=== PATIENT | male | born 1930 | race Caucasian/White ===

== ENCOUNTER → 2016-10-09 | Outpatient (CLI) | payer MEDICARE ==
--- NOTE | 2016-10-09 07:40 | US ---
EXAMINATION TYPE: US duplex aorta DATE OF EXAM: 10/09/2016 COMPARISON: CT abdomen pelvis 04/29/2012 CLINICAL HISTORY: I10.0 ATHEROSCLEROSIS OF AORTA. Atherosclerosis of aorta. EXAM MEASUREMENTS: Abdominal Aorta: Proximal: 2.1 x 2.2cm Mid: 2.0 x 1.9cm Distal: 1.8 x 1.8cm Right Iliac: 1.1 x 1.3cm Left Iliac: 1.1 x 1.3cm Atherosclerotic changes, aorta partially obscured by overlying midline bowel gas. IMPRESSION: 1. Normal aortic ultrasound.
== END | disposition home or self-care (01) ==
LOC: RADUSWWP 06:49
PROVIDERS: ATTEND Family Medicine
DX: I70.0 Atherosclerosis of aorta (principal)
CPT/HCPCS: 93979

== ENCOUNTER 2018-02-06 17:15 | Emergency (ER) | payer MEDICARE ==
[2018-02-06 18:01] VITALS: TEMP 98.2
[2018-02-06] MEDS ORDERED: SODIUM CHLORIDE 0.9% 1,000 ML IV STA (18:33)
--- NOTE | 2018-02-06 18:35 | ED ---
Back Pain HPI - General Source: patient, RN notes reviewed, old records reviewed Limitations: no limitations <Cate Rehman - Last Filed: 02/06/18 21:23> <Savanah Kate - Last Filed: 02/08/18 04:23> - General Chief Complaint: Back Pain/Injury Stated Complaint: back pain, diarrhea Time Seen by Provider: 02/06/18 18:18 - History of Present Illness Initial Comments: Patient is a pleasant 87-year-old male, who presents emergency room today with chief complaint of back pain. He reports his been suffering from back pain intermittently for the past few weeks. He reports that they have had x-rays done but no results. Patient states that yesterday after eating out, he had episodes of severe diarrhea. He states he feels somewhat tired and fatigued and dry. He reports that his urine has been quite dark. He states that he's had history of kidney stones and kidney issues in the past. Patient reports that the pain seems to be worse with certain movements over the left flank. He has history of coronary artery disease, hypertension. (Cate Rehman) - Related Data Home Medications Medication Instructions Recorded Confirmed Aspirin [[place] Aspirin EC] 81 mg PO DAILY 02/06/18 02/06/18 Atorvastatin [Lipitor] 20 mg PO DAILY 02/06/18 02/06/18 Carvedilol [Coreg] 3.125 mg PO BID 02/06/18 02/06/18 Colchicine 1.2 mg PO DIRECTED 02/06/18 02/06/18 Pantoprazole Sodium [Protonix] 40 mg PO DAILY 02/06/18 02/06/18 Verapamil HCl [Verapamil ER] 240 mg PO DAILY 02/06/18 02/06/18 busPIRone HCL 15 mg PO BID 02/06/18 02/06/18 levETIRAcetam [Keppra] 500 mg PO BID 02/06/18 02/06/18 Previous Rx's Medication Instructions Recorded Cyclobenzaprine [Flexeril] 10 mg PO TID #10 tab 02/06/18 Allergies Allergy/AdvReac Type Severity Reaction Status Date / Time No Known Allergies Allergy Verified 02/06/18 19:50 Review of Systems ROS Other: All systems not noted in ROS Statement are negative. <Cate Rehman - Last Filed: 02/06/18 21:23> ROS Other: All systems not noted in ROS Statement are negative. <Savanah Kate P - Last Filed: 02/08/18 04:23> ROS Statement: Those systems with pertinent positive or pertinent negative responses have been documented in the HPI. Past Medical History Past Medical History: Coronary Artery Disease (CAD), COPD, Diabetes Mellitus, Hyperlipidemia, Hypertension History of Any Multi-Drug Resistant Organisms: None Reported Past Surgical History: Coronary Bypass/CABG, Pacemaker Past Psychological History: No Psychological Hx Reported Smoking Status: Never smoker Past Alcohol Use History: None Reported Past Drug Use History: None Reported <Cate Rehman - Last Filed: 02/06/18 21:23> General Exam Limitations: no limitations General appearance: alert, in no apparent distress Head exam: Present: atraumatic, normocephalic, normal inspection Eye exam: Present: normal appearance, PERRL, EOMI. Absent: scleral icterus, conjunctival injection, periorbital swelling ENT exam: Present: normal exam, mucous membranes moist Neck exam: Present: normal inspection. Absent: tenderness, meningismus, lymphadenopathy Respiratory exam: Present: normal lung sounds bilaterally. Absent: respiratory distress, wheezes, rales, rhonchi, stridor Cardiovascular Exam: Present: regular rate, normal rhythm, normal heart sounds. Absent: systolic murmur, diastolic murmur, rubs, gallop, clicks GI/Abdominal exam: Present: soft, normal bowel sounds. Absent: distended, tenderness, guarding, rebound, rigid Extremities exam: Present: normal inspection, full ROM, normal capillary refill. Absent: tenderness, pedal edema, joint swelling, calf tenderness Back exam: Present: normal inspection, tenderness (She has tenderness over the lumbar spine and ASIS.) Neurological exam: Present: alert, oriented X3, CN II-XII intact Psychiatric exam: Present: normal affect, normal mood <Cate Rehman - Last Filed: 02/06/18 21:23> <Savanah Kate - Last Filed: 02/08/18 04:23> - General Exam Comments Initial Comments: 87-year-old male. Alert and oriented. Patient appears in no acute distress. ( Cate Rehman) Vital Signs 02/06/18 02/06/18 17:57 20:01 Temperature 98.2 F Pulse Rate 74 79 Respiratory 18 16 Rate Blood Pressure 148/78 174/81 O2 Sat by Pulse 96 96 Oximetry Medical Decision Making - Lab Data Result diagrams: 02/06/18 18:40 02/06/18 18:40 - Radiology Data Radiology results: report reviewed <Cate Rehman - Last Filed: 02/06/18 21:23> - Lab Data Result diagrams: 02/06/18 18:40 02/06/18 18:40 <Savanah Kate - Last Filed: 02/08/18 04:23> - Medical Decision Making 79-year-old male with periodic mid lower back pain worse with movement. Patient tender over the lumbar spine ASIS. This time patient's labs. Unremarkable. Urinalysis is clear. Gait infection slightly decreased that this is stable. KUB did show some evidence of bilateral effusion however Patient has history of seizures. No clinical picture of acute CHF. Is no dyspnea no shortness breath or chest pain. No lower external swelling. 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 Discussed at this time the patient's pain is also skeletal nature. He was given one Welch and reports relief of his pain. Patient will be discharged at this time with close follow-up with primary care provider. (Cate Rehman) I was available for consultation in the emergency department. The history and physical exam were done by the midlevel provider. I was consulted for this patient's care. I reviewed the case with the midlevel provider and based on their presentation of the patient, I agree with the assessment, medical decision making and plan of care as documented. Chart was dictated using Pops dictation software. Attempts were made to correct any dictation errors however some typographical errors may persist. (Savanah Kate) - Lab Data Lab Results 02/06/18 02/06/18 02/06/18 Range/Units 18:40 18:40 18:40 WBC 5.5 (3.8-10.6) k/uL RBC 3.80 L (4.30-5.90) m/uL Hgb 11.7 L (13.0-17.5) gm/dL Hct 37.8 L (39.0-53.0) % MCV 99.7 (80.0-100.0) fL MCH 30.8 (25.0-35.0) pg MCHC 30.9 L (31.0-37.0) g/dL RDW 14.1 (11.5-15.5) % Plt Count 103 L (150-450) k/uL Neutrophils % 52 % Lymphocytes % 30 % Monocytes % 9 % Eosinophils % 3 % Basophils % 0 % Neutrophils # 2.9 (1.3-7.7) k/uL Lymphocytes # 1.7 (1.0-4.8) k/uL Monocytes # 0.5 (0-1.0) k/uL Eosinophils # 0.2 (0-0.7) k/uL Basophils # 0.0 (0-0.2) k/uL PT 10.8 (9.0-12.0) sec INR 1.0 (<1.2) APTT 23.0 (22.0-30.0) sec Sodium 142 (137-145) mmol/L Potassium 4.6 (3.5-5.1) mmol/L Chloride 110 H (98-107) mmol/L Carbon Dioxide 24 (22-30) mmol/L Anion Gap 8 mmol/L BUN 21 H (9-20) mg/dL Creatinine 1.50 H (0.66-1.25) mg/dL Est GFR (CKD-EPI)AfAm 48 (>60 ml/min/1.73 sqM) Est GFR (CKD-EPI)NonAf 41 (>60 ml/min/1.73 sqM) Glucose 117 H (74-99) mg/dL Calcium 8.7 (8.4-10.2) mg/dL Total Bilirubin 0.7 (0.2-1.3) mg/dL AST 34 (17-59) U/L ALT 30 (21-72) U/L Alkaline Phosphatase 112 (38-126) U/L Total Protein 6.3 (6.3-8.2) g/dL Albumin 3.2 L (3.5-5.0) g/dL Amylase 38 (30-110) U/L Lipase 73 (23-300) U/L Urine Color Urine Appearance (Clear) Urine pH (5.0-8.0) Ur Specific [place] (1.001-1.035) Urine Protein (Negative) Urine Glucose (UA) (Negative) Urine Ketones (Negative) Urine Blood (Negative) Urine Nitrite (Negative) Urine Bilirubin (Negative) Urine Urobilinogen (<2.0) mg/dL Ur Leukocyte Esterase (Negative) 02/06/18 Range/Units 19:59 WBC (3.8-10.6) k/uL RBC (4.30-5.90) m/uL Hgb (13.0-17.5) gm/dL Hct (39.0-53.0) % MCV (80.0-100.0) fL MCH (25.0-35.0) pg MCHC (31.0-37.0) g/dL RDW (11.5-15.5) % Plt Count (150-450) k/uL Neutrophils % % Lymphocytes % % Monocytes % % Eosinophils % % Basophils % % Neutrophils # (1.3-7.7) k/uL Lymphocytes # (1.0-4.8) k/uL Monocytes # (0-1.0) k/uL Eosinophils # (0-0.7) k/uL Basophils # (0-0.2) k/uL PT (9.0-12.0) sec INR (<1.2) APTT (22.0-30.0) sec Sodium (137-145) mmol/L Potassium (3.5-5.1) mmol/L Chloride (98-107) mmol/L Carbon Dioxide (22-30) mmol/L Anion Gap mmol/L BUN (9-20) mg/dL Creatinine (0.66-1.25) mg/dL Est GFR (CKD-EPI)AfAm (>60 ml/min/1.73 sqM) Est GFR (CKD-EPI)NonAf (>60 ml/min/1.73 sqM) Glucose (74-99) mg/dL Calcium (8.4-10.2) mg/dL Total Bilirubin (0.2-1.3) mg/dL AST (17-59) U/L ALT (21-72) U/L Alkaline Phosphatase (38-126) U/L Total Protein (6.3-8.2) g/dL Albumin (3.5-5.0) g/dL Amylase (30-110) U/L Lipase (23-300) U/L Urine Color Yellow Urine Appearance Clear (Clear) Urine pH 5.0 (5.0-8.0) Ur Specific [place] 1.013 (1.001-1.035) Urine Protein Negative (Negative) Urine Glucose (UA) Negative (Negative) Urine Ketones Negative (Negative) Urine Blood Negative (Negative) Urine Nitrite Negative (Negative) Urine Bilirubin Negative (Negative) Urine Urobilinogen <2.0 (<2.0) mg/dL Ur Leukocyte Esterase Negative (Negative) - Radiology Data Unexamined. Bilateral pleural effusions basilar pulmonary infiltrates and atelectasis. (Cate Rehman) Disposition Is patient prescribed a controlled substance at d/c from ED?: No Time of Disposition: 21:22 <Cate Rehman - Last Filed: 02/06/18 21:23> <Savanah Kate - Last Filed: 02/08/18 04:23> Clinical Impression: Back spasm Disposition: HOME SELF-CARE Condition: Good Instructions: Acute Low Back Pain (ED) Additional Instructions: Patient has felt with primary care physician. Return to emergency department if any alarming signs or symptoms occur. Prescriptions: Cyclobenzaprine [Flexeril] 10 mg PO TID #10 tab Referrals: Ishaan Mata MD [Primary Care Provider] - 1-2 days
[2018-02-06 19:05] LABS: Basophils % (A) 0 %; Eosinophils # (A) 0.2 k/uL (0-0.7); Eosinophils % (A) 3 %; HCT 37.8 % (39.0-53.0); HGB 11.7 gm/dL (13.0-17.5); Lymphocytes # (A) 1.7 k/uL (1.0-4.8); Lymphocytes % (A) 30 %; MCH 30.8 pg (25.0-35.0); MCHC 30.9 g/dL (31.0-37.0); MCV 99.7 fL (80.0-100.0); Mean Platelet Volume 10.8; Monocytes # (A) 0.5 k/uL (0-1.0); Monocytes % (A) 9 %; Neutrophils # (A) 2.9 k/uL (1.3-7.7); Neutrophils % (A) 52 %; Platelet Count 103 k/uL (150-450); RDW 14.1 % (11.5-15.5); WBC 5.5 k/uL (3.8-10.6)
--- NOTE | 2018-02-06 19:09 | XR ---
EXAMINATION TYPE: XR KUB DATE OF EXAM: 02/06/2018 COMPARISON: NONE HISTORY: Abdominal pain TECHNIQUE: 2 views FINDINGS: There is no sign of intestinal obstruction or pneumoperitoneum. Fecal pattern is normal. Th ere is blunting of costophrenic angles. There are no pathologic calcifications over the kidneys. IMPRESSION: Nonacute abdomen. Bilateral pleural effusions and basilar pulmonary infiltrates and atele ctasis.
[2018-02-06 19:15] LABS: Prothrombin Time 10.8 sec (9.0-12.0)
[2018-02-06 19:19] LABS: Albumin 3.2 g/dL (3.5-5.0); Calcium 8.7 mg/dL (8.4-10.2); Potassium 4.6 mmol/L (3.5-5.1); Total Bilirubin 0.7 mg/dL (0.2-1.3); Total Protein 6.3 g/dL (6.3-8.2)
[2018-02-06] MEDS ORDERED: HYDROcodone/APAP 5-325MG 1 EACH TAB PO STA (19:42)
[2018-02-06 20:09] VITALS: BP 174/81; PULSE 79; RESP 16
[2018-02-06 20:12] LABS: Appearance,Urine Clear (Clear); Bilirubin,Urine Negative (Negative); Blood,Urine Negative (Negative); Color,Urine Yellow; Glucose,Urine (UA) Negative (Negative); Ketones,Urine Negative (Negative); Leukocyte Esterase,Urine Negative (Negative); Nitrite,Urine Negative (Negative); Protein,Urine Negative (Negative); Specific Gravity,Urine 1.013 (1.001-1.035); Urobilinogen,Urine <2.0 mg/dL (<2.0)
[2018-02-06] MEDS ORDERED: ACET/COD 300 MG/30 MG STARTER PACK 6 TAB BTL PO STA (21:22)
== END 2018-02-06 21:34 | disposition home or self-care (01) ==
LOC: EC 17:15
DX: M62.830 Muscle spasm of back (principal); R53.83 Other fatigue; R19.7 Diarrhea, unspecified; I25.10 Atherosclerotic heart disease of native coronary artery without angina pectoris; J44.9 Chronic obstructive pulmonary disease, unspecified; E78.5 Hyperlipidemia, unspecified; I10 Essential (primary) hypertension; Z79.82 Long term (current) use of aspirin; Z79.899 Other long term (current) drug therapy; Z95.5 Presence of coronary angioplasty implant and graft; Z95.0 Presence of cardiac pacemaker
CPT/HCPCS: 36415; 74018; 80053; 81003; 82150; 83690; 85025; 85610; 85730; 96360; 99284

== ENCOUNTER → 2018-04-16 | Outpatient (CLI) | payer MEDICARE ==
--- NOTE | 2018-04-16 14:20 | CT ---
EXAMINATION TYPE: CT brain wo con DATE OF EXAM: 04/16/2018 COMPARISON: None HISTORY: 87-year-old male with syncope and collapse TECHNIQUE: Examination was done in axial plane without intravenous contrast. Coronal and sagittal r econstructions performed. CT DLP: 1147 mGycm Automated exposure control for dose reduction was used. FINDINGS: There is no evidence of acute intracranial hemorrhage, acute ischemic changes, mass, mass-effect, or extra-axial fluid collection. There is no effacement of cerebral sulci or basal subarachnoid cister ns. There is no hydrocephalus. There is no midline shift. Page-white matter distinction is preserv ed. Small amount of trapped fluid in the inferior most left mastoid air cells. Prominent cerumen in the b ilateral external auditory canals. Visualized paranasal sinuses are well pneumatized. Orbits and glob es appear intact. Mild generalized supratentorial volume loss without discrete calcifications in the carotid siphons. T here is confluent white matter hypodensity in both cerebral hemispheres. IMPRESSION: 1. Severe confluent changes of chronic small vessel ischemic disease. Mild generalized atrophy. No ac maranda intracranial abnormality seen. 2. Small amount of trapped fluid in the inferior most left mastoid air cells probably incidental. Cor relate for any mastoid pain to exclude mastoiditis.
== END | disposition home or self-care (01) ==
LOC: RADCTMAIN 13:06
PROVIDERS: ATTEND Nurse Practitioner Acute Care
DX: I67.82 Cerebral ischemia (principal); G31.9 Degenerative disease of nervous system, unspecified
CPT/HCPCS: 70450

== ENCOUNTER 2018-04-17 21:48 | Inpatient (IN) | payer MEDICARE ==
[2018-04-17] MEDS ORDERED: SODIUM CHLORIDE 0.9% 500 ML 500 ML IV ONE (22:20)
--- NOTE | 2018-04-17 22:37 | ED ---
Abdominal Pain HPI - General Chief Complaint: Abdominal Pain Stated Complaint: abd pain Time Seen by Provider: 04/17/18 21:58 Source: patient, EMS Mode of arrival: EMS Limitations: no limitations - History of Present Illness Initial Comments: This is an 87-year-old male with a history of CAD, pacemaker who presents emergency department for weakness, fatigue, falls. The patient states that he' s had multiple episodes of weakness recently and also had a fall with a subdural hematoma. Today he was eating dinner and then developed some generalized abdominal discomfort. He stated that he felt like he needed to urinate and tried to walk to the bathroom. He states that he lost his balance and fell down. He states that he may have hit his head however does not complain of any headache currently. No neck pain. He states that he was very weak and unable to get up and thus he called an embolus for assistance. The patient states he just feels weak all over. It is not focal to one side versus the other. He does admit to some mid abdominal discomfort that seems to wax and wane in intensity. He states he has some nausea as well however no vomiting. No diarrhea. He states that his last good bowel movement was 2 days ago. He did have a small bowel movement earlier today. No blood in the stool was noted. Denies any chest pain or shortness of breath. No fevers or chills. No other acute complaints. - Related Data Home Medications Medication Instructions Recorded Confirmed Aspirin [[place] Aspirin EC] 81 mg PO DAILY 02/06/18 04/17/18 Atorvastatin [Lipitor] 20 mg PO DAILY 02/06/18 04/17/18 Carvedilol [Coreg] 3.125 mg PO BID 02/06/18 04/17/18 Colchicine 1.2 mg PO DIRECTED 02/06/18 04/17/18 Pantoprazole Sodium [Protonix] 40 mg PO DAILY 02/06/18 04/17/18 Verapamil HCl [Verapamil ER] 240 mg PO DAILY 02/06/18 04/17/18 busPIRone HCL 15 mg PO BID 02/06/18 04/17/18 levETIRAcetam [Keppra] 500 mg PO BID 02/06/18 04/17/18 Sulfamethoxazole/Trimethoprim 1 tab PO BID 04/17/18 04/17/18 [Bactrim SS 400-80 mg] Allergies Allergy/AdvReac Type Severity Reaction Status Date / Time No Known Allergies Allergy Verified 04/17/18 22:29 Review of Systems ROS Statement: Those systems with pertinent positive or pertinent negative responses have been documented in the HPI. ROS Other: All systems not noted in ROS Statement are negative. Past Medical History Past Medical History: Coronary Artery Disease (CAD), COPD, Diabetes Mellitus, Hyperlipidemia, Hypertension History of Any Multi-Drug Resistant Organisms: None Reported Past Surgical History: Coronary Bypass/CABG, Pacemaker Past Psychological History: No Psychological Hx Reported Smoking Status: Never smoker Past Alcohol Use History: None Reported Past Drug Use History: None Reported General Exam - General Exam Comments Initial Comments: Constitutional: Awake alert Appears comfortable Head: Normocephalic atraumatic , no signs of head trauma Eyes: no conjunctival injection No scleral icterus EOMI Neck: No JVD Supple, no midline tenderness Heart: Regular rate rhythm normal S1-S2 no murmurs Lungs: Clear to auscultation bilaterally No wheezing No rales Abdomen: Soft nondistended tenderness in the right and left lower quadrants without rebound or guarding Extremities: Non edematous DP pulses intact Radial pulses intact Neuro: A&Ox3, 5 out of 5 strength in upper and lower [place] bilaterally, sensation intact in all extremities to light touch, no ataxia noted, crowner 2 through 12 are grossly intact No focal neurologic deficits Psych: Appropriate mood and affect Limitations: no limitations Course Vital Signs 04/17/18 04/17/18 04/18/18 21:54 23:30 00:49 Temperature 97.0 F L Pulse Rate 60 80 60 Respiratory 14 18 18 Rate Blood Pressure 107/59 113/66 91/48 O2 Sat by Pulse 97 98 94 L Oximetry - Reevaluation(s) Reevaluation #1: 04/18/18 00:42 EKG read at 2305 shows a paced rhythm with a rate of 60. There is no abnormal ST segment changes or T-wave inversions. QTC is 514. Other intervals normal. No ectopy. Medical Decision Making - Medical Decision Making This is an 87-year-old male who presents emergency department for generalized weakness, fall, abdominal discomfort. CT did reveal a gallstone however no other emergent process. The patient did have findings of acute kidney injury and severe hyperkalemia. There did not appear to be any EKG changes however. The patient was given calcium, insulin, D50, and Kayexalate. The patient was kept on a monitor car operator as well. The patient did have intermittent episodes of nausea and vomiting on the emergency department. He does have some mild transaminitis and thus an ultrasound of the abdomen was ordered. The patient also was found to have a non-anion gap metabolic acidosis. ABG was drawn for evaluation. PH was found to be 7.23. Patient was started on gentle IV fluids for his acute kidney injury. The patient was recently placed on Bactrim for a foot infection which could've potentially have precipitated his acute kidney injury however the patient needs further evaluation in the hospital. The patient will be placed in ICU due to his severe hyperkalemia. Dr. Mata and Dr. Adkins were made aware of the patient and agree with management at this time. The patient family were updated and agrees well. - Lab Data Result diagrams: 04/17/18 22:47 04/17/18 22:47 Lab Results 04/17/18 04/17/18 04/17/18 Range/Units 22:47 22:47 22:47 WBC 5.2 (3.8-10.6) k/uL RBC 3.94 L (4.30-5.90) m/uL Hgb 12.3 L (13.0-17.5) gm/dL Hct 39.6 (39.0-53.0) % MCV 100.6 H (80.0-100.0) fL MCH 31.1 (25.0-35.0) pg MCHC 30.9 L (31.0-37.0) g/dL RDW 15.0 (11.5-15.5) % Plt Count 70 L (150-450) k/uL Neutrophils % 66 % Lymphocytes % 24 % Monocytes % 7 % Eosinophils % 1 % Basophils % 0 % Neutrophils # 3.4 (1.3-7.7) k/uL Lymphocytes # 1.2 (1.0-4.8) k/uL Monocytes # 0.4 (0-1.0) k/uL Eosinophils # 0.1 (0-0.7) k/uL Basophils # 0.0 (0-0.2) k/uL Manual Slide Review Performed Large Platelets Present Hypochromasia Moderate Poikilocytosis (manual Present Macrocytosis Slight Crenated Cell Present PT (9.0-12.0) sec INR (<1.2) APTT (22.0-30.0) sec Sodium 139 (137-145) mmol/L Potassium 8.6 H* (3.5-5.1) mmol/L Chloride 111 H (98-107) mmol/L Carbon Dioxide 17 L (22-30) mmol/L Anion Gap 11 mmol/L BUN 25 H (9-20) mg/dL Creatinine 2.79 H (0.66-1.25) mg/dL Est GFR (CKD-EPI)AfAm 22 (>60 ml/min/1.73 sqM) Est GFR (CKD-EPI)NonAf 19 (>60 ml/min/1.73 sqM) Glucose 174 H (74-99) mg/dL Calcium 9.1 (8.4-10.2) mg/dL Magnesium 2.0 (1.6-2.3) mg/dL Total Bilirubin 1.5 H (0.2-1.3) mg/dL AST 173 H (17-59) U/L ALT 89 H (21-72) U/L Alkaline Phosphatase 126 (38-126) U/L CK-MB (CK-2) 1.1 (0.0-2.4) ng/mL Troponin I 0.013 (0.000-0.034) ng/mL NT-Pro-B Natriuret Pep pg/mL Total Protein 6.6 (6.3-8.2) g/dL Albumin 3.4 L (3.5-5.0) g/dL Amylase 39 (30-110) U/L Lipase 96 (23-300) U/L 04/17/18 04/17/18 Range/Units 22:47 22:47 WBC (3.8-10.6) k/uL RBC (4.30-5.90) m/uL Hgb (13.0-17.5) gm/dL Hct (39.0-53.0) % MCV (80.0-100.0) fL MCH (25.0-35.0) pg MCHC (31.0-37.0) g/dL RDW (11.5-15.5) % Plt Count (150-450) k/uL Neutrophils % % Lymphocytes % % Monocytes % % Eosinophils % % Basophils % % Neutrophils # (1.3-7.7) k/uL Lymphocytes # (1.0-4.8) k/uL Monocytes # (0-1.0) k/uL Eosinophils # (0-0.7) k/uL Basophils # (0-0.2) k/uL Manual Slide Review Large Platelets Hypochromasia Poikilocytosis (manual Macrocytosis Crenated Cell PT 12.5 H (9.0-12.0) sec INR 1.2 H (<1.2) APTT 23.2 (22.0-30.0) sec Sodium (137-145) mmol/L Potassium (3.5-5.1) mmol/L Chloride (98-107) mmol/L Carbon Dioxide (22-30) mmol/L Anion Gap mmol/L BUN (9-20) mg/dL Creatinine (0.66-1.25) mg/dL Est GFR (CKD-EPI)AfAm (>60 ml/min/1.73 sqM) Est GFR (CKD-EPI)NonAf (>60 ml/min/1.73 sqM) Glucose (74-99) mg/dL Calcium (8.4-10.2) mg/dL Magnesium (1.6-2.3) mg/dL Total Bilirubin (0.2-1.3) mg/dL AST (17-59) U/L ALT (21-72) U/L Alkaline Phosphatase (38-126) U/L CK-MB (CK-2) (0.0-2.4) ng/mL Troponin I (0.000-0.034) ng/mL NT-Pro-B Natriuret Pep 9830 pg/mL Total Protein (6.3-8.2) g/dL Albumin (3.5-5.0) g/dL Amylase (30-110) U/L Lipase (23-300) U/L Disposition Clinical Impression: Metabolic acidosis, Hyperkalemia, KATHYA (acute kidney injury), Cholelithiasis Disposition: ADMITTED IP TO THIS [facility] Condition: Critical Referrals: Ishaan Mata MD [Primary Care Provider] - 1-2 days
[2018-04-17] MEDS ORDERED: DICYCLOMINE 10 MG/ML 2 ML AMP IM STA (22:53)
[2018-04-17] MEDS ORDERED: ONDANSETRON 4 MG/2 ML VIAL IVP STA (22:53)
[2018-04-17 22:58] LABS: Basophils % (A) 0 %; Eosinophils # (A) 0.1 k/uL (0-0.7); Eosinophils % (A) 1 %; HCT 39.6 % (39.0-53.0); HGB 12.3 gm/dL (13.0-17.5); Hypochromasia Moderate; Lymphocytes # (A) 1.2 k/uL (1.0-4.8); Lymphocytes % (A) 24 %; MCH 31.1 pg (25.0-35.0); MCHC 30.9 g/dL (31.0-37.0); MCV 100.6 fL (80.0-100.0); Macrocytosis Slight; Mean Platelet Volume 10.6; Monocytes # (A) 0.4 k/uL (0-1.0); Monocytes % (A) 7 %; Neutrophils # (A) 3.4 k/uL (1.3-7.7); Neutrophils % (A) 66 %; RBC 3.94 m/uL (4.30-5.90); WBC 5.2 k/uL (3.8-10.6)
[2018-04-17 23:08] LABS: INR 1.2 (<1.2); Partial Thromboplastin Time 23.2 sec (22.0-30.0); Prothrombin Time 12.5 sec (9.0-12.0)
[2018-04-17 23:09] LABS: Albumin 3.4 g/dL (3.5-5.0); Calcium 9.1 mg/dL (8.4-10.2); Total Bilirubin 1.5 mg/dL (0.2-1.3); Total Protein 6.6 g/dL (6.3-8.2)
[2018-04-17 23:22] LABS: Potassium 8.6 mmol/L (3.5-5.1)
[2018-04-17 23:26] LABS: Crenated RBC Present; Poikilocytosis (M) Present
[2018-04-17 23:27] LABS: Large Platelets Present; Platelet Count 70 k/uL (150-450)
[2018-04-17 23:29] LABS: Creatine Kinase MB 1.1 ng/mL (0.0-2.4); Troponin I 0.013 ng/mL (0.000-0.034)
--- NOTE | 2018-04-18 00:28 | CT ---
EXAM: CT Abdomen and Pelvis Without Intravenous Contrast CLINICAL HISTORY: ITS.REASON CT Reason: Pain TECHNIQUE: Axial computed tomography images of the abdomen and pelvis without intravenous contrast. CTDI is 9.2 mGy and DLP is a 49 mGy-cm. This CT exam was performed using one or more of the following dose reduction techniques: automated exposure control, adjustment of the mA and/or kV according to patient size, and/or use of iterative reconstruction technique. COMPARISON: No relevant prior studies available. FINDINGS: Lung bases: See below. Pleural space: Bilateral pleural effusions with atelectasis. ABDOMEN: Liver: No suspicious mass. Gallbladder and bile ducts: Cholelithiasis. Pancreas: Unremarkable. No ductal dilation. Spleen: Unremarkable. No splenomegaly. Adrenals: Unremarkable. No mass. Kidneys and ureters: Possible nonobstructing left renal stone. Stomach and bowel: No obstruction. No mucosal thickening. Colonic diverticulosis without inflammation. PELVIS: Appendix: No findings to suggest acute appendicitis. Bladder: Unremarkable. No stones. Reproductive: Unremarkable as visualized. ABDOMEN and PELVIS: Intraperitoneal space: Mild free fluid in the pelvis. No free air. Bones/joints: No acute fracture. No dislocation. Soft tissues: Unremarkable. Vasculature: No abdominal aortic aneurysm. Lymph nodes: Unremarkable. No enlarged lymph nodes. IMPRESSION: 1. Bilateral pleural effusions with atelectasis. 2. Cholelithiasis. 3. Mild free fluid in the pelvis. 4. Possible nonobstructing left renal stone.
--- NOTE | 2018-04-18 00:29 | CT ---
EXAM: CT Head Without Intravenous Contrast CLINICAL HISTORY: ITS.REASON CT Reason: Fall TECHNIQUE: Axial computed tomography images of the head/brain without intravenous contrast. CTDI is 49 mGy and DLP is 1129 mGy-cm. This CT exam was performed using one or more of the following dose reduction techniques: automated exposure control, adjustment of the mA and/or kV according to patient size, and/or use of iterative reconstruction technique. COMPARISON: No relevant prior studies available. FINDINGS: Brain: No hemorrhage. No edema. Ventricles: Unremarkable. No ventriculomegaly. Bones/joints: No acute fracture. Soft tissues: Unremarkable. Sinuses: No fluid levels. Mastoid air cells: Unremarkable as visualized. No mastoid effusion. IMPRESSION: No acute intracranial findings
[2018-04-18] MEDS ORDERED: DEXTROSE 50%-WATER 50 ML SYRINGE IVP STA ×2 (00:39→08:52)
[2018-04-18] MEDS ORDERED: INSULIN REGULAR 100 UNIT/ML VIAL IV ONE ×2 (00:39→08:51)
[2018-04-18] MEDS ORDERED: CALCIUM GLUCONATE 1 GM in SODIUM CHLORIDE 0.9% 100 ML IVPB ONE (01:00)
[2018-04-18] MEDS ORDERED: SODIUM POLYSTYRENE SULFONATE 15 GM/60 ML BOTTLE PO STA ×3 (01:06→09:13)
[2018-04-18] MEDS ORDERED: NALOXONE 0.4 MG/ML 1 ML VIAL IV PRN (01:09)
[2018-04-18] MEDS ORDERED: ACETAMINOPHEN TAB 325 MG TAB PO PRN (01:09)
[2018-04-18 01:11] LABS: ABG Base Excess -12.2 mmol/L; ABG HCO3 15 mmol/L (21-25); ABG Oxygen Saturation 93.3 % (94-97); ABG PCO2 36 mmHg (35-45); ABG PH 7.24 (7.35-7.45); ABG PO2 80 mmHg (83-108); ABG TCO2 16 mmol/L (19-24)
--- NOTE | 2018-04-18 02:08 | US ---
EXAM: US Abdomen Complete CLINICAL HISTORY: ITS.REASON US Reason: Elevated LFTs, Abd pain TECHNIQUE: Real-time ultrasound of the abdomen (complete) with image documentation. COMPARISON: No relevant prior studies available. FINDINGS: Cholelithiasis with possible wall thickening at 7 mm. The gallbladder is not distended, limiting evaluation, and lower probability for cholecystitis. No pericholecystic fluid. No CBD dilatation. No solid organ abnormalities. Right pleural effusion. IMPRESSION: Cholelithiasis. Cannot exclude cholecystitis.
[2018-04-18] MEDS: SODIUM CHLORIDE 0.9% 1,000 ML IV SCH ×2 (02:15→15:38)
[2018-04-18 02:23] LABS: Glucose,Whole Blood 181 mg/dL (75-99)
[2018-04-18] MEDS: metroNIDAZOLE-NS PMX 500 MG in SALINE 1 100ML.BAG IVPB SCH ×3 (03:03→18:19)
[2018-04-18] MEDS ORDERED: SODIUM CHLORIDE 0.9% 1,000 ML IV ONE (04:39)
[2018-04-18 05:46] LABS: Glucose,Whole Blood 115 mg/dL (75-99)
[2018-04-18] MEDS: INSULIN ASPART (NovoLOG) 100 UNIT/ML VIAL SQ SCH ×4 (06:26→20:00)
[2018-04-18 06:36] LABS: Appearance,Urine Cloudy (Clear); Bilirubin,Urine 1+ (Negative); Blood,Urine Moderate (Negative); Color,Urine Yellow; Glucose,Urine (UA) Negative (Negative); Ketones,Urine Negative (Negative); Leukocyte Esterase,Urine Trace (Negative); Mucus,Urine Occasional /hpf; Nitrite,Urine Negative (Negative); PH, Urine 5.5 (5.0-8.0); Protein,Urine 1+ (Negative); RBC,Urine 30 /hpf (0-5); Specific Gravity,Urine 1.018 (1.001-1.035); Squamous Epithelial Cell,Urine 1 /hpf (0-4)
[2018-04-18 07:35] LABS: Basophils % (A) 0 %; Eosinophils % (A) 0 %; HCT 37.4 % (39.0-53.0); HGB 11.6 gm/dL (13.0-17.5); Hypochromasia Marked; Lymphocytes # (A) 1.4 k/uL (1.0-4.8); Lymphocytes % (A) 19 %; MCH 31.6 pg (25.0-35.0); MCHC 31.1 g/dL (31.0-37.0); MCV 101.6 fL (80.0-100.0); Macrocytosis Slight; Mean Platelet Volume 12.3; Monocytes # (A) 0.7 k/uL (0-1.0); Monocytes % (A) 9 %; Neutrophils # (A) 5.1 k/uL (1.3-7.7); Neutrophils % (A) 68 %; RBC 3.68 m/uL (4.30-5.90); RDW 14.5 % (11.5-15.5); WBC 7.5 k/uL (3.8-10.6)
[2018-04-18 07:38] LABS: Platelet Count 53 k/uL (150-450)
[2018-04-18 07:55] LABS: Calcium 8.9 mg/dL (8.4-10.2); Magnesium 1.9 mg/dL (1.6-2.3); Phosphorus 4.4 mg/dL (2.5-4.5)
[2018-04-18 08:00] LABS: Potassium 6.5 mmol/L (3.5-5.1)
[2018-04-18] MEDS: busPIRone HCl 5 MG TAB PO SCH ×2 (09:07→20:13)
[2018-04-18] MEDS: ATORVASTATIN 20 MG TAB PO SCH (09:08)
[2018-04-18] MEDS: HEPARIN SODIUM,PORCINE 5,000 UNIT/ML 1 ML VIAL SQ SCH ×3 (09:09→23:13)
[2018-04-18] MEDS: PANTOPRAZOLE 40 MG/10 ML VIAL IV SCH (09:09)
[2018-04-18] MEDS: CARVEDILOL 3.125 MG TAB PO SCH ×2 (09:09→20:14)
[2018-04-18] MEDS: levETIRAcetam 500 MG TAB PO SCH ×2 (09:09→20:15)
[2018-04-18] MEDS: ASPIRIN 81 MG PO SCH (09:09)
[2018-04-18] MEDS ORDERED: SODIUM BICARB 8.4% 50 ML SYR (1 MEQ/ML) IV ONE ×2 (09:13→09:37)
--- NOTE | 2018-04-18 09:59 | P.CNPUL ---
<Eulalia Best - Last Filed: 04/18/18 09:16> History of Present Illness Consult date: 04/18/18 Requesting physician: Ishaan Mata Reason for consult: other Chief complaint: Acute kidney injury, hyperkalemia History of present illness: This 87-year-old white male patient of Dr. Ishaan Mata, with past medical history of diabetes mellitus, hypertension, hyperlipidemia, coronary artery disease with history of three-vessel bypass 33 years ago, permanent pacemaker, chronic kidney disease, who presented to the emergency department on 04/17/2018 per EMS with complaints of weakness, fatigue, falls, nausea, dry heaving, decreased urine output. Patient states his onset of symptoms was 2 days ago, patient felt quite nauseous after eating some tomato soup, then he was up most of the night dry heaving. He had a similar episode after eating some potato salad. He never actually had any vomiting, no diarrhea. He was experiencing some abdominal discomfort he described as tightness across his upper abdomen. Denied any fever or chills, he did have some sweating when he was nauseous. Most recently patient had been treated for ingrown right total infection, and patient states he was treated with 2 rounds of antibiotics with the latest one being Bactrim. In the emergency department patient was found to have potassium of 8.6, B1 of 25, creatinine of 2.79, no leukocytosis, white blood cell count was 5.2, hemoglobin of 12.3, platelet count was 70, urinalysis showed 1+ protein , some red blood cells, trace leuks, and 1+ nitrite. Blood gas was done and showed pO2 of 80, pCO2 of 36, pH of 7.24 this was done on FiO2 of 30%. Patient denied any chest pain or shortness of breath. Renal ultrasound showed no evidence of hydronephrosis. Ultrasound of the aorta showed no abnormalities. Flat plate of the abdomen showed nonacute abdomen, showed bilateral pleural effusions and basilar pulmonary infiltrates and atelectasis. CT of abdomen and pelvis showed bilateral pleural effusions with atelectasis cholelithiasis without ductal dilatation, possible nonobstructing left renal stone. From the chart patient had of history of subdural hematoma, and brain CT was obtained which showed no acute intracranial findings. Amylase lipase were within normal limits, troponin was negative 1, proBNP was 9830. Patient has been normotensive, afebrile. He was given a liter and a half of fluid boluses in the emergency department, he was given calcium gluconate, IV insulin, and 50% dextrose in addition to Kayexalate, and this morning's potassium is 6.5. He is calm and comfortable, resting in bed, denies any distress, no abdominal pain, no nausea or vomiting. Review of Systems All systems: negative Constitutional: Denies chills, Denies fever Eyes: denies blurred vision, denies pain Ears, nose, mouth and throat: Denies headache, Denies sore throat Cardiovascular: Denies chest pain, Denies shortness of breath Respiratory: Denies cough Gastrointestinal: Reports abdominal pain, Reports dyspepsia, Reports nausea, Denies diarrhea, Denies vomiting Genitourinary: Reports urinary retention Musculoskeletal: Denies myalgias Integumentary: Denies pruritus, Denies rash Neurological: Denies numbness, Denies weakness Psychiatric: Denies anxiety, Denies depression Endocrine: Denies fatigue, Denies weight change Past Medical History Past Medical History: Coronary Artery Disease (CAD), COPD, Diabetes Mellitus, Hyperlipidemia, Hypertension History of Any Multi-Drug Resistant Organisms: None Reported Past Surgical History: Coronary Bypass/CABG, Pacemaker Type of Cardiac Device: Permanent Pacemaker Device Placement Date:: 2015 Past Psychological History: No Psychological Hx Reported Smoking Status: Never smoker Past Alcohol Use History: None Reported Past Drug Use History: None Reported Medications and Allergies Home Medications Medication Instructions Recorded Confirmed Type Aspirin [[place] Aspirin EC] 81 mg PO DAILY 02/06/18 04/17/18 History Atorvastatin [Lipitor] 20 mg PO DAILY 02/06/18 04/17/18 History Carvedilol [Coreg] 3.125 mg PO BID 02/06/18 04/17/18 History Colchicine 1.2 mg PO DIRECTED 02/06/18 04/17/18 History Pantoprazole Sodium [Protonix] 40 mg PO DAILY 02/06/18 04/17/18 History Verapamil HCl [Verapamil ER] 240 mg PO DAILY 02/06/18 04/17/18 History busPIRone HCL 15 mg PO BID 02/06/18 04/17/18 History levETIRAcetam [Keppra] 500 mg PO BID 02/06/18 04/17/18 History Sulfamethoxazole/Trimethoprim 1 tab PO BID 04/17/18 04/17/18 History [Bactrim SS 400-80 mg] Allergies Allergy/AdvReac Type Severity Reaction Status Date / Time No Known Allergies Allergy Verified 04/17/18 22:29 Physical Exam Vitals: Vital Signs Temp Pulse Pulse Resp BP BP Pulse Ox 04/18/18 08:00 98.5 F 71 22 162/71 92 L 04/18/18 07:00 71 18 151/73 92 L 04/18/18 06:00 68 18 154/82 95 04/18/18 05:00 64 17 114/59 94 L 04/18/18 04:00 98.1 F 60 18 134/62 95 04/18/18 03:00 62 91 16 134/72 95 04/18/18 02:23 98.1 F 91 18 134/72 04/18/18 02:00 98 F 60 18 110/63 96 04/18/18 01:30 97.9 F 60 18 110/63 92 L 04/18/18 00:49 60 18 91/48 94 L 04/17/18 23:30 80 18 113/66 98 04/17/18 21:54 97.0 F L 60 14 107/59 97 Intake and Output 04/17/18 04/18/18 04/18/18 22:59 06:59 14:59 Intake Total 1525 225 Output Total 60 40 Balance 1465 185 Intake: IV 1525 225 Sodium Chloride 0.9% 1, 375 225 000 ml @ 75 mls/hr IV . [id number] [facility] Rx#:[id number] Sodium Chloride 0.9% 1, 1000 000 ml @ 999 mls/hr IV . Q1H1M [facility] Rx#:[id number] cefTRIAXone 1 gm In 50 Sodium Chloride 0.9% 50 ml @ 100 mls/hr IVPB Q24H [facility] Rx#:[id number] metroNIDAZOLE-NS PMX 500 100 mg In Saline 1 100ml.bag @ 100 mls/hr IVPB Q8H [facility] Rx#:[id number] Output: Urine 60 40 Other: Voiding Method Urinal Weight 78 kg GENERAL EXAM: Alert, active, comfortable in no apparent distress. HEAD: Normocephalic/atraumatic. EYES: Normal reaction of pupils, equal size. Conjunctiva pink, sclera white. NOSE: Clear with pink turbinates. THROAT: No erythema or exudates. NECK: No masses, no JVD, no thyroid enlargement, no adenopathy. CHEST: No chest wall deformity. Symmetrical expansion. LUNGS: Equal air entry with diminished breath sounds at bilateral bases, CVS: Regular rate and rhythm, normal S1 and S2, no gallops, no murmurs, no rubs ABDOMEN: Soft, nontender. No hepatosplenomegaly, normal bowel sounds, no guarding or rigidity. EXTREMITIES: No clubbing, no edema, no cyanosis, 2+ pulses and upper and lower extremities. MUSCULOSKELETAL: Muscle strength and tone normal. Right toenail is covered with a dressing, ears to be ingrown, slightly swollen at the base, tender to touch SPINE: No scoliosis or deformity SKIN: No rashes CENTRAL NERVOUS SYSTEM: Alert and oriented -3. No focal deficits, tone is normal in all 4 extremities. PSYCHIATRIC: Alert and oriented -3. Appropriate affect. Intact judgment and insight. Results - Laboratory Findings CBC and BMP: 04/18/18 07:16 04/18/18 07:16 ABG ABG pH 7.24 (7.35-7.45) L 04/18/18 01:10 ABG pCO2 36 mmHg (35-45) 04/18/18 01:10 ABG pO2 80 mmHg (83-108) L 04/18/18 01:10 ABG O2 Saturation 93.3 % (94-97) L 04/18/18 01:10 PT/INR, D-dimer PT 12.5 sec (9.0-12.0) H 04/17/18 22:47 INR 1.2 (<1.2) H 04/17/18 22:47 Abnormal lab findings: Abnormal Labs 04/17/18 04/17/18 04/17/18 22:47 22:47 22:47 RBC 3.94 L Hgb 12.3 L Hct MCV 100.6 H MCHC 30.9 L Plt Count 70 L PT 12.5 H INR 1.2 H ABG pH ABG pO2 ABG HCO3 ABG Total CO2 ABG O2 Saturation Potassium 8.6 H* Chloride 111 H Carbon Dioxide 17 L BUN 25 H Creatinine 2.79 H Glucose 174 H POC Glucose (mg/dL) Total Bilirubin 1.5 H AST 173 H ALT 89 H Albumin 3.4 L Urine Protein Urine Blood Urine Bilirubin Ur Leukocyte Esterase Urine RBC Urine Mucus 04/18/18 04/18/18 04/18/18 01:10 02:11 03:15 RBC Hgb Hct MCV MCHC Plt Count PT INR ABG pH 7.24 L ABG pO2 80 L ABG HCO3 15 L ABG Total CO2 16 L ABG O2 Saturation 93.3 L Potassium 6.5 H* Chloride Carbon Dioxide BUN Creatinine Glucose POC Glucose (mg/dL) 181 H Total Bilirubin AST ALT Albumin Urine Protein Urine Blood Urine Bilirubin Ur Leukocyte Esterase Urine RBC Urine Mucus 04/18/18 04/18/18 04/18/18 05:34 06:22 07:16 RBC 3.68 L Hgb 11.6 L Hct 37.4 L MCV 101.6 H MCHC Plt Count 53 L PT INR ABG pH ABG pO2 ABG HCO3 ABG Total CO2 ABG O2 Saturation Potassium Chloride Carbon Dioxide BUN Creatinine Glucose POC Glucose (mg/dL) 115 H Total Bilirubin AST ALT Albumin Urine Protein 1+ H Urine Blood Moderate H Urine Bilirubin 1+ H Ur Leukocyte Esterase Trace H Urine RBC 30 H Urine Mucus Occasional H 04/18/18 07:16 RBC Hgb Hct MCV MCHC Plt Count PT INR ABG pH ABG pO2 ABG HCO3 ABG Total CO2 ABG O2 Saturation Potassium 6.5 H* Chloride 114 H Carbon Dioxide 20 L BUN 27 H Creatinine 2.93 H Glucose 118 H POC Glucose (mg/dL) Total Bilirubin AST ALT Albumin Urine Protein Urine Blood Urine Bilirubin Ur Leukocyte Esterase Urine RBC Urine Mucus - Diagnostic Findings Additional studies: Results of the abdomen and bladder ultrasound, abdominal ultrasound, CT of the abdomen and pelvis, KUB x-ray, and ultrasound of the iliac aorta reviewed Assessment and Plan Plan: Assessment: #1. Acute kidney injury likely related to Bactrim and dehydration #2. Hyperkalemia, patient presented with a potassium of 8.6, treated with Kayexalate, D50, IV insulin, and calcium gluconate is now trending down #3. Recent history of right toe infection, and patient was treated with the 2 rounds of antibiotics, Bactrim #4. History of chronic kidney disease, stage III, patient used to follow with nephrology #5. Hypertension #6. Hyperlipidemia #7. Diabetes mellitus #8. Permanent pacemaker #9. History of coronary artery disease status post three-vessel bypass 33 years ago #10. Lifetime nonsmoker, no history of EtOH use Plan: Continue with IV fluids at a rate of 75 ML per hour, this morning's potassium 6.5, patient will get additional 60 g of Kayexalate, we'll give 10 more units of IV insulin, 1 amp of D50, and 2 A of sodium bicarb. Continue with antibiotics for now, GI and DVT prophylaxis, he is awake and alert, his mentation is appropriate, oriented 3. No further nausea, no abdominal pain. Allow clear liquid diet. Patient will remain in the ICU. Consult nephrology service. I performed a history & physical examination of the patient and discussed their management with my nurse practitioner, Eulalia Best. I reviewed the nurse practitioner's note and agree with the documented findings and plan of care. Lung sounds are positive for diminished breath sounds at the bases. The findings and the impression was discussed with the patient. I attest to the documentation by the nurse practitioner. Time with Patient: Greater than 30 <Benedict Adkins - Last Filed: 04/18/18 17:01> Physical Exam Vitals: Vital Signs Temp Pulse Pulse Resp BP BP Pulse Ox 04/18/18 16:00 19 04/18/18 15:00 75 19 150/68 93 L 04/18/18 14:00 75 23 148/66 92 L 04/18/18 13:00 71 23 150/70 94 L 04/18/18 12:00 72 10 L 148/70 92 L 04/18/18 11:00 74 20 151/71 92 L 04/18/18 10:00 75 21 156/74 93 L 04/18/18 09:00 76 10 L 151/73 91 L 04/18/18 08:00 98.5 F 71 22 162/71 92 L 04/18/18 07:00 71 18 151/73 92 L 04/18/18 06:00 68 18 154/82 95 04/18/18 05:00 64 17 114/59 94 L 04/18/18 04:00 98.1 F 60 18 134/62 95 04/18/18 03:00 62 91 16 134/72 95 04/18/18 02:23 98.1 F 91 18 134/72 04/18/18 02:00 98 F 60 18 110/63 96 04/18/18 01:30 97.9 F 60 18 110/63 92 L 04/18/18 00:49 60 18 91/48 94 L 04/17/18 23:30 80 18 113/66 98 04/17/18 21:54 97.0 F L 60 14 107/59 97 Intake and Output 04/18/18 04/18/18 04/18/18 06:59 14:59 22:59 Intake Total 1525 700 150 Output Total 60 196 30 Balance 1465 504 120 Intake: IV 1525 700 150 Sodium Chloride 0.9% 1, 375 600 150 000 ml @ 75 mls/hr IV . [id number] [facility] Rx#:[id number] Sodium Chloride 0.9% 1, 1000 000 ml @ 999 mls/hr IV . Q1H1M [facility] Rx#:[id number] cefTRIAXone 1 gm In 50 Sodium Chloride 0.9% 50 ml @ 100 mls/hr IVPB Q24H [facility] Rx#:[id number] metroNIDAZOLE-NS PMX 500 100 100 mg In Saline 1 100ml.bag @ 100 mls/hr IVPB Q8H [facility] Rx#:[id number] Output: Urine 60 196 30 Other: Voiding Method Urinal Urinal Urinal Results - Laboratory Findings CBC and BMP: 04/18/18 07:16 04/18/18 12:45 ABG ABG pH 7.24 (7.35-7.45) L 04/18/18 01:10 ABG pCO2 36 mmHg (35-45) 04/18/18 01:10 ABG pO2 80 mmHg (83-108) L 04/18/18 01:10 ABG O2 Saturation 93.3 % (94-97) L 04/18/18 01:10 PT/INR, D-dimer PT 12.5 sec (9.0-12.0) H 04/17/18 22:47 INR 1.2 (<1.2) H 04/17/18 22:47 Abnormal lab findings: Abnormal Labs 04/17/18 04/17/18 04/17/18 22:47 22:47 22:47 RBC 3.94 L Hgb 12.3 L Hct MCV 100.6 H MCHC 30.9 L Plt Count 70 L PT 12.5 H INR 1.2 H ABG pH ABG pO2 ABG HCO3 ABG Total CO2 ABG O2 Saturation Potassium 8.6 H* Chloride 111 H Carbon Dioxide 17 L BUN 25 H Creatinine 2.79 H Glucose 174 H POC Glucose (mg/dL) Total Bilirubin 1.5 H AST 173 H ALT 89 H Albumin 3.4 L Urine Protein Urine Blood Urine Bilirubin Ur Leukocyte Esterase Urine RBC Urine WBC Urine Mucus 04/18/18 04/18/18 04/18/18 01:10 02:11 03:15 RBC Hgb Hct MCV MCHC Plt Count PT INR ABG pH 7.24 L ABG pO2 80 L ABG HCO3 15 L ABG Total CO2 16 L ABG O2 Saturation 93.3 L Potassium 6.5 H* Chloride Carbon Dioxide BUN Creatinine Glucose POC Glucose (mg/dL) 181 H Total Bilirubin AST ALT Albumin Urine Protein Urine Blood Urine Bilirubin Ur Leukocyte Esterase Urine RBC Urine WBC Urine Mucus 04/18/18 04/18/18 04/18/18 05:34 06:22 07:16 RBC 3.68 L Hgb 11.6 L Hct 37.4 L MCV 101.6 H MCHC Plt Count 53 L PT INR ABG pH ABG pO2 ABG HCO3 ABG Total CO2 ABG O2 Saturation Potassium Chloride Carbon Dioxide BUN Creatinine Glucose POC Glucose (mg/dL) 115 H Total Bilirubin AST ALT Albumin Urine Protein 1+ H Urine Blood Moderate H Urine Bilirubin 1+ H Ur Leukocyte Esterase Trace H Urine RBC 30 H Urine WBC 10 H Urine Mucus Occasional H 04/18/18 04/18/18 04/18/18 07:16 12:03 12:45 RBC Hgb Hct MCV MCHC Plt Count PT INR ABG pH ABG pO2 ABG HCO3 ABG Total CO2 ABG O2 Saturation Potassium 6.5 H* 5.3 H Chloride 114 H Carbon Dioxide 20 L BUN 27 H Creatinine 2.93 H Glucose 118 H POC Glucose (mg/dL) 100 H Total Bilirubin AST ALT Albumin Urine Protein Urine Blood Urine Bilirubin Ur Leukocyte Esterase Urine RBC Urine WBC Urine Mucus Assessment and Plan Plan: This patient has an acute kidney injury secondary to Bactrim and intravascular volume depletion/dehydration. Bactrim was given to him for a total infection and subsequently the patient developed an acute on top of chronic renal failure. His baseline creatinine is at 1.5 with a GFR of 35. The patient had developed hyperkalemia. The patient was treated aggressively with calcium gluconate, sodium bicarbonate, D50 insulin regimen and Kayexalate. Potassium level subsequently dropped down to 5.3. No EKG changes. Nephrology is on the case. He is on IV fluids. Will monitor him in the ICU for another 24 hours. There is no evidence of any ongoing toe infection for now. Residual and evaluation that was done along with a nurse practitioner.
--- NOTE | 2018-04-18 11:51 | P.NPCON ---
History of Present Illness - Reason for Consult acute renal failure, hyperkalemia - History of Present Illness Reason for consultation: Acute kidney injury on chronic kidney disease History of present illness: Patient is a 87-year-old male seen in consultation for acute kidney injury on chronic kidney disease. Patient has chronic kidney disease stage III with baseline creatinine near 1.5 secondary to nephrosclerosis. Patient presented to the hospital due to generalized weakness and frequent falls. His potassium level was elevated at 8.6 which was medically treated twice potassium did come down to 6.5 and he received another cocktail this morning. Repeat potassium level is pending. Creatinine is up to 2.93 today. Patient states that he had a foot infection for which she was taking Bactrim for the last 1 week. He denies use of NSAIDs. Denies vomiting or diarrhea. Blood pressure was low initially the 90s but is now in the systolic 150s. Urine output for the last 12 hours has been about 30 mL an hour. He received 1.5 L of normal saline bolus. He is currently maintained on normal saline at 75 mL an hour. No hydronephrosis was noted on CAT scan. Vital signs are stable. General: The patient appeared well nourished and normally developed. HEENT: Head exam is unremarkable. Neck is without jugular venous distension. LUNGS: Lungs are clear to auscultation and percussion. Breath sounds decreased. HEART: Rate and Rhythm are regular. First and second heart sounds normal. No murmurs, rubs or gallops. ABDOMEN: Abdominal exam reveals normal bowel sounds. Non-tender and non- distended. No evidence of peritonitis. EXTREMITITES: No clubbing, cyanosis, or edema. Past Medical History Past Medical History: Coronary Artery Disease (CAD), COPD, Diabetes Mellitus, Hyperlipidemia, Hypertension History of Any Multi-Drug Resistant Organisms: None Reported Past Surgical History: Coronary Bypass/CABG, Pacemaker Type of Cardiac Device: Permanent Pacemaker Device Placement Date:: 2015 Past Psychological History: No Psychological Hx Reported Smoking Status: Never smoker Past Alcohol Use History: None Reported Past Drug Use History: None Reported Medications and Allergies Home Medications Medication Instructions Recorded Confirmed Type Aspirin [[place] Aspirin EC] 81 mg PO DAILY 02/06/18 04/17/18 History Atorvastatin [Lipitor] 20 mg PO DAILY 02/06/18 04/17/18 History Carvedilol [Coreg] 3.125 mg PO BID 02/06/18 04/17/18 History Colchicine 1.2 mg PO DIRECTED 02/06/18 04/17/18 History Pantoprazole Sodium [Protonix] 40 mg PO DAILY 02/06/18 04/17/18 History Verapamil HCl [Verapamil ER] 240 mg PO DAILY 02/06/18 04/17/18 History busPIRone HCL 15 mg PO BID 02/06/18 04/17/18 History levETIRAcetam [Keppra] 500 mg PO BID 02/06/18 04/17/18 History Sulfamethoxazole/Trimethoprim 1 tab PO BID 04/17/18 04/17/18 History [Bactrim SS 400-80 mg] Allergies Allergy/AdvReac Type Severity Reaction Status Date / Time No Known Allergies Allergy Verified 04/17/18 22:29 Physical Exam Vitals: Vital Signs Temp Pulse Pulse Resp BP BP Pulse Ox 04/18/18 11:00 74 20 151/71 92 L 04/18/18 10:00 75 21 156/74 93 L 04/18/18 09:00 76 10 L 151/73 91 L 04/18/18 08:00 98.5 F 71 22 162/71 92 L 04/18/18 07:00 71 18 151/73 92 L 04/18/18 06:00 68 18 154/82 95 04/18/18 05:00 64 17 114/59 94 L 04/18/18 04:00 98.1 F 60 18 134/62 95 04/18/18 03:00 62 91 16 134/72 95 04/18/18 02:23 98.1 F 91 18 134/72 04/18/18 02:00 98 F 60 18 110/63 96 04/18/18 01:30 97.9 F 60 18 110/63 92 L 04/18/18 00:49 60 18 91/48 94 L 04/17/18 23:30 80 18 113/66 98 04/17/18 21:54 97.0 F L 60 14 107/59 97 Intake and Output 04/17/18 04/18/18 04/18/18 22:59 06:59 14:59 Intake Total 1525 475 Output Total 60 106 Balance 1465 369 Intake: IV 1525 475 Sodium Chloride 0.9% 1, 375 375 000 ml @ 75 mls/hr IV . [id number] [facility] Rx#:[id number] Sodium Chloride 0.9% 1, 1000 000 ml @ 999 mls/hr IV . Q1H1M [facility] Rx#:[id number] cefTRIAXone 1 gm In 50 Sodium Chloride 0.9% 50 ml @ 100 mls/hr IVPB Q24H [facility] Rx#:[id number] metroNIDAZOLE-NS PMX 500 100 100 mg In Saline 1 100ml.bag @ 100 mls/hr IVPB Q8H [facility] Rx#:[id number] Output: Urine 60 106 Other: Voiding Method Urinal Urinal Weight 78 kg Results - Lab Results Most recent lab results ABG pH 7.24 (7.35-7.45) L 04/18/18 01:10 ABG pCO2 36 mmHg (35-45) 04/18/18 01:10 ABG pO2 80 mmHg (83-108) L 04/18/18 01:10 ABG HCO3 15 mmol/L (21-25) L 04/18/18 01:10 ABG O2 Saturation 93.3 % (94-97) L 04/18/18 01:10 Calcium 8.9 mg/dL (8.4-10.2) 04/18/18 07:16 Phosphorus 4.4 mg/dL (2.5-4.5) 04/18/18 07:16 Magnesium 1.9 mg/dL (1.6-2.3) 04/18/18 07:16 04/18/18 07:16 04/18/18 07:16 Assessment and Plan Plan: Assessment: 1. Acute kidney injury secondary to ATN secondary to hypotension. Bactrim will impair secretion of creatinine. Creatinine 2.93 today. No hydronephrosis noted. 2. Chronic kidney disease stage III secondary to nephrosclerosis with baseline creatinine near 1.5. 3. Hyperkalemia secondary to acute kidney injury, Bactrim and metabolic acidosis. 4. Hypertension with chronic kidney disease. Controlled. 5. Metabolic acidosis secondary to acute kidney injury. Plan: Maintain normal saline at 75 mL an hour. Add oral sodium bicarbonate. Follow-up repeat potassium level. If still high, I will arrange for hemodialysis. Continue to monitor renal function and urine output. Thank you for the consultation. I will continue to follow the patient with you during his hospital stay.
--- NOTE | 2018-04-18 12:02 | P.HPIM ---
History of Present Illness 87-year-old man presented the emergency room with complaints of weakness and falls with fatigue states he's been having nausea for 3 days no vomiting poor appetite.. He was found to be hyperkalemic with metabolic acidosis acute kidney injury secondary to hypotension and Bactrim from right great toe infection Patient does have history of diabetes type 2 COPD coronary disease with CABG and pacemaker history of hypertension. Ultrasound shows of gallstones with thickened wall Review of Systems Constitutional: Reports fatigue, Reports weakness Gastrointestinal: Reports nausea Past Medical History Past Medical History: Coronary Artery Disease (CAD), COPD, Diabetes Mellitus, Hyperlipidemia, Hypertension History of Any Multi-Drug Resistant Organisms: None Reported Past Surgical History: Coronary Bypass/CABG, Pacemaker Type of Cardiac Device: Permanent Pacemaker Device Placement Date:: 2015 Past Psychological History: No Psychological Hx Reported Smoking Status: Never smoker Past Alcohol Use History: None Reported Past Drug Use History: None Reported Medications and Allergies Home Medications Medication Instructions Recorded Confirmed Type Aspirin [[place] Aspirin EC] 81 mg PO DAILY 02/06/18 04/17/18 History Atorvastatin [Lipitor] 20 mg PO DAILY 02/06/18 04/17/18 History Carvedilol [Coreg] 3.125 mg PO BID 02/06/18 04/17/18 History Colchicine 1.2 mg PO DIRECTED 02/06/18 04/17/18 History Pantoprazole Sodium [Protonix] 40 mg PO DAILY 02/06/18 04/17/18 History Verapamil HCl [Verapamil ER] 240 mg PO DAILY 02/06/18 04/17/18 History busPIRone HCL 15 mg PO BID 02/06/18 04/17/18 History levETIRAcetam [Keppra] 500 mg PO BID 02/06/18 04/17/18 History Sulfamethoxazole/Trimethoprim 1 tab PO BID 04/17/18 04/17/18 History [Bactrim SS 400-80 mg] Allergies Allergy/AdvReac Type Severity Reaction Status Date / Time No Known Allergies Allergy Verified 04/17/18 22:29 Physical Exam Vitals: Vital Signs Temp Pulse Pulse Resp BP BP Pulse Ox 04/18/18 11:00 74 20 151/71 92 L 04/18/18 10:00 75 21 156/74 93 L 04/18/18 09:00 76 10 L 151/73 91 L 04/18/18 08:00 98.5 F 71 22 162/71 92 L 04/18/18 07:00 71 18 151/73 92 L 04/18/18 06:00 68 18 154/82 95 04/18/18 05:00 64 17 114/59 94 L 04/18/18 04:00 98.1 F 60 18 134/62 95 04/18/18 03:00 62 91 16 134/72 95 04/18/18 02:23 98.1 F 91 18 134/72 04/18/18 02:00 98 F 60 18 110/63 96 04/18/18 01:30 97.9 F 60 18 110/63 92 L 04/18/18 00:49 60 18 91/48 94 L 04/17/18 23:30 80 18 113/66 98 04/17/18 21:54 97.0 F L 60 14 107/59 97 Intake and Output 04/17/18 04/18/18 04/18/18 22:59 06:59 14:59 Intake Total 1525 475 Output Total 60 106 Balance 1465 369 Intake: IV 1525 475 Sodium Chloride 0.9% 1, 375 375 000 ml @ 75 mls/hr IV . [id number] [facility] Rx#:[id number] Sodium Chloride 0.9% 1, 1000 000 ml @ 999 mls/hr IV . Q1H1M [facility] Rx#:[id number] cefTRIAXone 1 gm In 50 Sodium Chloride 0.9% 50 ml @ 100 mls/hr IVPB Q24H [facility] Rx#:[id number] metroNIDAZOLE-NS PMX 500 100 100 mg In Saline 1 100ml.bag @ 100 mls/hr IVPB Q8H [facility] Rx#:[id number] Output: Urine 60 106 Other: Voiding Method Urinal Urinal Weight 78 kg - Constitutional General appearance: mild distress - EENT Eyes: PERRLA Ears: bilateral: normal - Neck Neck: normal ROM - Respiratory Respiratory: bilateral: CTA - Cardiovascular 100% paced rhythm Rhythm: regular - Gastrointestinal General gastrointestinal: soft - Integumentary Integumentary: normal - Neurologic Neurologic: CNII-XII intact - Musculoskeletal Musculoskeletal: generalized weakness - Psychiatric Psychiatric: A&O x's 3, appropriate affect, intact judgment & insight Results CBC & Chem 7: 04/18/18 07:16 04/18/18 07:16 Labs: Abnormal Lab Results - Last 24 Hours (Table) 04/17/18 04/17/18 04/17/18 Range/Units 22:47 22:47 22:47 RBC 3.94 L (4.30-5.90) m/uL Hgb 12.3 L (13.0-17.5) gm/dL Hct (39.0-53.0) % MCV 100.6 H (80.0-100.0) fL MCHC 30.9 L (31.0-37.0) g/dL Plt Count 70 L (150-450) k/uL PT 12.5 H (9.0-12.0) sec INR 1.2 H (<1.2) ABG pH (7.35-7.45) ABG pO2 (83-108) mmHg ABG HCO3 (21-25) mmol/L ABG Total CO2 (19-24) mmol/L ABG O2 Saturation (94-97) % Potassium 8.6 H* (3.5-5.1) mmol/L Chloride 111 H (98-107) mmol/L Carbon Dioxide 17 L (22-30) mmol/L BUN 25 H (9-20) mg/dL Creatinine 2.79 H (0.66-1.25) mg/dL Glucose 174 H (74-99) mg/dL POC Glucose (mg/dL) (75-99) mg/dL Total Bilirubin 1.5 H (0.2-1.3) mg/dL AST 173 H (17-59) U/L ALT 89 H (21-72) U/L Albumin 3.4 L (3.5-5.0) g/dL Urine Protein (Negative) Urine Blood (Negative) Urine Bilirubin (Negative) Ur Leukocyte Esterase (Negative) Urine RBC (0-5) /hpf Urine WBC (0-5) /hpf Urine Mucus (None) /hpf 04/18/18 04/18/18 04/18/18 Range/Units 01:10 02:11 03:15 RBC (4.30-5.90) m/uL Hgb (13.0-17.5) gm/dL Hct (39.0-53.0) % MCV (80.0-100.0) fL MCHC (31.0-37.0) g/dL Plt Count (150-450) k/uL PT (9.0-12.0) sec INR (<1.2) ABG pH 7.24 L (7.35-7.45) ABG pO2 80 L (83-108) mmHg ABG HCO3 15 L (21-25) mmol/L ABG Total CO2 16 L (19-24) mmol/L ABG O2 Saturation 93.3 L (94-97) % Potassium 6.5 H* (3.5-5.1) mmol/L Chloride (98-107) mmol/L Carbon Dioxide (22-30) mmol/L BUN (9-20) mg/dL Creatinine (0.66-1.25) mg/dL Glucose (74-99) mg/dL POC Glucose (mg/dL) 181 H (75-99) mg/dL Total Bilirubin (0.2-1.3) mg/dL AST (17-59) U/L ALT (21-72) U/L Albumin (3.5-5.0) g/dL Urine Protein (Negative) Urine Blood (Negative) Urine Bilirubin (Negative) Ur Leukocyte Esterase (Negative) Urine RBC (0-5) /hpf Urine WBC (0-5) /hpf Urine Mucus (None) /hpf 04/18/18 04/18/18 04/18/18 Range/Units 05:34 06:22 07:16 RBC 3.68 L (4.30-5.90) m/uL Hgb 11.6 L (13.0-17.5) gm/dL Hct 37.4 L (39.0-53.0) % MCV 101.6 H (80.0-100.0) fL MCHC (31.0-37.0) g/dL Plt Count 53 L (150-450) k/uL PT (9.0-12.0) sec INR (<1.2) ABG pH (7.35-7.45) ABG pO2 (83-108) mmHg ABG HCO3 (21-25) mmol/L ABG Total CO2 (19-24) mmol/L ABG O2 Saturation (94-97) % Potassium (3.5-5.1) mmol/L Chloride (98-107) mmol/L Carbon Dioxide (22-30) mmol/L BUN (9-20) mg/dL Creatinine (0.66-1.25) mg/dL Glucose (74-99) mg/dL POC Glucose (mg/dL) 115 H (75-99) mg/dL Total Bilirubin (0.2-1.3) mg/dL AST (17-59) U/L ALT (21-72) U/L Albumin (3.5-5.0) g/dL Urine Protein 1+ H (Negative) Urine Blood Moderate H (Negative) Urine Bilirubin 1+ H (Negative) Ur Leukocyte Esterase Trace H (Negative) Urine RBC 30 H (0-5) /hpf Urine WBC 10 H (0-5) /hpf Urine Mucus Occasional H (None) /hpf 04/18/18 Range/Units 07:16 RBC (4.30-5.90) m/uL Hgb (13.0-17.5) gm/dL Hct (39.0-53.0) % MCV (80.0-100.0) fL MCHC (31.0-37.0) g/dL Plt Count (150-450) k/uL PT (9.0-12.0) sec INR (<1.2) ABG pH (7.35-7.45) ABG pO2 (83-108) mmHg ABG HCO3 (21-25) mmol/L ABG Total CO2 (19-24) mmol/L ABG O2 Saturation (94-97) % Potassium 6.5 H* (3.5-5.1) mmol/L Chloride 114 H (98-107) mmol/L Carbon Dioxide 20 L (22-30) mmol/L BUN 27 H (9-20) mg/dL Creatinine 2.93 H (0.66-1.25) mg/dL Glucose 118 H (74-99) mg/dL POC Glucose (mg/dL) (75-99) mg/dL Total Bilirubin (0.2-1.3) mg/dL AST (17-59) U/L ALT (21-72) U/L Albumin (3.5-5.0) g/dL Urine Protein (Negative) Urine Blood (Negative) Urine Bilirubin (Negative) Ur Leukocyte Esterase (Negative) Urine RBC (0-5) /hpf Urine WBC (0-5) /hpf Urine Mucus (None) /hpf CT scan - abdomen: report reviewed CT Scan - head: report reviewed US - abdomen: report reviewed Thrombosis Risk Factor Assmnt - Choose All That Apply Each Factor Represents 1 point: Abnormal pulmonary function (COPD) Each Risk Factor Represents 3 Points: Age 75 years or older Thrombosis Risk Factor Assessment Total Risk Factor Score: 4 Thrombosis Risk Factor Assessment Level: Moderate Risk Assessment and Plan Plan: Assessment Metabolic acidosis secondary to acute kidney injury Acute on chronic kidney injury with stage III secondary to hypotension and Bactrim Weakness with history of falls Cholelithiasis possible: Cystitis History of coronary disease with CABG and pacemaker 100% paced COPD stable Diabetes type 2 Hyperlipidemia Hypertension Plan Continued hydration consultation with nephrology surgery and program architect Dr. Adkins Patient on Rocephin and Flagyl
[2018-04-18 12:15] LABS: Glucose,Whole Blood 100 mg/dL (75-99)
[2018-04-18] MEDS: SODIUM BICARBONATE TAB 650 MG TAB PO SCH ×2 (13:03→20:15)
--- NOTE | 2018-04-18 14:21 | P.GSCN ---
History of Present Illness Consult date: 04/18/18 Reason for Consult: Cholecystitis History of present illness: Patient came to the hospital with complaints of dry heaves over the last 48 hours. Patient is felt quite weak. He was found to have significant elevation of his potassium and also kidney function has been poor. Patient's liver enzymes were slightly elevated. Patient apparently told the ER physicians he was having some generalized abdominal discomfort. Denies pain when asked at this time. No change in bowel habits. No rectal bleeding or melena. Denies fevers. White blood cell count is normal. CAT scan was performed which did reveal some gallstones but no other acute process. Ultrasound showed a slightly thickened gallbladder wall. Patient recently started on Bactrim for a foot issue. Review of Systems The patient denies any acute changes in vision or hearing, no dysphagia or odynophagia, no chest pain or shortness of breath, no dysuria or hematuria, no headache, no runny nose, no rectal bleeding or melena, no unexplained weight loss Past Medical History Past Medical History: Coronary Artery Disease (CAD), COPD, Diabetes Mellitus, Hyperlipidemia, Hypertension History of Any Multi-Drug Resistant Organisms: None Reported Past Surgical History: Coronary Bypass/CABG, Pacemaker Type of Cardiac Device: Permanent Pacemaker Device Placement Date:: 2015 Past Psychological History: No Psychological Hx Reported Smoking Status: Never smoker Past Alcohol Use History: None Reported Past Drug Use History: None Reported Medications and Allergies Home Medications Medication Instructions Recorded Confirmed Type Aspirin [[place] Aspirin EC] 81 mg PO DAILY 02/06/18 04/17/18 History Atorvastatin [Lipitor] 20 mg PO DAILY 02/06/18 04/17/18 History Carvedilol [Coreg] 3.125 mg PO BID 02/06/18 04/17/18 History Colchicine 1.2 mg PO DIRECTED 02/06/18 04/17/18 History Pantoprazole Sodium [Protonix] 40 mg PO DAILY 02/06/18 04/17/18 History Verapamil HCl [Verapamil ER] 240 mg PO DAILY 02/06/18 04/17/18 History busPIRone HCL 15 mg PO BID 02/06/18 04/17/18 History levETIRAcetam [Keppra] 500 mg PO BID 02/06/18 04/17/18 History Sulfamethoxazole/Trimethoprim 1 tab PO BID 04/17/18 04/17/18 History [Bactrim SS 400-80 mg] Allergies Allergy/AdvReac Type Severity Reaction Status Date / Time No Known Allergies Allergy Verified 04/17/18 22:29 Surgical - Exam Vital Signs Temp Pulse Resp BP Pulse Ox 97.0 F L 60 14 107/59 97 04/17/18 21:54 04/17/18 21:54 04/17/18 21:54 04/17/18 21:54 04/17/18 21:54 Physical exam: General: Well-developed, well-nourished HEENT: Normocephalic, sclerae nonicteric Abdomen: Nontender, nondistended Extremities: No edema Neuro: Alert and oriented Results - Labs 04/18/18 07:16 04/18/18 12:45 Abnormal Lab Results - Last 24 Hours (Table) 04/17/18 04/17/18 04/17/18 Range/Units 22:47 22:47 22:47 RBC 3.94 L (4.30-5.90) m/uL Hgb 12.3 L (13.0-17.5) gm/dL Hct (39.0-53.0) % MCV 100.6 H (80.0-100.0) fL MCHC 30.9 L (31.0-37.0) g/dL Plt Count 70 L (150-450) k/uL PT 12.5 H (9.0-12.0) sec INR 1.2 H (<1.2) ABG pH (7.35-7.45) ABG pO2 (83-108) mmHg ABG HCO3 (21-25) mmol/L ABG Total CO2 (19-24) mmol/L ABG O2 Saturation (94-97) % Potassium 8.6 H* (3.5-5.1) mmol/L Chloride 111 H (98-107) mmol/L Carbon Dioxide 17 L (22-30) mmol/L BUN 25 H (9-20) mg/dL Creatinine 2.79 H (0.66-1.25) mg/dL Glucose 174 H (74-99) mg/dL POC Glucose (mg/dL) (75-99) mg/dL Total Bilirubin 1.5 H (0.2-1.3) mg/dL AST 173 H (17-59) U/L ALT 89 H (21-72) U/L Albumin 3.4 L (3.5-5.0) g/dL Urine Protein (Negative) Urine Blood (Negative) Urine Bilirubin (Negative) Ur Leukocyte Esterase (Negative) Urine RBC (0-5) /hpf Urine WBC (0-5) /hpf Urine Mucus (None) /hpf 04/18/18 04/18/18 04/18/18 Range/Units 01:10 02:11 03:15 RBC (4.30-5.90) m/uL Hgb (13.0-17.5) gm/dL Hct (39.0-53.0) % MCV (80.0-100.0) fL MCHC (31.0-37.0) g/dL Plt Count (150-450) k/uL PT (9.0-12.0) sec INR (<1.2) ABG pH 7.24 L (7.35-7.45) ABG pO2 80 L (83-108) mmHg ABG HCO3 15 L (21-25) mmol/L ABG Total CO2 16 L (19-24) mmol/L ABG O2 Saturation 93.3 L (94-97) % Potassium 6.5 H* (3.5-5.1) mmol/L Chloride (98-107) mmol/L Carbon Dioxide (22-30) mmol/L BUN (9-20) mg/dL Creatinine (0.66-1.25) mg/dL Glucose (74-99) mg/dL POC Glucose (mg/dL) 181 H (75-99) mg/dL Total Bilirubin (0.2-1.3) mg/dL AST (17-59) U/L ALT (21-72) U/L Albumin (3.5-5.0) g/dL Urine Protein (Negative) Urine Blood (Negative) Urine Bilirubin (Negative) Ur Leukocyte Esterase (Negative) Urine RBC (0-5) /hpf Urine WBC (0-5) /hpf Urine Mucus (None) /hpf 04/18/18 04/18/18 04/18/18 Range/Units 05:34 06:22 07:16 RBC 3.68 L (4.30-5.90) m/uL Hgb 11.6 L (13.0-17.5) gm/dL Hct 37.4 L (39.0-53.0) % MCV 101.6 H (80.0-100.0) fL MCHC (31.0-37.0) g/dL Plt Count 53 L (150-450) k/uL PT (9.0-12.0) sec INR (<1.2) ABG pH (7.35-7.45) ABG pO2 (83-108) mmHg ABG HCO3 (21-25) mmol/L ABG Total CO2 (19-24) mmol/L ABG O2 Saturation (94-97) % Potassium (3.5-5.1) mmol/L Chloride (98-107) mmol/L Carbon Dioxide (22-30) mmol/L BUN (9-20) mg/dL Creatinine (0.66-1.25) mg/dL Glucose (74-99) mg/dL POC Glucose (mg/dL) 115 H (75-99) mg/dL Total Bilirubin (0.2-1.3) mg/dL AST (17-59) U/L ALT (21-72) U/L Albumin (3.5-5.0) g/dL Urine Protein 1+ H (Negative) Urine Blood Moderate H (Negative) Urine Bilirubin 1+ H (Negative) Ur Leukocyte Esterase Trace H (Negative) Urine RBC 30 H (0-5) /hpf Urine WBC 10 H (0-5) /hpf Urine Mucus Occasional H (None) /hpf 04/18/18 04/18/18 04/18/18 Range/Units 07:16 12:03 12:45 RBC (4.30-5.90) m/uL Hgb (13.0-17.5) gm/dL Hct (39.0-53.0) % MCV (80.0-100.0) fL MCHC (31.0-37.0) g/dL Plt Count (150-450) k/uL PT (9.0-12.0) sec INR (<1.2) ABG pH (7.35-7.45) ABG pO2 (83-108) mmHg ABG HCO3 (21-25) mmol/L ABG Total CO2 (19-24) mmol/L ABG O2 Saturation (94-97) % Potassium 6.5 H* 5.3 H (3.5-5.1) mmol/L Chloride 114 H (98-107) mmol/L Carbon Dioxide 20 L (22-30) mmol/L BUN 27 H (9-20) mg/dL Creatinine 2.93 H (0.66-1.25) mg/dL Glucose 118 H (74-99) mg/dL POC Glucose (mg/dL) 100 H (75-99) mg/dL Total Bilirubin (0.2-1.3) mg/dL AST (17-59) U/L ALT (21-72) U/L Albumin (3.5-5.0) g/dL Urine Protein (Negative) Urine Blood (Negative) Urine Bilirubin (Negative) Ur Leukocyte Esterase (Negative) Urine RBC (0-5) /hpf Urine WBC (0-5) /hpf Urine Mucus (None) /hpf Diabetes panel 04/17/18 04/18/18 04/18/18 Range/Units 22:47 03:15 07:16 Sodium 139 142 (137-145) mmol/L Potassium 8.6 H* 6.5 H* 6.5 H* (3.5-5.1) mmol/L Chloride 111 H 114 H (98-107) mmol/L Carbon Dioxide 17 L 20 L (22-30) mmol/L BUN 25 H 27 H (9-20) mg/dL Creatinine 2.79 H 2.93 H (0.66-1.25) mg/dL Glucose 174 H 118 H (74-99) mg/dL Calcium 9.1 8.9 (8.4-10.2) mg/dL AST 173 H (17-59) U/L ALT 89 H (21-72) U/L Alkaline Phosphatase 126 (38-126) U/L Total Protein 6.6 (6.3-8.2) g/dL Albumin 3.4 L (3.5-5.0) g/dL 04/18/18 Range/Units 12:45 Sodium (137-145) mmol/L Potassium 5.3 H (3.5-5.1) mmol/L Chloride (98-107) mmol/L Carbon Dioxide (22-30) mmol/L BUN (9-20) mg/dL Creatinine (0.66-1.25) mg/dL Glucose (74-99) mg/dL Calcium (8.4-10.2) mg/dL AST (17-59) U/L ALT (21-72) U/L Alkaline Phosphatase (38-126) U/L Total Protein (6.3-8.2) g/dL Albumin (3.5-5.0) g/dL Calcium panel 04/17/18 04/18/18 Range/Units 22:47 07:16 Calcium 9.1 8.9 (8.4-10.2) mg/dL Phosphorus 4.4 (2.5-4.5) mg/dL Albumin 3.4 L (3.5-5.0) g/dL Pituitary panel 04/17/18 04/18/18 04/18/18 Range/Units 22:47 03:15 07:16 Sodium 139 142 (137-145) mmol/L Potassium 8.6 H* 6.5 H* 6.5 H* (3.5-5.1) mmol/L Chloride 111 H 114 H (98-107) mmol/L Carbon Dioxide 17 L 20 L (22-30) mmol/L BUN 25 H 27 H (9-20) mg/dL Creatinine 2.79 H 2.93 H (0.66-1.25) mg/dL Glucose 174 H 118 H (74-99) mg/dL Calcium 9.1 8.9 (8.4-10.2) mg/dL 04/18/18 Range/Units 12:45 Sodium (137-145) mmol/L Potassium 5.3 H (3.5-5.1) mmol/L Chloride (98-107) mmol/L Carbon Dioxide (22-30) mmol/L BUN (9-20) mg/dL Creatinine (0.66-1.25) mg/dL Glucose (74-99) mg/dL Calcium (8.4-10.2) mg/dL Adrenal panel 04/17/18 04/18/18 04/18/18 Range/Units 22:47 03:15 07:16 Sodium 139 142 (137-145) mmol/L Potassium 8.6 H* 6.5 H* 6.5 H* (3.5-5.1) mmol/L Chloride 111 H 114 H (98-107) mmol/L Carbon Dioxide 17 L 20 L (22-30) mmol/L BUN 25 H 27 H (9-20) mg/dL Creatinine 2.79 H 2.93 H (0.66-1.25) mg/dL Glucose 174 H 118 H (74-99) mg/dL Calcium 9.1 8.9 (8.4-10.2) mg/dL Total Bilirubin 1.5 H (0.2-1.3) mg/dL AST 173 H (17-59) U/L ALT 89 H (21-72) U/L Alkaline Phosphatase 126 (38-126) U/L Total Protein 6.6 (6.3-8.2) g/dL Albumin 3.4 L (3.5-5.0) g/dL 04/18/18 Range/Units 12:45 Sodium (137-145) mmol/L Potassium 5.3 H (3.5-5.1) mmol/L Chloride (98-107) mmol/L Carbon Dioxide (22-30) mmol/L BUN (9-20) mg/dL Creatinine (0.66-1.25) mg/dL Glucose (74-99) mg/dL Calcium (8.4-10.2) mg/dL Total Bilirubin (0.2-1.3) mg/dL AST (17-59) U/L ALT (21-72) U/L Alkaline Phosphatase (38-126) U/L Total Protein (6.3-8.2) g/dL Albumin (3.5-5.0) g/dL Assessment and Plan (1) Cholelithiasis Narrative/Plan: Patient with admission for hyperkalemia and declining kidney function. Patient' s liver enzymes slightly elevated as well. Patient has no tenderness currently on exam although may have chronic cholecystitis based on ultrasound findings. He and I discussed options. At this time will resume diet. We'll monitor closely. Recheck liver enzymes tomorrow. Possible laparoscopic cholecystectomy when the patient's other medical issues have improved. Alternative option would be observation at this time. We'll follow closely. Current Visit: Yes Status: Acute Code(s): K80.20 - CALCULUS OF GALLBLADDER W /O CHOLECYSTITIS W/O OBSTRUCTION SNOMED Code(s): 118954047
[2018-04-18 18:21] LABS: Glucose,Whole Blood 153 mg/dL (75-99)
[2018-04-18 20:33] LABS: Glucose,Whole Blood 110 mg/dL (75-99)
[2018-04-18 20:55] LABS: Glucose,Whole Blood 102 mg/dL (75-99)
[2018-04-18 21:16] LABS: Calcium 8.4 mg/dL (8.4-10.2); Potassium 3.8 mmol/L (3.5-5.1)
[2018-04-19] MEDS: metroNIDAZOLE-NS PMX 500 MG in SALINE 1 100ML.BAG IVPB SCH ×3 (03:27→17:36)
[2018-04-19] MEDS: SODIUM CHLORIDE 0.9% 1,000 ML IV SCH ×2 (05:09→17:37)
[2018-04-19 06:04] LABS: Basophils % (A) 0 %; Eosinophils # (A) 0.1 k/uL (0-0.7); Eosinophils % (A) 3 %; HCT 33.8 % (39.0-53.0); HGB 10.5 gm/dL (13.0-17.5); Hypochromasia Moderate; Lymphocytes % (A) 23 %; MCH 31.5 pg (25.0-35.0); MCHC 31.2 g/dL (31.0-37.0); MCV 100.9 fL (80.0-100.0); Macrocytosis Slight; Mean Platelet Volume 11.3; Monocytes # (A) 0.4 k/uL (0-1.0); Monocytes % (A) 9 %; Neutrophils # (A) 2.6 k/uL (1.3-7.7); Neutrophils % (A) 61 %; Platelet Count 55 k/uL (150-450); RBC 3.35 m/uL (4.30-5.90); RDW 14.9 % (11.5-15.5); WBC 4.2 k/uL (3.8-10.6)
[2018-04-19 06:05] LABS: Albumin 2.5 g/dL (3.5-5.0); Calcium 8.1 mg/dL (8.4-10.2); Magnesium 1.6 mg/dL (1.6-2.3); Phosphorus 3.6 mg/dL (2.5-4.5); Potassium 3.8 mmol/L (3.5-5.1); Total Bilirubin 0.8 mg/dL (0.2-1.3); Total Protein 5.2 g/dL (6.3-8.2)
[2018-04-19 06:42] LABS: Large Platelets Present
[2018-04-19] MEDS: INSULIN ASPART (NovoLOG) 100 UNIT/ML VIAL SQ SCH ×4 (07:04→20:34)
[2018-04-19 07:13] LABS: Glucose,Whole Blood 75 mg/dL (75-99)
[2018-04-19] MEDS ORDERED: POTASSIUM CHLORIDE ER 20 MEQ TAB.ER PO SCH (08:00)
--- NOTE | 2018-04-19 08:28 | P.PN ---
Subjective Patient is seen in follow-up for acute kidney injury on chronic kidney disease. Patient has chronic kidney disease stage III with baseline creatinine near 1.5 secondary to nephrosclerosis. Potassium was 8.6 on admission and is improved with medical management. Renal function is also improving. He is nonoliguric. Patient is awake and alert. Denies chest pain or shortness of breath. Vital signs are stable. General: The patient appeared well nourished and normally developed. HEENT: Head exam is unremarkable. Neck is without jugular venous distension. LUNGS: Lungs are clear to auscultation and percussion. Breath sounds decreased. HEART: Rate and Rhythm are regular. First and second heart sounds normal. No murmurs, rubs or gallops. ABDOMEN: Abdominal exam reveals normal bowel sounds. Non-tender and non- distended. No evidence of peritonitis. EXTREMITITES: No clubbing, cyanosis, or edema. Objective - Vital Signs Vital signs: Vital Signs Temp 97.6 F 04/19/18 04:00 Pulse 66 04/19/18 07:00 Resp 16 04/19/18 07:00 BP 151/73 04/19/18 07:00 Pulse Ox 92 L 04/19/18 07:00 Intake & Output 04/18/18 04/19/18 04/19/18 18:59 06:59 18:59 Intake Total 1000 1125 Output Total 286 745 Balance 714 380 Weight 84.1 kg Intake: IV 1000 1125 Sodium Chloride 0.9% 1, 900 975 000 ml @ 75 mls/hr IV . [id number] [facility] Rx#:[id number] cefTRIAXone 1 gm In 50 Sodium Chloride 0.9% 50 ml @ 100 mls/hr IVPB Q24H [facility] Rx#:[id number] metroNIDAZOLE-NS PMX 500 100 100 mg In Saline 1 100ml.bag @ 100 mls/hr IVPB Q8H [facility] Rx#:[id number] Output: Urine 286 745 Other: Voiding Method Urinal Indwelling Catheter # Bowel Movements 0 - Labs CBC & Chem 7: 04/19/18 05:28 04/19/18 05:28 Labs: Abnormal Lab Results - Last 24 Hours (Table) 04/18/18 04/18/18 04/18/18 Range/Units 06:22 12:03 12:45 RBC (4.30-5.90) m/uL Hgb (13.0-17.5) gm/dL Hct (39.0-53.0) % MCV (80.0-100.0) fL Plt Count (150-450) k/uL Potassium 5.3 H (3.5-5.1) mmol/L Chloride (98-107) mmol/L BUN (9-20) mg/dL Creatinine (0.66-1.25) mg/dL Glucose (74-99) mg/dL POC Glucose (mg/dL) 100 H (75-99) mg/dL Calcium (8.4-10.2) mg/dL AST (17-59) U/L ALT (21-72) U/L Total Protein (6.3-8.2) g/dL Albumin (3.5-5.0) g/dL Urine WBC 10 H (0-5) /hpf 04/18/18 04/18/18 04/18/18 Range/Units 18:09 20:11 20:22 RBC (4.30-5.90) m/uL Hgb (13.0-17.5) gm/dL Hct (39.0-53.0) % MCV (80.0-100.0) fL Plt Count (150-450) k/uL Potassium (3.5-5.1) mmol/L Chloride 110 H (98-107) mmol/L BUN 25 H (9-20) mg/dL Creatinine 2.51 H (0.66-1.25) mg/dL Glucose 110 H (74-99) mg/dL POC Glucose (mg/dL) 153 H 110 H (75-99) mg/dL Calcium (8.4-10.2) mg/dL AST (17-59) U/L ALT (21-72) U/L Total Protein (6.3-8.2) g/dL Albumin (3.5-5.0) g/dL Urine WBC (0-5) /hpf 04/18/18 04/19/18 04/19/18 Range/Units 20:44 05:28 05:28 RBC 3.35 L (4.30-5.90) m/uL Hgb 10.5 L (13.0-17.5) gm/dL Hct 33.8 L (39.0-53.0) % MCV 100.9 H (80.0-100.0) fL Plt Count 55 L (150-450) k/uL Potassium (3.5-5.1) mmol/L Chloride 112 H (98-107) mmol/L BUN 22 H (9-20) mg/dL Creatinine 2.09 H (0.66-1.25) mg/dL Glucose (74-99) mg/dL POC Glucose (mg/dL) 102 H (75-99) mg/dL Calcium 8.1 L (8.4-10.2) mg/dL AST 1227 H (17-59) U/L ALT 550 H (21-72) U/L Total Protein 5.2 L (6.3-8.2) g/dL Albumin 2.5 L (3.5-5.0) g/dL Urine WBC (0-5) /hpf Microbiology - Last 24 Hours (Table) 04/18/18 06:22 Urine Culture - Preliminary Urine,Voided Assessment and Plan Plan: Assessment: 1. Acute kidney injury secondary to ATN secondary to hypotension. Bactrim will impair secretion of creatinine. Creatinine 2.93 on admission and is down to 2.09 today. No hydronephrosis noted. 2. Chronic kidney disease stage III secondary to nephrosclerosis with baseline creatinine near 1.5. 3. Hyperkalemia secondary to acute kidney injury, Bactrim and metabolic acidosis. Resolved. 4. Hypertension with chronic kidney disease. Stable. 5. Metabolic acidosis secondary to acute kidney injury. Improved. Plan: Maintain normal saline at 75 mL an hour. Maintain oral sodium bicarbonate. Continue to monitor renal function and urine output.
[2018-04-19] MEDS: HEPARIN SODIUM,PORCINE 5,000 UNIT/ML 1 ML VIAL SQ SCH ×3 (09:45→23:13)
[2018-04-19] MEDS: PANTOPRAZOLE 40 MG/10 ML VIAL IV SCH (09:46)
[2018-04-19] MEDS: CARVEDILOL 3.125 MG TAB PO SCH ×2 (09:46→20:30)
[2018-04-19] MEDS: levETIRAcetam 500 MG TAB PO SCH ×2 (09:46→20:30)
[2018-04-19] MEDS: ATORVASTATIN 20 MG TAB PO SCH (09:46)
[2018-04-19] MEDS: ASPIRIN 81 MG PO SCH (09:46)
[2018-04-19] MEDS: MAGNESIUM SULFATE-D5W PMX 1 GM in DEXTROSE/WATER 1 100ML.BAG IVPB SCH ×2 (09:46→11:27)
[2018-04-19] MEDS: SODIUM BICARBONATE TAB 650 MG TAB PO SCH ×2 (09:46→20:30)
[2018-04-19] MEDS: busPIRone HCl 5 MG TAB PO SCH ×2 (09:47→20:30)
[2018-04-19 12:18] LABS: Glucose,Whole Blood 124 mg/dL (75-99)
--- NOTE | 2018-04-19 14:02 | P.PN ---
Subjective Progress Note Date: 04/19/18 This 87-year-old white male patient of Dr. Ishaan Mata, with past medical history of diabetes mellitus, hypertension, hyperlipidemia, coronary artery disease with history of three-vessel bypass 33 years ago, permanent pacemaker, chronic kidney disease, who presented to the emergency department on 04/17/2018 per EMS with complaints of weakness, fatigue, falls, nausea, dry heaving, decreased urine output. Patient states his onset of symptoms was 2 days ago, patient felt quite nauseous after eating some tomato soup, then he was up most of the night dry heaving. He had a similar episode after eating some potato salad. He never actually had any vomiting, no diarrhea. He was experiencing some abdominal discomfort he described as tightness across his upper abdomen. Denied any fever or chills, he did have some sweating when he was nauseous. Most recently patient had been treated for ingrown right total infection, and patient states he was treated with 2 rounds of antibiotics with the latest one being Bactrim. In the emergency department patient was found to have potassium of 8.6, B1 of 25, creatinine of 2.79, no leukocytosis, white blood cell count was 5.2, hemoglobin of 12.3, platelet count was 70, urinalysis showed 1+ protein , some red blood cells, trace leuks, and 1+ nitrite. Blood gas was done and showed pO2 of 80, pCO2 of 36, pH of 7.24 this was done on FiO2 of 30%. Patient denied any chest pain or shortness of breath. Renal ultrasound showed no evidence of hydronephrosis. Ultrasound of the aorta showed no abnormalities. Flat plate of the abdomen showed nonacute abdomen, showed bilateral pleural effusions and basilar pulmonary infiltrates and atelectasis. CT of abdomen and pelvis showed bilateral pleural effusions with atelectasis cholelithiasis without ductal dilatation, possible nonobstructing left renal stone. From the chart patient had of history of subdural hematoma, and brain CT was obtained which showed no acute intracranial findings. Amylase lipase were within normal limits, troponin was negative 1, proBNP was 9830. Patient has been normotensive, afebrile. He was given a liter and a half of fluid boluses in the emergency department, he was given calcium gluconate, IV insulin, and 50% dextrose in addition to Kayexalate, and this morning's potassium is 6.5. He is calm and comfortable, resting in bed, denies any distress, no abdominal pain, no nausea or vomiting. On today's evaluation of 04/19/2018, the patient is doing well. He has no specific complaints. The patient has chronic kidney disease stage III in the patient's creatinine is at 1.5 at baseline. The patient underlying nephrosclerosis. Noted the patient came in with acute kidney injury. The patient also developed hyperkalemia. The hyperkalemia was treated. The patient renal function is also improving. Creatinine is down to 2.09. The patient has no new complaints for now. The white cell count is at 4.2. The rest of the electrodes are within normal including a potassium level of 3.8. The blood pressure is under good control. No other significant events overnight. The patient is awake and alert. The patient is following commands. There is a concern of an acute cholecystitis based on abnormal LFTs. Gen. surgery was consulted. The patient is cholelithiasis without clinical evidence of cholecystitis. Ultrasound the gallbladder was noted. General surgeries also on the case. Objective - Vital Signs Vital signs: Vital Signs Temp 98.7 F 04/19/18 12:00 Pulse 76 04/19/18 13:00 Resp 22 04/19/18 13:00 BP 163/74 04/19/18 13:00 Pulse Ox 95 04/19/18 13:00 Intake & Output 04/18/18 04/19/18 04/19/18 18:59 06:59 18:59 Intake Total 1000 1125 375 Output Total 286 745 310 Balance 714 380 65 Weight 84.1 kg Intake: IV 1000 1125 375 Sodium Chloride 0.9% 1, 900 975 375 000 ml @ 75 mls/hr IV . [id number] [facility] Rx#:[id number] cefTRIAXone 1 gm In 50 Sodium Chloride 0.9% 50 ml @ 100 mls/hr IVPB Q24H [facility] Rx#:[id number] metroNIDAZOLE-NS PMX 500 100 100 mg In Saline 1 100ml.bag @ 100 mls/hr IVPB Q8H [facility] Rx#:[id number] Output: Urine 286 745 310 Other: Voiding Method Urinal Indwelling Catheter Indwelling Catheter # Bowel Movements 0 - Exam GENERAL EXAM: Alert, active, comfortable in no apparent distress. HEAD: Normocephalic/atraumatic. EYES: Normal reaction of pupils, equal size. Conjunctiva pink, sclera white. NOSE: Clear with pink turbinates. THROAT: No erythema or exudates. NECK: No masses, no JVD, no thyroid enlargement, no adenopathy. CHEST: No chest wall deformity. Symmetrical expansion. LUNGS: Equal air entry with diminished breath sounds at bilateral bases, CVS: Regular rate and rhythm, normal S1 and S2, no gallops, no murmurs, no rubs ABDOMEN: Soft, nontender. No hepatosplenomegaly, normal bowel sounds, no guarding or rigidity. EXTREMITIES: No clubbing, no edema, no cyanosis, 2+ pulses and upper and lower extremities. MUSCULOSKELETAL: Muscle strength and tone normal. Right toenail is covered with a dressing, ears to be ingrown, slightly swollen at the base, tender to touch SPINE: No scoliosis or deformity SKIN: No rashes CENTRAL NERVOUS SYSTEM: Alert and oriented -3. No focal deficits, tone is normal in all 4 extremities. PSYCHIATRIC: Alert and oriented -3. Appropriate affect. Intact judgment and insight. - Labs CBC & Chem 7: 04/19/18 05:28 04/19/18 05:28 Labs: Abnormal Lab Results - Last 24 Hours (Table) 04/18/18 04/18/18 04/18/18 Range/Units 18:09 20:11 20:22 RBC (4.30-5.90) m/uL Hgb (13.0-17.5) gm/dL Hct (39.0-53.0) % MCV (80.0-100.0) fL Plt Count (150-450) k/uL Chloride 110 H (98-107) mmol/L BUN 25 H (9-20) mg/dL Creatinine 2.51 H (0.66-1.25) mg/dL Glucose 110 H (74-99) mg/dL POC Glucose (mg/dL) 153 H 110 H (75-99) mg/dL Calcium (8.4-10.2) mg/dL AST (17-59) U/L ALT (21-72) U/L Total Protein (6.3-8.2) g/dL Albumin (3.5-5.0) g/dL 04/18/18 04/19/18 04/19/18 Range/Units 20:44 05:28 05:28 RBC 3.35 L (4.30-5.90) m/uL Hgb 10.5 L (13.0-17.5) gm/dL Hct 33.8 L (39.0-53.0) % MCV 100.9 H (80.0-100.0) fL Plt Count 55 L (150-450) k/uL Chloride 112 H (98-107) mmol/L BUN 22 H (9-20) mg/dL Creatinine 2.09 H (0.66-1.25) mg/dL Glucose (74-99) mg/dL POC Glucose (mg/dL) 102 H (75-99) mg/dL Calcium 8.1 L (8.4-10.2) mg/dL AST 1227 H (17-59) U/L ALT 550 H (21-72) U/L Total Protein 5.2 L (6.3-8.2) g/dL Albumin 2.5 L (3.5-5.0) g/dL 04/19/18 Range/Units 12:07 RBC (4.30-5.90) m/uL Hgb (13.0-17.5) gm/dL Hct (39.0-53.0) % MCV (80.0-100.0) fL Plt Count (150-450) k/uL Chloride (98-107) mmol/L BUN (9-20) mg/dL Creatinine (0.66-1.25) mg/dL Glucose (74-99) mg/dL POC Glucose (mg/dL) 124 H (75-99) mg/dL Calcium (8.4-10.2) mg/dL AST (17-59) U/L ALT (21-72) U/L Total Protein (6.3-8.2) g/dL Albumin (3.5-5.0) g/dL Microbiology - Last 24 Hours (Table) 04/18/18 06:22 Urine Culture - Final Urine,Voided Assessment and Plan Plan: Assessment: #1. Acute kidney injury likely related to Bactrim and dehydration, improving the creatinine is down to 2.0. Note that the baseline creatinine is at 1.5. #2. Hyperkalemia, patient presented with a potassium of 8.6, treated with Kayexalate, D50, IV insulin, and calcium gluconate is now trending down and the patient's potassium level has normalized and is down to 3.8 #3. Recent history of right toe infection, and patient was treated with the 2 rounds of antibiotics, Bactrim #4. History of chronic kidney disease, stage III, patient used to follow with nephrology, this is consistent with his history of hypertensive nephrosclerosis #5. Hypertension #6. Hyperlipidemia #7. Diabetes mellitus #8. Permanent pacemaker #9. History of coronary artery disease status post three-vessel bypass 33 years ago #10. Lifetime nonsmoker, no history of EtOH use 11 abnormal LFTs with cholelithiasis. No clinical evidence of cholecystitis. He has surgeries on the case. Ultrasound the gallbladder was noted. And Continue IV Rocephin and Flagyl regarding possibility of an acute cholecystitis. General surgeries on the case. Monitor LFTs. Tolerating full diet without any major difficulties. Function is improved. Potassium level is normalized. We'll continue to follow and the patient can be transferred to a medical floor with telemetry monitoring. The patient is hemodynamically stable. No cardiac arrhythmias have been noted.
--- NOTE | 2018-04-19 14:59 | P.PN ---
Subjective 87-year-old wasn't gentleman was admitted secondary to acute renal failure and hyperkalemia from Bactrim and severe intravascular depletion creatinine is coming down potassium is come down patient is being transferred out of ICU Constitutional: Denied any fatigue denied any fever. Cardio vascular: denied any chest pain, palpitations Gastrointestinal denied any nausea vomiting Pulmonary: Denied any shortness of breath cough Neurologic denied any new focal deficits All inpatient medications were reviewed and appropriate changes in these medications as dictated in the interval history and assessment and plan. Objective - Vital Signs Vital signs: Vital Signs Temp 98.7 F 04/19/18 12:00 Pulse 76 04/19/18 13:00 Resp 22 04/19/18 13:00 BP 163/74 04/19/18 13:00 Pulse Ox 95 04/19/18 13:00 Intake & Output 04/18/18 04/19/18 04/19/18 18:59 06:59 18:59 Intake Total 1000 1125 525 Output Total 286 745 415 Balance 714 380 110 Weight 84.1 kg Intake: IV 1000 1125 525 Sodium Chloride 0.9% 1, 900 975 525 000 ml @ 75 mls/hr IV . [id number] [facility] Rx#:[id number] cefTRIAXone 1 gm In 50 Sodium Chloride 0.9% 50 ml @ 100 mls/hr IVPB Q24H [facility] Rx#:[id number] metroNIDAZOLE-NS PMX 500 100 100 mg In Saline 1 100ml.bag @ 100 mls/hr IVPB Q8H [facility] Rx#:[id number] Output: Urine 286 745 415 Other: Voiding Method Urinal Indwelling Catheter Indwelling Catheter # Bowel Movements 0 - Exam PHYSICAL EXAMINATION: GENERAL: The patient is alert and oriented x3, not in any acute distress. Well developed, well nourished. HEENT: Pupils are round and equally reacting to light. EOMI. No scleral icterus. No conjunctival pallor. Normocephalic, atraumatic. No pharyngeal erythema. No thyromegaly. CARDIOVASCULAR: S1 and S2 present. No murmurs, rubs, or gallops. PULMONARY: Chest is clear to auscultation, no wheezing or crackles. ABDOMEN: Soft, nontender, nondistended, normoactive bowel sounds. No palpable organomegaly. MUSCULOSKELETAL: No joint swelling or deformity. EXTREMITIES: No cyanosis, clubbing, or pedal edema. NEUROLOGICAL: Gross neurological examination did not reveal any focal deficits. SKIN: No rashes. - Labs CBC & Chem 7: 04/19/18 05:28 04/19/18 05:28 Labs: Abnormal Lab Results - Last 24 Hours (Table) 04/18/18 04/18/18 04/18/18 Range/Units 18:09 20:11 20:22 RBC (4.30-5.90) m/uL Hgb (13.0-17.5) gm/dL Hct (39.0-53.0) % MCV (80.0-100.0) fL Plt Count (150-450) k/uL Chloride 110 H (98-107) mmol/L BUN 25 H (9-20) mg/dL Creatinine 2.51 H (0.66-1.25) mg/dL Glucose 110 H (74-99) mg/dL POC Glucose (mg/dL) 153 H 110 H (75-99) mg/dL Calcium (8.4-10.2) mg/dL AST (17-59) U/L ALT (21-72) U/L Total Protein (6.3-8.2) g/dL Albumin (3.5-5.0) g/dL 04/18/18 04/19/18 04/19/18 Range/Units 20:44 05:28 05:28 RBC 3.35 L (4.30-5.90) m/uL Hgb 10.5 L (13.0-17.5) gm/dL Hct 33.8 L (39.0-53.0) % MCV 100.9 H (80.0-100.0) fL Plt Count 55 L (150-450) k/uL Chloride 112 H (98-107) mmol/L BUN 22 H (9-20) mg/dL Creatinine 2.09 H (0.66-1.25) mg/dL Glucose (74-99) mg/dL POC Glucose (mg/dL) 102 H (75-99) mg/dL Calcium 8.1 L (8.4-10.2) mg/dL AST 1227 H (17-59) U/L ALT 550 H (21-72) U/L Total Protein 5.2 L (6.3-8.2) g/dL Albumin 2.5 L (3.5-5.0) g/dL 04/19/18 Range/Units 12:07 RBC (4.30-5.90) m/uL Hgb (13.0-17.5) gm/dL Hct (39.0-53.0) % MCV (80.0-100.0) fL Plt Count (150-450) k/uL Chloride (98-107) mmol/L BUN (9-20) mg/dL Creatinine (0.66-1.25) mg/dL Glucose (74-99) mg/dL POC Glucose (mg/dL) 124 H (75-99) mg/dL Calcium (8.4-10.2) mg/dL AST (17-59) U/L ALT (21-72) U/L Total Protein (6.3-8.2) g/dL Albumin (3.5-5.0) g/dL Microbiology - Last 24 Hours (Table) 04/18/18 06:22 Urine Culture - Final Urine,Voided Assessment and Plan Plan: -negative failure secondary to Bactrim intravascular 1 and patient baseline creatinine around 1.5 patient's creatinine improved and close to baseline -Hyperkalemia secondary to acute renal failure and Bactrim were now corrected with the Kayexalate insulin in D5 and calcium gluconate -Recent right foot to infection for which patient was on Bactrim presently on Rocephin now, I still have to figure out if this is an appropriate antibiotics I do not believe patient has urinary tract infection at this time -chronic kidney disease stage 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
--- NOTE | 2018-04-19 16:25 | P.PN ---
Subjective Progress Note Date: 04/19/18 Principal diagnosis: Cholelithiasis Patient feels well today. Denies abdominal pain. Tolerating diet. Today's liver enzymes noted to increase significantly since they were checked 2 days ago. Bilirubin and alkaline phosphatase however remain normal. Objective - Vital Signs Vital signs: Vital Signs Temp 98.1 F 04/19/18 15:00 Pulse 74 04/19/18 15:00 Resp 18 04/19/18 15:00 BP 163/72 04/19/18 15:00 Pulse Ox 94 L 04/19/18 15:00 Intake & Output 04/18/18 04/19/18 04/19/18 18:59 06:59 18:59 Intake Total 1000 1125 525 Output Total 286 745 415 Balance 714 380 110 Weight 84.1 kg Intake: IV 1000 1125 525 Sodium Chloride 0.9% 1, 900 975 525 000 ml @ 75 mls/hr IV . [id number] [facility] Rx#:[id number] cefTRIAXone 1 gm In 50 Sodium Chloride 0.9% 50 ml @ 100 mls/hr IVPB Q24H [facility] Rx#:[id number] metroNIDAZOLE-NS PMX 500 100 100 mg In Saline 1 100ml.bag @ 100 mls/hr IVPB Q8H [facility] Rx#:[id number] Output: Urine 286 745 415 Other: Voiding Method Urinal Indwelling Catheter Indwelling Catheter # Bowel Movements 0 - Exam Abdomen: Soft, nontender, nondistended - Labs CBC & Chem 7: 04/19/18 05:28 04/19/18 05:28 Labs: Abnormal Lab Results - Last 24 Hours (Table) 04/18/18 04/18/18 04/18/18 Range/Units 18:09 20:11 20:22 RBC (4.30-5.90) m/uL Hgb (13.0-17.5) gm/dL Hct (39.0-53.0) % MCV (80.0-100.0) fL Plt Count (150-450) k/uL Chloride 110 H (98-107) mmol/L BUN 25 H (9-20) mg/dL Creatinine 2.51 H (0.66-1.25) mg/dL Glucose 110 H (74-99) mg/dL POC Glucose (mg/dL) 153 H 110 H (75-99) mg/dL Calcium (8.4-10.2) mg/dL AST (17-59) U/L ALT (21-72) U/L Total Protein (6.3-8.2) g/dL Albumin (3.5-5.0) g/dL 04/18/18 04/19/18 04/19/18 Range/Units 20:44 05:28 05:28 RBC 3.35 L (4.30-5.90) m/uL Hgb 10.5 L (13.0-17.5) gm/dL Hct 33.8 L (39.0-53.0) % MCV 100.9 H (80.0-100.0) fL Plt Count 55 L (150-450) k/uL Chloride 112 H (98-107) mmol/L BUN 22 H (9-20) mg/dL Creatinine 2.09 H (0.66-1.25) mg/dL Glucose (74-99) mg/dL POC Glucose (mg/dL) 102 H (75-99) mg/dL Calcium 8.1 L (8.4-10.2) mg/dL AST 1227 H (17-59) U/L ALT 550 H (21-72) U/L Total Protein 5.2 L (6.3-8.2) g/dL Albumin 2.5 L (3.5-5.0) g/dL 04/19/18 Range/Units 12:07 RBC (4.30-5.90) m/uL Hgb (13.0-17.5) gm/dL Hct (39.0-53.0) % MCV (80.0-100.0) fL Plt Count (150-450) k/uL Chloride (98-107) mmol/L BUN (9-20) mg/dL Creatinine (0.66-1.25) mg/dL Glucose (74-99) mg/dL POC Glucose (mg/dL) 124 H (75-99) mg/dL Calcium (8.4-10.2) mg/dL AST (17-59) U/L ALT (21-72) U/L Total Protein (6.3-8.2) g/dL Albumin (3.5-5.0) g/dL Microbiology - Last 24 Hours (Table) 04/18/18 06:22 Urine Culture - Final Urine,Voided Assessment and Plan (1) Cholelithiasis Narrative/Plan: Continue diet as tolerated. Recheck liver enzymes tomorrow. GI evaluation requested. Current Visit: Yes Status: Acute Code(s): K80.20 - CALCULUS OF GALLBLADDER W /O CHOLECYSTITIS W/O OBSTRUCTION SNOMED Code(s): 962764439
[2018-04-19 17:30] LABS: Glucose,Whole Blood 126 mg/dL (75-99)
[2018-04-19 20:43] LABS: Glucose,Whole Blood 140 mg/dL (75-99)
[2018-04-20] MEDS: metroNIDAZOLE-NS PMX 500 MG in SALINE 1 100ML.BAG IVPB SCH ×2 (01:42→12:06)
[2018-04-20 07:14] LABS: Glucose,Whole Blood 93 mg/dL (75-99)
[2018-04-20 08:10] LABS: HCT 38.3 % (39.0-53.0); HGB 11.8 gm/dL (13.0-17.5); Hypochromasia Marked; MCH 30.8 pg (25.0-35.0); MCHC 30.8 g/dL (31.0-37.0); MCV 100.1 fL (80.0-100.0); Macrocytosis Slight; RBC 3.83 m/uL (4.30-5.90); RDW 14.6 % (11.5-15.5); WBC 4.6 k/uL (3.8-10.6)
[2018-04-20 08:14] LABS: Platelet Count 62 k/uL (150-450)
[2018-04-20 08:17] LABS: Calcium 8.4 mg/dL (8.4-10.2); Potassium 4.2 mmol/L (3.5-5.1); Total Bilirubin 0.8 mg/dL (0.2-1.3); Total Protein 6.1 g/dL (6.3-8.2)
[2018-04-20] MEDS: PANTOPRAZOLE 40 MG/10 ML VIAL IV SCH (08:21)
[2018-04-20] MEDS: INSULIN ASPART (NovoLOG) 100 UNIT/ML VIAL SQ SCH ×4 (08:25→21:58)
[2018-04-20] MEDS: SODIUM CHLORIDE 0.9% 1,000 ML IV SCH ×2 (08:26→21:57)
--- NOTE | 2018-04-20 09:00 | P.PN ---
Subjective Progress Note Date: 04/20/18 Principal diagnosis: Cholelithiasis Patient feels tired today. Denies abdominal pain. Tolerating diet. He is afebrile. Today's liver enzymes slightly improved. Objective - Vital Signs Vital signs: Vital Signs Temp 96.5 F L 04/20/18 07:05 Pulse 77 04/20/18 07:05 Resp 18 04/20/18 07:05 BP 150/72 04/20/18 07:05 Pulse Ox 90 L 04/20/18 07:05 Intake & Output 04/19/18 04/20/18 04/20/18 18:59 06:59 18:59 Intake Total 525 Output Total 415 Balance 110 Intake: IV 525 Sodium Chloride 0.9% 1, 525 000 ml @ 75 mls/hr IV . [id number] [facility] Rx#:[id number] Output: Urine 415 Other: Voiding Method Indwelling Catheter Toilet # Voids 1 # Bowel Movements 2 - Exam Abdomen: Soft, nontender, nondistended - Labs CBC & Chem 7: 04/20/18 07:22 04/20/18 07:22 Labs: Abnormal Lab Results - Last 24 Hours (Table) 04/19/18 04/19/18 04/19/18 Range/Units 12:07 17:16 20:31 RBC (4.30-5.90) m/uL Hgb (13.0-17.5) gm/dL Hct (39.0-53.0) % MCV (80.0-100.0) fL MCHC (31.0-37.0) g/dL Plt Count (150-450) k/uL Chloride (98-107) mmol/L Creatinine (0.66-1.25) mg/dL Glucose (74-99) mg/dL POC Glucose (mg/dL) 124 H 126 H 140 H (75-99) mg/dL AST (17-59) U/L ALT (21-72) U/L Total Protein (6.3-8.2) g/dL Albumin (3.5-5.0) g/dL 04/20/18 04/20/18 Range/Units 07:22 07:22 RBC 3.83 L (4.30-5.90) m/uL Hgb 11.8 L (13.0-17.5) gm/dL Hct 38.3 L (39.0-53.0) % MCV 100.1 H (80.0-100.0) fL MCHC 30.8 L (31.0-37.0) g/dL Plt Count 62 L (150-450) k/uL Chloride 112 H (98-107) mmol/L Creatinine 1.56 H (0.66-1.25) mg/dL Glucose 109 H (74-99) mg/dL POC Glucose (mg/dL) (75-99) mg/dL AST 899 H (17-59) U/L ALT 575 H (21-72) U/L Total Protein 6.1 L (6.3-8.2) g/dL Albumin 3.0 L (3.5-5.0) g/dL Microbiology - Last 24 Hours (Table) 04/18/18 06:22 Urine Culture - Final Urine,Voided Assessment and Plan (1) Cholelithiasis Narrative/Plan: Continue diet as tolerated. Await GI evaluation today. No surgical intervention planned at this time. Current Visit: Yes Status: Acute Code(s): K80.20 - CALCULUS OF GALLBLADDER W /O CHOLECYSTITIS W/O OBSTRUCTION SNOMED Code(s): 280645699
[2018-04-20 11:52] LABS: Glucose,Whole Blood 135 mg/dL (75-99)
[2018-04-20] MEDS: HEPARIN SODIUM,PORCINE 5,000 UNIT/ML 1 ML VIAL SQ SCH ×2 (11:54→17:32)
[2018-04-20] MEDS: busPIRone HCl 5 MG TAB PO SCH ×2 (11:54→21:58)
[2018-04-20] MEDS: ATORVASTATIN 20 MG TAB PO SCH (11:54)
[2018-04-20] MEDS: ASPIRIN 81 MG PO SCH (11:54)
[2018-04-20] MEDS: CARVEDILOL 3.125 MG TAB PO SCH ×2 (11:56→21:58)
[2018-04-20] MEDS: SODIUM BICARBONATE TAB 650 MG TAB PO SCH ×2 (11:56→21:58)
[2018-04-20] MEDS: levETIRAcetam 500 MG TAB PO SCH ×2 (11:56→21:59)
[2018-04-20] MEDS ORDERED: FUROSEMIDE 10 MG/ML 10 ML VIAL IV STA (12:11)
[2018-04-20 12:20] LABS: Eosinophils # (M) 0.05 k/uL (0-0.7); Lymphocytes # (M) 1.56 k/uL (1.0-4.8); Neutrophils # (M) 2.39 k/uL (1.3-7.7); Neutrophils % (M) 52 %; Nucleated Red Blood Cells 0 /100 WBC (0-0); Total Cells Counted 100
[2018-04-20] MEDS: methylPREDNISolone SOD SUCCI 125 MG/2 ML VIAL IV SCH ×2 (12:22→17:32)
[2018-04-20 12:31] LABS: Large Platelets Present
--- NOTE | 2018-04-20 13:46 | P.PN ---
Subjective Progress Note Date: 04/20/18 Principal diagnosis: Acute kidney injury suspect secondary to Bactrim and dehydration. This 87-year-old white male patient of Dr. Ishaan Mata, with past medical history of diabetes mellitus, hypertension, hyperlipidemia, coronary artery disease with history of three-vessel bypass 33 years ago, permanent pacemaker, chronic kidney disease, who presented to the emergency department on 04/17/2018 per EMS with complaints of weakness, fatigue, falls, nausea, dry heaving, decreased urine output. Patient states his onset of symptoms was 2 days ago, patient felt quite nauseous after eating some tomato soup, then he was up most of the night dry heaving. He had a similar episode after eating some potato salad. He never actually had any vomiting, no diarrhea. He was experiencing some abdominal discomfort he described as tightness across his upper abdomen. Denied any fever or chills, he did have some sweating when he was nauseous. Most recently patient had been treated for ingrown right total infection, and patient states he was treated with 2 rounds of antibiotics with the latest one being Bactrim. In the emergency department patient was found to have potassium of 8.6, B1 of 25, creatinine of 2.79, no leukocytosis, white blood cell count was 5.2, hemoglobin of 12.3, platelet count was 70, urinalysis showed 1+ protein , some red blood cells, trace leuks, and 1+ nitrite. Blood gas was done and showed pO2 of 80, pCO2 of 36, pH of 7.24 this was done on FiO2 of 30%. Patient denied any chest pain or shortness of breath. Renal ultrasound showed no evidence of hydronephrosis. Ultrasound of the aorta showed no abnormalities. Flat plate of the abdomen showed nonacute abdomen, showed bilateral pleural effusions and basilar pulmonary infiltrates and atelectasis. CT of abdomen and pelvis showed bilateral pleural effusions with atelectasis cholelithiasis without ductal dilatation, possible nonobstructing left renal stone. From the chart patient had of history of subdural hematoma, and brain CT was obtained which showed no acute intracranial findings. Amylase lipase were within normal limits, troponin was negative 1, proBNP was 9830. Patient has been normotensive, afebrile. He was given a liter and a half of fluid boluses in the emergency department, he was given calcium gluconate, IV insulin, and 50% dextrose in addition to Kayexalate, and this morning's potassium is 6.5. He is calm and comfortable, resting in bed, denies any distress, no abdominal pain, no nausea or vomiting. On today's evaluation of 04/19/2018, the patient is doing well. He has no specific complaints. The patient has chronic kidney disease stage III in the patient's creatinine is at 1.5 at baseline. The patient underlying nephrosclerosis. Noted the patient came in with acute kidney injury. The patient also developed hyperkalemia. The hyperkalemia was treated. The patient renal function is also improving. Creatinine is down to 2.09. The patient has no new complaints for now. The white cell count is at 4.2. The rest of the electrodes are within normal including a potassium level of 3.8. The blood pressure is under good control. No other significant events overnight. The patient is awake and alert. The patient is following commands. There is a concern of an acute cholecystitis based on abnormal LFTs. Gen. surgery was consulted. The patient is cholelithiasis without clinical evidence of cholecystitis. Ultrasound the gallbladder was noted. General surgeries also on the case. The patient is seen today 04/20/2018 in follow-up on the regular medical floor. He has had increasing shortness of breath, cough and congestion today. Audible wheezing. This having oxygen saturations in the high 80s low 90s on room air. He has been afebrile and hemodynamically stable. SMAC on minimal exertion. Chest x-ray reveals increased infiltrate in the left lower lobe. White count 4.6. Hemoglobin 11.8. Creatinine 1.56. Urine culture reveals no growth. Objective - Vital Signs Vital signs: Vital Signs Temp 96.5 F L 04/20/18 07:05 Pulse 77 04/20/18 07:05 Resp 18 04/20/18 07:05 BP 150/72 04/20/18 07:05 Pulse Ox 93 L 04/20/18 11:57 Intake & Output 04/19/18 04/20/18 04/20/18 18:59 06:59 18:59 Intake Total 525 Output Total 415 Balance 110 Intake: IV 525 Sodium Chloride 0.9% 1, 525 000 ml @ 75 mls/hr IV . [id number] [facility] Rx#:[id number] Output: Urine 415 Other: Voiding Method Indwelling Catheter Toilet # Voids 1 # Bowel Movements 2 - Exam GENERAL EXAM: Alert, active, comfortable in no apparent distress. Requiring 2 L /m per nasal cannula. HEAD: Normocephalic/atraumatic. EYES: Normal reaction of pupils, equal size. Conjunctiva pink, sclera white. NOSE: Clear with pink turbinates. THROAT: No erythema or exudates. NECK: No masses, no JVD, no thyroid enlargement, no adenopathy. CHEST: No chest wall deformity. Symmetrical expansion. LUNGS: Equal air entry with lateral end expiratory wheeze, crackles in left posterior base CVS: Regular rate and rhythm, normal S1 and S2, no gallops, no murmurs, no rubs ABDOMEN: Soft, nontender. No hepatosplenomegaly, normal bowel sounds, no guarding or rigidity. EXTREMITIES: No clubbing, no edema, no cyanosis, 2+ pulses and upper and lower extremities. MUSCULOSKELETAL: Muscle strength and tone normal. Right toenail is covered with a dressing, ears to be ingrown, slightly swollen at the base, tender to touch SPINE: No scoliosis or deformity SKIN: No rashes CENTRAL NERVOUS SYSTEM: Alert and oriented -3. No focal deficits, tone is normal in all 4 extremities. PSYCHIATRIC: Alert and oriented -3. Appropriate affect. Intact judgment and insight. - Labs CBC & Chem 7: 04/20/18 07:22 04/20/18 07:22 Labs: Abnormal Lab Results - Last 24 Hours (Table) 04/19/18 04/19/18 04/20/18 Range/Units 17:16 20:31 07:22 RBC 3.83 L (4.30-5.90) m/uL Hgb 11.8 L (13.0-17.5) gm/dL Hct 38.3 L (39.0-53.0) % MCV 100.1 H (80.0-100.0) fL MCHC 30.8 L (31.0-37.0) g/dL Plt Count 62 L (150-450) k/uL Chloride (98-107) mmol/L Creatinine (0.66-1.25) mg/dL Glucose (74-99) mg/dL POC Glucose (mg/dL) 126 H 140 H (75-99) mg/dL AST (17-59) U/L ALT (21-72) U/L Total Protein (6.3-8.2) g/dL Albumin (3.5-5.0) g/dL 04/20/18 04/20/18 Range/Units 07:22 11:50 RBC (4.30-5.90) m/uL Hgb (13.0-17.5) gm/dL Hct (39.0-53.0) % MCV (80.0-100.0) fL MCHC (31.0-37.0) g/dL Plt Count (150-450) k/uL Chloride 112 H (98-107) mmol/L Creatinine 1.56 H (0.66-1.25) mg/dL Glucose 109 H (74-99) mg/dL POC Glucose (mg/dL) 135 H (75-99) mg/dL AST 899 H (17-59) U/L ALT 575 H (21-72) U/L Total Protein 6.1 L (6.3-8.2) g/dL Albumin 3.0 L (3.5-5.0) g/dL Microbiology - Last 24 Hours (Table) 04/18/18 06:22 Urine Culture - Final Urine,Voided Assessment and Plan Assessment: Assessment: #1. Acute kidney injury likely related to Bactrim and dehydration, improving the creatinine is down to 2.0. Note that the baseline creatinine is at 1.56. #2. Acute hypoxic respiratory failure secondary to a new left lower lobe infiltrate, suspect hospital-acquired pneumonia. #3. Recent history of right toe infection, and patient was treated with the 2 rounds of antibiotics, Bactrim #4. History of chronic kidney disease, stage III, patient used to follow with nephrology, this is consistent with his history of hypertensive nephrosclerosis #5. Hypertension #6. Hyperlipidemia #7. Diabetes mellitus #8. Permanent pacemaker #9. History of coronary artery disease status post three-vessel bypass 33 years ago #10. Lifetime nonsmoker, no history of EtOH use 11 abnormal LFTs with cholelithiasis. No clinical evidence of cholecystitis. He has surgeries on the case. Ultrasound the gallbladder was noted. 12 Hyperkalemia, patient presented with a potassium of 8.6, treated with Kayexalate, D50, IV insulin, and calcium gluconate is now trending down and the patient's potassium level has normalized and is down to or 0.2 [place]: The patient was seen and evaluated by Dr. Adkins. The patient has had worsening shortness of breath cough and congestion today. Chest x-ray reveals a new infiltrate in the left lower lobe. We will add DuoNeb inhalations, IV Solu-Medrol, continue Zosyn. Discontinue ceftriaxone. Add Lasix 60 mg IVP 1. We will continue to follow make further recommendations based on his clinical status. I, the cosigning physician, performed a history & physical examination of the patient. Lungs sounds with bilateral end expiratory wheeze, few scattered rhonchi, crackles in left posterior base. Maintaining good O2 saturations in the 90s on 2 L/m per nasal cannula. I discussed the assessment and plan of care with my nurse practitioner, Mercy Krishna. I attest to the above note as dictated by her.
--- NOTE | 2018-04-20 14:26 | P.PN ---
Subjective Progress Note Date: 04/20/18 Seen and examined for the follow-up of acute kidney injury. Feels better. No nausea vomiting or diarrhea. Objective - Vital Signs Vital signs: Vital Signs Temp 96.5 F L 04/20/18 07:05 Pulse 77 04/20/18 07:05 Resp 18 04/20/18 07:05 BP 150/72 04/20/18 07:05 Pulse Ox 93 L 04/20/18 11:57 Intake & Output 04/19/18 04/20/18 04/20/18 18:59 06:59 18:59 Intake Total 525 500 Output Total 415 Balance 110 500 Intake: IV 525 500 Sodium Chloride 0.9% 1, 525 500 000 ml @ 5 mls/hr IV . Q24H [facility] Rx#:[id number] Output: Urine 415 Other: Voiding Method Indwelling Catheter Toilet # Voids 1 # Bowel Movements 2 - Exam No acute distress S1-S2 heard Lungs clear No edema - Labs CBC & Chem 7: 04/20/18 07:22 04/20/18 07:22 Labs: Abnormal Lab Results - Last 24 Hours (Table) 04/19/18 04/19/18 04/20/18 Range/Units 17:16 20:31 07:22 RBC 3.83 L (4.30-5.90) m/uL Hgb 11.8 L (13.0-17.5) gm/dL Hct 38.3 L (39.0-53.0) % MCV 100.1 H (80.0-100.0) fL MCHC 30.8 L (31.0-37.0) g/dL Plt Count 62 L (150-450) k/uL Chloride (98-107) mmol/L Creatinine (0.66-1.25) mg/dL Glucose (74-99) mg/dL POC Glucose (mg/dL) 126 H 140 H (75-99) mg/dL AST (17-59) U/L ALT (21-72) U/L Total Protein (6.3-8.2) g/dL Albumin (3.5-5.0) g/dL 04/20/18 04/20/18 Range/Units 07:22 11:50 RBC (4.30-5.90) m/uL Hgb (13.0-17.5) gm/dL Hct (39.0-53.0) % MCV (80.0-100.0) fL MCHC (31.0-37.0) g/dL Plt Count (150-450) k/uL Chloride 112 H (98-107) mmol/L Creatinine 1.56 H (0.66-1.25) mg/dL Glucose 109 H (74-99) mg/dL POC Glucose (mg/dL) 135 H (75-99) mg/dL AST 899 H (17-59) U/L ALT 575 H (21-72) U/L Total Protein 6.1 L (6.3-8.2) g/dL Albumin 3.0 L (3.5-5.0) g/dL Microbiology - Last 24 Hours (Table) 04/18/18 06:22 Urine Culture - Final Urine,Voided Assessment and Plan Assessment: #1 acute kidney injury secondary to hemodynamic ATN. Creatinine back to baseline. #2 CK D stage III secondary to nephrosclerosis baseline creatinine 1.5 MG per DL. #3 hyperkalemia secondary to Bactrim and metabolic acidosis resolved. #4 hypertension with chronic kidney disease. #5 anemia with chronic kidney disease. Plan: #1 renal function stable, stop IV fluids #2 stable from nephrology point of view for discharge to be followed up in outpatient office in 1-2 weeks.
--- NOTE | 2018-04-20 14:27 | CONS ---
CONSULTATION DATE OF DICTATION: 04/20/2018 REASON FOR CONSULTATION: Elevated LFTs. HISTORY OF PRESENT ILLNESS: The patient is an 87-year-old pleasant white male who was admitted to the hospital with weakness, fatigue, not feeling well, with severe dry heaves for the last 3 to 4 days' duration. He states that he was diagnosed with a foot infection and was started on Bactrim about a week ago. Prior to that he had received another antibiotic for 2 weeks, and because the foot infection was not resolved, he was given Bactrim. Because of the ongoing symptoms of persistent dry heaves, fatigue and weakness, he was brought to the emergency room by his daughter. In the ER he was noted to have severe hyperkalemia. He also was noted to have elevated serum transaminases, and hence we were consulted in regards to this issue. He had a CT of the abdomen and pelvis done in the emergency room that showed evidence of gallstones but no biliary ductal dilation. The patient denies any abdominal pain. He reports no history of chronic liver disease, no history of alcohol abuse. On review of his records, the patient was noted to have normal serum transaminases in the mid part of 2018. However, he was noted to have thrombocytopenia of unclear etiology. PAST MEDICAL HISTORY: Significant for: 1. Coronary artery disease, status post CABG many years ago. 2. History of pacemaker implantation. 3. Diabetes mellitus. 4. Hypertension. 5. Hyperlipidemia. PAST SURGICAL HISTORY: CABG and pacemaker implantation. MEDICATIONS: Medications at home include: 1. Aspirin. 2. Lipitor. 3. Coreg. 4. Colchicine. 5. Protonix. 6. Buspirone. 7. Verapamil. 8. Keppra. 9. Bactrim. ALLERGIES: NONE. SOCIAL HISTORY: No smoking. No alcohol use. FAMILY HISTORY: Unremarkable. REVIEW OF SYSTEMS: CARDIOPULMONARY: No chest pain or shortness of breath. GENITOURINARY: No dysuria or hematuria. MUSCULOSKELETAL: Unremarkable. SKIN: Unremarkable. ENDOCRINE: Unremarkable. PSYCHIATRIC: Unremarkable. NEUROLOGY: Unremarkable. ENT/VISION: Unremarkable. CONSTITUTIONAL: No recent weight loss. No fever, chills, night sweats. PHYSICAL EXAMINATION: Blood pressure 150/72, pulse rate 77, temperature 97.5. HEENT EXAMINATION: Unremarkable. Conjunctivae are pink, sclerae anicteric. Oral cavity with no lesions. NECK: No JVD or lymph node enlargement. Chest was clear to auscultation. HEART: Regular rate and rhythm. ABDOMEN: Soft. Bowel sounds are positive. No organomegaly. EXTREMITIES: No pedal edema. SKIN: No rashes. NEURO: He is alert and oriented x3. No focal deficits. LABS: Labs done at the time of admission to the hospital on 04/17/2018 showed WBC 5.2, hemoglobin 12.3, platelets 70,000. Today WBC is 4.6, hemoglobin 11.8, and platelets are 62,000. INR is 1.2. On 04/17/2018, AST and ALT were 173 and 89, respectively. Total bilirubin was 1.5. Today total bilirubin is 0.8, AST is 8[address] ALT is 575. CT of the abdomen showed evidence of gallstones but no biliary ductal dilation. Potassium level was 8.6 at admission and today it is 4.2. BUN and creatinine are 40 and 1.56, respectively. IMPRESSION: This is a patient who presents with nonspecific symptoms of fatigue, weakness, nausea of 3 days' duration and came to the emergency room and was noted to have mild elevation of serum transaminases with an ALT and AST at 89 and 173, respectively, and bilirubin of 1.5. He was also noted to have severe hyperkalemia and mild acute kidney injury at the same time. CT of the abdomen done in the emergency room showed evidence of gallstones but no biliary ductal dilation. On further questioning, the patient states that he was diagnosed with a right great toe infection and he was started on Bactrim for a week prior to the onset of these symptoms. He does not recall if he ever took Bactrim in the past. Prior to the Bactrim treatment, he was also given some other antibiotic for 2 weeks for the same foot infection. His symptoms are most suggestive of an acute medication-induced hepatitis, probably related to recent Bactrim use, causing elevated serum transaminases. However, the possibility of CBD stones at this time cannot be entirely excluded, though it appears unlikely. Patient is also noted to have mild thrombocytopenia; in the setting of underlying diabetes mellitus and hypertension, the possibility of occult chronic liver disease cannot be excluded. RECOMMENDATIONS: 1. We will follow serum transaminases closely. 2. MRCP cannot be ordered because of presence of pacemaker. 3. If his serum transaminases continue to improve, we can continue with the conservative approach. 4. No plans for any endoscopic intervention at the present time. 5. I have requested a hepatitis viral profile. We will follow the patient closely during his hospital stay. Thank you for this consultation. BRENDA / ROXIE: [id number] /
[2018-04-20] MEDS: PIPERACILLIN-TAZOBACTAM 3.375 GM in SODIUM CHLORIDE 0.9% 100 ML IVPB SCH ×2 (14:50→21:59)
--- NOTE | 2018-04-20 15:16 | P.PN ---
Subjective 87-year-old wasn't gentleman was admitted secondary to acute renal failure and hyperkalemia from Bactrim and severe intravascular depletion creatinine is coming down potassium is come down patient is being transferred out of ICU 04/20/2018 patient is bit volume overloaded because of which she received a dose of Lasix IV fluids were discontinued patient creatinine is 1.5 today. Patient does have pulmonary edema on the chest x-ray. Constitutional: Denied any fatigue denied any fever. Cardio vascular: denied any chest pain, palpitations Gastrointestinal denied any nausea vomiting Pulmonary: Denied any shortness of breath cough Neurologic denied any new focal deficits All inpatient medications were reviewed and appropriate changes in these medications as dictated in the interval history and assessment and plan. Objective - Vital Signs Vital signs: Vital Signs Temp 97.5 F L 04/20/18 13:35 Pulse 95 04/20/18 13:35 Resp 20 04/20/18 13:35 BP 177/91 04/20/18 13:35 Pulse Ox 92 L 04/20/18 13:35 Intake & Output 04/19/18 04/20/18 04/20/18 18:59 06:59 18:59 Intake Total 525 500 Output Total 415 Balance 110 500 Intake: IV 525 500 Sodium Chloride 0.9% 1, 525 500 000 ml @ 5 mls/hr IV . Q24H [facility] Rx#:[id number] Output: Urine 415 Other: Voiding Method Indwelling Catheter Toilet # Voids 1 # Bowel Movements 2 - Exam PHYSICAL EXAMINATION: GENERAL: The patient is alert and oriented x3, not in any acute distress. Well developed, well nourished. HEENT: Pupils are round and equally reacting to light. EOMI. No scleral icterus. No conjunctival pallor. Normocephalic, atraumatic. No pharyngeal erythema. No thyromegaly. CARDIOVASCULAR: S1 and S2 present. No murmurs, rubs, or gallops. PULMONARY: Bibasilar crackles on exam ABDOMEN: Soft, nontender, nondistended, normoactive bowel sounds. No palpable organomegaly. MUSCULOSKELETAL: No joint swelling or deformity. EXTREMITIES: No cyanosis, clubbing, or pedal edema. NEUROLOGICAL: Gross neurological examination did not reveal any focal deficits. SKIN: No rashes. - Labs CBC & Chem 7: 04/20/18 07:22 04/20/18 07:22 Labs: Abnormal Lab Results - Last 24 Hours (Table) 04/19/18 04/19/18 04/20/18 Range/Units 17:16 20:31 07:22 RBC 3.83 L (4.30-5.90) m/uL Hgb 11.8 L (13.0-17.5) gm/dL Hct 38.3 L (39.0-53.0) % MCV 100.1 H (80.0-100.0) fL MCHC 30.8 L (31.0-37.0) g/dL Plt Count 62 L (150-450) k/uL Chloride (98-107) mmol/L Creatinine (0.66-1.25) mg/dL Glucose (74-99) mg/dL POC Glucose (mg/dL) 126 H 140 H (75-99) mg/dL AST (17-59) U/L ALT (21-72) U/L Total Protein (6.3-8.2) g/dL Albumin (3.5-5.0) g/dL 04/20/18 04/20/18 Range/Units 07:22 11:50 RBC (4.30-5.90) m/uL Hgb (13.0-17.5) gm/dL Hct (39.0-53.0) % MCV (80.0-100.0) fL MCHC (31.0-37.0) g/dL Plt Count (150-450) k/uL Chloride 112 H (98-107) mmol/L Creatinine 1.56 H (0.66-1.25) mg/dL Glucose 109 H (74-99) mg/dL POC Glucose (mg/dL) 135 H (75-99) mg/dL AST 899 H (17-59) U/L ALT 575 H (21-72) U/L Total Protein 6.1 L (6.3-8.2) g/dL Albumin 3.0 L (3.5-5.0) g/dL Microbiology - Last 24 Hours (Table) 04/18/18 06:22 Urine Culture - Final Urine,Voided Assessment and Plan Plan: -negative failure secondary to Bactrim intravascular 1 and patient baseline creatinine around 1.5 patient's creatinine improved and close to baseline, patient is in Lasix today because of volume overload from IV fluids. 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
[2018-04-20] MEDS: IPRATROPIUM-ALBUTEROL 3 ML NEB INHALATION SCH ×2 (15:19→19:22)
[2018-04-20 17:05] LABS: Glucose,Whole Blood 175 mg/dL (75-99)
[2018-04-20 20:54] LABS: Glucose,Whole Blood 225 mg/dL (75-99)
[2018-04-21] MEDS: methylPREDNISolone SOD SUCCI 125 MG/2 ML VIAL IV SCH ×2 (00:05→06:35)
[2018-04-21] MEDS: HEPARIN SODIUM,PORCINE 5,000 UNIT/ML 1 ML VIAL SQ SCH ×4 (00:05→23:37)
[2018-04-21 07:13] LABS: Glucose,Whole Blood 144 mg/dL (75-99)
[2018-04-21] MEDS: IPRATROPIUM-ALBUTEROL 3 ML NEB INHALATION SCH ×4 (07:13→19:32)
[2018-04-21] MEDS: levETIRAcetam 500 MG TAB PO SCH ×2 (07:53→19:48)
[2018-04-21] MEDS: SODIUM BICARBONATE TAB 650 MG TAB PO SCH ×2 (07:53→19:48)
[2018-04-21] MEDS: busPIRone HCl 5 MG TAB PO SCH ×2 (07:54→19:47)
[2018-04-21] MEDS: PANTOPRAZOLE 40 MG/10 ML VIAL IV SCH (07:54)
[2018-04-21] MEDS: ATORVASTATIN 20 MG TAB PO SCH (07:54)
[2018-04-21] MEDS: CARVEDILOL 3.125 MG TAB PO SCH ×2 (07:54→19:47)
[2018-04-21] MEDS: INSULIN ASPART (NovoLOG) 100 UNIT/ML VIAL SQ SCH ×4 (07:54→21:05)
[2018-04-21] MEDS: ASPIRIN 81 MG PO SCH (07:54)
[2018-04-21] MEDS: PIPERACILLIN-TAZOBACTAM 3.375 GM in SODIUM CHLORIDE 0.9% 100 ML IVPB SCH ×3 (07:55→23:36)
--- NOTE | 2018-04-21 08:13 | P.PN ---
Subjective Progress Note Date: 04/21/18 Principal diagnosis: Cholelithiasis Patient doing well today. Tolerating diet. Denies pain. GI consult noted. Objective - Vital Signs Vital signs: Vital Signs Temp 98.0 F 04/21/18 07:04 Pulse 92 04/21/18 07:21 Resp 16 04/21/18 07:04 BP 146/77 04/21/18 07:04 Pulse Ox 91 L 04/21/18 07:04 Intake & Output 04/20/18 04/21/18 04/21/18 18:59 06:59 18:59 Intake Total 500 140 Output Total 650 Balance 500 -510 Intake: IV 500 40 Sodium Chloride 0.9% 1, 500 40 000 ml @ 5 mls/hr IV . Q24H [facility] Rx#:[id number] Intake, IV Titration 100 Amount Piperacillin-Tazobactam 3 100 .375 gm In Sodium Chloride 0.9% 100 ml @ 25 mls/hr IVPB Q12HR [facility] Rx #:[id number] Output: Urine 650 Other: Voiding Method Toilet Urinal # Voids 2 # Bowel Movements 1 - Exam Abdomen: Soft, nontender, nondistended - Labs CBC & Chem 7: 04/20/18 07:22 04/20/18 07:22 Labs: Abnormal Lab Results - Last 24 Hours (Table) 04/20/18 04/20/18 04/20/18 Range/Units 07:22 07:22 11:50 RBC 3.83 L (4.30-5.90) m/uL Hgb 11.8 L (13.0-17.5) gm/dL Hct 38.3 L (39.0-53.0) % MCV 100.1 H (80.0-100.0) fL MCHC 30.8 L (31.0-37.0) g/dL Plt Count 62 L (150-450) k/uL Chloride 112 H (98-107) mmol/L Creatinine 1.56 H (0.66-1.25) mg/dL Glucose 109 H (74-99) mg/dL POC Glucose (mg/dL) 135 H (75-99) mg/dL AST 899 H (17-59) U/L ALT 575 H (21-72) U/L Total Protein 6.1 L (6.3-8.2) g/dL Albumin 3.0 L (3.5-5.0) g/dL 04/20/18 04/20/18 04/21/18 Range/Units 17:03 20:52 07:02 RBC (4.30-5.90) m/uL Hgb (13.0-17.5) gm/dL Hct (39.0-53.0) % MCV (80.0-100.0) fL MCHC (31.0-37.0) g/dL Plt Count (150-450) k/uL Chloride (98-107) mmol/L Creatinine (0.66-1.25) mg/dL Glucose (74-99) mg/dL POC Glucose (mg/dL) 175 H 225 H 144 H (75-99) mg/dL AST (17-59) U/L ALT (21-72) U/L Total Protein (6.3-8.2) g/dL Albumin (3.5-5.0) g/dL Assessment and Plan (1) Cholelithiasis Narrative/Plan: Patient doing well at this time. Await morning labs. Appreciated GI evaluation. Agree with their assessment. No surgical intervention planned at this time. We'll sign off. Please call if needed. Current Visit: Yes Status: Acute Code(s): K80.20 - CALCULUS OF GALLBLADDER W /O CHOLECYSTITIS W/O OBSTRUCTION SNOMED Code(s): 033047733
[2018-04-21 08:48] LABS: Basophils % (A) 0 %; Eosinophils % (A) 0 %; HCT 40.8 % (39.0-53.0); HGB 12.4 gm/dL (13.0-17.5); Hypochromasia Marked; Lymphocytes % (A) 25 %; MCH 30.7 pg (25.0-35.0); MCHC 30.3 g/dL (31.0-37.0); MCV 101.4 fL (80.0-100.0); Macrocytosis Slight; Mean Platelet Volume 11.8; Monocytes # (A) 0.2 k/uL (0-1.0); Monocytes % (A) 4 %; Neutrophils # (A) 2.7 k/uL (1.3-7.7); Neutrophils % (A) 68 %; RBC 4.02 m/uL (4.30-5.90); RDW 14.7 % (11.5-15.5)
[2018-04-21 08:53] LABS: Platelet Count 61 k/uL (150-450)
[2018-04-21 09:04] LABS: Calcium 8.9 mg/dL (8.4-10.2); Potassium 4.2 mmol/L (3.5-5.1)
[2018-04-21 10:34] LABS: Crenated RBC Present; Large Platelets Present
[2018-04-21] MEDS ORDERED: FUROSEMIDE 10 MG/ML 4 ML VIAL IV STA (11:42)
[2018-04-21 12:33] LABS: Glucose,Whole Blood 212 mg/dL (75-99)
--- NOTE | 2018-04-21 13:03 | P.PN ---
Subjective 87-year-old wasn't gentleman was admitted secondary to acute renal failure and hyperkalemia from Bactrim and severe intravascular depletion creatinine is coming down potassium is come down patient is being transferred out of ICU 04/20/2018 patient is bit volume overloaded because of which she received a dose of Lasix IV fluids were discontinued patient creatinine is 1.5 today. Patient does have pulmonary edema on the chest x-ray. 04/21/2018 Patient looks much better still has sick bibasilar crackles pulmonary edema and left-sided pleural effusion patient received another dose of Lasix. We'll repeat basic metabolic profile tomorrow creatinine has gone up a bit because of the Lasix to 1.6 Constitutional: Denied any fatigue denied any fever. Cardio vascular: denied any chest pain, palpitations Gastrointestinal denied any nausea vomiting Pulmonary: Denied any shortness of breath cough Neurologic denied any new focal deficits All inpatient medications were reviewed and appropriate changes in these medications as dictated in the interval history and assessment and plan. Objective - Vital Signs Vital signs: Vital Signs Temp 98.0 F 04/21/18 07:04 Pulse 90 04/21/18 11:36 Resp 16 04/21/18 07:04 BP 146/77 04/21/18 07:04 Pulse Ox 91 L 04/21/18 11:26 Intake & Output 04/20/18 04/21/18 04/21/18 18:59 06:59 18:59 Intake Total 500 140 Output Total 650 Balance 500 -510 Intake: IV 500 40 Sodium Chloride 0.9% 1, 500 40 000 ml @ 5 mls/hr IV . Q24H [facility] Rx#:[id number] Intake, IV Titration 100 Amount Piperacillin-Tazobactam 3 100 .375 gm In Sodium Chloride 0.9% 100 ml @ 25 mls/hr IVPB Q12HR [facility] Rx #:[id number] Output: Urine 650 Other: Voiding Method Toilet Urinal # Voids 2 # Bowel Movements 1 - Exam PHYSICAL EXAMINATION: GENERAL: The patient is alert and oriented x3, not in any acute distress. Well developed, well nourished. HEENT: Pupils are round and equally reacting to light. EOMI. No scleral icterus. No conjunctival pallor. Normocephalic, atraumatic. No pharyngeal erythema. No thyromegaly. CARDIOVASCULAR: S1 and S2 present. No murmurs, rubs, or gallops. PULMONARY: Bibasilar crackles on exam ABDOMEN: Soft, nontender, nondistended, normoactive bowel sounds. No palpable organomegaly. MUSCULOSKELETAL: No joint swelling or deformity. EXTREMITIES: No cyanosis, clubbing, or pedal edema. NEUROLOGICAL: Gross neurological examination did not reveal any focal deficits. SKIN: No rashes. - Labs CBC & Chem 7: 04/21/18 07:53 04/21/18 07:53 Labs: Abnormal Lab Results - Last 24 Hours (Table) 04/20/18 04/20/18 04/21/18 Range/Units 17:03 20:52 07:02 RBC (4.30-5.90) m/uL Hgb (13.0-17.5) gm/dL MCV (80.0-100.0) fL MCHC (31.0-37.0) g/dL Plt Count (150-450) k/uL Creatinine (0.66-1.25) mg/dL Glucose (74-99) mg/dL POC Glucose (mg/dL) 175 H 225 H 144 H (75-99) mg/dL 04/21/18 04/21/18 04/21/18 Range/Units 07:53 07:53 12:04 RBC 4.02 L (4.30-5.90) m/uL Hgb 12.4 L (13.0-17.5) gm/dL MCV 101.4 H (80.0-100.0) fL MCHC 30.3 L (31.0-37.0) g/dL Plt Count 61 L (150-450) k/uL Creatinine 1.62 H (0.66-1.25) mg/dL Glucose 150 H (74-99) mg/dL POC Glucose (mg/dL) 212 H (75-99) mg/dL Assessment and Plan Plan: -negative failure secondary to Bactrim intravascular 1 and patient baseline creatinine around 1.5 patient is in Lasix today because of volume overload from IV fluids. Patient's creatinine has gone up a little bit to 1.6 -Shortness of breath secondary to volume overload from IV fluid resuscitation echocardiogram will be obtained patient was given a dose of Lasix -Hyperkalemia secondary to acute renal failure and Bactrim were now corrected with the Kayexalate insulin in D5 and calcium gluconate -Recent right foot to infection for which patient was on Bactrim presently Zosyn , I do not believe patient has urinary tract infection at this time -chronic kidney disease stage 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
[2018-04-21 13:34] LABS: Albumin 3.2 g/dL (3.5-5.0); Calcium 8.9 mg/dL (8.4-10.2); Potassium 4.2 mmol/L (3.5-5.1); Total Protein 6.2 g/dL (6.3-8.2)
--- NOTE | 2018-04-21 13:55 | PN ---
PROGRESS NOTE DATE OF SERVICE: April 21, 2018. REQUESTING PHYSICIAN: Dr. Correa The patient is an 87-year-old pleasant white male admitted to the hospital with nausea, vomiting, not feeling well for the last few days duration. He was noted to have acute elevation of serum transaminases and he has been seen in consultation about 3 days ago. He did have a CT scan of the abdomen that showed gallstones but no biliary ductal dilation. Patient was treated for a foot infection with Bactrim for a week prior to hospitalization. He feels well. He denies any complaints. No abdominal pain. No nausea, vomiting. On a regular diet, tolerating well. PHYSICAL EXAMINATION: Appears comfortable, no apparent distress. Vital signs is stable. Blood pressure 132/80, pulse rate 92 and afebrile. HEENT examination unremarkable. Conjunctivae pink. Sclerae anicteric. Oral cavity no lesions the auscultation. HEART: Regular rate and rhythm. ABDOMEN: Soft. Bowel sounds are positive. No organomegaly. EXTREMITIES: No pedal edema. SKIN: No rashes. NEUROLOGIC: Alert and oriented x3. No focal deficits. LABS: From today, CMP still pending. CBC is normal except for platelet count of 61,000. IMPRESSION: Acute elevation of serum transaminases with mild elevation of bilirubin that is gradually improving. CT of the abdomen showed gallstones but no biliary ductal dilation. The patient presents with symptoms of mild nausea, fatigue, not feeling well for the last 1 week prior to hospitalization. Most likely this is medication induced hepatitis, probably from recent Bactrim use. However, choledocholithiasis cannot be excluded though appears unlikely. RECOMMENDATION: 1. Repeat CBC and CMP in the morning. 2. No indication for an ERCP at the present time. 3. If serum transaminases continue to improve, he can be discharged home in 1-2 days with outpatient followup. Hepatitis viral profile was ordered which is still pending at the time of this dictation. Thank you for this consultation. MMODL / IJN: [id number] /
--- NOTE | 2018-04-21 14:47 | P.PN ---
Subjective Progress Note Date: 04/21/18 Seen and examined for the follow-up of acute kidney injury. Feels better. No nausea vomiting or diarrhea. Objective - Vital Signs Vital signs: Vital Signs Temp 98.0 F 04/21/18 07:04 Pulse 90 04/21/18 11:36 Resp 16 04/21/18 07:04 BP 146/77 04/21/18 07:04 Pulse Ox 91 L 04/21/18 11:26 Intake & Output 04/20/18 04/21/18 04/21/18 18:59 06:59 18:59 Intake Total 500 140 Output Total 650 Balance 500 -510 Intake: IV 500 40 Sodium Chloride 0.9% 1, 500 40 000 ml @ 5 mls/hr IV . Q24H [facility] Rx#:[id number] Intake, IV Titration 100 Amount Piperacillin-Tazobactam 3 100 .375 gm In Sodium Chloride 0.9% 100 ml @ 25 mls/hr IVPB Q12HR [facility] Rx #:[id number] Output: Urine 650 Other: Voiding Method Toilet Urinal # Voids 2 # Bowel Movements 1 - Exam No acute distress S1-S2 heard Lungs clear No edema - Labs CBC & Chem 7: 04/21/18 07:53 04/21/18 13:15 Labs: Abnormal Lab Results - Last 24 Hours (Table) 04/20/18 04/20/18 04/21/18 Range/Units 17:03 20:52 07:02 RBC (4.30-5.90) m/uL Hgb (13.0-17.5) gm/dL MCV (80.0-100.0) fL MCHC (31.0-37.0) g/dL Plt Count (150-450) k/uL Chloride (98-107) mmol/L Creatinine (0.66-1.25) mg/dL Glucose (74-99) mg/dL POC Glucose (mg/dL) 175 H 225 H 144 H (75-99) mg/dL AST (17-59) U/L ALT (21-72) U/L Total Protein (6.3-8.2) g/dL Albumin (3.5-5.0) g/dL 04/21/18 04/21/18 04/21/18 Range/Units 07:53 07:53 12:04 RBC 4.02 L (4.30-5.90) m/uL Hgb 12.4 L (13.0-17.5) gm/dL MCV 101.4 H (80.0-100.0) fL MCHC 30.3 L (31.0-37.0) g/dL Plt Count 61 L (150-450) k/uL Chloride (98-107) mmol/L Creatinine 1.62 H (0.66-1.25) mg/dL Glucose 150 H (74-99) mg/dL POC Glucose (mg/dL) 212 H (75-99) mg/dL AST (17-59) U/L ALT (21-72) U/L Total Protein (6.3-8.2) g/dL Albumin (3.5-5.0) g/dL 04/21/18 Range/Units 13:15 RBC (4.30-5.90) m/uL Hgb (13.0-17.5) gm/dL MCV (80.0-100.0) fL MCHC (31.0-37.0) g/dL Plt Count (150-450) k/uL Chloride 109 H (98-107) mmol/L Creatinine 1.63 H (0.66-1.25) mg/dL Glucose 211 H (74-99) mg/dL POC Glucose (mg/dL) (75-99) mg/dL AST 313 H (17-59) U/L ALT 386 H (21-72) U/L Total Protein 6.2 L (6.3-8.2) g/dL Albumin 3.2 L (3.5-5.0) g/dL Assessment and Plan Assessment: #1 acute kidney injury secondary to hemodynamic ATN. Creatinine close to baseline. #2 CK D stage III secondary to nephrosclerosis baseline creatinine 1.5 MG per DL. #3 hyperkalemia secondary to Bactrim and metabolic acidosis resolved. #4 hypertension with chronic kidney disease. #5 anemia with chronic kidney disease. Plan: #1 renal function stable, stop IV fluids #2 stable from nephrology point of view for discharge to be followed up in outpatient office in 1-2 weeks.
--- NOTE | 2018-04-21 14:53 | P.PN ---
Subjective Progress Note Date: 04/21/18 Acute kidney injury suspect secondary to Bactrim and dehydration. This 87-year-old white male patient of Dr. Ishaan Mata, with past medical history of diabetes mellitus, hypertension, hyperlipidemia, coronary artery disease with history of three-vessel bypass 33 years ago, permanent pacemaker, chronic kidney disease, who presented to the emergency department on 04/17/2018 per EMS with complaints of weakness, fatigue, falls, nausea, dry heaving, decreased urine output. Patient states his onset of symptoms was 2 days ago, patient felt quite nauseous after eating some tomato soup, then he was up most of the night dry heaving. He had a similar episode after eating some potato salad. He never actually had any vomiting, no diarrhea. He was experiencing some abdominal discomfort he described as tightness across his upper abdomen. Denied any fever or chills, he did have some sweating when he was nauseous. Most recently patient had been treated for ingrown right total infection, and patient states he was treated with 2 rounds of antibiotics with the latest one being Bactrim. In the emergency department patient was found to have potassium of 8.6, B1 of 25, creatinine of 2.79, no leukocytosis, white blood cell count was 5.2, hemoglobin of 12.3, platelet count was 70, urinalysis showed 1+ protein , some red blood cells, trace leuks, and 1+ nitrite. Blood gas was done and showed pO2 of 80, pCO2 of 36, pH of 7.24 this was done on FiO2 of 30%. Patient denied any chest pain or shortness of breath. Renal ultrasound showed no evidence of hydronephrosis. Ultrasound of the aorta showed no abnormalities. Flat plate of the abdomen showed nonacute abdomen, showed bilateral pleural effusions and basilar pulmonary infiltrates and atelectasis. CT of abdomen and pelvis showed bilateral pleural effusions with atelectasis cholelithiasis without ductal dilatation, possible nonobstructing left renal stone. From the chart patient had of history of subdural hematoma, and brain CT was obtained which showed no acute intracranial findings. Amylase lipase were within normal limits, troponin was negative 1, proBNP was 9830. Patient has been normotensive, afebrile. He was given a liter and a half of fluid boluses in the emergency department, he was given calcium gluconate, IV insulin, and 50% dextrose in addition to Kayexalate, and this morning's potassium is 6.5. He is calm and comfortable, resting in bed, denies any distress, no abdominal pain, no nausea or vomiting. On today's evaluation of 04/19/2018, the patient is doing well. He has no specific complaints. The patient has chronic kidney disease stage III in the patient's creatinine is at 1.5 at baseline. The patient underlying nephrosclerosis. Noted the patient came in with acute kidney injury. The patient also developed hyperkalemia. The hyperkalemia was treated. The patient renal function is also improving. Creatinine is down to 2.09. The patient has no new complaints for now. The white cell count is at 4.2. The rest of the electrodes are within normal including a potassium level of 3.8. The blood pressure is under good control. No other significant events overnight. The patient is awake and alert. The patient is following commands. There is a concern of an acute cholecystitis based on abnormal LFTs. Gen. surgery was consulted. The patient is cholelithiasis without clinical evidence of cholecystitis. Ultrasound the gallbladder was noted. General surgeries also on the case. The patient is seen today 04/20/2018 in follow-up on the regular medical floor. He has had increasing shortness of breath, cough and congestion today. Audible wheezing. This having oxygen saturations in the high 80s low 90s on room air. He has been afebrile and hemodynamically stable. SMAC on minimal exertion. Chest x-ray reveals increased infiltrate in the left lower lobe. White count 4.6. Hemoglobin 11.8. Creatinine 1.56. Urine culture reveals no growth. On 04/21/2018 I'm seeing this patient for a follow-up. Yesterday the patient was short of breath. The patient was slightly hypoxic. Chest x-ray showed CHF and a left lower lobe consolidation. The patient was started on IV Zosyn. The patient was also given diuretics. On today's evaluation is with atelectasis baseline. No significant respiratory distress. No cough or sputum production. No chest pain or pleurisy. He is sitting up on a chair and is tolerating his diet. Function is stable with a creatinine of 1.5. No hyperkalemia this point in time. No altered mentation. He is hard of hearing. The patient has cholelithiasis and the patient was seen by general surgery. No surgical recommendation of the done for the time being. LFTs are improving. Objective - Vital Signs Vital signs: Vital Signs Temp 98.0 F 04/21/18 07:04 Pulse 90 04/21/18 11:36 Resp 16 04/21/18 07:04 BP 146/77 04/21/18 07:04 Pulse Ox 91 L 04/21/18 11:26 Intake & Output 04/20/18 04/21/18 04/21/18 18:59 06:59 18:59 Intake Total 500 140 Output Total 650 Balance 500 -510 Intake: IV 500 40 Sodium Chloride 0.9% 1, 500 40 000 ml @ 5 mls/hr IV . Q24H [facility] Rx#:[id number] Intake, IV Titration 100 Amount Piperacillin-Tazobactam 3 100 .375 gm In Sodium Chloride 0.9% 100 ml @ 25 mls/hr IVPB Q12HR [facility] Rx #:[id number] Output: Urine 650 Other: Voiding Method Toilet Urinal # Voids 2 # Bowel Movements 1 - Exam GENERAL EXAM: Alert, active, comfortable in no apparent distress. HEAD: Normocephalic/atraumatic. EYES: Normal reaction of pupils, equal size. Conjunctiva pink, sclera white. NOSE: Clear with pink turbinates. THROAT: No erythema or exudates. NECK: No masses, no JVD, no thyroid enlargement, no adenopathy. CHEST: No chest wall deformity. Symmetrical expansion. LUNGS: Equal air entry with diminished breath sounds at bilateral bases, CVS: Regular rate and rhythm, normal S1 and S2, no gallops, no murmurs, no rubs ABDOMEN: Soft, nontender. No hepatosplenomegaly, normal bowel sounds, no guarding or rigidity. EXTREMITIES: No clubbing, no edema, no cyanosis, 2+ pulses and upper and lower extremities. MUSCULOSKELETAL: Muscle strength and tone normal. Right toenail is covered with a dressing, ears to be ingrown, slightly swollen at the base, tender to touch SPINE: No scoliosis or deformity SKIN: No rashes CENTRAL NERVOUS SYSTEM: Alert and oriented -3. No focal deficits, tone is normal in all 4 extremities. PSYCHIATRIC: Alert and oriented -3. Appropriate affect. Intact judgment and insight. - Labs CBC & Chem 7: 04/21/18 07:53 04/21/18 13:15 Labs: Abnormal Lab Results - Last 24 Hours (Table) 04/20/18 04/20/18 04/21/18 Range/Units 17:03 20:52 07:02 RBC (4.30-5.90) m/uL Hgb (13.0-17.5) gm/dL MCV (80.0-100.0) fL MCHC (31.0-37.0) g/dL Plt Count (150-450) k/uL Chloride (98-107) mmol/L Creatinine (0.66-1.25) mg/dL Glucose (74-99) mg/dL POC Glucose (mg/dL) 175 H 225 H 144 H (75-99) mg/dL AST (17-59) U/L ALT (21-72) U/L Total Protein (6.3-8.2) g/dL Albumin (3.5-5.0) g/dL 04/21/18 04/21/18 04/21/18 Range/Units 07:53 07:53 12:04 RBC 4.02 L (4.30-5.90) m/uL Hgb 12.4 L (13.0-17.5) gm/dL MCV 101.4 H (80.0-100.0) fL MCHC 30.3 L (31.0-37.0) g/dL Plt Count 61 L (150-450) k/uL Chloride (98-107) mmol/L Creatinine 1.62 H (0.66-1.25) mg/dL Glucose 150 H (74-99) mg/dL POC Glucose (mg/dL) 212 H (75-99) mg/dL AST (17-59) U/L ALT (21-72) U/L Total Protein (6.3-8.2) g/dL Albumin (3.5-5.0) g/dL 04/21/18 Range/Units 13:15 RBC (4.30-5.90) m/uL Hgb (13.0-17.5) gm/dL MCV (80.0-100.0) fL MCHC (31.0-37.0) g/dL Plt Count (150-450) k/uL Chloride 109 H (98-107) mmol/L Creatinine 1.63 H (0.66-1.25) mg/dL Glucose 211 H (74-99) mg/dL POC Glucose (mg/dL) (75-99) mg/dL AST 313 H (17-59) U/L ALT 386 H (21-72) U/L Total Protein 6.2 L (6.3-8.2) g/dL Albumin 3.2 L (3.5-5.0) g/dL Assessment and Plan Plan: Assessment: #1. Acute kidney injury likely related to Bactrim and dehydration, improving the creatinine is down to 2.0. Note that the baseline creatinine is at 1.6. #2. Hyperkalemia, recovered #3. Recent history of right toe infection, and patient was treated with the 2 rounds of antibiotics, Bactrim #4. History of chronic kidney disease, stage III, patient used to follow with nephrology, this is consistent with his history of hypertensive nephrosclerosis #5. Hypertension #6. Hyperlipidemia #7. Diabetes mellitus #8. Permanent pacemaker #9. History of coronary artery disease status post three-vessel bypass 33 years ago #10. Lifetime nonsmoker, no history of EtOH use 11 abnormal LFTs with cholelithiasis. No clinical evidence of cholecystitis. He has surgeries on the case. Ultrasound the gallbladder was noted. #12 shortness of breath, improved. There is a limited left lower lobe consolidation currently the patient IV Zosyn. PLAN Continued IV Zosyn. IV Fluids to KVO. Encouraged Diet. Encourage Oral Intake and Activity. We'll Follow.
[2018-04-21 17:18] LABS: Glucose,Whole Blood 151 mg/dL (75-99)
[2018-04-21] MEDS: SODIUM CHLORIDE 0.9% 1,000 ML IV SCH (19:48)
[2018-04-21 20:27] LABS: Glucose,Whole Blood 178 mg/dL (75-99)
[2018-04-22 07:06] LABS: Glucose,Whole Blood 175 mg/dL (75-99)
[2018-04-22] MEDS: IPRATROPIUM-ALBUTEROL 3 ML NEB INHALATION SCH ×4 (07:20→21:53)
[2018-04-22] MEDS: INSULIN ASPART (NovoLOG) 100 UNIT/ML VIAL SQ SCH ×4 (08:47→20:53)
[2018-04-22] MEDS: PANTOPRAZOLE 40 MG/10 ML VIAL IV SCH (08:47)
[2018-04-22] MEDS: HEPARIN SODIUM,PORCINE 5,000 UNIT/ML 1 ML VIAL SQ SCH ×3 (08:48→23:12)
[2018-04-22] MEDS: levETIRAcetam 500 MG TAB PO SCH ×2 (08:48→20:41)
[2018-04-22] MEDS: ASPIRIN 81 MG PO SCH (08:48)
[2018-04-22] MEDS: ATORVASTATIN 20 MG TAB PO SCH (08:48)
[2018-04-22] MEDS: busPIRone HCl 5 MG TAB PO SCH ×2 (08:48→20:41)
[2018-04-22] MEDS: SODIUM BICARBONATE TAB 650 MG TAB PO SCH ×2 (08:48→20:41)
[2018-04-22] MEDS: CARVEDILOL 3.125 MG TAB PO SCH ×2 (08:48→20:41)
[2018-04-22] MEDS: PIPERACILLIN-TAZOBACTAM 3.375 GM in SODIUM CHLORIDE 0.9% 100 ML IVPB SCH ×3 (08:49→23:12)
[2018-04-22 10:16] LABS: Basophils % (A) 0 %; Eosinophils % (A) 0 %; HCT 36.2 % (39.0-53.0); HGB 11.1 gm/dL (13.0-17.5); Hypochromasia Moderate; Lymphocytes # (A) 0.9 k/uL (1.0-4.8); Lymphocytes % (A) 10 %; MCHC 30.7 g/dL (31.0-37.0); MCV 101.1 fL (80.0-100.0); Macrocytosis Slight; Mean Platelet Volume 11.7; Monocytes # (A) 0.6 k/uL (0-1.0); Monocytes % (A) 7 %; Neutrophils # (A) 7.2 k/uL (1.3-7.7); Neutrophils % (A) 79 %; RBC 3.58 m/uL (4.30-5.90); RDW 15.5 % (11.5-15.5); WBC 9.2 k/uL (3.8-10.6)
[2018-04-22 10:20] LABS: Platelet Count 60 k/uL (150-450)
[2018-04-22 10:35] LABS: Calcium 8.8 mg/dL (8.4-10.2)
[2018-04-22 10:55] LABS: Albumin 2.9 g/dL (3.5-5.0); Total Bilirubin 0.8 mg/dL (0.2-1.3); Total Protein 5.7 g/dL (6.3-8.2)
--- NOTE | 2018-04-22 11:18 | US ---
EXAMINATION TYPE: US chest DATE OF EXAM: 04/22/2018 COMPARISON: NONE CLINICAL HISTORY: Markings for thoracentesis by pulmonary staff. Pleural effusion TECHNIQUE: Targeted ultrasound of the posterior lower bilateral hemithoraces EXAM MEASUREMENTS: Right Pleural Effusion pocket size: 10.0 cm Right skin surface to fluid distance: 3.3 cm Left Pleural Effusion pocket size: 6.9 cm Left skin surface to fluid distance: 3.3 cm Right side marked for possible thoracentesis outside the dept. Left side marked for possible thoracentesis outside the dept. Pulmonologists are able to review the images in the patient?s EMR. IMPRESSIONS: Small bilateral pleural effusions as detailed above.
--- NOTE | 2018-04-22 11:53 | P.PN ---
Subjective Patient complains of increasing shortness of breath noted to have bilateral pleural effusion. Scheduled for thoracentesis today. Liver enzymes improving GI made note that there'll be no ERCP. Kidney function improving Objective - Vital Signs Vital signs: Vital Signs Temp 96.9 F L 04/22/18 06:10 Pulse 80 04/22/18 11:22 Resp 18 04/22/18 06:10 BP 147/75 04/22/18 06:10 Pulse Ox 93 L 04/22/18 06:10 Intake & Output 04/21/18 04/22/18 04/22/18 18:59 06:59 18:59 Intake Total 3 775 240 Balance 3 775 240 Intake: Oral 3 775 240 Other: Voiding Method Toilet # Voids 2 # Bowel Movements 1 - Constitutional General appearance: Present: mild distress - EENT Eyes: Present: PERRLA Ears: bilateral: normal - Neck Neck: Present: normal ROM - Respiratory Respiratory: bilateral: diminished - Cardiovascular Rhythm: regular - Gastrointestinal General gastrointestinal: Present: soft Localized gastrointestinal: tender: diffuse - Integumentary Integumentary: Present: normal - Neurologic Neurologic: Present: CNII-XII intact - Musculoskeletal Musculoskeletal: Present: generalized weakness - Psychiatric Psychiatric: Present: A&O x's 3, appropriate affect, intact judgment & insight - Labs CBC & Chem 7: 04/22/18 09:31 04/22/18 09:31 Labs: Abnormal Lab Results - Last 24 Hours (Table) 04/21/18 04/21/18 04/21/18 Range/Units 12:04 13:15 17:16 RBC (4.30-5.90) m/uL Hgb (13.0-17.5) gm/dL Hct (39.0-53.0) % MCV (80.0-100.0) fL MCHC (31.0-37.0) g/dL Plt Count (150-450) k/uL Lymphocytes # (1.0-4.8) k/uL Chloride 109 H (98-107) mmol/L BUN (9-20) mg/dL Creatinine 1.63 H (0.66-1.25) mg/dL Glucose 211 H (74-99) mg/dL POC Glucose (mg/dL) 212 H 151 H (75-99) mg/dL AST 313 H (17-59) U/L ALT 386 H (21-72) U/L Total Protein 6.2 L (6.3-8.2) g/dL Albumin 3.2 L (3.5-5.0) g/dL 04/21/18 04/22/18 04/22/18 Range/Units 20:24 07:00 09:31 RBC 3.58 L (4.30-5.90) m/uL Hgb 11.1 L (13.0-17.5) gm/dL Hct 36.2 L (39.0-53.0) % MCV 101.1 H (80.0-100.0) fL MCHC 30.7 L (31.0-37.0) g/dL Plt Count 60 L (150-450) k/uL Lymphocytes # 0.9 L (1.0-4.8) k/uL Chloride (98-107) mmol/L BUN (9-20) mg/dL Creatinine (0.66-1.25) mg/dL Glucose (74-99) mg/dL POC Glucose (mg/dL) 178 H 175 H (75-99) mg/dL AST (17-59) U/L ALT (21-72) U/L Total Protein (6.3-8.2) g/dL Albumin (3.5-5.0) g/dL 04/22/18 Range/Units 09:31 RBC (4.30-5.90) m/uL Hgb (13.0-17.5) gm/dL Hct (39.0-53.0) % MCV (80.0-100.0) fL MCHC (31.0-37.0) g/dL Plt Count (150-450) k/uL Lymphocytes # (1.0-4.8) k/uL Chloride 110 H (98-107) mmol/L BUN 24 H (9-20) mg/dL Creatinine 2.04 H (0.66-1.25) mg/dL Glucose 152 H (74-99) mg/dL POC Glucose (mg/dL) (75-99) mg/dL AST 150 H (17-59) U/L ALT 274 H (21-72) U/L Total Protein 5.7 L (6.3-8.2) g/dL Albumin 2.9 L (3.5-5.0) g/dL - Imaging and Cardiology Chest x-ray: report reviewed Assessment and Plan Plan: Assessment Metabolic acidosis secondary to acute kidney injury Hyperkalemia Acute on chronic kidney failure stage III secondary to hypotension Cholelithiasis/cholecystitis Elevated liver enzymes improving Bilateral pleural effusions History of coronary disease with CABG and pacemaker History of COPD Diabetes type 2 Hyperlipidemia Hypertension Weakness and falls patient on Zosyn Plan Continue consultation with pulmonology thoracentesis scheduled for today
[2018-04-22] MEDS ORDERED: LIDOCAINE 1% INJ 10MG/ML (20 ML MDV) SQ ONE ×2 (12:00→13:30)
[2018-04-22 12:04] LABS: Glucose,Whole Blood 123 mg/dL (75-99)
--- NOTE | 2018-04-22 12:20 | XR ---
EXAMINATION TYPE: XR chest 1V portable DATE OF EXAM: 04/20/2018 COMPARISON: 03/20/2012 HISTORY: Shortness of breath and wheezing TECHNIQUE: Single frontal view of the chest is obtained. FINDINGS: There is a layering left pleural effusion and left basilar airspace disease. Trace right p leural effusion blunts the costophrenic angle. Cardia mediastinal silhouette is enlarged with post CA BG changes and multilead left-sided cardiac device. No pneumothorax is appreciated. Osseous structure s are grossly intact. IMPRESSION: Small to moderate left pleural effusion with associated left basilar airspace disease an d trace right pleural effusion. Findings in combination with cardiomegaly raises possibility of under lying congestive heart failure although no pulmonary vascular congestion is seen.
--- NOTE | 2018-04-22 13:06 | P.PN ---
Subjective Progress Note Date: 04/22/18 Principal diagnosis: Acute kidney injury secondary to Bactrim and dehydration This 87-year-old white male patient of Dr. Ishaan Mata, with past medical history of diabetes mellitus, hypertension, hyperlipidemia, coronary artery disease with history of three-vessel bypass 33 years ago, permanent pacemaker, chronic kidney disease, who presented to the emergency department on 04/17/2018 per EMS with complaints of weakness, fatigue, falls, nausea, dry heaving, decreased urine output. Patient states his onset of symptoms was 2 days ago, patient felt quite nauseous after eating some tomato soup, then he was up most of the night dry heaving. He had a similar episode after eating some potato salad. He never actually had any vomiting, no diarrhea. He was experiencing some abdominal discomfort he described as tightness across his upper abdomen. Denied any fever or chills, he did have some sweating when he was nauseous. Most recently patient had been treated for ingrown right total infection, and patient states he was treated with 2 rounds of antibiotics with the latest one being Bactrim. In the emergency department patient was found to have potassium of 8.6, B1 of 25, creatinine of 2.79, no leukocytosis, white blood cell count was 5.2, hemoglobin of 12.3, platelet count was 70, urinalysis showed 1+ protein , some red blood cells, trace leuks, and 1+ nitrite. Blood gas was done and showed pO2 of 80, pCO2 of 36, pH of 7.24 this was done on FiO2 of 30%. Patient denied any chest pain or shortness of breath. Renal ultrasound showed no evidence of hydronephrosis. Ultrasound of the aorta showed no abnormalities. Flat plate of the abdomen showed nonacute abdomen, showed bilateral pleural effusions and basilar pulmonary infiltrates and atelectasis. CT of abdomen and pelvis showed bilateral pleural effusions with atelectasis cholelithiasis without ductal dilatation, possible nonobstructing left renal stone. From the chart patient had of history of subdural hematoma, and brain CT was obtained which showed no acute intracranial findings. Amylase lipase were within normal limits, troponin was negative 1, proBNP was 9830. Patient has been normotensive, afebrile. He was given a liter and a half of fluid boluses in the emergency department, he was given calcium gluconate, IV insulin, and 50% dextrose in addition to Kayexalate, and this morning's potassium is 6.5. He is calm and comfortable, resting in bed, denies any distress, no abdominal pain, no nausea or vomiting. On today's evaluation of 04/19/2018, the patient is doing well. He has no specific complaints. The patient has chronic kidney disease stage III in the patient's creatinine is at 1.5 at baseline. The patient underlying nephrosclerosis. Noted the patient came in with acute kidney injury. The patient also developed hyperkalemia. The hyperkalemia was treated. The patient renal function is also improving. Creatinine is down to 2.09. The patient has no new complaints for now. The white cell count is at 4.2. The rest of the electrodes are within normal including a potassium level of 3.8. The blood pressure is under good control. No other significant events overnight. The patient is awake and alert. The patient is following commands. There is a concern of an acute cholecystitis based on abnormal LFTs. Gen. surgery was consulted. The patient is cholelithiasis without clinical evidence of cholecystitis. Ultrasound the gallbladder was noted. General surgeries also on the case. The patient is seen today 04/20/2018 in follow-up on the regular medical floor. He has had increasing shortness of breath, cough and congestion today. Audible wheezing. This having oxygen saturations in the high 80s low 90s on room air. He has been afebrile and hemodynamically stable. SMAC on minimal exertion. Chest x-ray reveals increased infiltrate in the left lower lobe. White count 4.6. Hemoglobin 11.8. Creatinine 1.56. Urine culture reveals no growth. On 04/21/2018 I'm seeing this patient for a follow-up. Yesterday the patient was short of breath. The patient was slightly hypoxic. Chest x-ray showed CHF and a left lower lobe consolidation. The patient was started on IV Zosyn. The patient was also given diuretics. On today's evaluation is with atelectasis baseline. No significant respiratory distress. No cough or sputum production. No chest pain or pleurisy. He is sitting up on a chair and is tolerating his diet. Function is stable with a creatinine of 1.5. No hyperkalemia this point in time. No altered mentation. He is hard of hearing. The patient has cholelithiasis and the patient was seen by general surgery. No surgical recommendation of the done for the time being. LFTs are improving. On 04/22/2018 patient seen in follow-up on medical surgical floor. Can alert, in no acute distress, mentation is appropriate, no signs of delirium, room air pulse ox is 93%, patient is afebrile, today's blood work showed white blood cell count of 9.2, hemoglobin is 11.1, sodium is 143, potassium is 4.0, chloride is 110, B1 is 24, creatinine is 2.04. Liver enzymes are continuously improving, AST is down to 150, ALT is 274, alkaline phosphatase is 88. Patient was given a dose of IV Lasix yesterday, on today's exam patient has bilateral pleural effusions, ultrasound of the chest was obtained, and showed a 10.0 cm pocket on the right, and 6.9 cm pocket on the left. The areas were marked for thoracentesis. Patient states he does have some mild to moderate shortness of breath, and has been wheezing according to the nursing staff. Lung sounds are diminished breath sounds at bilateral bases, dullness to percussion. Continues on empiric antibiotics in the form of Zosyn, urine cultures showed no growth at 18 hour quique. Objective - Vital Signs Vital signs: Vital Signs Temp 96.9 F L 04/22/18 06:10 Pulse 80 04/22/18 11:22 Resp 18 04/22/18 06:10 BP 147/75 04/22/18 06:10 Pulse Ox 93 L 04/22/18 06:10 Intake & Output 04/21/18 04/22/18 04/22/18 18:59 06:59 18:59 Intake Total 3 775 240 Balance 3 775 240 Intake: Oral 3 775 240 Other: Voiding Method Toilet # Voids 2 # Bowel Movements 1 - Exam GENERAL EXAM: Alert, pleasant, 87-year-old white male comfortable in no apparent distress. HEAD: Normocephalic/atraumatic. EYES: Normal reaction of pupils, equal size. Conjunctiva pink, sclera white. NOSE: Clear with pink turbinates. THROAT: No erythema or exudates. NECK: No masses, no JVD, no thyroid enlargement, no adenopathy. CHEST: No chest wall deformity. Symmetrical expansion. LUNGS: Equal air entry with diminished breath sounds at bilateral bases, with dullness to percussion CVS: Regular rate and rhythm, normal S1 and S2, no gallops, no murmurs, no rubs ABDOMEN: Soft, nontender. No hepatosplenomegaly, normal bowel sounds, no guarding or rigidity. EXTREMITIES: No clubbing, no edema, no cyanosis, 2+ pulses and upper and lower extremities. MUSCULOSKELETAL: Muscle strength and tone normal. SPINE: No scoliosis or deformity SKIN: No rashes CENTRAL NERVOUS SYSTEM: Alert and oriented -3. No focal deficits, tone is normal in all 4 extremities. PSYCHIATRIC: Alert and oriented -3. Appropriate affect. Intact judgment and insight. - Labs CBC & Chem 7: 04/22/18 09:31 04/22/18 09:31 Labs: Abnormal Lab Results - Last 24 Hours (Table) 04/21/18 04/21/18 04/21/18 Range/Units 13:15 17:16 20:24 RBC (4.30-5.90) m/uL Hgb (13.0-17.5) gm/dL Hct (39.0-53.0) % MCV (80.0-100.0) fL MCHC (31.0-37.0) g/dL Plt Count (150-450) k/uL Lymphocytes # (1.0-4.8) k/uL Chloride 109 H (98-107) mmol/L BUN (9-20) mg/dL Creatinine 1.63 H (0.66-1.25) mg/dL Glucose 211 H (74-99) mg/dL POC Glucose (mg/dL) 151 H 178 H (75-99) mg/dL AST 313 H (17-59) U/L ALT 386 H (21-72) U/L Total Protein 6.2 L (6.3-8.2) g/dL Albumin 3.2 L (3.5-5.0) g/dL 04/22/18 04/22/18 04/22/18 Range/Units 07:00 09:31 09:31 RBC 3.58 L (4.30-5.90) m/uL Hgb 11.1 L (13.0-17.5) gm/dL Hct 36.2 L (39.0-53.0) % MCV 101.1 H (80.0-100.0) fL MCHC 30.7 L (31.0-37.0) g/dL Plt Count 60 L (150-450) k/uL Lymphocytes # 0.9 L (1.0-4.8) k/uL Chloride 110 H (98-107) mmol/L BUN 24 H (9-20) mg/dL Creatinine 2.04 H (0.66-1.25) mg/dL Glucose 152 H (74-99) mg/dL POC Glucose (mg/dL) 175 H (75-99) mg/dL AST 150 H (17-59) U/L ALT 274 H (21-72) U/L Total Protein 5.7 L (6.3-8.2) g/dL Albumin 2.9 L (3.5-5.0) g/dL 04/22/18 Range/Units 12:01 RBC (4.30-5.90) m/uL Hgb (13.0-17.5) gm/dL Hct (39.0-53.0) % MCV (80.0-100.0) fL MCHC (31.0-37.0) g/dL Plt Count (150-450) k/uL Lymphocytes # (1.0-4.8) k/uL Chloride (98-107) mmol/L BUN (9-20) mg/dL Creatinine (0.66-1.25) mg/dL Glucose (74-99) mg/dL POC Glucose (mg/dL) 123 H (75-99) mg/dL AST (17-59) U/L ALT (21-72) U/L Total Protein (6.3-8.2) g/dL Albumin (3.5-5.0) g/dL Assessment and Plan Plan: Assessment: #1. Acute kidney injury likely related to Bactrim and dehydration #2. Hyperkalemia, patient presented with a potassium of 8.6, treated with Kayexalate, D50, IV insulin, and calcium gluconate is now trending down #3. Recent history of right toe infection, and patient was treated with the 2 rounds of antibiotics, Bactrim #4. History of chronic kidney disease, stage III, patient used to follow with nephrology, this is consistent with his history of hypertensive nephrosclerosis #5. Hypertension #6. Hyperlipidemia #7. Diabetes mellitus #8. Permanent pacemaker #9. History of coronary artery disease status post three-vessel bypass 33 years ago #10. Lifetime nonsmoker, no history of EtOH use #11. Abnormal LFTs with cholelithiasis, no clinical evidence of cholecystitis, surgical services are following, ultrasound of the gallbladder was noted #12. Shortness of breath, patient has left lower lobe consolidation currently on IV Zosyn, and there are bilateral pleural effusions, with 10.0 cm pocket on the right, and 6.9 cm pocket on the left Plan: Patient is short of breath, but in no distress, ultrasound and the chest revealed 10.0 cm pocket on the right of pleural fluid, and 6.9 cm pocket on the left. Patient was given a dose of IV Lasix yesterday, today's blood work showed slight worsening of his renal profile, with BIN at 24 and creatinine of 2.04. We will set the patient up for right-sided thoracentesis today by Dr. Hassan. Continue with empiric antibiotics for now. May have to drain the left side tomorrow. I performed a history & physical examination of the patient and discussed their management with my nurse practitioner, Elualia Best. I reviewed the nurse practitioner's note and agree with the documented findings and plan of care. Lung sounds are positive for diminished breath sounds at the bases. The findings and the impression was discussed with the patient. I attest to the documentation by the nurse practitioner. Time with Patient: Less than 30
[2018-04-22] MEDS: FUROSEMIDE 20 MG TAB PO SCH (16:18)
--- NOTE | 2018-04-22 16:44 | OP ---
OPERATIVE REPORT OPERATION: Left-sided thoracentesis. PREOPERATIVE DIAGNOSIS: Left pleural effusion. POSTOPERATIVE DIAGNOSIS: Left pleural effusion. ANESTHESIA USED: 2 mL of 1% lidocaine. PROCEDURE DESCRIPTION: The patient was placed in a sitting upright position. The area below the left scapula was prepared in a sterile fashion and drapes were applied. The area was thoroughly localized by ultrasound guidance, and at the level of the 8th intercostal space, tip of the scapula, area was locally anesthetized with lidocaine. Then a 26-gauge needle was inserted at the same site, advanced into the pleural space until fluid was localized with the needle. Then a small tiny incision was made in the skin, and through that incision at the same site, the catheter and needle were inserted into the pleural space. As soon as the fluid was obtained, the catheter was advanced over the needle, and the needle was pulled out of the pleural space. Freely flowing fluid was removed, roughly 1100 mL of liz-colored fluid removed from the left pleural space. It was non- bloody. It was sent for different diagnostic studies. Chest x-ray showed no evidence of any postoperative complications. MMODL / IJN: [id number] /
--- NOTE | 2018-04-22 16:52 | XR ---
EXAMINATION TYPE: XR chest 1V portable DATE OF EXAM: 04/22/2018 COMPARISON: Prior chest x-ray 04/20/2018 HISTORY: Status post left thoracentesis TECHNIQUE: Single frontal view of the chest is obtained. FINDINGS: There is some improvement in aeration in the left lung base. No other significant interval change. No pneumothorax. IMPRESSION: No evident complication status post left thoracentesis.
[2018-04-22 16:59] LABS: Glucose,Whole Blood 202 mg/dL (75-99)
[2018-04-22 18:44] LABS: Hepatitis A Antibody IgM Non-Reactive (Non-Reactive); Hepatitis B Core IgM Non-Reactive (Non-Reactive)
--- NOTE | 2018-04-22 18:44 | PN ---
PROGRESS NOTE Patient is seen for followup for acute kidney injury and chronic kidney disease. His creatinine did go up from 1.6 to 2.0 today. Patient did get a dose of Lasix yesterday. Otherwise, he is fairly stable. He has had good urine output. Blood pressure is not significantly low. On examination this morning, blood pressure was 147/75, heart rate of 80 per minute. Patient is afebrile. EXAMINATION OF THE HEART: S1 and S2. EXAMINATION OF LUNGS: Bilateral breath sounds are heard. ABDOMEN: Soft, non-tender. Examination of lower extremities shows no trace edema bilaterally. TRAVEL ACCOMMODATIONS RATER exam is grossly intact. Labs show hemoglobin 11.1, sodium 143, potassium 4.0, BUN 24, serum creatinine 2.04. ASSESSMENT: 1. Chronic kidney disease secondary to nephrosclerosis with baseline creatinine about 1.5 to 1.6 mg/dL, NKF stage III. 2. Acute kidney injury, acute tubular necrosis. Serum creatinine is slightly higher today, most likely related to the diuretics yesterday. Patient is fairly stable. He can still be discharged from nephrology standpoint. 3. Hyperkalemia associated acute kidney injury, Bactrim and metabolic acidosis, now resolved. 4. Anemia of chronic disease. PLAN: Patient is stable for discharge from nephrology standpoint. However, he will be having thoracentesis done tomorrow. We will repeat labs in a.m. MMODL / IJN: [id number] /
[2018-04-22] MEDS: SODIUM CHLORIDE 0.9% 1,000 ML IV SCH (20:42)
[2018-04-22 20:56] LABS: Glucose,Whole Blood 143 mg/dL (75-99)
[2018-04-22 20:56] LABS: Total Protein, Body Fluid 1759 mg/dL
--- NOTE | 2018-04-22 22:30 | P.PN ---
Subjective Progress Note Date: 04/22/18 Principal diagnosis: Elevated liver enzymes Patient lying in bed, no nausea or vomiting, he is tolerating his diet. No abdominal pain at this time. Objective - Vital Signs Vital signs: Vital Signs Temp 98.4 F 04/22/18 14:54 Pulse 78 04/22/18 21:53 Resp 16 04/22/18 14:54 BP 139/69 04/22/18 14:54 Pulse Ox 93 L 04/22/18 14:54 Intake & Output 04/22/18 04/22/18 04/23/18 06:59 18:59 06:59 Intake Total 775 240 Balance 775 240 Intake: Oral 775 240 Other: Voiding Method Toilet Toilet # Voids 2 2 # Bowel Movements 1 - Exam On physical examination, patient appears comfortable in no apparent distress. HEAD: Normocephalic, atraumatic. EYES: No scleral icterus. No conjunctival injection. MOUTH: No lesions, tongue midline. NECK: Trachea midline, no gross abnormalities. CHEST: Clear to auscultation with no wheezing or rhonchi appreciated. ABDOMEN: Soft. Bowel sounds are positive. No organomegaly. No guarding or rigidity. EXTREMITIES: No pedal edema. SKIN: No rashes, no jaundice. NEUROLOGIC: Alert and oriented x3. No focal deficits. - Labs CBC & Chem 7: 04/22/18 09:31 04/22/18 09:31 Labs: Abnormal Lab Results - Last 24 Hours (Table) 04/22/18 04/22/18 04/22/18 Range/Units 07:00 09:31 09:31 RBC 3.58 L (4.30-5.90) m/uL Hgb 11.1 L (13.0-17.5) gm/dL Hct 36.2 L (39.0-53.0) % MCV 101.1 H (80.0-100.0) fL MCHC 30.7 L (31.0-37.0) g/dL Plt Count 60 L (150-450) k/uL Lymphocytes # 0.9 L (1.0-4.8) k/uL Chloride 110 H (98-107) mmol/L BUN 24 H (9-20) mg/dL Creatinine 2.04 H (0.66-1.25) mg/dL Glucose 152 H (74-99) mg/dL POC Glucose (mg/dL) 175 H (75-99) mg/dL AST 150 H (17-59) U/L ALT 274 H (21-72) U/L Total Protein 5.7 L (6.3-8.2) g/dL Albumin 2.9 L (3.5-5.0) g/dL 04/22/18 04/22/18 04/22/18 Range/Units 12:01 16:56 20:51 RBC (4.30-5.90) m/uL Hgb (13.0-17.5) gm/dL Hct (39.0-53.0) % MCV (80.0-100.0) fL MCHC (31.0-37.0) g/dL Plt Count (150-450) k/uL Lymphocytes # (1.0-4.8) k/uL Chloride (98-107) mmol/L BUN (9-20) mg/dL Creatinine (0.66-1.25) mg/dL Glucose (74-99) mg/dL POC Glucose (mg/dL) 123 H 202 H 143 H (75-99) mg/dL AST (17-59) U/L ALT (21-72) U/L Total Protein (6.3-8.2) g/dL Albumin (3.5-5.0) g/dL Microbiology - Last 24 Hours (Table) 04/22/18 14:40 Body Fluid Culture - Preliminary Thoracic Fluid 04/22/18 14:40 Acid Fast Bacilli Culture - Preliminary Thoracic Fluid Assessment and Plan (1) Elevated liver enzymes Narrative/Plan: Acute elevation of liver enzymes with mild elevation of bilirubin that has been improving. CT of the abdomen showed gallstones but no biliary ductal dilation. Most likely medication-induced hepatitis in the setting of recent antibiotic use with Bactrim. Current Visit: Yes Status: Acute Code(s): R74.8 - ABNORMAL LEVELS OF OTHER SERUM ENZYMES SNOMED Code(s): 990589913 (2) Cholelithiasis Current Visit: Yes Status: Acute Code(s): K80.20 - CALCULUS OF GALLBLADDER W /O CHOLECYSTITIS W/O OBSTRUCTION SNOMED Code(s): 168417329 Plan: Supportive care Monitor liver enzymes No indication for ERCP at this time If further elevation in liver enzymes will consider full liver serologies Viral hepatitis panel noted Thank you for allowing us dysphagia in the care of the patient we will continue to follow
[2018-04-23 07:32] LABS: Glucose,Whole Blood 111 mg/dL (75-99)
[2018-04-23] MEDS: IPRATROPIUM-ALBUTEROL 3 ML NEB INHALATION SCH ×4 (07:33→21:15)
[2018-04-23] MEDS: INSULIN ASPART (NovoLOG) 100 UNIT/ML VIAL SQ SCH ×4 (07:49→21:06)
[2018-04-23] MEDS: busPIRone HCl 5 MG TAB PO SCH ×2 (08:27→20:21)
[2018-04-23] MEDS: CARVEDILOL 3.125 MG TAB PO SCH ×2 (08:28→20:21)
[2018-04-23] MEDS: PANTOPRAZOLE 40 MG TABLET PO SCH (08:28)
[2018-04-23] MEDS: levETIRAcetam 500 MG TAB PO SCH ×2 (08:28→20:22)
[2018-04-23] MEDS: FUROSEMIDE 20 MG TAB PO SCH ×2 (08:28→15:32)
[2018-04-23] MEDS: PIPERACILLIN-TAZOBACTAM 3.375 GM in SODIUM CHLORIDE 0.9% 100 ML IVPB SCH ×3 (08:28→23:08)
[2018-04-23] MEDS: ATORVASTATIN 20 MG TAB PO SCH (08:28)
[2018-04-23] MEDS: SODIUM BICARBONATE TAB 650 MG TAB PO SCH ×2 (08:28→20:21)
[2018-04-23 09:16] LABS: Albumin 3.1 g/dL (3.5-5.0); Bilirubin, Delta 0.3 mg/dL (0.0-0.2); Bilirubin,Unconjugated 0.6 mg/dL (0.0-1.1); Calcium 8.6 mg/dL (8.4-10.2); Total Bilirubin 0.9 mg/dL (0.2-1.3); Total Protein 6.1 g/dL (6.3-8.2)
[2018-04-23 09:22] LABS: Potassium 4.3 mmol/L (3.5-5.1)
[2018-04-23 09:41] LABS: Basophils % (A) 0 %; Eosinophils # (A) 0.1 k/uL (0-0.7); Eosinophils % (A) 1 %; HCT 40.3 % (39.0-53.0); HGB 12.1 gm/dL (13.0-17.5); Hypochromasia Marked; Lymphocytes # (A) 1.4 k/uL (1.0-4.8); Lymphocytes % (A) 20 %; MCH 30.5 pg (25.0-35.0); MCHC 30.1 g/dL (31.0-37.0); MCV 101.3 fL (80.0-100.0); Macrocytosis Slight; Mean Platelet Volume 12.1; Monocytes # (A) 0.7 k/uL (0-1.0); Monocytes % (A) 10 %; Neutrophils # (A) 4.6 k/uL (1.3-7.7); Neutrophils % (A) 65 %; RBC 3.98 m/uL (4.30-5.90); RDW 15.6 % (11.5-15.5); WBC 7.1 k/uL (3.8-10.6)
[2018-04-23 09:42] LABS: Platelet Count 59 k/uL (150-450)
--- NOTE | 2018-04-23 10:28 | P.PN ---
Subjective Progress Note Date: 04/23/18 Principal diagnosis: Elevated liver enzymes Liver enzymes improving total bilirubin 0.9. AST 104. ALT 213. AP 79. Afebrile. Denies abdominal pain. Objective - Vital Signs Vital signs: Vital Signs Temp 97.9 F 04/23/18 06:42 Pulse 82 04/23/18 07:45 Resp 18 04/23/18 06:42 BP 162/81 04/23/18 06:42 Pulse Ox 98 04/23/18 07:36 Intake & Output 04/22/18 04/23/18 04/23/18 18:59 06:59 18:59 Intake Total 240 900 Balance 240 900 Intake: Oral 240 900 Other: Voiding Method Toilet # Voids 2 2 1 # Bowel Movements 2 1 - Exam General appearance: The patient is alert, oriented, in no acute distress. HET: Head is normocephalic and atraumatic. Pupils are equal and reactive. Oropharynx is clear without lesions. Neck: Supple without lymphadenopathy. Trachea midline. Heart: S1 S2. Regular rate and rhythm. Lungs: No crackles or wheezes are heard. Abdomen: Soft, nontender, nondistended with bowel sounds. No peritoneal signs. No palpable organomegaly or masses. Extremities: Normal skin color and turgor. No cyanosis, rash, ulceration, clubbing, or edema. Radial and pedal pulses are 2/4 bilaterally. Neurological: No focal deficits. Strength and sensation are grossly intact. - Labs CBC & Chem 7: 04/23/18 07:45 04/23/18 07:45 Labs: Abnormal Lab Results - Last 24 Hours (Table) 04/22/18 04/22/18 04/22/18 Range/Units 09:31 12:01 16:56 RBC (4.30-5.90) m/uL Hgb (13.0-17.5) gm/dL MCV (80.0-100.0) fL MCHC (31.0-37.0) g/dL RDW (11.5-15.5) % Plt Count (150-450) k/uL Chloride 110 H (98-107) mmol/L BUN 24 H (9-20) mg/dL Creatinine 2.04 H (0.66-1.25) mg/dL Glucose 152 H (74-99) mg/dL POC Glucose (mg/dL) 123 H 202 H (75-99) mg/dL Delta Bilirubin (0.0-0.2) mg/dL AST 150 H (17-59) U/L ALT 274 H (21-72) U/L Total Protein 5.7 L (6.3-8.2) g/dL Albumin 2.9 L (3.5-5.0) g/dL 04/22/18 04/23/18 04/23/18 Range/Units 20:51 07:12 07:45 RBC 3.98 L (4.30-5.90) m/uL Hgb 12.1 L (13.0-17.5) gm/dL MCV 101.3 H (80.0-100.0) fL MCHC 30.1 L (31.0-37.0) g/dL RDW 15.6 H (11.5-15.5) % Plt Count 59 L (150-450) k/uL Chloride (98-107) mmol/L BUN (9-20) mg/dL Creatinine (0.66-1.25) mg/dL Glucose (74-99) mg/dL POC Glucose (mg/dL) 143 H 111 H (75-99) mg/dL Delta Bilirubin (0.0-0.2) mg/dL AST (17-59) U/L ALT (21-72) U/L Total Protein (6.3-8.2) g/dL Albumin (3.5-5.0) g/dL 04/23/18 Range/Units 07:45 RBC (4.30-5.90) m/uL Hgb (13.0-17.5) gm/dL MCV (80.0-100.0) fL MCHC (31.0-37.0) g/dL RDW (11.5-15.5) % Plt Count (150-450) k/uL Chloride 109 H (98-107) mmol/L BUN 28 H (9-20) mg/dL Creatinine 1.85 H (0.66-1.25) mg/dL Glucose 118 H (74-99) mg/dL POC Glucose (mg/dL) (75-99) mg/dL Delta Bilirubin 0.3 H (0.0-0.2) mg/dL AST 104 H (17-59) U/L ALT 213 H (21-72) U/L Total Protein 6.1 L (6.3-8.2) g/dL Albumin 3.1 L (3.5-5.0) g/dL Microbiology - Last 24 Hours (Table) 04/22/18 14:40 Gram Stain - Preliminary Thoracic Fluid Body Fluid Culture - Preliminary 04/22/18 14:40 Acid Fast Bacilli Smear - Final Thoracic Fluid Acid Fast Bacilli Culture - Preliminary Assessment and Plan (1) Elevated liver enzymes Narrative/Plan: LFTs improving most likely medication induced hepatitis in the setting of recent antibiotic use with Bactrim. Current Visit: Yes Status: Acute Code(s): R74.8 - ABNORMAL LEVELS OF OTHER SERUM ENZYMES SNOMED Code(s): 158144920 (2) Cholelithiasis Current Visit: Yes Status: Acute Code(s): K80.20 - CALCULUS OF GALLBLADDER W /O CHOLECYSTITIS W/O OBSTRUCTION SNOMED Code(s): 709047254 Plan: 1. Continue present medical therapy. Discharge per medicine. Assessment and plan a care discussed with Dr. Delcid
[2018-04-23] MEDS: HEPARIN SODIUM,PORCINE 5,000 UNIT/ML 1 ML VIAL SQ SCH ×3 (11:27→23:08)
[2018-04-23] MEDS: ASPIRIN 81 MG PO SCH (11:28)
--- NOTE | 2018-04-23 11:31 | P.PN ---
Subjective Patient sitting up in bed greatly improved from yesterday post thoracentesis. Patient has been cleared by nephrology and gastroenterology for discharge. Awaiting notation from pulmonology Objective - Vital Signs Vital signs: Vital Signs Temp 97.9 F 04/23/18 06:42 Pulse 82 04/23/18 07:45 Resp 18 04/23/18 08:00 BP 162/81 04/23/18 06:42 Pulse Ox 98 04/23/18 07:36 Intake & Output 04/22/18 04/23/18 04/23/18 18:59 06:59 18:59 Intake Total 240 900 Output Total 450 Balance 240 900 -450 Intake: Oral 240 900 Output: Urine 450 Other: Voiding Method Toilet Urinal # Voids 2 2 1 # Bowel Movements 2 1 - Constitutional General appearance: Present: mild distress - EENT Eyes: Present: PERRLA ENT: Present: hard of hearing Ears: bilateral: normal - Neck Neck: Present: normal ROM - Respiratory Respiratory: right: diminished - Cardiovascular Rhythm: regular - Gastrointestinal General gastrointestinal: Present: soft - Integumentary Integumentary: Present: normal - Neurologic Neurologic: Present: CNII-XII intact - Musculoskeletal Musculoskeletal: Present: generalized weakness - Psychiatric Psychiatric: Present: A&O x's 3, appropriate affect, intact judgment & insight - Labs CBC & Chem 7: 04/23/18 07:45 04/23/18 07:45 Labs: Abnormal Lab Results - Last 24 Hours (Table) 04/22/18 04/22/18 04/22/18 Range/Units 12:01 16:56 20:51 RBC (4.30-5.90) m/uL Hgb (13.0-17.5) gm/dL MCV (80.0-100.0) fL MCHC (31.0-37.0) g/dL RDW (11.5-15.5) % Plt Count (150-450) k/uL Chloride (98-107) mmol/L BUN (9-20) mg/dL Creatinine (0.66-1.25) mg/dL Glucose (74-99) mg/dL POC Glucose (mg/dL) 123 H 202 H 143 H (75-99) mg/dL Delta Bilirubin (0.0-0.2) mg/dL AST (17-59) U/L ALT (21-72) U/L Total Protein (6.3-8.2) g/dL Albumin (3.5-5.0) g/dL 04/23/18 04/23/18 04/23/18 Range/Units 07:12 07:45 07:45 RBC 3.98 L (4.30-5.90) m/uL Hgb 12.1 L (13.0-17.5) gm/dL MCV 101.3 H (80.0-100.0) fL MCHC 30.1 L (31.0-37.0) g/dL RDW 15.6 H (11.5-15.5) % Plt Count 59 L (150-450) k/uL Chloride 109 H (98-107) mmol/L BUN 28 H (9-20) mg/dL Creatinine 1.85 H (0.66-1.25) mg/dL Glucose 118 H (74-99) mg/dL POC Glucose (mg/dL) 111 H (75-99) mg/dL Delta Bilirubin 0.3 H (0.0-0.2) mg/dL AST 104 H (17-59) U/L ALT 213 H (21-72) U/L Total Protein 6.1 L (6.3-8.2) g/dL Albumin 3.1 L (3.5-5.0) g/dL Microbiology - Last 24 Hours (Table) 04/22/18 14:40 Gram Stain - Preliminary Thoracic Fluid Body Fluid Culture - Preliminary 04/22/18 14:40 Acid Fast Bacilli Smear - Final Thoracic Fluid Acid Fast Bacilli Culture - Preliminary - Imaging and Cardiology Chest x-ray: report reviewed Assessment and Plan Plan: Assessment Metabolic acidosis secondary to acute kidney injury Hyperkalemia resolved Acute on chronic kidney injury's stage III renal failure Elevated liver enzymes secondary to medication Bactrim improving Cholelithiasis Bilateral pleural effusion post thoracentesis left Weakness and falls History of coronary artery disease with CABG and pacemaker 100% paced COPD Diabetes type 2 Hypertension Plan Continues on Zosyn Continue consultation with pulmonology regarding pleural effusion
--- NOTE | 2018-04-23 12:05 | P.PN ---
Subjective Progress Note Date: 04/23/18 Principal diagnosis: Acute kidney injury suspect secondary to Bactrim and dehydration. This 87-year-old white male patient of Dr. Ishaan Mata, with past medical history of diabetes mellitus, hypertension, hyperlipidemia, coronary artery disease with history of three-vessel bypass 33 years ago, permanent pacemaker, chronic kidney disease, who presented to the emergency department on 04/17/2018 per EMS with complaints of weakness, fatigue, falls, nausea, dry heaving, decreased urine output. Patient states his onset of symptoms was 2 days ago, patient felt quite nauseous after eating some tomato soup, then he was up most of the night dry heaving. He had a similar episode after eating some potato salad. He never actually had any vomiting, no diarrhea. He was experiencing some abdominal discomfort he described as tightness across his upper abdomen. Denied any fever or chills, he did have some sweating when he was nauseous. Most recently patient had been treated for ingrown right total infection, and patient states he was treated with 2 rounds of antibiotics with the latest one being Bactrim. In the emergency department patient was found to have potassium of 8.6, B1 of 25, creatinine of 2.79, no leukocytosis, white blood cell count was 5.2, hemoglobin of 12.3, platelet count was 70, urinalysis showed 1+ protein , some red blood cells, trace leuks, and 1+ nitrite. Blood gas was done and showed pO2 of 80, pCO2 of 36, pH of 7.24 this was done on FiO2 of 30%. Patient denied any chest pain or shortness of breath. Renal ultrasound showed no evidence of hydronephrosis. Ultrasound of the aorta showed no abnormalities. Flat plate of the abdomen showed nonacute abdomen, showed bilateral pleural effusions and basilar pulmonary infiltrates and atelectasis. CT of abdomen and pelvis showed bilateral pleural effusions with atelectasis cholelithiasis without ductal dilatation, possible nonobstructing left renal stone. From the chart patient had of history of subdural hematoma, and brain CT was obtained which showed no acute intracranial findings. Amylase lipase were within normal limits, troponin was negative 1, proBNP was 9830. Patient has been normotensive, afebrile. He was given a liter and a half of fluid boluses in the emergency department, he was given calcium gluconate, IV insulin, and 50% dextrose in addition to Kayexalate, and this morning's potassium is 6.5. He is calm and comfortable, resting in bed, denies any distress, no abdominal pain, no nausea or vomiting. On today's evaluation of 04/19/2018, the patient is doing well. He has no specific complaints. The patient has chronic kidney disease stage III in the patient's creatinine is at 1.5 at baseline. The patient underlying nephrosclerosis. Noted the patient came in with acute kidney injury. The patient also developed hyperkalemia. The hyperkalemia was treated. The patient renal function is also improving. Creatinine is down to 2.09. The patient has no new complaints for now. The white cell count is at 4.2. The rest of the electrodes are within normal including a potassium level of 3.8. The blood pressure is under good control. No other significant events overnight. The patient is awake and alert. The patient is following commands. There is a concern of an acute cholecystitis based on abnormal LFTs. Gen. surgery was consulted. The patient is cholelithiasis without clinical evidence of cholecystitis. Ultrasound the gallbladder was noted. General surgeries also on the case. The patient is seen today 04/20/2018 in follow-up on the regular medical floor. He has had increasing shortness of breath, cough and congestion today. Audible wheezing. This having oxygen saturations in the high 80s low 90s on room air. He has been afebrile and hemodynamically stable. SMAC on minimal exertion. Chest x-ray reveals increased infiltrate in the left lower lobe. White count 4.6. Hemoglobin 11.8. Creatinine 1.56. Urine culture reveals no growth. On 04/21/2018 I'm seeing this patient for a follow-up. Yesterday the patient was short of breath. The patient was slightly hypoxic. Chest x-ray showed CHF and a left lower lobe consolidation. The patient was started on IV Zosyn. The patient was also given diuretics. On today's evaluation is with atelectasis baseline. No significant respiratory distress. No cough or sputum production. No chest pain or pleurisy. He is sitting up on a chair and is tolerating his diet. Function is stable with a creatinine of 1.5. No hyperkalemia this point in time. No altered mentation. He is hard of hearing. The patient has cholelithiasis and the patient was seen by general surgery. No surgical recommendation of the done for the time being. LFTs are improving. On 04/22/2018 patient seen in follow-up on medical surgical floor. Can alert, in no acute distress, mentation is appropriate, no signs of delirium, room air pulse ox is 93%, patient is afebrile, today's blood work showed white blood cell count of 9.2, hemoglobin is 11.1, sodium is 143, potassium is 4.0, chloride is 110, B1 is 24, creatinine is 2.04. Liver enzymes are continuously improving, AST is down to 150, ALT is 274, alkaline phosphatase is 88. Patient was given a dose of IV Lasix yesterday, on today's exam patient has bilateral pleural effusions, ultrasound of the chest was obtained, and showed a 10.0 cm pocket on the right, and 6.9 cm pocket on the left. The areas were marked for thoracentesis. Patient states he does have some mild to moderate shortness of breath, and has been wheezing according to the nursing staff. Lung sounds are diminished breath sounds at bilateral bases, dullness to percussion. Continues on empiric antibiotics in the form of Zosyn, urine cultures showed no growth at 18 hour quique. The patient is seen today 04/23/2017 in follow-up on the regular medical floor. He is currently awake and alert in no acute distress. He's been up ambulating with a walker and assistance. He is currently maintaining O2 saturations in the upper 90s on room air. He is afebrile. Pleural fluid cultures are pending. White count 7.1. Hemoglobin 12.1. Platelets 59,000. Creatinine 1.85. Pleural fluid protein 1.7. LDH 102. Cytology pending. Objective - Vital Signs Vital signs: Vital Signs Temp 97.9 F 04/23/18 06:42 Pulse 90 04/23/18 11:40 Resp 18 04/23/18 08:00 BP 162/81 04/23/18 06:42 Pulse Ox 98 04/23/18 07:36 Intake & Output 04/22/18 04/23/18 04/23/18 18:59 06:59 18:59 Intake Total 240 900 Output Total 450 Balance 240 900 -450 Intake: Oral 240 900 Output: Urine 450 Other: Voiding Method Toilet Urinal # Voids 2 2 1 # Bowel Movements 2 1 - Exam GENERAL EXAM: Alert, active, comfortable in no apparent distress. On room air. HEAD: Normocephalic/atraumatic. EYES: Normal reaction of pupils, equal size. Conjunctiva pink, sclera white. NOSE: Clear with pink turbinates. THROAT: No erythema or exudates. NECK: No masses, no JVD, no thyroid enlargement, no adenopathy. CHEST: No chest wall deformity. Symmetrical expansion. LUNGS: Equal air entry with bilateral end expiratory wheeze, crackles in left posterior base CVS: Regular rate and rhythm, normal S1 and S2, no gallops, no murmurs, no rubs ABDOMEN: Soft, nontender. No hepatosplenomegaly, normal bowel sounds, no guarding or rigidity. EXTREMITIES: No clubbing, no edema, no cyanosis, 2+ pulses and upper and lower extremities. MUSCULOSKELETAL: Muscle strength and tone normal. Right toenail is covered with a dressing, ears to be ingrown, slightly swollen at the base, tender to touch SPINE: No scoliosis or deformity SKIN: No rashes CENTRAL NERVOUS SYSTEM: Alert and oriented -3. No focal deficits, tone is normal in all 4 extremities. PSYCHIATRIC: Alert and oriented -3. Appropriate affect. Intact judgment and insight. - Labs CBC & Chem 7: 04/23/18 07:45 04/23/18 07:45 Labs: Abnormal Lab Results - Last 24 Hours (Table) 04/22/18 04/22/18 04/22/18 Range/Units 12:01 16:56 20:51 RBC (4.30-5.90) m/uL Hgb (13.0-17.5) gm/dL MCV (80.0-100.0) fL MCHC (31.0-37.0) g/dL RDW (11.5-15.5) % Plt Count (150-450) k/uL Chloride (98-107) mmol/L BUN (9-20) mg/dL Creatinine (0.66-1.25) mg/dL Glucose (74-99) mg/dL POC Glucose (mg/dL) 123 H 202 H 143 H (75-99) mg/dL Delta Bilirubin (0.0-0.2) mg/dL AST (17-59) U/L ALT (21-72) U/L Total Protein (6.3-8.2) g/dL Albumin (3.5-5.0) g/dL 04/23/18 04/23/18 04/23/18 Range/Units 07:12 07:45 07:45 RBC 3.98 L (4.30-5.90) m/uL Hgb 12.1 L (13.0-17.5) gm/dL MCV 101.3 H (80.0-100.0) fL MCHC 30.1 L (31.0-37.0) g/dL RDW 15.6 H (11.5-15.5) % Plt Count 59 L (150-450) k/uL Chloride 109 H (98-107) mmol/L BUN 28 H (9-20) mg/dL Creatinine 1.85 H (0.66-1.25) mg/dL Glucose 118 H (74-99) mg/dL POC Glucose (mg/dL) 111 H (75-99) mg/dL Delta Bilirubin 0.3 H (0.0-0.2) mg/dL AST 104 H (17-59) U/L ALT 213 H (21-72) U/L Total Protein 6.1 L (6.3-8.2) g/dL Albumin 3.1 L (3.5-5.0) g/dL Microbiology - Last 24 Hours (Table) 04/22/18 14:40 Gram Stain - Preliminary Thoracic Fluid Body Fluid Culture - Preliminary 04/22/18 14:40 Acid Fast Bacilli Smear - Final Thoracic Fluid Acid Fast Bacilli Culture - Preliminary Assessment and Plan Assessment: Assessment: #1. Acute kidney injury likely related to Bactrim and dehydration, improving the creatinine is down to 1.85. #2. Acute hypoxic respiratory failure secondary to a new left lower lobe infiltrate, suspect hospital-acquired pneumonia. Status post left thoracentesis. Cultures are pending. #3. Recent history of right toe infection, and patient was treated with the 2 rounds of antibiotics, Bactrim #4. History of chronic kidney disease, stage III, patient used to follow with nephrology, this is consistent with his history of hypertensive nephrosclerosis #5. Hypertension #6. Hyperlipidemia #7. Diabetes mellitus #8. Permanent pacemaker #9. History of coronary artery disease status post three-vessel bypass 33 years ago #10. Lifetime nonsmoker, no history of EtOH use #11. abnormal LFTs with cholelithiasis. No clinical evidence of cholecystitis. He has surgeries on the case. Ultrasound the gallbladder was noted. #12. Hyperkalemia, patient presented with a potassium of 8.6, treated with Kayexalate, D50, IV insulin, and calcium gluconate is now trending down and the patient's potassium level has normalized and is down to 4.3 Plan: The patient was seen and evaluated by Dr. Mart. Pleural fluid analysis and cultures were reviewed. Remains on Zosyn. We will continue to follow make further recommendations based on his clinical status. I, the cosigning physician, performed a history & physical examination of the patient. Lungs sounds with bilateral end expiratory wheeze, few scattered rhonchi, crackles in left posterior base. Maintaining good O2 saturations in the 90s on room air. I discussed the assessment and plan of care with my nurse practitioner, Mercy Krishna. I attest to the above note as dictated by her.
--- NOTE | 2018-04-23 12:21 | ECHOF ---
Referral Reason:eval for chf. MEASUREMENTS -------- HEIGHT: 172.7 cm WEIGHT: 83.9 kg BP: 147/75 RVIDd: 3.3 cm (< 3.3) IVSd: 1.1 cm (0.6 - 1.1) LVIDd: 5.7 cm (3.9 - 5.3) LVPWd: 1.1 cm (0.6 - 1.1) IVSs: 1.5 cm LVIDs: 4.7 cm LVPWs: 1.1 cm LAESV Index (A-L): 48.05 ml/m Ao Diam: 4.0 cm (2.0 - 3.7) AV Cusp: 1.8 cm (1.5 - 2.6) LA Diam: 4.6 cm (2.7 - 3.8) AR PHT: 410 ms RAP: 5.00 mmHg RVSP: 47.12 mmHg MV EF SLOPE: 138.43 mm/s (70 - 150) MV EXCURSION: 1.72 cm (> 18.000) FINDINGS -------- Atrial fibrillation. Pacerwire seen in RV and RA. This was a technically adequate study. The left ventricular size is normal. There is borderline concentric left ventricular hypertrophy. Overall left ventricular systolic function is moderate-severely impaired with, an EF between 30 - 35 %. Mid anterior LV wall motion is hypokinetic. Mid lateral LV wall motion is hypokinetic. Ap ical anterior LV wall motion is hypokinetic. Apical lateral LV wall motion is hypokinetic. Apic al septum LV wall motion is hypokinetic. The right ventricle is mildly enlarged. LA is severely dilated >40 ml/m2 RA appears enlarged. There is mild aortic valve sclerosis. There is moderate aortic regurgitation. There is no evidenc e of aortic stenosis. Mild mitral annular calcification present. Moderate mitral regurgitation is present. Moderate to severe tricuspid regurgitation present. There is mild pulmonary hypertension. The rig ht ventricular systolic pressure, as measured by Doppler, is 47.12mmHg. Trace/mild (physiologic) pulmonic regurgitation. The aortic root size is normal. IVC Not well visulized. There is no pericardial effusion. CONCLUSIONS -------- 1. Atrial fibrillation. 2. Pacerwire seen in RV and RA. 3. This was a technically adequate study. 4. The left ventricular size is normal. 5. There is borderline concentric left ventricular hypertrophy. 6. Overall left ventricular systolic function is moderate-severely impaired with, an EF between 30 - 35 %. 7. Mid anterior LV wall motion is hypokinetic. 8. Mid lateral LV wall motion is hypokinetic. 9. Apical anterior LV wall motion is hypokinetic. 10. Apical lateral LV wall motion is hypokinetic. 11. Apical septum LV wall motion is hypokinetic. 12. The right ventricle is mildly enlarged. 13. LA is severely dilated >40 ml/m2 14. RA appears enlarged. 15. There is mild aortic valve sclerosis. 16. There is moderate aortic regurgitation. 17. There is no evidence of aortic stenosis. 18. Mild mitral annular calcification present. 19. Moderate mitral regurgitation is present. 20. Moderate to severe tricuspid regurgitation present. 21. There is mild pulmonary hypertension. 22. Trace/mild (physiologic) pulmonic regurgitation. 23. The aortic root size is normal. 24. IVC Not well visulized. 25. There is no pericardial effusion. BLASTING HELPER: Nick Ramos RDCS
[2018-04-23 12:30] LABS: Large Platelets Present; Poikilocytosis (M) Present
[2018-04-23 12:31] LABS: Glucose,Whole Blood 146 mg/dL (75-99)
[2018-04-23 17:20] LABS: Glucose,Whole Blood 154 mg/dL (75-99)
[2018-04-23] MEDS: SODIUM CHLORIDE 0.9% 1,000 ML IV SCH (20:22)
[2018-04-23 21:00] LABS: Glucose,Whole Blood 122 mg/dL (75-99)
[2018-04-24 07:20] LABS: Glucose,Whole Blood 100 mg/dL (75-99)
[2018-04-24] MEDS: INSULIN ASPART (NovoLOG) 100 UNIT/ML VIAL SQ SCH ×4 (07:22→21:57)
[2018-04-24] MEDS: PIPERACILLIN-TAZOBACTAM 3.375 GM in SODIUM CHLORIDE 0.9% 100 ML IVPB SCH ×3 (07:56→23:59)
[2018-04-24] MEDS: FUROSEMIDE 20 MG TAB PO SCH ×2 (07:58→15:23)
[2018-04-24] MEDS: SODIUM BICARBONATE TAB 650 MG TAB PO SCH ×2 (07:58→21:57)
[2018-04-24] MEDS: ASPIRIN 81 MG PO SCH (07:58)
[2018-04-24] MEDS: levETIRAcetam 500 MG TAB PO SCH ×2 (07:58→21:57)
[2018-04-24] MEDS: busPIRone HCl 5 MG TAB PO SCH ×2 (07:58→21:57)
[2018-04-24] MEDS: PANTOPRAZOLE 40 MG TABLET PO SCH (07:59)
[2018-04-24] MEDS: ATORVASTATIN 20 MG TAB PO SCH (07:59)
[2018-04-24] MEDS: CARVEDILOL 3.125 MG TAB PO SCH ×2 (07:59→21:57)
[2018-04-24] MEDS: HEPARIN SODIUM,PORCINE 5,000 UNIT/ML 1 ML VIAL SQ SCH ×3 (07:59→23:59)
[2018-04-24 08:14] LABS: Anisocytosis Slight; Basophils % (A) 0 %; Eosinophils # (A) 0.3 k/uL (0-0.7); Eosinophils % (A) 5 %; HCT 38.7 % (39.0-53.0); HGB 12.4 gm/dL (13.0-17.5); Hypochromasia Moderate; Lymphocytes # (A) 1.8 k/uL (1.0-4.8); Lymphocytes % (A) 26 %; MCH 32.3 pg (25.0-35.0); Macrocytosis Slight; Mean Platelet Volume 10.6; Monocytes # (A) 0.5 k/uL (0-1.0); Monocytes % (A) 8 %; Neutrophils # (A) 3.8 k/uL (1.3-7.7); Neutrophils % (A) 56 %; Platelet Count 69 k/uL (150-450); RBC 3.83 m/uL (4.30-5.90); RDW 16.3 % (11.5-15.5); WBC 6.7 k/uL (3.8-10.6)
[2018-04-24 08:35] LABS: Calcium 8.6 mg/dL (8.4-10.2); Potassium 3.8 mmol/L (3.5-5.1)
[2018-04-24] MEDS: IPRATROPIUM-ALBUTEROL 3 ML NEB INHALATION SCH ×4 (09:07→21:17)
[2018-04-24 10:17] LABS: Crenated RBC Present; Large Platelets Present
--- NOTE | 2018-04-24 11:10 | P.PN ---
Subjective Patient resting in bed. Cardiac echo which showed ejection fraction of 30-35% with atrial fibrillation. Cardiology consultation. States respiratory status improved. Patient is post thoracentesis with 1100 mL pending pathology Objective - Vital Signs Vital signs: Vital Signs Temp 98.9 F 04/24/18 06:49 Pulse 73 04/24/18 06:49 Resp 18 04/24/18 06:49 BP 149/76 04/24/18 06:49 Pulse Ox 96 04/24/18 06:49 Intake & Output 04/23/18 04/24/18 04/24/18 18:59 06:59 18:59 Intake Total 200 700 Output Total 450 600 Balance -250 100 Intake: Oral 200 700 Output: Urine 450 600 Other: Voiding Method Urinal Urinal # Voids 2 3 # Bowel Movements 1 - Constitutional General appearance: Present: mild distress - EENT Eyes: Present: PERRLA Ears: bilateral: normal - Neck Neck: Present: normal ROM - Respiratory Respiratory: right: diminished, left: CTA - Cardiovascular Rhythm: regular - Gastrointestinal General gastrointestinal: Present: soft - Integumentary Integumentary: Present: normal - Neurologic Neurologic: Present: CNII-XII intact - Musculoskeletal Musculoskeletal Comment(s): Staff states able to ambulate on Musculoskeletal: Present: gait normal - Psychiatric Psychiatric: Present: A&O x's 3, appropriate affect, intact judgment & insight - Labs CBC & Chem 7: 04/24/18 07:52 04/24/18 07:52 Labs: Abnormal Lab Results - Last 24 Hours (Table) 04/23/18 04/23/18 04/23/18 Range/Units 07:45 12:27 17:18 RBC 3.98 L (4.30-5.90) m/uL Hgb 12.1 L (13.0-17.5) gm/dL Hct (39.0-53.0) % MCV 101.3 H (80.0-100.0) fL MCHC 30.1 L (31.0-37.0) g/dL RDW 15.6 H (11.5-15.5) % Plt Count 59 L (150-450) k/uL BUN (9-20) mg/dL Creatinine (0.66-1.25) mg/dL Glucose (74-99) mg/dL POC Glucose (mg/dL) 146 H 154 H (75-99) mg/dL 04/23/18 04/24/18 04/24/18 Range/Units 20:37 06:54 07:52 RBC 3.83 L (4.30-5.90) m/uL Hgb 12.4 L (13.0-17.5) gm/dL Hct 38.7 L (39.0-53.0) % MCV 101.0 H (80.0-100.0) fL MCHC (31.0-37.0) g/dL RDW 16.3 H (11.5-15.5) % Plt Count 69 L (150-450) k/uL BUN (9-20) mg/dL Creatinine (0.66-1.25) mg/dL Glucose (74-99) mg/dL POC Glucose (mg/dL) 122 H 100 H (75-99) mg/dL 04/24/18 Range/Units 07:52 RBC (4.30-5.90) m/uL Hgb (13.0-17.5) gm/dL Hct (39.0-53.0) % MCV (80.0-100.0) fL MCHC (31.0-37.0) g/dL RDW (11.5-15.5) % Plt Count (150-450) k/uL BUN 25 H (9-20) mg/dL Creatinine 1.83 H (0.66-1.25) mg/dL Glucose 116 H (74-99) mg/dL POC Glucose (mg/dL) (75-99) mg/dL Microbiology - Last 24 Hours (Table) 04/22/18 14:40 Gram Stain - Preliminary Thoracic Fluid Body Fluid Culture - Preliminary - Imaging and Cardiology Echocardiogram ejection fraction 30-35%. An atrial fibrillation Assessment and Plan Plan: Assessment Metabolic acidosis secondary to acute renal failure on chronic stage III secondary to Bactrim. Hyperkalemia corrected Weakness with falls Hypoxic respiratory failure Congestive heart failure systolic dysfunction and ejection fraction 30-35% History of coronary disease with CABG and pacemaker COPD Diabetes type 2 Hyperlipidemia Hypertension Elevated liver enzymes secondary to Bactrim improving Pleural effusions post thoracentesis left lung Plan Awaiting consultation with cardiology regarding congestive heart failure Continue consultation with pulmonology concerning pleural effusions
[2018-04-24 12:15] LABS: Glucose,Whole Blood 171 mg/dL (75-99)
--- NOTE | 2018-04-24 12:32 | P.PN ---
Subjective Progress Note Date: 04/24/18 Principal diagnosis: Acute kidney injury suspect secondary to Bactrim and dehydration. This 87-year-old white male patient of Dr. Ishaan Mata, with past medical history of diabetes mellitus, hypertension, hyperlipidemia, coronary artery disease with history of three-vessel bypass 33 years ago, permanent pacemaker, chronic kidney disease, who presented to the emergency department on 04/17/2018 per EMS with complaints of weakness, fatigue, falls, nausea, dry heaving, decreased urine output. Patient states his onset of symptoms was 2 days ago, patient felt quite nauseous after eating some tomato soup, then he was up most of the night dry heaving. He had a similar episode after eating some potato salad. He never actually had any vomiting, no diarrhea. He was experiencing some abdominal discomfort he described as tightness across his upper abdomen. Denied any fever or chills, he did have some sweating when he was nauseous. Most recently patient had been treated for ingrown right total infection, and patient states he was treated with 2 rounds of antibiotics with the latest one being Bactrim. In the emergency department patient was found to have potassium of 8.6, B1 of 25, creatinine of 2.79, no leukocytosis, white blood cell count was 5.2, hemoglobin of 12.3, platelet count was 70, urinalysis showed 1+ protein, some red blood cells, trace leuks, and 1+ nitrite. Blood gas was done and showed pO2 of 80, pCO2 of 36, pH of 7.24 this was done on FiO2 of 30%. Patient denied any chest pain or shortness of breath. Renal ultrasound showed no evidence of hydronephrosis. Ultrasound of the aorta showed no abnormalities. Flat plate of the abdomen showed nonacute abdomen, showed bilateral pleural effusions and basilar pulmonary infiltrates and atelectasis. CT of abdomen and pelvis showed bilateral pleural effusions with atelectasis cholelithiasis witho ut ductal dilatation, possible nonobstructing left renal stone. From the chart patient had of history of subdural hematoma, and brain CT was obtained which showed no acute intracranial findings. Amylase lipase were within normal limits, troponin was negative 1, proBNP was 9830. Patient has been normotensive, afebrile. He was given a liter and a half of fluid boluses in the emergency department, he was given calcium gluconate, IV insulin, and 50% dextrose in addition to Kayexalate, and this morning's potassium is 6.5. He is calm and comfortable, resting in bed, denies any distress, no abdominal pain, no nausea or vomiting. On today's evaluation of 04/19/2018, the patient is doing well. He has no specific complaints. The patient has chronic kidney disease stage III in the patient's creatinine is at 1.5 at baseline. The patient underlying nephrosclerosis. Noted the patient came in with acute kidney injury. The patient also developed hyperkalemia. The hyperkalemia was treated. The patient renal function is also improving. Creatinine is down to 2.09. The patient has no new complaints for now. The white cell count is at 4.2. The rest of the electrodes are within normal including a potassium level of 3.8. The blood pressure is under good control. No other significant events overnight. The patient is awake and alert. The patient is following commands. There is a concern of an acute cholecystitis based on abnormal LFTs. Gen. surgery was consulted. The patient is cholelithiasis without clinical evidence of cholecystitis. Ultrasound the gallbladder was noted. General surgeries also on the case. The patient is seen today 04/20/2018 in follow-up on the regular medical floor. He has had increasing shortness of breath, cough and congestion today. Audible wheezing. This having oxygen saturations in the high 80s low 90s on room air. He has been afebrile and hemodynamically stable. SMAC on minimal exertion. Chest x-ray reveals increased infiltrate in the left lower lobe. White count 4.6. Hemoglobin 11.8. Creatinine 1.56. Urine culture reveals no growth. On 04/21/2018 I'm seeing this patient for a follow-up. Yesterday the patient was short of breath. The patient was slightly hypoxic. Chest x-ray showed CHF and a left lower lobe consolidation. The patient was started on IV Zosyn. The patient was also given diuretics. On today's evaluation is with atelectasis baseline. No significant respiratory distress. No cough or sputum production. No chest pain or pleurisy. He is sitting up on a chair and is tolerating his diet. Function is stable with a creatinine of 1.5. No hyperkalemia this point in time. No altered mentation. He is hard of hearing. The patient has cholelithiasis and the patient was seen by general surgery. No surgical recommendation of the done for the time being. LFTs are improving. On 04/22/2018 patient seen in follow-up on medical surgical floor. Can alert, in no acute distress, mentation is appropriate, no signs of delirium, room air pulse ox is 93%, patient is afebrile, today's blood work showed white blood cell count of 9.2, hemoglobin is 11.1, sodium is 143, potassium is 4.0, chloride is 1 10, B1 is 24, creatinine is 2.04. Liver enzymes are continuously improving, AST is down to 150, ALT is 274, alkaline phosphatase is 88. Patient was given a dose of IV Lasix yesterday, on today's exam patient has bilateral pleural effusions, ultrasound of the chest was obtained, and showed a 10.0 cm pocket on the right, and 6.9 cm pocket on the left. The areas were marked for thoracentesis. Lee Ann ent states he does have some mild to moderate shortness of breath, and has been wheezing according to the nursing staff. Lung sounds are diminished breath sounds at bilateral bases, dullness to percussion. Continues on empiric antibiotics in the form of Zosyn, urine cultures showed no growth at 18 hour quique. The patient is seen today 04/23/2018 in follow-up on the regular medical floor. He is currently awake and alert in no acute distress. He's been up ambulating with a walker and assistance. He is currently maintaining O2 saturations in the upper 90s on room air. He is afebrile. Pleural fluid cultures are pending. White count 7.1. Hemoglobin 12.1. Platelets 59,000. Creatinine 1.85. Pleural fluid protein 1.7. LDH 102. Cytology pending. The patient is seen today 04/24/2018 in follow-up on the regular medical floor. He is currently resting quite comfortably in bed. Awake and alert in no acute distress. Maintaining good O2 saturations in the mid 90s on room air. He's been afebrile. Hemodynamically stable. Pleural fluid cultures/cytology pending. Echocardiogram reveals moderate to severely impaired left ventricular systolic function with ejection fraction 30-35%. White count 6.7. Hemoglobin 12.4. Creatinine 1.83. Objective - Vital Signs Vital signs: Vital Signs Temp 98.9 F 04/24/18 06:49 Pulse 73 04/24/18 06:49 Resp 18 04/24/18 06:49 BP 149/76 04/24/18 06:49 Pulse Ox 96 04/24/18 06:49 Intake & Output 04/23/18 04/24/18 04/24/18 18:59 06:59 18:59 Intake Total 200 700 Output Total 450 600 Balance -250 100 Intake: Oral 200 700 Output: Urine 450 600 Other: Voiding Method Urinal Urinal # Voids 2 3 5 # Bowel Movements 1 2 - Exam GENERAL EXAM: Alert, active, comfortable in no apparent distress. On room air. HEAD: Normocephalic/atraumatic. EYES: Normal reaction of pupils, equal size. Conjunctiva pink, sclera white. NOSE: Clear with pink turbinates. THROAT: No erythema or exudates. NECK: No masses, no JVD, no thyroid enlargement, no adenopathy. CHEST: No chest wall deformity. Symmetrical expansion. LUNGS: Equal air entry with bilateral end expiratory wheeze, crackles in left posterior base CVS: Regular rate and rhythm, normal S1 and S2, no gallops, no murmurs, no rubs ABDOMEN: Soft, nontender. No hepatosplenomegaly, normal bowel sounds, no guarding or rigidity. EXTREMITIES: No clubbing, no edema, no cyanosis, 2+ pulses and upper and lower extremities. MUSCULOSKELETAL: Muscle strength and tone normal. Right toenail is covered with a dressing, ears to be ingrown, slightly swollen at the base, tender to touch SPINE: No scoliosis or deformity SKIN: No rashes CENTRAL NERVOUS SYSTEM: Alert and oriented -3. No focal deficits, tone is normal in all 4 extremities. PSYCHIATRIC: Alert and oriented -3. Appropriate affect. Intact judgment and insight. - Labs CBC & Chem 7: 04/24/18 07:52 04/24/18 07:52 Labs: Abnormal Lab Results - Last 24 Hours (Table) 04/23/18 04/23/18 04/23/18 Range/Units 07:45 12:27 17:18 RBC 3.98 L (4.30-5.90) m/uL Hgb 12.1 L (13.0-17.5) gm/dL Hct (39.0-53.0) % MCV 101.3 H (80.0-100.0) fL MCHC 30.1 L (31.0-37.0) g/dL RDW 15.6 H (11.5-15.5) % Plt Count 59 L (150-450) k/uL BUN (9-20) mg/dL Creatinine (0.66-1.25) mg/dL Glucose (74-99) mg/dL POC Glucose (mg/dL) 146 H 154 H (75-99) mg/dL 04/23/18 04/24/18 04/24/18 Range/Units 20:37 06:54 07:52 RBC 3.83 L (4.30-5.90) m/uL Hgb 12.4 L (13.0-17.5) gm/dL Hct 38.7 L (39.0-53.0) % MCV 101.0 H (80.0-100.0) fL MCHC (31.0-37.0) g/dL RDW 16.3 H (11.5-15.5) % Plt Count 69 L (150-450) k/uL BUN (9-20) mg/dL Creatinine (0.66-1.25) mg/dL Glucose (74-99) mg/dL POC Glucose (mg/dL) 122 H 100 H (75-99) mg/dL 04/24/18 04/24/18 Range/Units 07:52 12:00 RBC (4.30-5.90) m/uL Hgb (13.0-17.5) gm/dL Hct (39.0-53.0) % MCV (80.0-100.0) fL MCHC (31.0-37.0) g/dL RDW (11.5-15.5) % Plt Count (150-450) k/uL BUN 25 H (9-20) mg/dL Creatinine 1.83 H (0.66-1.25) mg/dL Glucose 116 H (74-99) mg/dL POC Glucose (mg/dL) 171 H (75-99) mg/dL Microbiology - Last 24 Hours (Table) 04/22/18 14:40 Gram Stain - Preliminary Thoracic Fluid Body Fluid Culture - Preliminary Assessment and Plan Assessment: Assessment: #1. Acute kidney injury likely related to Bactrim and dehydration, improving the creatinine is down to 1.83. #2. Acute hypoxic respiratory failure secondary to a new left lower lobe infiltrate/effusion, suspect hospital-acquired pneumonia. Status post left thoracentesis. 1100 ML's liz fluid removed. Cultures/cytology are pending. #3. Recent history of right toe infection, and patient was treated with the 2 rounds of antibiotics, Bactrim #4. History of chronic kidney disease, stage III, patient used to follow with nephrology, this is consistent with his history of hypertensive nephrosclerosis #5. Hypertension #6. Hyperlipidemia #7. Diabetes mellitus #8. Permanent pacemaker #9. History of coronary artery disease status post three-vessel bypass 33 years ago, ischemic cardiomyopathy with ejection fraction 30-35%. #10. Lifetime nonsmoker, no history of EtOH use #11. abnormal LFTs with cholelithiasis. No clinical evidence of cholecystitis. He has surgeries on the case. Ultrasound the gallbladder was noted. #12. Hyperkalemia, patient presented with a potassium of 8.6, treated with Kayexalate, D50, IV insulin, and calcium gluconate is now trending down and the patient's potassium level has normalized and is down to 4.3 Plan: The patient was seen and evaluated by Dr. Mart. The patient remains stable from the pulmonary standpoint. On room air. Cultures and cytology pending. Remains on Zosyn. We will continue to follow and make further recommendations ba sed on his clinical status. I, the cosigning physician, performed a history & physical examination of the patient. Lungs sounds with bilateral end expiratory wheeze, few scattered rhonchi, crackles in left posterior base. Maintaining good O2 saturations in the 90s on room air. I discussed the assessment and plan of care with my nurse practitioner, Mercy Krishna. I attest to the above note as dictated by her.
--- NOTE | 2018-04-24 13:46 | P.CRDCN ---
History of Present Illness Consult date: 04/24/18 Reason for Consult (text): Acute on chronic CHF Chief complaint: CHF History of present illness: HPI and plan: This is a 87-year-old male who presents in the emergency department for on 04/17 via EMS with complaints of weakness, fatigue, falls, nausea and decreased urine output. In ER the patient was found to have elevated potassium level of 8.6, creatinine of 2.79 and metabolic acidosis. BNP 9830 on admission. Negative for tropinin elevation on admission x1. Acute kidney injury secondary to hypotension and recent Bactrim use. Patient denied any chest pain or shortness of breath on presentation to ER. Denied fever and chills on presentation but did have some sweating and nausea. Patient had been treated recently for a RIGHT toe infection treated with 2 rounds of antibiotics outpatient. Cardiology consulted when pt has been transferred to general medical floor. Left thoracentesis performed 04/22/2018, 1100 mL of liz colored fluid removed from left pleural space. Microbiology/cytology currently pending on pleural fluid. Pt currently in no acute distress, up in bathroom walking with walker on room air. On physical examination patient has no current c/o of chest pain or heart palpitations. Patient does c/o of SOB with exertion, lower extremity and cough. Patient states he followed wit Dr. Nicholson historically but has recently been following with cardiology at per his families request. Significant medical history includes: diabetes, hypertension, hyperlipidemia, coronary artery disease with history of three-vessel bypass 33 years ago, ischemic cardiomyopathy, bi-ventricular permanent pacemaker, chronic kidney disease with baseline CR 1.5. EKG 04/18/2018 shows biventricular pacing, at a rate of 60 beats per minute. Troponins negative x 1 on admission 04/17/2018. Chest x-ray 04/20/2018 [id number] left pleural effusion, left basilar airspace disease. Trace right pleural effusion. 04/22/2018 Status post left thoracentesis some improvement in aeration of the left lung, no pneumothorax. Chest US 04/22/2018 bilateral pleural effusions. Significant laboratory values include: 04/21/2018 CBC - 12.4 hematocrit 40.8. WBC, WNL. BMP - BUN 17 , creatinine 1.83. AST 313, ALT 386. Glucose 211. Low albumin/protein levels. Most recent echocardiogram 04/22/2018 shows atrial fibrillation. Left ventricular size is normal. Borderline concentric left ventricular hypertrophy. Overall ventricular systolic function impaired, EF 30-35%. Global hypokinesis. Moderate AR. Moderate MR. Moderate/severe TR. Trace TX. Mild pulmonary hypertension. (No change from previous echo in office) Most recent stress testing dated 04/04/2015 indicates EF 33%. No stress induced ischemia. Large area of scar involving the inferolateral left ventricular myocardium. Most recent carotid ultrasound dated 04/03/2015. Less than 50% stenosis bilaterally] Right ICA ratio [1.7]. Left ICA ratio [1.7]. Antegrade vertebral flow bilaterally. Plan: Add aldactone 25mg daily. Repeat BMP/BNP. Continue all other medical/ medication regime. Encourage IS use/ambulation. Heart healthy/low sodium diet. Will follow with pulmonary recommendations as well. Review of Systems At the time of my exam: CONSTITUTIONAL: [Denies fever. Denies chills.] EYES: Denies blurred vision. [Denies vision changes. Denies eye pain.] EARS, NOSE, MOUTH & THROAT: [Denies headache. Denies sore throat. Denies ear pain.] CARDIOVASCULAR: [Denies chest pain. Complains of shortness of breath. Denies orthopnea. Denies PND. Denies palpitations.] RESPIRATORY: [Complaints of cough and of shortness of breath. ] GASTROINTESTINAL: [Denies abdominal pain. Denies diarrhea. Denies constipation. Denies nausea. Denies vomiting.] MUSCULOSKELETAL: [Denies myalgias.] INTEGUMENTARY: [Denies pruitis. Denies rash.] NEUROLOGIC: [Denies numbness. Denies tingling. Denies weakness.] PSYCHIATRIC: [Denies anxiety. Denies depression.] ENDOCRINE: [Denies fatigue. Denies weight change. Denies polydipsia. Denies polyurina.] GENITOURINARY:[ Denies burning, hematuria or urgency with micturation.] HEMATOLOGIC: [Denies history of anemia. Denies bleeding.] Cardiovascular: Reports leg edema Past Medical History Past Medical History: Coronary Artery Disease (CAD), COPD, Diabetes Mellitus, Hyperlipidemia, Hypertension History of Any Multi-Drug Resistant Organisms: None Reported Past Surgical History: Coronary Bypass/CABG, Pacemaker Type of Cardiac Device: Permanent Pacemaker Device Placement Date:: 2015 Past Psychological History: No Psychological Hx Reported Smoking Status: Never smoker Past Alcohol Use History: None Reported Past Drug Use History: None Reported Medications and Allergies Home Medications Medication Instructions Recorded Confirmed Type Aspirin [[place] Aspirin EC] 81 mg PO DAILY 02/06/18 04/17/18 History Atorvastatin [Lipitor] 20 mg PO DAILY 02/06/18 04/17/18 History Carvedilol [Coreg] 3.125 mg PO BID 02/06/18 04/17/18 History Colchicine 1.2 mg PO DIRECTED 02/06/18 04/17/18 History Pantoprazole Sodium [Protonix] 40 mg PO DAILY 02/06/18 04/17/18 History Verapamil HCl [Verapamil ER] 240 mg PO DAILY 02/06/18 04/17/18 History busPIRone HCL 15 mg PO BID 02/06/18 04/17/18 History levETIRAcetam [Keppra] 500 mg PO BID 02/06/18 04/17/18 History Sulfamethoxazole/Trimethoprim 1 tab PO BID 04/17/18 04/17/18 History [Bactrim SS 400-80 mg] Allergies Allergy/AdvReac Type Severity Reaction Status Date / Time No Known Allergies Allergy Verified 04/17/18 22:29 Physical Exam Vitals: Vital Signs Temp Pulse Pulse Pulse Resp BP BP 04/24/18 06:49 98.9 F 73 18 149/76 04/23/18 22:00 97.5 F L 77 20 152/74 04/23/18 16:46 80 04/23/18 16:38 78 04/23/18 15:27 16 04/23/18 15:00 98.1 F 73 16 154/80 04/23/18 11:40 90 04/23/18 11:28 88 Pulse Ox 04/24/18 06:49 96 04/23/18 22:00 96 04/23/18 16:46 04/23/18 16:38 100 04/23/18 15:27 04/23/18 15:00 97 04/23/18 11:40 04/23/18 11:28 Intake and Output 04/23/18 04/24/18 04/24/18 22:59 06:59 14:59 Intake Total 700 Output Total 600 Balance 700 -600 Intake: Oral 700 Output: Urine 600 Other: Voiding Method Urinal # Voids 3 GENERAL: This is a [87]-year-old [male] in no apparent distress at the time of my examination. HEENT: Head is atraumatic, normocephalic. Pupils are equal, round. Sclerae anicteric. Conjunctivae are clear. Mucous membranes of the mouth are moist. Neck is supple. There is no jugular venous distention. No carotid bruit is heard. No thyromegaly. LUNGS: LEFT diminished breath sounds. RIGHT course crackles/rhonchi at the base. No chest wall tenderness is noted on palpation or with deep breathing. HEART: Regular rate and rhythm. II/ systolic ejection murmur at the base. No rubs or gallops. S1 and S2 heard. ABDOMEN: Abdominal exam revealed normal bowel sounds. The abdomen was soft, non- tender, and without masses, organomegaly, or appreciable enlargement of the abdominal aorta. EXTREMITIES: Examination of the extremities revealed easily palpable radial, femoral and pedal pulses. There was no cyanosis, clubbing. Positive 2 edema bilaterally. No calf tenderness noted. VASCULAR: Radial and dorsalis pedis pulses palpated, no evidence of clubbing. NEUROLOGIC: Patient is awake, alert and oriented x3. There were no obvious focal neurologic abnormalities. Results 04/24/18 07:52 04/24/18 07:52 CBC 04/23/18 04/24/18 Range/Units 07:45 07:52 WBC 7.1 6.7 (3.8-10.6) k/uL RBC 3.98 L 3.83 L (4.30-5.90) m/uL Hgb 12.1 L 12.4 L (13.0-17.5) gm/dL Hct 40.3 38.7 L (39.0-53.0) % Plt Count 59 L 69 L (150-450) k/uL Comprehensive Metabolic Panel 04/24/18 Range/Units 07:52 Sodium 141 (137-145) mmol/L Potassium 3.8 (3.5-5.1) mmol/L Chloride 105 (98-107) mmol/L Carbon Dioxide 30 (22-30) mmol/L BUN 25 H (9-20) mg/dL Creatinine 1.83 H (0.66-1.25) mg/dL Glucose 116 H (74-99) mg/dL Calcium 8.6 (8.4-10.2) mg/dL Current Medications Generic Name Dose Route Start Last Admin Trade Name Freq PRN Reason Stop Dose Admin Acetaminophen 650 mg 04/18/18 01:09 Tylenol Tab PO Q4HR PRN Fever and/or Mild Pain Albuterol/Ipratropium 3 ml 04/20/18 16:00 04/24/18 09:07 Duoneb 0.5 Mg-3 Mg/3 Ml Soln INHALATION Not Given RT-QID NAIMA Aspirin 81 mg 04/18/18 09:00 04/24/18 07:58 Aspirin PO 81 mg DAILY NAIMA Administration Atorvastatin Calcium 20 mg 04/18/18 09:00 04/24/18 07:59 Lipitor PO 20 mg DAILY NAIMA Administration Buspirone HCl 15 mg 04/18/18 09:00 04/24/18 07:58 Buspar PO 15 mg BID NAIMA Administration Carvedilol 3.125 mg 04/18/18 09:00 04/24/18 07:59 Coreg PO 3.125 mg BID NAIMA Administration Furosemide 20 mg 04/22/18 16:00 04/24/18 07:58 Lasix PO 20 mg BID@0900,1600 NAIMA Administration Heparin Sodium (Porcine) 5,000 unit 04/18/18 08:00 04/24/18 07:59 Heparin SQ 5,000 unit Q8HR NAIMA Administration Sodium Chloride 1,000 mls @ 5 mls/hr 04/18/18 02:15 04/23/18 20:22 Saline 0.9% IV Not Given .Q24H NAIMA Piperacillin Sod/Tazobactam 100 mls @ 25 mls/hr 04/21/18 16:00 04/24/18 07:56 Sod 3.375 gm/ Sodium Chloride IVPB 25 mls/hr Q8HR NAIMA Administration Insulin Aspart 0 unit 04/18/18 21:00 04/24/18 07:22 Novolog SQ Not Given ACHS [facility] Protocol Levetiracetam 500 mg 04/18/18 09:00 04/24/18 07:58 Keppra PO 500 mg BID NAIMA Administration Naloxone HCl 0.2 mg 04/18/18 01:09 Narcan IV Q2M PRN Opioid Reversal Pantoprazole Sodium 40 mg 04/23/18 07:30 04/24/18 07:59 Protonix PO 40 mg [id number] NAIMA Administration Sodium Bicarbonate 650 mg 04/18/18 12:00 04/24/18 07:58 Sodium Bicarbonate Tab PO 650 mg BID NAIMA Administration Intake and Output 04/23/18 04/24/18 04/24/18 22:59 06:59 14:59 Intake Total 700 Output Total 600 Balance 700 -600 Intake: Oral 700 Output: Urine 600 Other: Voiding Method Urinal # Voids 3 04/24/18 07:52 04/24/18 07:52 EKG Interpretations (text) Bi-ventricular pacing 04/18/2018 Assessment and Plan (1) Acute on chronic systolic CHF (congestive heart failure) Current Visit: Yes Status: Acute Code(s): I50.23 - ACUTE ON CHRONIC SYSTOLIC (CONGESTIVE) HEART FAILURE SNOMED Code(s): 319548902 (2) KATHYA (acute kidney injury) Current Visit: Yes Status: Acute Code(s): N17.9 - ACUTE KIDNEY FAILURE, UNSPECIFIED SNOMED Code(s): 18864638 (3) Cardiomyopathy, ischemic Current Visit: Yes Status: Acute Code(s): I25.5 - ISCHEMIC CARDIOMYOPATHY SNOMED Code(s): 497668916 Plan: Add aldactone 25mg daily. Continue all other medical/medication regime. Encourage IS use/ambulation. Heart healthy/low sodium diet. Will follow with pulmonary recommendations as well.]
[2018-04-24] MEDS: SPIRONOLACTONE 25 MG TAB PO SCH (13:55)
[2018-04-24 17:11] LABS: Glucose,Whole Blood 145 mg/dL (75-99)
[2018-04-24 20:43] LABS: Glucose,Whole Blood 223 mg/dL (75-99)
[2018-04-24] MEDS: SODIUM CHLORIDE 0.9% 1,000 ML IV SCH (21:57)
[2018-04-25 07:31] LABS: Glucose,Whole Blood 113 mg/dL (75-99)
[2018-04-25] MEDS: HEPARIN SODIUM,PORCINE 5,000 UNIT/ML 1 ML VIAL SQ SCH ×2 (07:48→15:52)
[2018-04-25] MEDS: ASPIRIN 81 MG PO SCH (07:49)
[2018-04-25] MEDS: PIPERACILLIN-TAZOBACTAM 3.375 GM in SODIUM CHLORIDE 0.9% 100 ML IVPB SCH ×2 (07:49→16:29)
[2018-04-25] MEDS: FUROSEMIDE 20 MG TAB PO SCH ×2 (07:49→15:51)
[2018-04-25] MEDS: CARVEDILOL 3.125 MG TAB PO SCH (07:49)
[2018-04-25] MEDS: SPIRONOLACTONE 25 MG TAB PO SCH (07:49)
[2018-04-25] MEDS: ATORVASTATIN 20 MG TAB PO SCH (07:49)
[2018-04-25] MEDS: levETIRAcetam 500 MG TAB PO SCH (07:49)
[2018-04-25] MEDS: SODIUM BICARBONATE TAB 650 MG TAB PO SCH (07:49)
[2018-04-25] MEDS: PANTOPRAZOLE 40 MG TABLET PO SCH (07:49)
[2018-04-25] MEDS: busPIRone HCl 5 MG TAB PO SCH (07:49)
[2018-04-25] MEDS: INSULIN ASPART (NovoLOG) 100 UNIT/ML VIAL SQ SCH ×3 (07:51→17:13)
[2018-04-25 08:07] LABS: Calcium 8.2 mg/dL (8.4-10.2); Potassium 3.7 mmol/L (3.5-5.1)
[2018-04-25] MEDS: IPRATROPIUM-ALBUTEROL 3 ML NEB INHALATION SCH ×3 (08:20→15:32)
[2018-04-25 11:30] LABS: Glucose,Whole Blood 153 mg/dL (75-99)
--- NOTE | 2018-04-25 11:36 | P.PN ---
Subjective Sitting in chair at bedside. States he feels greatly improved. Awaiting for discharge clearance from pulmonology and cardiology. Hopeful discharge soon Objective - Vital Signs Vital signs: Vital Signs Temp 97.4 F L 04/25/18 07:30 Pulse 78 04/25/18 07:30 Resp 18 04/25/18 07:30 BP 120/59 04/25/18 07:30 Pulse Ox 94 L 04/25/18 08:20 Intake & Output 04/24/18 04/25/18 04/25/18 18:59 06:59 18:59 Intake Total 140 Output Total 300 Balance -160 Intake: IV 40 Sodium Chloride 0.9% 1, 40 000 ml @ 5 mls/hr IV . Q24H [facility] Rx#:[id number] Intake, IV Titration 100 Amount Piperacillin-Tazobactam 3 100 .375 gm In Sodium Chloride 0.9% 100 ml @ 25 mls/hr IVPB Q8HR [facility] Rx# :[id number] Output: Urine 300 Other: # Voids 4 2 # Bowel Movements 2 - Constitutional General appearance: Present: mild distress - EENT Eyes: Present: PERRLA - Neck Neck: Present: normal ROM - Respiratory Respiratory: - Cardiovascular Rhythm: regular - Gastrointestinal General gastrointestinal: Present: soft - Integumentary Integumentary: Present: normal - Neurologic Neurologic: Present: CNII-XII intact - Psychiatric Psychiatric: Present: A&O x's 3, appropriate affect, intact judgment & insight - Labs CBC & Chem 7: 04/24/18 07:52 04/25/18 07:24 Labs: Abnormal Lab Results - Last 24 Hours (Table) 04/24/18 04/24/18 04/24/18 Range/Units 12:00 16:59 20:42 Carbon Dioxide (22-30) mmol/L BUN (9-20) mg/dL Creatinine (0.66-1.25) mg/dL Glucose (74-99) mg/dL POC Glucose (mg/dL) 171 H 145 H 223 H (75-99) mg/dL Calcium (8.4-10.2) mg/dL 04/25/18 04/25/18 04/25/18 Range/Units 06:54 07:24 11:26 Carbon Dioxide 31 H (22-30) mmol/L BUN 21 H (9-20) mg/dL Creatinine 1.65 H (0.66-1.25) mg/dL Glucose 105 H (74-99) mg/dL POC Glucose (mg/dL) 113 H 153 H (75-99) mg/dL Calcium 8.2 L (8.4-10.2) mg/dL Microbiology - Last 24 Hours (Table) 04/22/18 14:40 Gram Stain - Preliminary Thoracic Fluid Body Fluid Culture - Preliminary Assessment and Plan Plan: Assessment Metabolic acidosis secondary acute kidney injury Hyperkalemia Acute on chronic kidney disease stage III secondary to Bactrim Hypoxic respiratory failure Weakness of falls Cholelithiasis Bilateral pleural effusion post thoracentesis Congestive heart failure systolic dysfunction with ejection fraction of 30-35% Paroxysmal atrial fibrillation History of coronary disease with CABG and pacemaker COPD Diabetes type 2 Hyperlipidemia Hypertension Plan hopeful discharge soon after clearance from cardiology and pulmonology
--- NOTE | 2018-04-25 12:24 | P.PN ---
Subjective Patient is seen in follow-up for acute kidney injury on chronic kidney disease. Patient has chronic kidney disease stage III with baseline creatinine near 1.5 secondary to nephrosclerosis. Renal function is improved since admission. Denies chest pain or shortness of breath. No active complaints at this time. Vital signs are stable. General: The patient appeared well nourished and normally developed. HEENT: Head exam is unremarkable. Neck is without jugular venous distension. LUNGS: Lungs are clear to auscultation and percussion. Breath sounds decreased. HEART: Rate and Rhythm are regular. First and second heart sounds normal. No mur murs, rubs or gallops. ABDOMEN: Abdominal exam reveals normal bowel sounds. Non-tender and non-dist ended. No evidence of peritonitis. EXTREMITITES: No clubbing, cyanosis, or edema. Objective - Vital Signs Vital signs: Vital Signs Temp 97.4 F L 04/25/18 07:30 Pulse 78 04/25/18 07:30 Resp 18 04/25/18 07:30 BP 120/59 04/25/18 07:30 Pulse Ox 94 L 04/25/18 08:20 Intake & Output 04/24/18 04/25/18 04/25/18 18:59 06:59 18:59 Intake Total 140 Output Total 300 Balance -160 Intake: IV 40 Sodium Chloride 0.9% 1, 40 000 ml @ 5 mls/hr IV . Q24H [facility] Rx#:[id number] Intake, IV Titration 100 Amount Piperacillin-Tazobactam 3 100 .375 gm In Sodium Chloride 0.9% 100 ml @ 25 mls/hr IVPB Q8HR [facility] Rx# :[id number] Output: Urine 300 Other: # Voids 4 2 # Bowel Movements 2 - Labs CBC & Chem 7: 04/24/18 07:52 04/25/18 07:24 Labs: Abnormal Lab Results - Last 24 Hours (Table) 04/24/18 04/24/18 04/25/18 Range/Units 16:59 20:42 06:54 Carbon Dioxide (22-30) mmol/L BUN (9-20) mg/dL Creatinine (0.66-1.25) mg/dL Glucose (74-99) mg/dL POC Glucose (mg/dL) 145 H 223 H 113 H (75-99) mg/dL Calcium (8.4-10.2) mg/dL 04/25/18 04/25/18 Range/Units 07:24 11:26 Carbon Dioxide 31 H (22-30) mmol/L BUN 21 H (9-20) mg/dL Creatinine 1.65 H (0.66-1.25) mg/dL Glucose 105 H (74-99) mg/dL POC Glucose (mg/dL) 153 H (75-99) mg/dL Calcium 8.2 L (8.4-10.2) mg/dL Microbiology - Last 24 Hours (Table) 04/22/18 14:40 Gram Stain - Preliminary Thoracic Fluid Body Fluid Culture - Preliminary Assessment and Plan Plan: Assessment: 1. Acute kidney injury secondary to ATN secondary to hypotension. Bactrim will impair secretion of creatinine. Creatinine 2.93 on admission and is down to 1.65 today. No hydronephrosis noted. 2. Chronic kidney disease stage III secondary to nephrosclerosis with baseline creatinine near 1.5. 3. Hyperkalemia secondary to acute kidney injury, Bactrim and metabolic acidosis. Resolved. 4. Hypertension with chronic kidney disease. Stable. 5. Metabolic acidosis secondary to acute kidney injury. Resolved. Maintain on oral sodium bicarbonate. 6. Systolic CHF with ejection fraction of 30-35% with moderate aortic and mitral regurgitation. Severe tricuspid regurgitation noted. Plan: Maintain Lasix 20 mg orally twice daily. Decrease frequency of sodium bicarbonate to once daily. Patient will need to follow-up as an outpatient in the next 1-2 weeks.
--- NOTE | 2018-04-25 12:55 | P.PN ---
Subjective Progress Note Date: 04/25/18 Principal diagnosis: Acute kidney injury suspect secondary to Bactrim and dehydration. This 87-year-old white male patient of Dr. Ishaan Mata, with past medical history of diabetes mellitus, hypertension, hyperlipidemia, coronary artery disease with history of three-vessel bypass 33 years ago, permanent pacemaker, chronic kidney disease, who presented to the emergency department on 04/17/2018 per EMS with complaints of weakness, fatigue, falls, nausea, dry heaving, decreased urine output. Patient states his onset of symptoms was 2 days ago, patient felt quite nauseous after eating some tomato soup, then he was up most of the night dry heaving. He had a similar episode after eating some potato salad. He never actually had any vomiting, no diarrhea. He was experiencing some abdominal discomfort he described as tightness across his upper abdomen. Denied any fever or chills, he did have some sweating when he was nauseous. Most recently patient had been treated for ingrown right total infection, and patient states he was treated with 2 rounds of antibiotics with the latest one being Bactrim. In the emergency department patient was found to have potassium of 8.6, B1 of 25, creatinine of 2.79, no leukocytosis, white blood cell count was 5.2, hemoglobin of 12.3, platelet count was 70, urinalysis showed 1+ protein, some red blood cells, trace leuks, and 1+ nitrite. Blood gas was done and showed pO2 of 80, pCO2 of 36, pH of 7.24 this was done on FiO2 of 30%. Patient denied any chest pain or shortness of breath. Renal ultrasound showed no evidence of hydronephrosis. Ultrasound of the aorta showed no abnormalities. Flat plate of the abdomen showed nonacute abdomen, showed bilateral pleural effusions and basilar pulmonary infiltrates and atelectasis. CT of abdomen and pelvis showed bilateral pleural effusions with atelectasis cholelithiasis witho ut ductal dilatation, possible nonobstructing left renal stone. From the chart patient had of history of subdural hematoma, and brain CT was obtained which showed no acute intracranial findings. Amylase lipase were within normal limits, troponin was negative 1, proBNP was 9830. Patient has been normotensive, afebrile. He was given a liter and a half of fluid boluses in the emergency department, he was given calcium gluconate, IV insulin, and 50% dextrose in addition to Kayexalate, and this morning's potassium is 6.5. He is calm and comfortable, resting in bed, denies any distress, no abdominal pain, no nausea or vomiting. On today's evaluation of 04/19/2018, the patient is doing well. He has no specific complaints. The patient has chronic kidney disease stage III in the patient's creatinine is at 1.5 at baseline. The patient underlying nephrosclerosis. Noted the patient came in with acute kidney injury. The patient also developed hyperkalemia. The hyperkalemia was treated. The patient renal function is also improving. Creatinine is down to 2.09. The patient has no new complaints for now. The white cell count is at 4.2. The rest of the electrodes are within normal including a potassium level of 3.8. The blood pressure is under good control. No other significant events overnight. The patient is awake and alert. The patient is following commands. There is a concern of an acute cholecystitis based on abnormal LFTs. Gen. surgery was consulted. The patient is cholelithiasis without clinical evidence of cholecystitis. Ultrasound the gallbladder was noted. General surgeries also on the case. The patient is seen today 04/20/2018 in follow-up on the regular medical floor. He has had increasing shortness of breath, cough and congestion today. Audible wheezing. This having oxygen saturations in the high 80s low 90s on room air. He has been afebrile and hemodynamically stable. SMAC on minimal exertion. Chest x-ray reveals increased infiltrate in the left lower lobe. White count 4.6. Hemoglobin 11.8. Creatinine 1.56. Urine culture reveals no growth. On 04/21/2018 I'm seeing this patient for a follow-up. Yesterday the patient was short of breath. The patient was slightly hypoxic. Chest x-ray showed CHF and a left lower lobe consolidation. The patient was started on IV Zosyn. The patient was also given diuretics. On today's evaluation is with atelectasis baseline. No significant respiratory distress. No cough or sputum production. No chest pain or pleurisy. He is sitting up on a chair and is tolerating his diet. Function is stable with a creatinine of 1.5. No hyperkalemia this point in time. No altered mentation. He is hard of hearing. The patient has cholelithiasis and the patient was seen by general surgery. No surgical recommendation of the done for the time being. LFTs are improving. On 04/22/2018 patient seen in follow-up on medical surgical floor. Can alert, in no acute distress, mentation is appropriate, no signs of delirium, room air pulse ox is 93%, patient is afebrile, today's blood work showed white blood cell count of 9.2, hemoglobin is 11.1, sodium is 143, potassium is 4.0, chloride is 1 10, B1 is 24, creatinine is 2.04. Liver enzymes are continuously improving, AST is down to 150, ALT is 274, alkaline phosphatase is 88. Patient was given a dose of IV Lasix yesterday, on today's exam patient has bilateral pleural effusions, ultrasound of the chest was obtained, and showed a 10.0 cm pocket on the right, and 6.9 cm pocket on the left. The areas were marked for thoracentesis. Lee Ann ent states he does have some mild to moderate shortness of breath, and has been wheezing according to the nursing staff. Lung sounds are diminished breath sounds at bilateral bases, dullness to percussion. Continues on empiric antibiotics in the form of Zosyn, urine cultures showed no growth at 18 hour quique. The patient is seen today 04/23/2018 in follow-up on the regular medical floor. He is currently awake and alert in no acute distress. He's been up ambulating with a walker and assistance. He is currently maintaining O2 saturations in the upper 90s on room air. He is afebrile. Pleural fluid cultures are pending. White count 7.1. Hemoglobin 12.1. Platelets 59,000. Creatinine 1.85. Pleural fluid protein 1.7. LDH 102. Cytology pending. The patient is seen today 04/24/2018 in follow-up on the regular medical floor. He is currently resting quite comfortably in bed. Awake and alert in no acute distress. Maintaining good O2 saturations in the mid 90s on room air. He's been afebrile. Hemodynamically stable. Pleural fluid cultures/cytology pending. Echocardiogram reveals moderate to severely impaired left ventricular systolic function with ejection fraction 30-35%. White count 6.7. Hemoglobin 12.4. Creatinine 1.83. The patient is seen today 04/25/2018 in follow-up on the regular medical floor. He is awake and alert in no acute distress. He denies any significant shortness of breath, cough or congestion. He is maintaining good O2 saturations in the 90 s on room air. He's been afebrile. Hemodynamically stable. Pleural fluid cultures reveal no growth thus far. Sodium 139. Potassium 3.7. Creatinine 1.65. Objective - Vital Signs Vital signs: Vital Signs Temp 97.4 F L 04/25/18 07:30 Pulse 78 04/25/18 07:30 Resp 18 04/25/18 07:30 BP 120/59 04/25/18 07:30 Pulse Ox 94 L 04/25/18 08:20 Intake & Output 04/24/18 04/25/18 04/25/18 18:59 06:59 18:59 Intake Total 140 Output Total 300 Balance -160 Intake: IV 40 Sodium Chloride 0.9% 1, 40 000 ml @ 5 mls/hr IV . Q24H [facility] Rx#:[id number] Intake, IV Titration 100 Amount Piperacillin-Tazobactam 3 100 .375 gm In Sodium Chloride 0.9% 100 ml @ 25 mls/hr IVPB Q8HR [facility] Rx# :[id number] Output: Urine 300 Other: # Voids 4 2 # Bowel Movements 2 - Exam GENERAL EXAM: Alert, comfortable in no apparent distress. On room air. HEAD: Normocephalic/atraumatic. EYES: Normal reaction of pupils, equal size. Conjunctiva pink, sclera white. NOSE: Clear with pink turbinates. THROAT: No erythema or exudates. NECK: No masses, no JVD, no thyroid enlargement, no adenopathy. CHEST: No chest wall deformity. Symmetrical expansion. LUNGS: Equal air entry with bilateral end expiratory wheeze, crackles in left posterior base CVS: Regular rate and rhythm, normal S1 and S2, no gallops, no murmurs, no rubs ABDOMEN: Soft, nontender. No hepatosplenomegaly, normal bowel sounds, no guarding or rigidity. EXTREMITIES: No clubbing, no edema, no cyanosis, 2+ pulses and upper and lower extremities. MUSCULOSKELETAL: Muscle strength and tone normal. Right toenail is covered with a dressing. SPINE: No scoliosis or deformity SKIN: No rashes CENTRAL NERVOUS SYSTEM: Alert and oriented -3. No focal deficits, tone is normal in all 4 extremities. PSYCHIATRIC: Alert and oriented -3. Appropriate affect. Intact judgment and insight. - Labs CBC & Chem 7: 04/24/18 07:52 04/25/18 07:24 Labs: Abnormal Lab Results - Last 24 Hours (Table) 04/24/18 04/24/18 04/25/18 Range/Units 16:59 20:42 06:54 Carbon Dioxide (22-30) mmol/L BUN (9-20) mg/dL Creatinine (0.66-1.25) mg/dL Glucose (74-99) mg/dL POC Glucose (mg/dL) 145 H 223 H 113 H (75-99) mg/dL Calcium (8.4-10.2) mg/dL 04/25/18 04/25/18 Range/Units 07:24 11:26 Carbon Dioxide 31 H (22-30) mmol/L BUN 21 H (9-20) mg/dL Creatinine 1.65 H (0.66-1.25) mg/dL Glucose 105 H (74-99) mg/dL POC Glucose (mg/dL) 153 H (75-99) mg/dL Calcium 8.2 L (8.4-10.2) mg/dL Microbiology - Last 24 Hours (Table) 04/22/18 14:40 Gram Stain - Preliminary Thoracic Fluid Body Fluid Culture - Preliminary Assessment and Plan Assessment: Assessment: #1. Acute kidney injury likely related to Bactrim and dehydration, improving the creatinine is down to 1.65. #2. Acute hypoxic respiratory failure secondary to a new left lower lobe infiltrate/effusion, suspect hospital-acquired pneumonia. Status post left thoracentesis. 1100 ML's liz fluid removed. Cultures/cytology are pending. No growth to date. #3. Recent history of right toe infection, and patient was treated with the 2 rounds of antibiotics, Bactrim #4. History of chronic kidney disease, stage III, patient used to follow with nephrology, this is consistent with his history of hypertensive nephrosclerosis #5. Hypertension #6. Hyperlipidemia #7. Diabetes mellitus #8. Permanent pacemaker #9. History of coronary artery disease status post three-vessel bypass 33 years ago, ischemic cardiomyopathy with ejection fraction 30-35%. #10. Lifetime nonsmoker, no history of EtOH use #11. abnormal LFTs with cholelithiasis. No clinical evidence of cholecystitis. He has surgeries on the case. Ultrasound the gallbladder was noted. #12. Hyperkalemia, patient presented with a potassium of 8.6, treated with Kayexalate, D50, IV insulin, and calcium gluconate is now trending down and the patient's potassium level has normalized and is down to 3.7 Plan: The patient was seen and evaluated by Dr. Mart. The patient is cleared for discharge from the pulmonary standpoint. On room air. Cultures and cytology pending. Could complete a course of antibiotics in the form of Augmentin. I, the cosigning physician, performed a history & physical examination of the patient. Lungs sounds with few scattered rhonchi, crackles in left posterior base. Maintaining good O2 saturations in the 90s on room air. I discussed the assessment and plan of care with my nurse practitioner, Mercy Krishna. I attest to the above note as dictated by her.
[2018-04-25 13:37] VITALS: BMI 28.1
[2018-04-25 14:27] VITALS: BP 119/57; PULSE 68; RESP 16; TEMP 98.9
--- NOTE | 2018-04-25 16:19 | P.DS ---
Providers Date of admission: 04/18/18 01:16 Expected date of discharge: 04/25/18 Attending physician: Ishaan Mata Consults: 04/18/18 01:09 Consult Physician Urgent Consulting Provider: Benedict Adkins Consult Reason/Comments: Hyperkalemia, ICU care Do you want consulting provider notified?: Already Contacted 04/18/18 02:10 Consult Physician Urgent Consulting Provider: Jeevan Mckeon Consult Reason/Comments: Abnormal US Do you want consulting provider notified?: Yes, Notify in am 04/18/18 09:21 Consult Physician Urgent Consulting Provider: Mayur Willson Consult Reason/Comments: Acute kidney injury Do you want consulting provider notified?: Yes 04/23/18 14:55 Consult Physician Urgent Consulting Provider: Jennifer Amado Consult Reason/Comments: CHF Do you want consulting provider notified?: Yes 04/23/18 18:09 Consult Physician Urgent Consulting Provider: Tray Pereira Consult Reason/Comments: depression, tearful Do you want consulting provider notified?: Yes Primary care physician: Ishaan Mata Hospital Course: 87-year-old male presented to the emergency room with complaints of weakness and falling. Patient was evaluated by gastroenterology for possibility of cholecystitis. Evaluated by nephrology for metabolic acidosis hyperkalemia acute injury to kidney was also evaluated by cardiology for congestive heart failure and atrial fibrillation. Patient was also treated by pulmonology for hypoxic respiratory failure. Patient has requested to be discharged home has declined extended care for rehab has declined home care or physical therapy and home Assessment Metabolic acidosis secondary to acute kidney injury on chronic kidney disease stage III secondary to Bactrim Hypoxic respiratory failure Cholelithiasis Weakness with falls Bilateral pleural effusion that was treated with thoracentesis Congestive heart failure systolic dysfunction EF 30-35% History of coronary disease with CABG and pacemaker History of COPD Diabetes type 2 Hyperlipidemia Hypertension Elevated liver enzymes improved Plan Follow-up with family physician Dr. Ishaan Mata Follow-up with nephrology Follow-up with gastroenterology Follow-up with pulmonology Patient Condition at Discharge: Critical Plan - Discharge Summary Discharge Rx Participant: Yes New Discharge Prescriptions: New Spironolactone [Aldactone] 25 mg PO DAILY #30 tab Cefuroxime Axetil [Ceftin] 500 mg PO BID #20 tab Ipratropium-Albuterol Nebulize [Duoneb 0.5 mg-3 mg/3 ml Soln] 3 ml INHALATION RT-QID #120 ampul.neb Furosemide [Lasix] 20 mg PO BID@0900,1600 #60 tab Sodium Bicarbonate Tab 650 mg PO DAILY #30 tab Acetaminophen Tab [Tylenol] 650 mg PO Q4HR PRN tab PRN Reason: Fever And/Or Mild Pain Continue levETIRAcetam [Keppra] 500 mg PO BID busPIRone HCL 15 mg PO BID Pantoprazole Sodium [Protonix] 40 mg PO DAILY Colchicine 1.2 mg PO DIRECTED Carvedilol [Coreg] 3.125 mg PO BID Atorvastatin [Lipitor] 20 mg PO DAILY Aspirin [Bantam Aspirin EC] 81 mg PO DAILY Discontinued Verapamil HCl [Verapamil ER] 240 mg PO DAILY Sulfamethoxazole/Trimethoprim [Bactrim SS 400-80 mg] 1 tab PO BID Discharge Medication List Aspirin [Bantam Aspirin EC] 81 mg PO DAILY 02/06/18 [History] Atorvastatin [Lipitor] 20 mg PO DAILY 02/06/18 [History] Carvedilol [Coreg] 3.125 mg PO BID 02/06/18 [History] Colchicine 1.2 mg PO DIRECTED 02/06/18 [History] Pantoprazole Sodium [Protonix] 40 mg PO DAILY 02/06/18 [History] busPIRone HCL 15 mg PO BID 02/06/18 [History] levETIRAcetam [Keppra] 500 mg PO BID 02/06/18 [History] Acetaminophen Tab [Tylenol] 650 mg PO Q4HR PRN tab 04/25/18 [Rx] Cefuroxime Axetil [Ceftin] 500 mg PO BID #20 tab 04/25/18 [Rx] Furosemide [Lasix] 20 mg PO BID@0900,1600 #60 tab 04/25/18 [Rx] Ipratropium-Albuterol Nebulize [Duoneb 0.5 mg-3 mg/3 ml Soln] 3 ml INHALATION RT-QID #120 ampul.neb 04/25/18 [Rx] Sodium Bicarbonate Tab 650 mg PO DAILY #30 tab 04/25/18 [Rx] Spironolactone [Aldactone] 25 mg PO DAILY #30 tab 04/25/18 [Rx] Follow up Appointment(s)/Referral(s): Ishaan Mata MD [Primary Care Provider] - 1-2 days (please call office to schedule appointment) Mayur Willson DO [STAFF PHYSICIAN] - 1 Week (please call office to schedule appointment) Patient Instructions/Handouts: Acute Kidney Injury (DC), Type 2 Diabetes in Adults: New Diagnosis (DC), Hyperkalemia (DC) Activity/Diet/Wound Care/Special Instructions: please call harvest worker fruit office and schedule appointment within 1-2 weeks
[2018-04-25 16:57] LABS: Glucose,Whole Blood 137 mg/dL (75-99)
[2018-04-26] MEDS ORDERED: SODIUM BICARBONATE TAB 650 MG TAB PO SCH (09:00)
== END 2018-04-25 17:25 | disposition home or self-care (01) | DRG 682 ==
LOC: EC 21:48 → 2SICU 04-18 01:16 → 4MS4W 04-19 14:36
PROVIDERS: ADMIT Family Medicine; ATTEND Family Medicine
PROC: 0W9B3ZZ Drainage of Left Pleural Cavity, Percutaneous Approach (ICD-10-PCS; principal; 2018-04-22)
DX: N17.0 Acute kidney failure with tubular necrosis (principal); J96.01 Acute respiratory failure with hypoxia; I50.23 Acute on chronic systolic (congestive) heart failure; J18.9 Pneumonia, unspecified organism; K80.66 Calculus of gallbladder and bile duct with acute and chronic cholecystitis without obstruction; J91.8 Pleural effusion in other conditions classified elsewhere; E87.2 Acidosis; I13.0 Hypertensive heart and chronic kidney disease with heart failure and stage 1 through stage 4 chronic kidney disease, or unspecified chronic kidney disease; J98.11 Atelectasis; J44.0 Chronic obstructive pulmonary disease with (acute) lower respiratory infection; I95.9 Hypotension, unspecified; E87.5 Hyperkalemia; E86.0 Dehydration; D69.6 Thrombocytopenia, unspecified; E11.22 Type 2 diabetes mellitus with diabetic chronic kidney disease; I48.0 Paroxysmal atrial fibrillation; I25.5 Ischemic cardiomyopathy; I08.3 Combined rheumatic disorders of mitral, aortic and tricuspid valves; D63.1 Anemia in chronic kidney disease; I25.10 Atherosclerotic heart disease of native coronary artery without angina pectoris; E78.5 Hyperlipidemia, unspecified; N18.3 Chronic kidney disease, stage 3 (moderate); T37.0X5A Adverse effect of sulfonamides, initial encounter; H91.90 Unspecified hearing loss, unspecified ear; R74.8 Abnormal levels of other serum enzymes; F32.9 Major depressive disorder, single episode, unspecified; Y95 Nosocomial condition; Z91.81 History of falling; Z79.82 Long term (current) use of aspirin; Z79.899 Other long term (current) drug therapy; Z95.1 Presence of aortocoronary bypass graft; Z95.0 Presence of cardiac pacemaker
CPT/HCPCS: 36415; 36600; 70450; 71045; 74176; 76604; 76705; 80048; 80053; 80074; 80076; 80177; 81001; 82150; 82553; 82805; 82945; 83615; 83690; 83735; 83880; 84100; 84132; 84157; 84484; 85025; 85610; 85730; 87070; 87086; 87116; 87205; 87206; 87252; 87324; 87496; 87498; 87502; 87529; 87634; 87798; 88108; 88305; 93005; 93306; 94640; 94760; 96361; 96365; 96372; 96375; 99285

== ENCOUNTER 2018-05-27 11:51 | Observation (INO) | payer MEDICARE ==
--- NOTE | 2018-05-27 13:03 | ED ---
Extremity Problem HPI - General Chief complaint: Extremity Problem,Nontraumatic Stated complaint: lt knee pain Time Seen by Provider: 05/27/18 12:55 Source: patient Mode of arrival: ambulatory Limitations: no limitations - History of Present Illness Initial comments: 87-year-old male presenting today for chief complaint of left knee pain. Patient states that for the past few weeks he has had a sore left knee. Patient states he noticed earlier today that his left knee was read in the front and tender to palpation in that area. Patient states he difficulty totally weightbearing or moving at the right knee secondary to the pain. Patient is here chills night sweats nausea vomiting diarrhea recent surgery knee replacement. Patient states he felt fine aside from the pain in the left knee. Patient states she has history of osteoarthritis. Patient denies history of gout. Patient denies a swelling of the left knee. Remaining review of system negative. Upon arrival patient appears well afebrile appearing nontoxic. Patient refuses to ambulate on the left knee secondary to pain. - Related Data Home Medications Medication Instructions Recorded Confirmed Aspirin [[place] Aspirin EC] 81 mg PO DAILY 02/06/18 05/27/18 Atorvastatin [Lipitor] 20 mg PO DAILY 02/06/18 05/27/18 Carvedilol [Coreg] 3.125 mg PO BID 02/06/18 05/27/18 Colchicine 1.2 mg PO DIRECTED 02/06/18 05/27/18 Pantoprazole Sodium [Protonix] 40 mg PO DAILY 02/06/18 05/27/18 levETIRAcetam [Keppra] 500 mg PO BID 02/06/18 05/27/18 Previous Rx's Medication Instructions Recorded Furosemide [Lasix] 20 mg PO BID@0900,1600 #60 tab 04/25/18 Ipratropium-Albuterol Nebulize 3 ml INHALATION RT-QID #120 04/25/18 [Duoneb 0.5 mg-3 mg/3 ml Soln] ampul.neb Sodium Bicarbonate Tab 650 mg PO DAILY #30 tab 04/25/18 Spironolactone [Aldactone] 25 mg PO DAILY #30 tab 04/25/18 Allergies Allergy/AdvReac Type Severity Reaction Status Date / Time No Known Allergies Allergy Verified 05/27/18 16:31 Review of Systems ROS Statement: Those systems with pertinent positive or pertinent negative responses have been documented in the HPI. ROS Other: All systems not noted in ROS Statement are negative. Past Medical History Past Medical History: Coronary Artery Disease (CAD), COPD, Diabetes Mellitus, Hyperlipidemia, Hypertension History of Any Multi-Drug Resistant Organisms: None Reported Past Surgical History: Coronary Bypass/CABG, Pacemaker Type of Cardiac Device: Permanent Pacemaker Device Placement Date:: 2015 Past Psychological History: No Psychological Hx Reported Smoking Status: Never smoker Past Alcohol Use History: None Reported Past Drug Use History: None Reported General Exam - General Exam Comments Initial Comments: General: The patient is awake and alert, in no distress, and does not appear acutely ill. Eye: +3 mm pupils are equal, round and reactive to light, extra-ocular movements are intact. No nystagmus. There is normal conjunctiva bilaterally. No signs of icterus. Ears, nose, mouth and throat: There are moist mucous membranes and no oral lesions. Neck: The neck is supple, there is no tenderness or JVD. Cardiovascular: There is a regular rate and rhythm. No murmur, rub or gallop is appreciated. Respiratory: Lungs are clear to auscultation, respirations are non-labored, breath sounds are equal. No wheezes, stridor, rales, or rhonchi. Gastrointestinal: Soft, non-distended, non-tender abdomen without masses or organomegaly noted. There is no rebound or guarding present. Bowel sounds are unremarkable. Musculoskeletal: Upon inspection of the knees bilaterally there is no significant diffuse soft tissue swelling. There is erythema anteriorly over the left kneecap. She is tender to palpation over this area of erythema. Pt is unable to actively range at the left knee secondary to pain. Pt allows passive range of motion complaining of anterior knee pain with full flexion, crepitus of left knee noted. Strength 5/5. Sensation intact both proximal and distal to the left knee. DP pulses equal bilaterally 2+. No bruising or pain to palpation posteriorly. Neurological: A&O x 3. CN II-XII intact, There are no obvious motor or sensory deficits. Coordination appears grossly intact. Speech is normal. Skin: Skin is warm and dry and no rashes or lesions are noted. Psychiatric: Cooperative, appropriate mood & affect, normal judgment. Limitations: no limitations Course Vital Signs 05/27/18 05/27/18 05/27/18 12:42 15:22 16:46 Temperature 99.0 F Pulse Rate 70 71 70 Pulse Rate [ Pulse Oximetery ] Respiratory 18 18 18 Rate Blood Pressure 130/76 142/69 127/60 Blood Pressure [Right Arm] O2 Sat by Pulse 96 95 95 Oximetry 05/27/18 05/27/18 17:58 18:20 Temperature 98.2 F 98.3 F Pulse Rate Pulse Rate [ 70 Pulse Oximetery ] Respiratory 16 Rate Blood Pressure Blood Pressure 136/71 [Right Arm] O2 Sat by Pulse 98 Oximetry Medical Decision Making - Medical Decision Making 87-year-old male presents for left knee pain. There is erythema of the anterior left knee. Patient has difficulty ranging actively secondary to pain. Patient is able to passively range her there is pain anteriorly. Imaging studies reveal findings consistent with bursitis. There is no palpable fluctuant of the anterior knee, I do not feel that drainage for culture possible at this time. Leukocytosis. Elevation CRP. I contacted [facility], who reviewed imaging studies as well as discussed laboratory studies. She recommended discharge with outpatient oral lymphatics and follow-up in office. Pt family refuses to trial outpatient therapy, due to patient's mobile state, and because he lives alone. Attempted ambulation with patient patient had difficulty standing. At this time feel patient is significant fall risk. Due to this and social factors we will keep patient inpatient for iV abx, ortho consultation and social work consult. Pt placed in observation unit. Dr. Correa accepted admission. Pt transferred to room in stable condition appearing well. I did discuss case with attending provider Dr. Toribio who is agreeable with patient plan of care. - Lab Data Result diagrams: 05/27/18 13:57 05/27/18 13:57 Lab Results 05/27/18 05/27/18 Range/Units 13:57 13:57 WBC 7.3 (3.8-10.6) k/uL RBC 4.67 (4.30-5.90) m/uL Hgb 14.7 (13.0-17.5) gm/dL Hct 43.6 (39.0-53.0) % MCV 93.2 D (80.0-100.0) fL MCH 31.3 (25.0-35.0) pg MCHC 33.6 (31.0-37.0) g/dL RDW 14.9 (11.5-15.5) % Plt Count 81 L (150-450) k/uL Neutrophils % 69 % Lymphocytes % 18 % Monocytes % 9 % Eosinophils % 2 % Basophils % 0 % Neutrophils # 5.0 (1.3-7.7) k/uL Lymphocytes # 1.3 (1.0-4.8) k/uL Monocytes # 0.6 (0-1.0) k/uL Eosinophils # 0.1 (0-0.7) k/uL Basophils # 0.0 (0-0.2) k/uL ESR 36 H (0-15) mm/hr Sodium 143 (137-145) mmol/L Potassium 4.6 (3.5-5.1) mmol/L Chloride 105 (98-107) mmol/L Carbon Dioxide 27 (22-30) mmol/L Anion Gap 11 mmol/L BUN 25 H (9-20) mg/dL Creatinine 1.78 H (0.66-1.25) mg/dL Est GFR (CKD-EPI)AfAm 39 (>60 ml/min/1.73 sqM) Est GFR (CKD-EPI)NonAf 33 (>60 ml/min/1.73 sqM) Glucose 137 H (74-99) mg/dL Calcium 9.5 (8.4-10.2) mg/dL Total Bilirubin 1.2 (0.2-1.3) mg/dL AST 32 (17-59) U/L ALT 22 (21-72) U/L Alkaline Phosphatase 109 (38-126) U/L C-Reactive Protein 20.4 H (<10.0) mg/L Total Protein 6.6 (6.3-8.2) g/dL Albumin 3.4 L (3.5-5.0) g/dL Disposition Clinical Impression: Septic bursitis Disposition: ADMITTED IP TO THIS HOSP Condition: Stable Is patient prescribed a controlled substance at d/c from ED?: No Time of Disposition: 15:26 Decision to Admit Reason: Admit from EC Decision Date: 05/27/18 Decision Time: 15:26
--- NOTE | 2018-05-27 13:47 | XR ---
Left knee HISTORY: Left knee bruising and swelling 3 views of the left knee Bone mineralization, joint spaces and alignment are maintained. Vascular calcifications are noted inc identally. There is no fracture or dislocation. Soft tissue swelling is noted anterior to the patella . IMPRESSION: Soft tissue swelling. Correlate for prepatellar bursitis.
[2018-05-27] MEDS ORDERED: HYDROcodone/APAP 5-325MG 1 EACH TAB PO STA (14:02)
[2018-05-27 14:26] LABS: Basophils % (A) 0 %; Eosinophils # (A) 0.1 k/uL (0-0.7); Eosinophils % (A) 2 %; HCT 43.6 % (39.0-53.0); HGB 14.7 gm/dL (13.0-17.5); Lymphocytes # (A) 1.3 k/uL (1.0-4.8); Lymphocytes % (A) 18 %; MCH 31.3 pg (25.0-35.0); MCHC 33.6 g/dL (31.0-37.0); Mean Platelet Volume 11.4; Monocytes # (A) 0.6 k/uL (0-1.0); Monocytes % (A) 9 %; Neutrophils % (A) 69 %; RBC 4.67 m/uL (4.30-5.90); RDW 14.9 % (11.5-15.5); WBC 7.3 k/uL (3.8-10.6)
[2018-05-27 14:27] LABS: MCV 93.2 fL (80.0-100.0); Platelet Count 81 k/uL (150-450)
[2018-05-27 14:32] LABS: Albumin 3.4 g/dL (3.5-5.0); C Reactive Protein 20.4 mg/L (<10.0); Calcium 9.5 mg/dL (8.4-10.2); Potassium 4.6 mmol/L (3.5-5.1); Total Bilirubin 1.2 mg/dL (0.2-1.3); Total Protein 6.6 g/dL (6.3-8.2)
[2018-05-27] MEDS ORDERED: VANCOMYCIN IV PER PHARMACY 1 EACH MISC MISCELLANE PRN (15:23)
[2018-05-27] MEDS ORDERED: VANCOMYCIN 1,500 MG in SODIUM CHLORIDE 0.9% 250 ML IVPB STA (15:31)
[2018-05-27 15:34] LABS: Erythrocyte Sedimentation Rate 36 mm/hr (0-15)
[2018-05-27] MEDS ORDERED: NALOXONE 0.4 MG/ML 1 ML VIAL IV PRN (15:44)
[2018-05-27 19:59] VITALS: BMI 24.3
[2018-05-27] MEDS: levETIRAcetam 500 MG TAB PO SCH (19:59)
[2018-05-27] MEDS: CARVEDILOL 3.125 MG TAB PO SCH (19:59)
[2018-05-27] MEDS: FUROSEMIDE 20 MG TAB PO SCH (19:59)
[2018-05-27 20:20] LABS: Glucose,Whole Blood 162 mg/dL (75-99)
[2018-05-27] MEDS: IPRATROPIUM-ALBUTEROL 3 ML NEB INHALATION SCH (20:34)
[2018-05-28 06:46] LABS: Glucose,Whole Blood 104 mg/dL (75-99)
[2018-05-28] MEDS: IPRATROPIUM-ALBUTEROL 3 ML NEB INHALATION SCH ×4 (07:00→19:57)
[2018-05-28] MEDS: levETIRAcetam 500 MG TAB PO SCH ×2 (09:36→21:37)
[2018-05-28] MEDS: FUROSEMIDE 20 MG TAB PO SCH ×2 (09:36→17:43)
[2018-05-28] MEDS: CARVEDILOL 3.125 MG TAB PO SCH ×2 (09:36→17:43)
[2018-05-28] MEDS: SPIRONOLACTONE 25 MG TAB PO SCH (09:36)
[2018-05-28] MEDS: ASPIRIN 81 MG PO SCH (09:36)
[2018-05-28] MEDS: ATORVASTATIN 20 MG TAB PO SCH (09:36)
[2018-05-28] MEDS: SODIUM BICARBONATE TAB 650 MG TAB PO SCH (09:36)
[2018-05-28] MEDS: PANTOPRAZOLE 40 MG TABLET PO SCH (09:36)
[2018-05-28 11:40] LABS: Glucose,Whole Blood 135 mg/dL (75-99)
--- NOTE | 2018-05-28 12:25 | P.HPIM ---
History of Present Illness 87-year-old male presented to the emergency room after being unable to ambulate due to severe right knee pain. Pain and swelling developed suddenly. Review of Systems Musculoskeletal: left: knee pain, knee swelling Past Medical History Past Medical History: Coronary Artery Disease (CAD), COPD, Diabetes Mellitus, Hyperlipidemia, Hypertension History of Any Multi-Drug Resistant Organisms: None Reported Past Surgical History: Coronary Bypass/CABG, Pacemaker Type of Cardiac Device: Permanent Pacemaker Device Placement Date:: 2015 Past Psychological History: No Psychological Hx Reported Smoking Status: Never smoker Past Alcohol Use History: None Reported Past Drug Use History: None Reported Medications and Allergies Home Medications Medication Instructions Recorded Confirmed Type Aspirin [[place] Aspirin EC] 81 mg PO DAILY 02/06/18 05/27/18 History Atorvastatin [Lipitor] 20 mg PO DAILY 02/06/18 05/27/18 History Carvedilol [Coreg] 3.125 mg PO BID 02/06/18 05/27/18 History Colchicine 1.2 mg PO DIRECTED 02/06/18 05/27/18 History Pantoprazole Sodium [Protonix] 40 mg PO DAILY 02/06/18 05/27/18 History levETIRAcetam [Keppra] 500 mg PO BID 02/06/18 05/27/18 History Furosemide [Lasix] 20 mg PO BID@0900,1600 #60 tab 04/25/18 05/27/18 Rx Ipratropium-Albuterol Nebulize 3 ml INHALATION RT-QID #120 04/25/18 05/27/18 Rx [Duoneb 0.5 mg-3 mg/3 ml Soln] ampul.neb Sodium Bicarbonate Tab 650 mg PO DAILY #30 tab 04/25/18 05/27/18 Rx Spironolactone [Aldactone] 25 mg PO DAILY #30 tab 04/25/18 05/27/18 Rx Allergies Allergy/AdvReac Type Severity Reaction Status Date / Time No Known Allergies Allergy Verified 05/27/18 16:31 Physical Exam Vitals: Vital Signs Temp Pulse Pulse Resp BP BP Pulse Ox 05/28/18 11:15 72 05/28/18 11:05 72 05/28/18 07:15 76 05/28/18 07:00 76 05/28/18 05:32 97.5 F L 70 17 124/74 96 05/27/18 20:42 72 16 04/08/19 20:34 70 16 05/27/18 20:32 97.4 F L 70 18 134/74 99 05/27/18 18:20 98.3 F 70 16 136/71 98 05/27/18 17:58 98.2 F 05/27/18 16:46 70 18 127/60 95 05/27/18 15:22 71 18 142/69 95 05/27/18 12:42 99.0 F 70 18 130/76 96 Intake and Output 05/27/18 05/28/18 05/28/18 22:59 06:59 14:59 Output Total 500 350 Balance -500 -350 Output: Urine 500 350 - Constitutional General appearance: mild distress - EENT Eyes: PERRLA Ears: bilateral: normal - Neck Neck: normal ROM - Respiratory Respiratory: bilateral: CTA - Cardiovascular Rhythm: regular - Gastrointestinal General gastrointestinal: soft - Integumentary Integumentary: normal - Neurologic Neurologic: CNII-XII intact - Musculoskeletal Left knee noted to be erythemic and swollen painful Musculoskeletal: generalized weakness - Psychiatric Psychiatric: A&O x's 3, appropriate affect, intact judgment & insight Results CBC & Chem 7: 05/27/18 13:57 05/27/18 13:57 Labs: Abnormal Lab Results - Last 24 Hours (Table) 05/27/18 05/27/18 05/27/18 Range/Units 13:57 13:57 20:18 Plt Count 81 L (150-450) k/uL ESR 36 H (0-15) mm/hr BUN 25 H (9-20) mg/dL Creatinine 1.78 H (0.66-1.25) mg/dL Glucose 137 H (74-99) mg/dL POC Glucose (mg/dL) 162 H (75-99) mg/dL C-Reactive Protein 20.4 H (<10.0) mg/L Albumin 3.4 L (3.5-5.0) g/dL 05/28/18 05/28/18 Range/Units 06:44 11:34 Plt Count (150-450) k/uL ESR (0-15) mm/hr BUN (9-20) mg/dL Creatinine (0.66-1.25) mg/dL Glucose (74-99) mg/dL POC Glucose (mg/dL) 104 H 135 H (75-99) mg/dL C-Reactive Protein (<10.0) mg/L Albumin (3.5-5.0) g/dL Thrombosis Risk Factor Assmnt - Choose All That Apply Any of the Below Risk Factors Present?: No Other Risk Factors: No Other congenital or acquired thrombophilia - If yes, enter type in comment: No Thrombosis Risk Factor Assessment Level: Very Low Risk Assessment and Plan Plan: Assessment Left knee pain septic bursitis History of coronary disease with CABG and pacemaker History of COPD Diabetes type 2 hyperlipidemia Plan Consultation with orthopedics
[2018-05-28] MEDS: VANCOMYCIN 1,500 MG in SODIUM CHLORIDE 0.9% 250 ML IVPB SCH (12:55)
[2018-05-28 12:58] LABS: Calcium 9.1 mg/dL (8.4-10.2); Potassium 4.6 mmol/L (3.5-5.1); Uric Acid 11.7 mg/dL (3.5-8.5)
--- NOTE | 2018-05-28 14:59 | P.CNOR ---
History of Present Illness - [facility] Consult date: 05/28/18 History of present illness: This patient is an 87 year old male hyperlipidemia, hypertension, CAD, and diabetes that presented to the [facility] ED yesterday afternoon for the chief complaint of left knee pain. The patient states there was no injury, that he awoke suddenly yesterday morning to the pain. He states the pain is localized to the anterior knee, the area is painful to touch. He states he has not had an episode like this in the past. He notes he is unable to bear weight on the left leg secondary to the pain. He states he does have a history of gout, although in his toes. He states this pain is not similar to his pain experienced with gout. The patient notes he has a chronic ulcer on his right great toe, that was being treated with oral antibiotics in the recent past, although he is unsure of his doctors name or the name of the last antibiotic he took for this. Patient denies past surgeries on this knee. Patient was not able to ambulate last night in the ER, therefore he was admitted to internal medicine with a consult placed to orthopedics. At the time of my examination, the patient denies fevers, chills, malaise, nausea, vomiting. he has not yet tried to ambulate this morning, although he states his pain has decreased from yesterday. He states he otherwise feels well, besides the pain in his knee. He denies any other concerns or complaints at this time. Vital signs stable. Past Medical History Past Medical History: Coronary Artery Disease (CAD), COPD, Diabetes Mellitus, Hyperlipidemia, Hypertension History of Any Multi-Drug Resistant Organisms: None Reported Past Surgical History: Coronary Bypass/CABG, Pacemaker Type of Cardiac Device: Permanent Pacemaker Device Placement Date:: 2015 Past Psychological History: No Psychological Hx Reported Smoking Status: Never smoker Past Alcohol Use History: None Reported Past Drug Use History: None Reported Medications and Allergies Home Medications Medication Instructions Recorded Confirmed Type Aspirin [[place] Aspirin EC] 81 mg PO DAILY 02/06/18 05/27/18 History Atorvastatin [Lipitor] 20 mg PO DAILY 02/06/18 05/27/18 History Carvedilol [Coreg] 3.125 mg PO BID 02/06/18 05/27/18 History Colchicine 1.2 mg PO DIRECTED 02/06/18 05/27/18 History Pantoprazole Sodium [Protonix] 40 mg PO DAILY 02/06/18 05/27/18 History levETIRAcetam [Keppra] 500 mg PO BID 02/06/18 05/27/18 History Furosemide [Lasix] 20 mg PO BID@0900,1600 #60 tab 04/25/18 05/27/18 Rx Ipratropium-Albuterol Nebulize 3 ml INHALATION RT-QID #120 04/25/18 05/27/18 Rx [Duoneb 0.5 mg-3 mg/3 ml Soln] ampul.neb Sodium Bicarbonate Tab 650 mg PO DAILY #30 tab 04/25/18 05/27/18 Rx Spironolactone [Aldactone] 25 mg PO DAILY #30 tab 04/25/18 05/27/18 Rx Allergies Allergy/AdvReac Type Severity Reaction Status Date / Time No Known Allergies Allergy Verified 05/27/18 16:31 Physical Examination On examination, the patient is sitting in bed in no apparent distress. The patient is alert and orientated x3. He appears comfortable. His breathing appears non-labored. On inspection of the left knee, there is an area of mild erythema of the anterior patella. There are no open wounds or lacerations. There is mild swelling, there are no areas of fluctuance. There is no tenderness on palpation of the patellar or quadriceps tendon, or the popliteal fossa. PROM of the knee not able to be performed secondary to pain in the anterior knee. No pain with PROM of the left hip or ankle. The left lower extremity is warm and well perfused with brisk capillary refill. Dorsalis pedis pulse palpable. Chronic appearing ulcer present on right great toe. Results Left knee x-ray 05/27/18: There are no acute fractures or dislocations. Soft tissue swelling noted anterior to the patella. 05/27/18: ESR 36, CRP 20.4. - Labs Labs: Abnormal Lab Results - Last 24 Hours (Table) 05/27/18 05/27/18 05/27/18 Range/Units 13:57 13:57 20:18 Plt Count 81 L (150-450) k/uL ESR 36 H (0-15) mm/hr BUN 25 H (9-20) mg/dL Creatinine 1.78 H (0.66-1.25) mg/dL Glucose 137 H (74-99) mg/dL POC Glucose (mg/dL) 162 H (75-99) mg/dL C-Reactive Protein 20.4 H (<10.0) mg/L Albumin 3.4 L (3.5-5.0) g/dL 05/28/18 Range/Units 06:44 Plt Count (150-450) k/uL ESR (0-15) mm/hr BUN (9-20) mg/dL Creatinine (0.66-1.25) mg/dL Glucose (74-99) mg/dL POC Glucose (mg/dL) 104 H (75-99) mg/dL C-Reactive Protein (<10.0) mg/L Albumin (3.5-5.0) g/dL H & H 05/27/18 Range/Units 13:57 Hgb 14.7 (13.0-17.5) gm/dL Hct 43.6 (39.0-53.0) % Result Diagrams: 05/27/18 13:57 05/28/18 11:28 Assessment and Plan Assessment: Septic pre-patellar bursitis left knee Plan: - On examination of the left knee, there are no areas of fluctuance and no areas to aspirate fluid. Recommend supportive treatment of his pre-patellar bursitis at this time, including compressive MEENA wraps, warm compresses, antibiotics and pain medications. - Recommend PT for gait and balance training. Antibiotics and pain medication per primary team. - No surgical intervention is planned at this time. We will continue to follow this patient while he remains in the hospital and make recommendations accordingly. Patient discussed with Dr. Goode.
[2018-05-28 16:33] LABS: Glucose,Whole Blood 112 mg/dL (75-99)
[2018-05-28 20:31] LABS: Glucose,Whole Blood 120 mg/dL (75-99)
[2018-05-28 23:03] LABS: Hemoglobin A1C 6.6 % (4.0-6.0)
[2018-05-29 07:18] LABS: Glucose,Whole Blood 110 mg/dL (75-99)
[2018-05-29] MEDS: PANTOPRAZOLE 40 MG TABLET PO SCH (08:27)
[2018-05-29] MEDS: SODIUM BICARBONATE TAB 650 MG TAB PO SCH (08:27)
[2018-05-29] MEDS: levETIRAcetam 500 MG TAB PO SCH (08:27)
[2018-05-29] MEDS: FUROSEMIDE 20 MG TAB PO SCH (08:28)
[2018-05-29] MEDS: CARVEDILOL 3.125 MG TAB PO SCH (08:28)
[2018-05-29] MEDS: ATORVASTATIN 20 MG TAB PO SCH (08:28)
[2018-05-29] MEDS: SPIRONOLACTONE 25 MG TAB PO SCH (08:28)
[2018-05-29] MEDS: ASPIRIN 81 MG PO SCH (08:28)
[2018-05-29] MEDS: IPRATROPIUM-ALBUTEROL 3 ML NEB INHALATION SCH ×2 (08:34→12:30)
[2018-05-29 12:02] LABS: Glucose,Whole Blood 132 mg/dL (75-99)
[2018-05-29] MEDS: VANCOMYCIN 1,500 MG in SODIUM CHLORIDE 0.9% 250 ML IVPB SCH (12:19)
--- NOTE | 2018-05-29 12:49 | P.DS ---
Providers Date of admission: 05/27/18 15:26 Expected date of discharge: 05/29/18 Attending physician: Ishaan Mata Consults: 05/27/18 15:44 Consult Physician Routine Consulting Provider: Will Goode Consult Reason/Comments: septic bursitis Do you want consulting provider notified?: Yes Primary care physician: Ishaan Mata Hospital Course: 87-year-old male presented to the emergency room with complaints of left knee pain states he was unable to ambulate. Patient has agreed to go to extended care facility for rehab until he is able to ambulate patient lives alone. Patient was seen by orthopedics recommended pain medication antibiotics Keflex of be initiated. Noted that uric acid was elevated does have a history of gout colchicine may be used with severe knee pain Assessment Left knee bursitis History of gout History of coronary disease with CABG Diabetes type 2 History of pacemaker History of hyperlipidemia Plan Transfer to extended care facility for rehab Initiate Keflex May use colchicine for extremity pain Patient Condition at Discharge: Stable Plan - Discharge Summary New Discharge Prescriptions: New Cephalexin [Keflex] 500 mg PO Q6HR 10 Days #40 cap Continue levETIRAcetam [Keppra] 500 mg PO BID Pantoprazole Sodium [Protonix] 40 mg PO DAILY Colchicine 1.2 mg PO DIRECTED Carvedilol [Coreg] 3.125 mg PO BID Atorvastatin [Lipitor] 20 mg PO DAILY Aspirin [[place] Aspirin EC] 81 mg PO DAILY Spironolactone [Aldactone] 25 mg PO DAILY #30 tab Ipratropium-Albuterol Nebulize [Duoneb 0.5 mg-3 mg/3 ml Soln] 3 ml INHALATION RT-QID #120 ampul.neb Furosemide [Lasix] 20 mg PO BID@0900,1600 #60 tab Sodium Bicarbonate Tab 650 mg PO DAILY #30 tab Discharge Medication List Aspirin [[place] Aspirin EC] 81 mg PO DAILY 02/06/18 [History] Atorvastatin [Lipitor] 20 mg PO DAILY 02/06/18 [History] Carvedilol [Coreg] 3.125 mg PO BID 02/06/18 [History] Colchicine 1.2 mg PO DIRECTED 02/06/18 [History] Pantoprazole Sodium [Protonix] 40 mg PO DAILY 02/06/18 [History] levETIRAcetam [Keppra] 500 mg PO BID 02/06/18 [History] Furosemide [Lasix] 20 mg PO BID@0900,1600 #60 tab 04/25/18 [Rx] Ipratropium-Albuterol Nebulize [Duoneb 0.5 mg-3 mg/3 ml Soln] 3 ml INHALATION RT-QID #120 ampul.neb 04/25/18 [Rx] Sodium Bicarbonate Tab 650 mg PO DAILY #30 tab 04/25/18 [Rx] Spironolactone [Aldactone] 25 mg PO DAILY #30 tab 04/25/18 [Rx] Cephalexin [Keflex] 500 mg PO Q6HR 10 Days #40 cap 05/29/18 [Rx] Follow up Appointment(s)/Referral(s): Ishaan Mata MD [Primary Care Provider] - 1-2 days Patient Instructions/Handouts: Type 2 Diabetes in Adults: New Diagnosis (DC) Discharge Disposition: TRANSFER TO SNF/ECF
[2018-05-29 13:52] VITALS: BP 104/59; PULSE 71; RESP 17; TEMP 98.1
--- NOTE | 2018-05-29 16:06 | P.PN ---
Subjective Progress Note Date: 05/29/18 This patient is an 87 year old male hyperlipidemia, hypertension, CAD, and diabetes that presented to the [facility] ED yesterday afternoon for the chief complaint of left knee pain. The patient states there was no injury, that he awoke suddenly yesterday morning to the pain. He states the pain is localized to the anterior knee, the area is painful to touch. He states he has not had an episode like this in the past. He notes he is unable to bear weight on the left leg secondary to the pain. He states he does have a history of gout, although in his toes. He states this pain is not similar to his pain experienced with gout. The patient notes he has a chronic ulcer on his right great toe, that was being treated with oral antibiotics in the recent past, although he is unsure of his doctors name or the name of the last antibiotic he took for this. Patient denies past surgeries on this knee. Patient was not able to ambulate last night in the ER, therefore he was admitted to internal medicine with a consult placed to orthopedics. At the time of my examination, the patient denies fevers, chills, malaise, nausea, vomiting. he has not yet tried to ambulate this morning, although he states his pain has decreased from yesterday. He states he otherwise feels well, besides the pain in his knee. He denies any other concerns or complaints at this time. Vital signs stable. 05/29/18: The patient states his knee feels much better today, his pain has improved. He has not tried to ambulate today, he is waiting for assistance from physical therapy. He denies fevers, chilld, malaise, nausea, or vomiting. He denies any new orthopedic complaints today. Objective - Vital Signs Vital signs: Vital Signs Temp 98.2 F 05/29/18 05:20 Pulse 72 05/29/18 08:44 Resp 20 05/29/18 05:20 BP 129/77 05/29/18 05:20 Pulse Ox 94 L 05/29/18 05:20 Intake & Output 05/28/18 05/29/18 05/29/18 18:59 06:59 18:59 Intake Total 240 200 Balance 240 200 Intake: Oral 240 200 Other: Voiding Method Toilet Bedside Commode Urinal # Voids 4 2 - Exam On examination, the patient is sitting in bed in no apparent distress. The patient is alert and orientated x3. He appears comfortable. On inspection of the left knee, there is an area of minimal erythema of the anterior patella. There are no open wounds or lacerations. There is minimal swelling, there are no areas of fluctuance. There is no tenderness on palpation of the patellar or quadriceps tendon, or the popliteal fossa. Able to perform 90 degrees of passive flexion of the knee without pain. No pain with PROM of the left hip or ankle. The left lower extremity is warm and well perfused with brisk capillary refill. Dorsalis pedis pulse palpable. - Labs CBC & Chem 7: 05/27/18 13:57 05/28/18 11:28 Labs: Abnormal Lab Results - Last 24 Hours (Table) 05/28/18 05/28/18 05/28/18 Range/Units 11:28 11:28 11:34 Carbon Dioxide 33 H (22-30) mmol/L BUN 25 H (9-20) mg/dL Creatinine 1.72 H (0.66-1.25) mg/dL Glucose 136 H (74-99) mg/dL POC Glucose (mg/dL) 135 H (75-99) mg/dL Hemoglobin A1c 6.6 H (4.0-6.0) % Uric Acid 11.7 H (3.5-8.5) mg/dL 05/28/18 05/28/18 05/29/18 Range/Units 16:22 20:26 07:16 Carbon Dioxide (22-30) mmol/L BUN (9-20) mg/dL Creatinine (0.66-1.25) mg/dL Glucose (74-99) mg/dL POC Glucose (mg/dL) 112 H 120 H 110 H (75-99) mg/dL Hemoglobin A1c (4.0-6.0) % Uric Acid (3.5-8.5) mg/dL - Imaging and Cardiology Uric acid - 11.7 Assessment and Plan Assessment: Septic pre-patellar bursitis vs gout - left knee Plan: - Uric acid reported elevated at 11.7, knee pain most likely gout vs septic pre- patellar bursitis. Will defer gout treatment to primary team. - Recommend PT for gait and balance training. - No surgical intervention is planned at this time. We will continue to follow this patient while he remains in the hospital and make recommendations accordingly. Patient discussed with Dr. Goode.
== END 2018-05-29 14:54 ==
LOC: EC 11:51 → 4MS4W 15:26
PROVIDERS: ADMIT Family Medicine; ATTEND Family Medicine
DX: M71.162 Other infective bursitis, left knee (principal); E78.5 Hyperlipidemia, unspecified; I10 Essential (primary) hypertension; R11.2 Nausea with vomiting, unspecified; E11.621 Type 2 diabetes mellitus with foot ulcer; R19.7 Diarrhea, unspecified; J44.9 Chronic obstructive pulmonary disease, unspecified; L97.519 Non-pressure chronic ulcer of other part of right foot with unspecified severity; R61 Generalized hyperhidrosis; M10.9 Gout, unspecified; I25.10 Atherosclerotic heart disease of native coronary artery without angina pectoris; Z95.1 Presence of aortocoronary bypass graft; Z95.0 Presence of cardiac pacemaker; Z79.82 Long term (current) use of aspirin; Z79.899 Other long term (current) drug therapy; Z96.659 Presence of unspecified artificial knee joint
CPT/HCPCS: 96366 ×4; 96368; 96365; 99284; 36415; 94640 ×5; 97116; 97162; 97535; 97166; 80053; 80048; 85652; 84550; 85025; 86140; 83036; 73562; G0378 ×3; J3370 ×3; J0696; 96367

== ENCOUNTER 2018-06-24 13:17 | Emergency (ER) | payer MEDICARE ==
[2018-06-24 13:25] VITALS: PULSE 69; RESP 19; TEMP 98.3
[2018-06-24] MEDS ORDERED: SODIUM CHLORIDE 0.9% 1,000 ML IV STA (13:40)
--- NOTE | 2018-06-24 13:46 | ED ---
General Adult HPI - General Chief complaint: Nausea/Vomiting/Diarrhea Stated complaint: Diarrhea Time Seen by Provider: 06/24/18 13:20 Source: patient, EMS, RN notes reviewed Mode of arrival: EMS Limitations: physical limitation - History of Present Illness Initial comments: This is an 88-year-old male who presents emergency Department complaining that he said diarrhea for 4 weeks. Patient states he took some Lomotil has slowed down but continues. Patient states she's lost weight area patient denies any nausea vomiting. Patient states she's able to eat normally. Patient denies any abdominal pain. Patient denies any difficulty breathing shortness of breath per patient denies any recent fever chills or cough. Patient states he has not had any recent antibiotics. - Related Data Home Medications Medication Instructions Recorded Confirmed Aspirin [[place] Aspirin EC] 81 mg PO DAILY 02/06/18 06/24/18 Atorvastatin [Lipitor] 20 mg PO DAILY 02/06/18 06/24/18 Carvedilol [Coreg] 3.125 mg PO BID 02/06/18 06/24/18 Colchicine 0.6 - 1.2 mg PO DIRECTED PRN 02/06/18 06/24/18 Pantoprazole Sodium [Protonix] 40 mg PO DAILY 02/06/18 06/24/18 levETIRAcetam [Keppra] 500 mg PO BID 02/06/18 06/24/18 Diphenox-Atrop 2.5-0.025 mg 2 tab PO QID PRN 06/24/18 06/24/18 [Lomotil] Verapamil Sr [Isoptin Sr] 240 mg PO DAILY 06/24/18 06/24/18 Previous Rx's Medication Instructions Recorded Furosemide [Lasix] 20 mg PO BID@0900,1600 #60 tab 04/25/18 Ipratropium-Albuterol Nebulize 3 ml INHALATION RT-QID #120 04/25/18 [Duoneb 0.5 mg-3 mg/3 ml Soln] ampul.neb Sodium Bicarbonate Tab 650 mg PO DAILY #30 tab 04/25/18 Spironolactone [Aldactone] 25 mg PO DAILY #30 tab 04/25/18 Diphenox-Atrop 2.5-0.025 mg 2 tab PO QID PRN 3 Days #24 tab 06/24/18 [Lomotil] Allergies Allergy/AdvReac Type Severity Reaction Status Date / Time No Known Allergies Allergy Verified 06/24/18 14:00 Review of Systems ROS Statement: Those systems with pertinent positive or pertinent negative responses have been documented in the HPI. ROS Other: All systems not noted in ROS Statement are negative. Past Medical History Past Medical History: Coronary Artery Disease (CAD), COPD, Diabetes Mellitus, Hyperlipidemia, Hypertension History of Any Multi-Drug Resistant Organisms: None Reported Past Surgical History: Coronary Bypass/CABG, Pacemaker Type of Cardiac Device: Permanent Pacemaker Device Placement Date:: 2015 Past Psychological History: No Psychological Hx Reported Smoking Status: Never smoker Past Alcohol Use History: None Reported Past Drug Use History: None Reported General Exam - General Exam Comments Initial Comments: GENERAL: Patient is well-developed and well-nourished. Patient is nontoxic and well- hydrated and is in no acute distress. ENT: Neck is soft and supple. No significant lymphadenopathy is noted. Oropharynx is clear. Dry mucous membranes. Neck has full range of motion without eliciting any pain. EYES: The sclera were anicteric and conjunctiva were pink and moist. Extraocular movements were intact and pupils were equal round and reactive to light. Eyelids were unremarkable. PULMONARY: Unlabored respirations. Good breath sounds bilaterally. No audible rales rhonchi or wheezing was noted. CARDIOVASCULAR: There is a regular rate and rhythm without any murmurs gallops or rubs. ABDOMEN: Soft and nontender with normal bowel sounds. No palpable organomegaly was noted. There is no palpable pulsatile mass. SKIN: Skin is clear with no lesions or rashes and otherwise unremarkable. NEUROLOGIC: Patient is alert and oriented x3. Cranial nerves II through XII are grossly intact. Motor and sensory are also intact. Normal speech, volume and content. Symmetrical smile. MUSCULOSKELETAL: Normal extremities with adequate strength and full range of motion. LYMPHATICS: No significant lymphadenopathy is noted PSYCHIATRIC: Normal psychiatric evaluation. Limitations: physical limitation Course Vital Signs 06/24/18 06/24/18 13:20 14:17 Temperature 98.3 F Pulse Rate 69 Respiratory 19 Rate Blood Pressure 130/65 O2 Sat by Pulse 98 91 L Oximetry Medical Decision Making - Medical Decision Making I spoke with Meghan at Dr. Mata's office they will follow-up the patient as an outpatient. Patient's C. diff test was negative. - Lab Data Result diagrams: 06/24/18 13:31 06/24/18 13:31 Lab Results 06/24/18 06/24/18 06/24/18 Range/Units 13:31 13:31 14:30 WBC 7.1 (3.8-10.6) k/uL RBC 4.57 (4.30-5.90) m/uL Hgb 14.0 (13.0-17.5) gm/dL Hct 43.9 (39.0-53.0) % MCV 96.2 (80.0-100.0) fL MCH 30.7 (25.0-35.0) pg MCHC 31.9 (31.0-37.0) g/dL RDW 13.8 (11.5-15.5) % Plt Count 81 L (150-450) k/uL Neutrophils % 66 % Lymphocytes % 21 % Monocytes % 7 % Eosinophils % 1 % Basophils % 0 % Neutrophils # 4.7 (1.3-7.7) k/uL Lymphocytes # 1.5 (1.0-4.8) k/uL Monocytes # 0.5 (0-1.0) k/uL Eosinophils # 0.1 (0-0.7) k/uL Basophils # 0.0 (0-0.2) k/uL Manual Slide Review Performed Large Platelets Present Sodium 140 (137-145) mmol/L Potassium 4.5 (3.5-5.1) mmol/L Chloride 107 (98-107) mmol/L Carbon Dioxide 23 (22-30) mmol/L Anion Gap 10 mmol/L BUN 38 H (9-20) mg/dL Creatinine 2.08 H (0.66-1.25) mg/dL Est GFR (CKD-EPI)AfAm 32 (>60 ml/min/1.73 sqM) Est GFR (CKD-EPI)NonAf 27 (>60 ml/min/1.73 sqM) Glucose 136 H (74-99) mg/dL Calcium 9.3 (8.4-10.2) mg/dL Total Bilirubin 0.9 (0.2-1.3) mg/dL AST 23 (17-59) U/L ALT 21 (21-72) U/L Alkaline Phosphatase 104 (38-126) U/L Total Protein 6.5 (6.3-8.2) g/dL Albumin 3.3 L (3.5-5.0) g/dL Amylase 39 (30-110) U/L Lipase 190 (23-300) U/L C. difficile (EIA) Intrp Negative (Negative) Disposition Clinical Impression: Acute diarrhea Disposition: HOME SELF-CARE Condition: Good Instructions (If sedation given, give patient instructions): Acute Diarrhea (ED) Prescriptions: Diphenox-Atrop 2.5-0.025 mg [Lomotil] 2 tab PO QID PRN 3 Days #24 tab PRN Reason: Diarrhea Is patient prescribed a controlled substance at d/c from ED?: No Referrals: Ishaan Mata MD [Primary Care Provider] - 1-2 days Time of Disposition: 16:52
[2018-06-24 14:26] LABS: Albumin 3.3 g/dL (3.5-5.0); Calcium 9.3 mg/dL (8.4-10.2); Potassium 4.5 mmol/L (3.5-5.1); Total Bilirubin 0.9 mg/dL (0.2-1.3); Total Protein 6.5 g/dL (6.3-8.2)
[2018-06-24 14:47] LABS: Basophils % (A) 0 %; Eosinophils # (A) 0.1 k/uL (0-0.7); Eosinophils % (A) 1 %; HCT 43.9 % (39.0-53.0); Lymphocytes # (A) 1.5 k/uL (1.0-4.8); Lymphocytes % (A) 21 %; MCH 30.7 pg (25.0-35.0); MCHC 31.9 g/dL (31.0-37.0); MCV 96.2 fL (80.0-100.0); Mean Platelet Volume 12.1; Monocytes # (A) 0.5 k/uL (0-1.0); Monocytes % (A) 7 %; Neutrophils # (A) 4.7 k/uL (1.3-7.7); Neutrophils % (A) 66 %; RBC 4.57 m/uL (4.30-5.90); RDW 13.8 % (11.5-15.5); WBC 7.1 k/uL (3.8-10.6)
[2018-06-24 15:01] LABS: Large Platelets Present
[2018-06-24 15:02] LABS: Platelet Count 81 k/uL (150-450)
[2018-06-24 17:31] VITALS: BP 136/67
== END 2018-06-24 17:32 | disposition home or self-care (01) ==
LOC: EC 13:17
DX: R19.7 Diarrhea, unspecified (principal); R63.4 Abnormal weight loss; I25.10 Atherosclerotic heart disease of native coronary artery without angina pectoris; E78.5 Hyperlipidemia, unspecified; I10 Essential (primary) hypertension; Z95.1 Presence of aortocoronary bypass graft; Z95.0 Presence of cardiac pacemaker; Z79.82 Long term (current) use of aspirin; Z79.899 Other long term (current) drug therapy
CPT/HCPCS: 36415; 80053; 82150; 83690; 85025; 87045; 87046; 87324; 96360; 99284

== ENCOUNTER 2018-07-05 12:39 | Inpatient (IN) | payer MEDICARE ==
[2018-07-05] MEDS ORDERED: SODIUM CHLORIDE 0.9% 1,000 ML IV STA (13:01)
[2018-07-05] MEDS ORDERED: ONDANSETRON 4 MG/2 ML VIAL IVP STA (13:01)
--- NOTE | 2018-07-05 13:31 | ED ---
Nausea/Vomiting/Diarrhea HPI - General Chief complaint: Nausea/Vomiting/Diarrhea Stated complaint: NVD Time Seen by Provider: 07/05/18 13:01 Source: patient, family, RN/MD, RN notes reviewed Mode of arrival: wheelchair Limitations: no limitations - History of Present Illness Initial comments: This 88-year-old male who is had diarrhea for about a month who is been having dry heaves with occasional emesis produced also is had about a 25-30 pound weight loss last month who is here from his doctor's office for further evaluation and admission for inpatient evaluation. He was seen by Dr. Willson yesterday found have a 88 systolic blood pressure on standing were was more normal on supine and sitting position. He had decreased appetite decrease oral intake. He denies any fevers chills or sweats at this time. Just generalized weakness. MD complaint: nausea, vomiting, diarrhea - Related Data Home Medications Medication Instructions Recorded Confirmed Aspirin [[place] Aspirin EC] 81 mg PO DAILY 02/06/18 07/05/18 Atorvastatin [Lipitor] 20 mg PO DAILY 02/06/18 07/05/18 Carvedilol [Coreg] 3.125 mg PO BID 02/06/18 07/05/18 Colchicine 0.6 - 1.2 mg PO DIRECTED PRN 02/06/18 07/05/18 Pantoprazole Sodium [Protonix] 40 mg PO DAILY 02/06/18 07/05/18 levETIRAcetam [Keppra] 500 mg PO BID 02/06/18 07/05/18 Diphenox-Atrop 2.5-0.025 mg 2 tab PO QID PRN 06/24/18 07/05/18 [Lomotil] Verapamil Sr [Isoptin Sr] 240 mg PO DAILY 06/24/18 07/05/18 Previous Rx's Medication Instructions Recorded Furosemide [Lasix] 20 mg PO BID@0900,1600 #60 tab 04/25/18 Ipratropium-Albuterol Nebulize 3 ml INHALATION RT-QID #120 04/25/18 [Duoneb 0.5 mg-3 mg/3 ml Soln] ampul.neb Sodium Bicarbonate Tab 650 mg PO DAILY #30 tab 04/25/18 Spironolactone [Aldactone] 25 mg PO DAILY #30 tab 04/25/18 Allergies Allergy/AdvReac Type Severity Reaction Status Date / Time No Known Allergies Allergy Verified 07/05/18 13:04 Review of Systems ROS Statement: Those systems with pertinent positive or pertinent negative responses have been documented in the HPI. ROS Other: All systems not noted in ROS Statement are negative. Past Medical History Past Medical History: Coronary Artery Disease (CAD), COPD, Diabetes Mellitus, Hyperlipidemia, Hypertension, Renal Disease Additional Past Medical History / Comment(s): stage 4 kidney failure History of Any Multi-Drug Resistant Organisms: None Reported Past Surgical History: Coronary Bypass/CABG, Pacemaker Type of Cardiac Device: Permanent Pacemaker Device Placement Date:: 2015 Past Psychological History: No Psychological Hx Reported Smoking Status: Never smoker Past Alcohol Use History: None Reported Past Drug Use History: None Reported General Exam - General Exam Comments Initial Comments: This is a well-developed asthenic appearing male who is awake alert oriented 3 Limitations: no limitations General appearance: alert, in no apparent distress Head exam: Present: atraumatic, normocephalic, normal inspection Eye exam: Present: normal appearance, PERRL, EOMI. Absent: scleral icterus, conjunctival injection, periorbital swelling ENT exam: Present: mucous membranes dry Neck exam: Present: normal inspection, full ROM, other (No stridor JVD or bruits). Absent: tenderness, meningismus, lymphadenopathy Respiratory exam: Present: normal lung sounds bilaterally. Absent: respiratory distress, wheezes, rales, rhonchi, stridor Cardiovascular Exam: Present: regular rate, normal rhythm, normal heart sounds. Absent: systolic murmur, diastolic murmur, rubs, gallop, clicks GI/Abdominal exam: Present: soft, normal bowel sounds. Absent: distended, tenderness, guarding, rebound, rigid, bruit, pulsatile mass Rectal exam: Present: deferred Extremities exam: Present: normal inspection, full ROM, normal capillary refill. Absent: tenderness, pedal edema, joint swelling, calf tenderness Back exam: Present: normal inspection Neurological exam: Present: alert, oriented X3, CN II-XII intact Psychiatric exam: Present: normal affect, normal mood Skin exam: Present: warm, dry, intact, normal color. Absent: rash Course Vital Signs 07/05/18 12:54 Temperature 98.7 F Pulse Rate 69 Respiratory 18 Rate Blood Pressure 100/59 O2 Sat by Pulse 99 Oximetry Medical Decision Making - Medical Decision Making I did discuss the findings again with the patient and family as well as with Dr. Engel. Patient be admitted with consultation by GI IV hydration - Lab Data Result diagrams: 07/05/18 13:18 07/05/18 13:18 Lab Results 07/05/18 07/05/18 07/05/18 Range/Units 13:18 13:18 13:18 WBC 18.9 H (3.8-10.6) k/uL RBC 4.47 (4.30-5.90) m/uL Hgb 13.7 (13.0-17.5) gm/dL Hct 43.4 (39.0-53.0) % MCV 97.2 (80.0-100.0) fL MCH 30.6 (25.0-35.0) pg MCHC 31.5 (31.0-37.0) g/dL RDW 13.7 (11.5-15.5) % Plt Count 109 L (150-450) k/uL Neutrophils % 81 % Lymphocytes % 9 % Monocytes % 6 % Eosinophils % 0 % Basophils % 0 % Neutrophils # 15.3 H (1.3-7.7) k/uL Lymphocytes # 1.6 (1.0-4.8) k/uL Monocytes # 1.2 H (0-1.0) k/uL Eosinophils # 0.1 (0-0.7) k/uL Basophils # 0.1 (0-0.2) k/uL Sodium 139 (137-145) mmol/L Potassium 4.7 (3.5-5.1) mmol/L Chloride 108 H (98-107) mmol/L Carbon Dioxide 19 L (22-30) mmol/L Anion Gap 12 mmol/L BUN 28 H (9-20) mg/dL Creatinine 2.01 H (0.66-1.25) mg/dL Est GFR (CKD-EPI)AfAm 33 (>60 ml/min/1.73 sqM) Est GFR (CKD-EPI)NonAf 29 (>60 ml/min/1.73 sqM) Glucose 133 H (74-99) mg/dL Calcium 9.1 (8.4-10.2) mg/dL Magnesium 1.5 L (1.6-2.3) mg/dL Total Bilirubin 1.0 (0.2-1.3) mg/dL AST 20 (17-59) U/L ALT 8 L (21-72) U/L Alkaline Phosphatase 99 (38-126) U/L Total Creatine Kinase 41 L (55-170) U/L CK-MB (CK-2) 1.4 (0.0-2.4) ng/mL CK-MB (CK-2) Rel Index 3.4 Troponin I 0.034 (0.000-0.034) ng/mL Total Protein 6.1 L (6.3-8.2) g/dL Albumin 3.3 L (3.5-5.0) g/dL Amylase <30 L (30-110) U/L Lipase 70 (23-300) U/L - EKG Data -: EKG Interpreted by Me (Particular paced rhythm a 70 QRS 190 QT since QTC 470/507 by ventricular pa) - Radiology Data Radiology results: report reviewed (I did review the imaging patient does have a left pleural effusion appears be chronic he does have evidence on KUB of possible ileus), image reviewed Disposition Clinical Impression: Enteritis, Dehydration, Failure to thrive in adult, Hypomagnesemia Disposition: ADMITTED IP TO THIS HOSP Condition: Fair Referrals: Ishaan Mata MD [Primary Care Provider] - 1-2 days
[2018-07-05 13:34] LABS: Basophils # (A) 0.1 k/uL (0-0.2); Basophils % (A) 0 %; Eosinophils # (A) 0.1 k/uL (0-0.7); Eosinophils % (A) 0 %; HCT 43.4 % (39.0-53.0); HGB 13.7 gm/dL (13.0-17.5); Lymphocytes # (A) 1.6 k/uL (1.0-4.8); Lymphocytes % (A) 9 %; MCH 30.6 pg (25.0-35.0); MCHC 31.5 g/dL (31.0-37.0); MCV 97.2 fL (80.0-100.0); Mean Platelet Volume 10.4; Monocytes # (A) 1.2 k/uL (0-1.0); Monocytes % (A) 6 %; Neutrophils # (A) 15.3 k/uL (1.3-7.7); Neutrophils % (A) 81 %; Platelet Count 109 k/uL (150-450); RBC 4.47 m/uL (4.30-5.90); RDW 13.7 % (11.5-15.5); WBC 18.9 k/uL (3.8-10.6)
[2018-07-05 13:41] LABS: ALT 8 U/L (21-72); AST 20 U/L (17-59); Albumin 3.3 g/dL (3.5-5.0); Alkaline Phosphatase 99 U/L (38-126); Amylase <30 U/L (30-110); Anion Gap 12 mmol/L; Blood Urea Nitrogen 28 mg/dL (9-20); Calcium 9.1 mg/dL (8.4-10.2); Carbon Dioxide 19 mmol/L (22-30); Chloride 108 mmol/L (98-107); Glucose 133 mg/dL (74-99); Lipase 70 U/L (23-300); Magnesium 1.5 mg/dL (1.6-2.3); Potassium 4.7 mmol/L (3.5-5.1); Sodium 139 mmol/L (137-145); Total Protein 6.1 g/dL (6.3-8.2)
[2018-07-05 14:12] LABS: Creatine Kinase MB 1.4 ng/mL (0.0-2.4); Troponin I 0.034 ng/mL (0.000-0.034)
--- NOTE | 2018-07-05 15:48 | XR ---
KUB HISTORY: Nausea vomiting and diarrhea Frontal KUB submitted on 2 images, correlation to prior CT 02/06/2018, chest x-ray 07/05/2018. Basilar calcifications are present. There are air-fluid levels without bowel distention. There is inc reased density at the left lung base as on prior exam likely reflecting pleural effusion and associat ed atelectasis, heart size is stable, intracardiac defibrillator leads are present. No pneumoperitone um. Degenerative disc changes in the visualized spine. IMPRESSION: Findings may be due to enteritis or ileus, follow-up as indicated. Left pleural effusion is chronic.
--- NOTE | 2018-07-05 15:50 | XR ---
EXAMINATION TYPE: XR chest 2V DATE OF EXAM: 07/05/2018 COMPARISON: Prior chest x-ray 04/22/2018 and chest x-ray dated 04/20/2018, CT dated 04/18/2018 HISTORY: Abnormal chest x-ray, nausea vomiting and diarrhea TECHNIQUE: Frontal and lateral views of the chest are obtained. FINDINGS: Increased density at the left lung base persists. Intracardiac defibrillator leads are in place. Patient is post median sternotomy. There are coronary artery calcifications and possibly stent . Prominent lung volume may be indicative of underlying COPD. The aorta is dense. Heart size is stabl e and enlarged. No pneumothorax. Apical pleural thickening is asymmetric and stable on the left. IMPRESSION: Chronic left lower lobe atelectasis and associated effusion, correlate to exclude pneumo kiel, findings could be due to chronic pleural reaction
[2018-07-05] MEDS ORDERED: MAGNESIUM SULFATE-D5W PMX 1 GM in DEXTROSE/WATER 1 100ML.BAG IVPB ONE (15:52)
[2018-07-05] MEDS ORDERED: NALOXONE 0.4 MG/ML 1 ML VIAL IV PRN (16:47)
--- NOTE | 2018-07-05 16:47 | ED ---
Medical Decision Making - Lab Data Result diagrams: 07/05/18 13:18 07/05/18 13:18 Lab Results 07/05/18 07/05/18 07/05/18 Range/Units 13:18 13:18 13:18 WBC 18.9 H (3.8-10.6) k/uL RBC 4.47 (4.30-5.90) m/uL Hgb 13.7 (13.0-17.5) gm/dL Hct 43.4 (39.0-53.0) % MCV 97.2 (80.0-100.0) fL MCH 30.6 (25.0-35.0) pg MCHC 31.5 (31.0-37.0) g/dL RDW 13.7 (11.5-15.5) % Plt Count 109 L (150-450) k/uL Neutrophils % 81 % Lymphocytes % 9 % Monocytes % 6 % Eosinophils % 0 % Basophils % 0 % Neutrophils # 15.3 H (1.3-7.7) k/uL Lymphocytes # 1.6 (1.0-4.8) k/uL Monocytes # 1.2 H (0-1.0) k/uL Eosinophils # 0.1 (0-0.7) k/uL Basophils # 0.1 (0-0.2) k/uL Sodium 139 (137-145) mmol/L Potassium 4.7 (3.5-5.1) mmol/L Chloride 108 H (98-107) mmol/L Carbon Dioxide 19 L (22-30) mmol/L Anion Gap 12 mmol/L BUN 28 H (9-20) mg/dL Creatinine 2.01 H (0.66-1.25) mg/dL Est GFR (CKD-EPI)AfAm 33 (>60 ml/min/1.73 sqM) Est GFR (CKD-EPI)NonAf 29 (>60 ml/min/1.73 sqM) Glucose 133 H (74-99) mg/dL Calcium 9.1 (8.4-10.2) mg/dL Magnesium 1.5 L (1.6-2.3) mg/dL Total Bilirubin 1.0 (0.2-1.3) mg/dL AST 20 (17-59) U/L ALT 8 L (21-72) U/L Alkaline Phosphatase 99 (38-126) U/L Total Creatine Kinase 41 L (55-170) U/L CK-MB (CK-2) 1.4 (0.0-2.4) ng/mL CK-MB (CK-2) Rel Index 3.4 Troponin I 0.034 (0.000-0.034) ng/mL Total Protein 6.1 L (6.3-8.2) g/dL Albumin 3.3 L (3.5-5.0) g/dL Amylase <30 L (30-110) U/L Lipase 70 (23-300) U/L Disposition Clinical Impression: Enteritis, Dehydration, Failure to thrive in adult, Hypomagnesemia, Pleural effusion on left Disposition: ADMITTED IP TO THIS HOSP Condition: Fair Referrals: Ishaan Mata MD [Primary Care Provider] - 1-2 days
[2018-07-05] MEDS ORDERED: DIPHENOX-ATROP 2.5-0.025 MG 1 EACH TAB PO PRN (16:49)
[2018-07-05] MEDS: SODIUM CHLORIDE 0.9% 1,000 ML IV SCH (19:57)
[2018-07-05] MEDS: IPRATROPIUM-ALBUTEROL 3 ML NEB INHALATION SCH (20:05)
[2018-07-05] MEDS: CARVEDILOL 3.125 MG TAB PO SCH (20:39)
[2018-07-05 20:43] LABS: Appearance,Urine Clear (Clear); Bacteria,Urine Rare /hpf; Bilirubin,Urine Negative (Negative); Blood,Urine Negative (Negative); Color,Urine Yellow; Glucose,Urine (UA) Negative (Negative); Hyaline Casts,Urine 20 /lpf (0-2); Ketones,Urine Negative (Negative); Leukocyte Esterase,Urine Negative (Negative); Mucus,Urine Rare /hpf; Nitrite,Urine Negative (Negative); Protein,Urine 1+ (Negative); RBC,Urine 1 /hpf (0-5); Specific Gravity,Urine 1.023 (1.001-1.035); Squamous Epithelial Cell,Urine 1 /hpf (0-4); Urobilinogen,Urine <2.0 mg/dL (<2.0)
[2018-07-05] MEDS: levETIRAcetam 500 MG TAB PO SCH (20:43)
[2018-07-05] MEDS: VANCOMYCIN ORAL SOLUTION 250 MG/5 ML BOTTLE PO SCH (23:50)
[2018-07-06] MEDS: SODIUM CHLORIDE 0.9% 1,000 ML IV SCH ×2 (05:02→12:44)
[2018-07-06] MEDS: VANCOMYCIN ORAL SOLUTION 250 MG/5 ML BOTTLE PO SCH ×4 (05:37→23:16)
[2018-07-06] MEDS: IPRATROPIUM-ALBUTEROL 3 ML NEB INHALATION SCH ×4 (08:18→21:03)
[2018-07-06] MEDS: CARVEDILOL 3.125 MG TAB PO SCH ×3 (08:27→18:29)
[2018-07-06] MEDS: ASPIRIN 81 MG PO SCH ×2 (08:27→18:28)
[2018-07-06] MEDS: levETIRAcetam 500 MG TAB PO SCH ×3 (08:27→20:42)
[2018-07-06] MEDS: SODIUM BICARBONATE TAB 650 MG TAB PO SCH ×2 (08:27→15:49)
[2018-07-06] MEDS: ATORVASTATIN 20 MG TAB PO SCH ×2 (08:27→15:47)
[2018-07-06] MEDS: PANTOPRAZOLE 40 MG TABLET PO SCH ×2 (08:27→18:28)
[2018-07-06] MEDS: VERAPAMIL SR 240 MG TABLET.ER PO SCH ×2 (08:27→18:28)
[2018-07-06] MEDS: FUROSEMIDE 20 MG TAB PO SCH ×2 (08:27→15:33)
[2018-07-06] MEDS ORDERED: SPIRONOLACTONE 25 MG TAB PO SCH (09:00)
--- NOTE | 2018-07-06 10:17 | P.NPCON ---
History of Present Illness - Reason for Consult acute renal failure, chronic renal failure - History of Present Illness Reason for consultation: Acute kidney injury on chronic kidney disease History of present illness: Patient is a 88-year-old male seen in consultation for acute kidney injury on chronic kidney disease. Patient presented to the hospital with generalized weakness and diarrhea. Patient states the diarrhea has been going on for the last 3 weeks or so. He's been having about 8-10 bowel movements per day. Oral intake has been poor. He was also maintained on diuretics at home. He is noted to be C. diff positive. He's currently receiving IV fluids. No edema. Patient has chronic kidney disease stage III with baseline creatinine in the range of 1.4-1.6 secondary to nephrosclerosis. Denies use of nonsteroidals. No chest pain or shortness of breath. No fever or chills. No history of diabetes. No hematuria or dysuria. He has been voiding. Patient has history of systolic CHF with ejection fraction of 30-35% with moderate aortic and mitral regurgitation as well as severe tricuspid regurgitation. Vital signs are stable. General: The patient appeared well nourished and normally developed. HEENT: Head exam is unremarkable. Neck is without jugular venous distension. LUNGS: Lungs are clear to auscultation and percussion. Breath sounds decreased. HEART: Rate and Rhythm are regular. First and second heart sounds normal. No murmurs, rubs or gallops. ABDOMEN: Abdominal exam reveals normal bowel sounds. Non-tender and non- distended. No evidence of peritonitis. EXTREMITITES: No clubbing, cyanosis, or edema. Past Medical History Past Medical History: Coronary Artery Disease (CAD), COPD, Diabetes Mellitus, Hyperlipidemia, Hypertension, Renal Disease Additional Past Medical History / Comment(s): stage 4 kidney failure History of Any Multi-Drug Resistant Organisms: None Reported Past Surgical History: Coronary Bypass/CABG, Pacemaker Type of Cardiac Device: Permanent Pacemaker Device Placement Date:: 2015 Past Psychological History: No Psychological Hx Reported Smoking Status: Never smoker Past Alcohol Use History: None Reported Past Drug Use History: None Reported Medications and Allergies Home Medications Medication Instructions Recorded Confirmed Type RX: Aspirin [[place] Aspirin EC] 81 mg PO DAILY 02/06/18 07/05/18 History RX: Atorvastatin [Lipitor] 20 mg PO DAILY 02/06/18 07/05/18 History RX: Carvedilol [Coreg] 3.125 mg PO BID 02/06/18 07/05/18 History RX: Colchicine 0.6 - 1.2 mg PO DIRECTED PRN 02/06/18 07/05/18 History RX: Pantoprazole Sodium [Protonix] 40 mg PO DAILY 02/06/18 07/05/18 History RX: levETIRAcetam [Keppra] 500 mg PO BID 02/06/18 07/05/18 History RX: Furosemide [Lasix] 20 mg PO BID@0900,1600 #60 tab 04/25/18 07/05/18 Rx RX: Ipratropium-Albuterol Nebulize 3 ml INHALATION RT-QID #120 04/25/18 07/05/18 Rx [Duoneb 0.5 mg-3 mg/3 ml Soln] ampul.neb RX: Sodium Bicarbonate Tab 650 mg PO DAILY #30 tab 04/25/18 07/05/18 Rx RX: Spironolactone [Aldactone] 25 mg PO DAILY #30 tab 04/25/18 07/05/18 Rx RX: Diphenox-Atrop 2.5-0.025 mg 2 tab PO QID PRN 06/24/18 07/05/18 History [Lomotil] RX: Verapamil Sr [Isoptin Sr] 240 mg PO DAILY 06/24/18 07/05/18 History Allergies Allergy/AdvReac Type Severity Reaction Status Date / Time No Known Allergies Allergy Verified 07/05/18 13:04 Physical Exam Vitals: Vital Signs Temp Pulse Pulse Resp BP BP Pulse Ox 07/06/18 05:30 97.6 F 69 18 141/63 96 07/05/18 21:26 98.0 F 69 18 121/57 98 07/05/18 20:18 72 07/05/18 20:07 72 07/05/18 16:52 98.1 F 70 16 111/52 95 07/05/18 12:54 98.7 F 69 18 100/59 99 Intake and Output 07/05/18 07/06/18 07/06/18 22:59 06:59 14:59 Output Total 1 Balance -1 Output: Stool 1 Other: # Voids 1 1 # Bowel Movements 1 2 Results - Lab Results Most recent lab results Calcium 9.1 mg/dL (8.4-10.2) 05/17/19 13:18 Magnesium 1.5 mg/dL (1.6-2.3) L 07/05/18 13:18 07/05/18 13:18 07/05/18 13:18 Assessment and Plan Plan: Assessment: 1. Acute kidney injury mostly prerenal secondary to intravascular volume depletion from diarrhea and diuresis. Creatinine 2.01 on admission. 2. Chronic kidney disease stage III with baseline creatinine in the range of 1.4-1.6 secondary to nephrosclerosis. 3. C. diff colitis maintained on oral vancomycin. 4. Metabolic acidosis secondary to acute kidney injury and diarrhea. 5. Hypomagnesemia secondary to GI losses and diuretics. Status post replacemen t. 6. Systolic CHF with ejection fraction of 30-35% with moderate aortic and mitral regurgitation and severe tricuspid regurgitation. Plan: Maintain normal saline at 80 mL an hour. Hold diuretics. Follow-up morning labs. Maintain oral sodium bicarbonate. Thank you for the consultation. I will continue to follow the patient with you during his hospital stay.
--- NOTE | 2018-07-06 12:03 | P.HPIM ---
History of Present Illness H&P Date: 07/05/18 Chief Complaint: Nausea/Vomiting/Diarrhea 88-year-old male who is had diarrhea for about a month who is been having dry heaves with occasional emesis produced also is had about a 25-30 pound weight loss last month who is here from his doctor's office for further evaluation and admission for inpatient evaluation. He was seen by Dr. Willson yesterday found have a 88 systolic blood pressure on standing were was more normal on supine and sitting position. He had decreased appetite decrease oral intake. He denies any fevers chills or sweats at this time. Just generalized weakness. Patient was worked up in ED showing an EKG of paced rhythm; abdominal x-ray did show left pleural effusion which is chronic abdominal x-ray showing possible ileus versus enteritis Review of labs shows a white blood count of 18.9, BP 128 and creatinine of 2.01; sodium level is 133 Patient is being admitted to the hospital for acute renal injury/dehydration, adult failure to thrive, abdominal ileus versus enteritis and electrolyte imbalance Review of Systems Constitutional: Denies chills, Denies fever Eyes: denies blurred vision Ears: deny: ear discharge Respiratory: Denies cough with sputum, Denies respiratory infections Gastrointestinal: Reports abdominal pain, Reports diarrhea, Reports nausea, Reports vomiting, Denies constipation Genitourinary: Denies dysuria, Denies hematuria Integumentary: Denies color changes Neurological: Denies confusion, Denies numbness, Denies visual changes Endocrine: Denies cold intolerance, Denies heat intolerance Hematologic/Lymphatic: Denies lymphadenopathy Past Medical History Past Medical History: Coronary Artery Disease (CAD), COPD, Diabetes Mellitus, Hyperlipidemia, Hypertension, Renal Disease Additional Past Medical History / Comment(s): stage 4 kidney failure History of Any Multi-Drug Resistant Organisms: None Reported Past Surgical History: Coronary Bypass/CABG, Pacemaker Type of Cardiac Device: Permanent Pacemaker Device Placement Date:: 2015 Past Psychological History: No Psychological Hx Reported Smoking Status: Never smoker Past Alcohol Use History: None Reported Past Drug Use History: None Reported Medications and Allergies Home Medications Medication Instructions Recorded Confirmed Type Aspirin [[place] Aspirin EC] 81 mg PO DAILY 02/06/18 07/05/18 History Atorvastatin [Lipitor] 20 mg PO DAILY 02/06/18 07/05/18 History Carvedilol [Coreg] 3.125 mg PO BID 02/06/18 07/05/18 History Colchicine 0.6 - 1.2 mg PO DIRECTED PRN 02/06/18 07/05/18 History Pantoprazole Sodium [Protonix] 40 mg PO DAILY 02/06/18 07/05/18 History levETIRAcetam [Keppra] 500 mg PO BID 02/06/18 07/05/18 History Furosemide [Lasix] 20 mg PO BID@0900,1600 #60 tab 04/25/18 07/05/18 Rx Ipratropium-Albuterol Nebulize 3 ml INHALATION RT-QID #120 04/25/18 07/05/18 Rx [Duoneb 0.5 mg-3 mg/3 ml Soln] ampul.neb Sodium Bicarbonate Tab 650 mg PO DAILY #30 tab 04/25/18 07/05/18 Rx Spironolactone [Aldactone] 25 mg PO DAILY #30 tab 04/25/18 07/05/18 Rx Diphenox-Atrop 2.5-0.025 mg 2 tab PO QID PRN 06/24/18 07/05/18 History [Lomotil] Verapamil Sr [Isoptin Sr] 240 mg PO DAILY 06/24/18 07/05/18 History Allergies Allergy/AdvReac Type Severity Reaction Status Date / Time No Known Allergies Allergy Verified 07/05/18 13:04 Physical Exam Vitals: Vital Signs Temp Pulse Pulse Resp BP BP Pulse Ox 07/06/18 05:30 97.6 F 69 18 141/63 96 07/05/18 21:26 98.0 F 69 18 121/57 98 07/05/18 20:18 72 07/05/18 20:07 72 07/05/18 16:52 98.1 F 70 16 111/52 95 07/05/18 12:54 98.7 F 69 18 100/59 99 Intake and Output 07/05/18 07/06/18 07/06/18 22:59 06:59 14:59 Output Total 1 Balance -1 Output: Stool 1 Other: # Voids 1 1 # Bowel Movements 1 2 Limitations: no limitations General appearance: alert, in no apparent distress Head exam: Present: atraumatic, normocephalic, normal inspection Eye exam: Present: normal appearance, PERRL, EOMI. Absent: scleral icterus, conjunctival injection, periorbital swelling ENT exam: Present: mucous membranes dry Neck exam: Present: normal inspection, full ROM, other (No stridor JVD or bruits). Absent: tenderness, meningismus, lymphadenopathy Respiratory exam: Present: normal lung sounds bilaterally. Absent: respiratory distress, wheezes, rales, rhonchi, stridor Cardiovascular Exam: Present: regular rate, normal rhythm, normal heart sounds. Absent: systolic murmur, diastolic murmur, rubs, gallop, clicks GI/Abdominal exam: Present: soft, normal bowel sounds. Absent: distended, tenderness, guarding, rebound, rigid, bruit, pulsatile mass Rectal exam: Present: deferred Extremities exam: Present: normal inspection, full ROM, normal capillary refill. Absent: tenderness, pedal edema, joint swelling, calf tenderness Back exam: Present: normal inspection Neurological exam: Present: alert, oriented X3, CN II-XII intact Psychiatric exam: Present: normal affect, normal mood Skin exam: Present: warm, dry, intact, normal color. Absent: rash Results CBC & Chem 7: 07/05/18 13:18 07/05/18 13:18 Labs: Abnormal Lab Results - Last 24 Hours (Table) 07/05/18 07/05/18 07/05/18 Range/Units 13:18 13:18 13:18 WBC 18.9 H (3.8-10.6) k/uL Plt Count 109 L (150-450) k/uL Neutrophils # 15.3 H (1.3-7.7) k/uL Monocytes # 1.2 H (0-1.0) k/uL Chloride 108 H (98-107) mmol/L Carbon Dioxide 19 L (22-30) mmol/L BUN 28 H (9-20) mg/dL Creatinine 2.01 H (0.66-1.25) mg/dL Glucose 133 H (74-99) mg/dL Magnesium 1.5 L (1.6-2.3) mg/dL ALT 8 L (21-72) U/L Total Creatine Kinase 41 L (55-170) U/L Total Protein 6.1 L (6.3-8.2) g/dL Albumin 3.3 L (3.5-5.0) g/dL Amylase <30 L (30-110) U/L Urine Protein (Negative) Urine Bacteria (None) /hpf Hyaline Casts (0-2) /lpf Urine Mucus (None) /hpf C. difficile (EIA) Intrp (Negative) 07/05/18 07/05/18 Range/Units 20:30 20:55 WBC (3.8-10.6) k/uL Plt Count (150-450) k/uL Neutrophils # (1.3-7.7) k/uL Monocytes # (0-1.0) k/uL Chloride (98-107) mmol/L Carbon Dioxide (22-30) mmol/L BUN (9-20) mg/dL Creatinine (0.66-1.25) mg/dL Glucose (74-99) mg/dL Magnesium (1.6-2.3) mg/dL ALT (21-72) U/L Total Creatine Kinase (55-170) U/L Total Protein (6.3-8.2) g/dL Albumin (3.5-5.0) g/dL Amylase (30-110) U/L Urine Protein 1+ H (Negative) Urine Bacteria Rare H (None) /hpf Hyaline Casts 20 H (0-2) /lpf Urine Mucus Rare H (None) /hpf C. difficile (EIA) Intrp Positive A (Negative) Thrombosis Risk Factor Assmnt - Choose All That Apply Any of the Below Risk Factors Present?: Yes Each Risk Factor Represents 3 Points: Age 75 years or older Thrombosis Risk Factor Assessment Total Risk Factor Score: 3 Thrombosis Risk Factor Assessment Level: Moderate Risk Assessment and Plan Assessment: 1. Acute on chronic renal failure; CK D stage III/ dehydration secondary to diarrhea and diuresis - Nephrology is following patient; IV fluid hydration with normal saline at 80 mL an hour - We will hold diuretics and avoid nephrotoxins; avoid hypertension - We will monitor strict SUAD's, daily weights, renal function and electrolytes 2. Enteritis versus abdominal ileus/ C. diff colitis - Patient is started on oral vancomycin solution at 125 mg every 6 hours - Consult GI for further recommendations 3. Electrolyte imbalance/ hypomagnesemia; supplemented in ED - We will monitor electrolytes and supplement as needed 4. Left-sided pleural effusion; possible chronic - We will repeat chest x-ray next 24-48 hours to rule out pneumonia and follow- up on pleural effusion - Diuretics on hold due to acute renal injury 5. Systolic CHF/ CAD; ejection fraction of 30-35% - We'll continue with aspirin, beta blockers, statins - Patient is on Lasix 20 mg twice a day along with Aldactone 25 mg daily 6. Adult failure to thrive; consult dietary 7. Hypertension; stable on home dose of verapamil and Coreg 8. Hyperlipidemia; Lipitor 20 mg daily 9. Seizure disorder; continue with Keppra 500 mg twice a day DVT prophylaxis; SCDs CODE STATUS; full code Time with Patient: Greater than 30
[2018-07-06 12:23] LABS: Basophils % (A) 0 %; Eosinophils # (A) 0.1 k/uL (0-0.7); Eosinophils % (A) 1 %; HGB 13.1 gm/dL (13.0-17.5); Lymphocytes # (A) 1.4 k/uL (1.0-4.8); Lymphocytes % (A) 15 %; MCH 30.9 pg (25.0-35.0); MCHC 32.1 g/dL (31.0-37.0); MCV 96.5 fL (80.0-100.0); Mean Platelet Volume 11.3; Monocytes # (A) 0.6 k/uL (0-1.0); Monocytes % (A) 6 %; Neutrophils # (A) 7.2 k/uL (1.3-7.7); Neutrophils % (A) 75 %; RBC 4.25 m/uL (4.30-5.90); RDW 14.1 % (11.5-15.5); WBC 9.6 k/uL (3.8-10.6)
[2018-07-06 12:32] LABS: Platelet Count 81 k/uL (150-450)
[2018-07-06 12:33] LABS: Large Platelets Present
[2018-07-06 12:57] LABS: Calcium 8.5 mg/dL (8.4-10.2); Magnesium 1.8 mg/dL (1.6-2.3); Potassium 4.1 mmol/L (3.5-5.1)
[2018-07-06 13:42] VITALS: BMI 23.1
--- NOTE | 2018-07-06 14:37 | P.PN ---
Subjective Progress Note Date: 07/06/18 Principal diagnosis: C. diff colitis Acute on chronic renal injury Adult failure to thrive 88-year-old male who is had diarrhea for about a month who is been having dry heaves with occasional emesis produced also is had about a 25-30 pound weight loss last month who is here from his doctor's office for further evaluation and admission for inpatient evaluation. He was seen by Dr. Willson yesterday found have a 88 systolic blood pressure on standing were was more normal on supine and sitting position. He had decreased appetite decrease oral intake. 07/06/2018 Patient is seen and evaluated in room at bedside; vital signs remained stable with blood pressure 103/60 and O2 saturation 97% on room air White blood count is trending down and is at 9.6 this morning; creatinine has trended down from 2.01 yesterday to 1.56 and magnesium is at 1.8 C. diff was ordered and is positive; patient is started on oral vancomycin Objective - Vital Signs Vital signs: Vital Signs Temp 97.6 F 07/06/18 05:30 Pulse 69 07/06/18 05:30 Resp 18 07/06/18 05:30 BP 141/63 07/06/18 05:30 Pulse Ox 96 07/06/18 05:30 Intake & Output 07/05/18 07/06/18 07/06/18 18:59 06:59 18:59 Output Total 1 Balance -1 Weight 71.214 kg Output: Stool 1 Other: # Voids 1 # Bowel Movements 2 - Exam - Constitutional General appearance: Present: average body habitus, cooperative, no acute distress - EENT Eyes: Present: anicteric sclerae, EOMI, PERRLA, normal appearance ENT: Present: hearing grossly normal, normal oropharynx Ears: bilateral: normal - Neck Neck: Present: normal ROM. Absent: lymphadenopathy, rigidity, thyromegaly Carotids: negative: bruit present Thyroid: bilateral: normal size, negative: enlarged, nodule - Respiratory Respiratory: bilateral: CTA, negative: rales, rhonchi, wheezing - Cardiovascular Rhythm: regular Heart sounds: normal: S1, S2 Abnormal Heart Sounds: Absent: systolic murmur, diastolic murmur - Gastrointestinal General gastrointestinal: Present: normal bowel sounds, soft. Absent: distended, organomegaly, tenderness - Genitourinary Genitourinary Comment(s): deferred - Integumentary Integumentary: Present: normal turgor. Absent: jaundiced, rash, ulcer - Neurologic Neurologic: Present: CNII-XII intact. Absent: focal deficits - Musculoskeletal Musculoskeletal: Present: gait normal, strength equal bilaterally - Psychiatric Psychiatric: Present: A&O x's 3, appropriate affect, intact judgment & insight - Labs CBC & Chem 7: 07/06/18 12:01 07/06/18 12:01 Labs: Abnormal Lab Results - Last 24 Hours (Table) 07/05/18 07/05/18 07/05/18 Range/Units 13:18 13:18 13:18 WBC 18.9 H (3.8-10.6) k/uL Plt Count 109 L (150-450) k/uL Neutrophils # 15.3 H (1.3-7.7) k/uL Monocytes # 1.2 H (0-1.0) k/uL Chloride 108 H (98-107) mmol/L Carbon Dioxide 19 L (22-30) mmol/L BUN 28 H (9-20) mg/dL Creatinine 2.01 H (0.66-1.25) mg/dL Glucose 133 H (74-99) mg/dL Magnesium 1.5 L (1.6-2.3) mg/dL ALT 8 L (21-72) U/L Total Creatine Kinase 41 L (55-170) U/L Total Protein 6.1 L (6.3-8.2) g/dL Albumin 3.3 L (3.5-5.0) g/dL Amylase <30 L (30-110) U/L Urine Protein (Negative) Urine Bacteria (None) /hpf Hyaline Casts (0-2) /lpf Urine Mucus (None) /hpf C. difficile (EIA) Intrp (Negative) 07/05/18 07/05/18 Range/Units 20:30 20:55 WBC (3.8-10.6) k/uL Plt Count (150-450) k/uL Neutrophils # (1.3-7.7) k/uL Monocytes # (0-1.0) k/uL Chloride (98-107) mmol/L Carbon Dioxide (22-30) mmol/L BUN (9-20) mg/dL Creatinine (0.66-1.25) mg/dL Glucose (74-99) mg/dL Magnesium (1.6-2.3) mg/dL ALT (21-72) U/L Total Creatine Kinase (55-170) U/L Total Protein (6.3-8.2) g/dL Albumin (3.5-5.0) g/dL Amylase (30-110) U/L Urine Protein 1+ H (Negative) Urine Bacteria Rare H (None) /hpf Hyaline Casts 20 H (0-2) /lpf Urine Mucus Rare H (None) /hpf C. difficile (EIA) Intrp Positive A (Negative) Assessment and Plan Assessment: 1. Acute on chronic renal failure; CK D stage III/ dehydration secondary to diarrhea and diuresis - Nephrology is following patient; IV fluid hydration with normal saline at 80 mL an hour - We will hold diuretics and avoid nephrotoxins; avoid hypertension - We will monitor strict SUAD's, daily weights, renal function and electrolytes 2. Enteritis versus abdominal ileus/ C. diff colitis - Patient is started on oral vancomycin solution at 125 mg every 6 hours - Consult GI for further recommendations 3. Electrolyte imbalance/ hypomagnesemia; supplemented in ED - We will monitor electrolytes and supplement as needed 4. Left-sided pleural effusion; possible chronic - We will repeat chest x-ray next 24-48 hours to rule out pneumonia and follow- up on pleural effusion - Diuretics on hold due to acute renal injury 5. Systolic CHF/ CAD; ejection fraction of 30-35% - We'll continue with aspirin, beta blockers, statins - Patient is on Lasix 20 mg twice a day along with Aldactone 25 mg daily 6. Adult failure to thrive; consult dietary 7. Hypertension; stable on home dose of verapamil and Coreg 8. Hyperlipidemia; Lipitor 20 mg daily 9. Seizure disorder; continue with Keppra 500 mg twice a day DVT prophylaxis; SCDs CODE STATUS; full code Time with Patient: Greater than 30
[2018-07-07] MEDS: SODIUM CHLORIDE 0.9% 1,000 ML IV SCH ×2 (05:04→12:08)
[2018-07-07] MEDS: VANCOMYCIN ORAL SOLUTION 250 MG/5 ML BOTTLE PO SCH ×3 (05:04→17:54)
[2018-07-07 07:54] LABS: Basophils % (A) 0 %; Eosinophils # (A) 0.1 k/uL (0-0.7); Eosinophils % (A) 1 %; HCT 37.8 % (39.0-53.0); Hypochromasia Slight; Lymphocytes # (A) 1.1 k/uL (1.0-4.8); Lymphocytes % (A) 18 %; MCH 30.7 pg (25.0-35.0); MCHC 31.7 g/dL (31.0-37.0); MCV 97.1 fL (80.0-100.0); Mean Platelet Volume 10.8; Monocytes # (A) 0.5 k/uL (0-1.0); Monocytes % (A) 8 %; Neutrophils # (A) 4.4 k/uL (1.3-7.7); Neutrophils % (A) 69 %; RDW 14.3 % (11.5-15.5); WBC 6.4 k/uL (3.8-10.6)
[2018-07-07 08:01] LABS: Calcium 8.1 mg/dL (8.4-10.2); Magnesium 1.7 mg/dL (1.6-2.3); Potassium 3.9 mmol/L (3.5-5.1)
[2018-07-07 08:12] LABS: Platelet Count 83 k/uL (150-450)
[2018-07-07] MEDS: levETIRAcetam 500 MG TAB PO SCH ×2 (08:24→20:23)
[2018-07-07] MEDS: CARVEDILOL 3.125 MG TAB PO SCH ×2 (08:24→17:54)
[2018-07-07] MEDS: SODIUM BICARBONATE TAB 650 MG TAB PO SCH ×2 (08:24→20:23)
[2018-07-07] MEDS: ASPIRIN 81 MG PO SCH (08:24)
[2018-07-07] MEDS: PANTOPRAZOLE 40 MG TABLET PO SCH (08:24)
[2018-07-07] MEDS: ATORVASTATIN 20 MG TAB PO SCH (08:24)
[2018-07-07] MEDS ORDERED: MAGNESIUM SULFATE-D5W PMX 1 GM in DEXTROSE/WATER 1 100ML.BAG IVPB ONE (09:27)
--- NOTE | 2018-07-07 09:29 | P.PN ---
Subjective Patient is seen in follow-up for acute kidney injury on chronic kidney disease. Patient has chronic kidney disease stage III with baseline creatinine in the range of 1.2-1.6. Currently being treated for C. diff. Still having frequent bowel movements. No vomiting. Denies chest pain or shortness of breath. Good urine output. Renal function improving. Creatinine 1.27 today. Vital signs are stable. General: The patient appeared well nourished and normally developed. HEENT: Head exam is unremarkable. Neck is without jugular venous distension. LUNGS: Lungs are clear to auscultation and percussion. Breath sounds decreased. HEART: Rate and Rhythm are regular. First and second heart sounds normal. No murmurs, rubs or gallops. ABDOMEN: Abdominal exam reveals normal bowel sounds. Non-tender and non- distended. No evidence of peritonitis. EXTREMITITES: No clubbing, cyanosis, or edema. Objective - Vital Signs Vital signs: Vital Signs Temp 97.7 F 07/07/18 05:38 Pulse 70 07/07/18 05:38 Resp 16 07/07/18 05:38 BP 130/62 07/07/18 05:38 Pulse Ox 98 07/07/18 05:38 Intake & Output 07/06/18 07/07/18 07/07/18 18:59 06:59 18:59 Output Total 22 Balance -22 Weight 71.214 kg Output: Post Void Residual 22 Other: # Voids 2 1 # Bowel Movements 5 3 - Labs CBC & Chem 7: 07/07/18 07:28 07/07/18 07:28 Labs: Abnormal Lab Results - Last 24 Hours (Table) 07/06/18 07/06/18 07/07/18 Range/Units 12:01 12:01 07:28 RBC 4.25 L (4.30-5.90) m/uL Hgb (13.0-17.5) gm/dL Hct (39.0-53.0) % Plt Count 81 L (150-450) k/uL Chloride 113 H 117 H (98-107) mmol/L Carbon Dioxide 18 L 18 L (22-30) mmol/L BUN 27 H (9-20) mg/dL Creatinine 1.56 H 1.27 H (0.66-1.25) mg/dL Glucose 102 H (74-99) mg/dL Calcium 8.1 L (8.4-10.2) mg/dL 07/07/18 Range/Units 07:28 RBC 3.90 L (4.30-5.90) m/uL Hgb 12.0 L (13.0-17.5) gm/dL Hct 37.8 L (39.0-53.0) % Plt Count 83 L (150-450) k/uL Chloride (98-107) mmol/L Carbon Dioxide (22-30) mmol/L BUN (9-20) mg/dL Creatinine (0.66-1.25) mg/dL Glucose (74-99) mg/dL Calcium (8.4-10.2) mg/dL Assessment and Plan Plan: Assessment: 1. Acute kidney injury mostly prerenal secondary to intravascular volume depletion from diarrhea and diuresis. Creatinine 2.01 on admission and is down to 1.27 today. 2. Chronic kidney disease stage III with baseline creatinine in the range of 1.2-1.6 secondary to nephrosclerosis. 3. C. diff colitis maintained on oral vancomycin. 4. Metabolic acidosis secondary to acute kidney injury and diarrhea. 5. Hypomagnesemia secondary to GI losses and diuretics. Status post replacement. 6. Systolic CHF with ejection fraction of 30-35% with moderate aortic and mitral regurgitation and severe tricuspid regurgitation. Plan: Maintain normal saline at 80 mL an hour. Hold diuretics. Maintain oral sodium bicarbonate - I will increase the dose. Replace magnesium. 1 g IV today.
[2018-07-07] MEDS: IPRATROPIUM-ALBUTEROL 3 ML NEB INHALATION SCH ×4 (09:47→19:41)
[2018-07-08] MEDS: VANCOMYCIN ORAL SOLUTION 250 MG/5 ML BOTTLE PO SCH ×4 (00:01→17:59)
--- NOTE | 2018-07-08 01:43 | P.PN ---
Subjective Progress Note Date: 07/07/18 Principal diagnosis: C. diff colitis Acute on chronic renal injury Adult failure to thrive 88-year-old male who is had diarrhea for about a month who is been having dry heaves with occasional emesis produced also is had about a 25-30 pound weight loss last month who is here from his doctor's office for further evaluation and admission for inpatient evaluation. He was seen by Dr. Willson yesterday found have a 88 systolic blood pressure on standing were was more normal on supine and sitting position. He had decreased appetite decrease oral intake. 07/06/2018 Patient is seen and evaluated in room at bedside; vital signs remained stable with blood pressure 103/60 and O2 saturation 97% on room air White blood count is trending down and is at 9.6 this morning; creatinine has trended down from 2.01 yesterday to 1.56 and magnesium is at 1.8 C. diff was ordered and is positive; patient is started on oral vancomycin 07/07/2018 Patient is seen and evaluated in room at bedside; patient is more alert and responsive this morning; denies any specific complaints; patient continues to have frequent loose bowel movements per nursing staff Vital signs are stable with a temperature of 98, pulse 73, respirations 17 and blood pressure 118/56 Laboratory review shows a white blood count of 6.4 and hemoglobin of 12; chemical profile with sodium of 140, potassium 3.9, BUN/creatinine of 20/1.27 which is improved from a creatinine of 1.56 yesterday; nephrology is following and recommending to continue with IV fluids normal saline at a rate of 80 mL an hour and continue to hold diuretics; patient is maintained on oral sodium bicarbonate; replace magnesium and monitor electrolytes closely Patient remains on oral vancomycin for C. diff colitis; GI is following. Appreciate their input in patient management Objective - Vital Signs Vital signs: Vital Signs Temp 98 F 07/07/18 13:12 Pulse 73 07/07/18 13:12 Resp 17 07/07/18 13:12 BP 118/56 07/07/18 13:12 Pulse Ox 98 07/07/18 13:12 Intake & Output 07/06/18 07/07/18 07/07/18 18:59 06:59 18:59 Output Total 22 Balance -22 Weight 71.214 kg Output: Post Void Residual 22 Other: Voiding Method Bedside Commode # Voids 2 1 # Bowel Movements 5 3 - Exam - Constitutional General appearance: Present: average body habitus, cooperative, no acute distress - EENT Eyes: Present: anicteric sclerae, EOMI, PERRLA, normal appearance ENT: Present: hearing grossly normal, normal oropharynx Ears: bilateral: normal - Neck Neck: Present: normal ROM. Absent: lymphadenopathy, rigidity, thyromegaly Carotids: negative: bruit present Thyroid: bilateral: normal size, negative: enlarged, nodule - Respiratory Respiratory: bilateral: CTA, negative: rales, rhonchi, wheezing - Cardiovascular Rhythm: regular Heart sounds: normal: S1, S2 Abnormal Heart Sounds: Absent: systolic murmur, diastolic murmur - Gastrointestinal General gastrointestinal: Present: normal bowel sounds, soft. Absent: distended, organomegaly, tenderness - Genitourinary Genitourinary Comment(s): deferred - Integumentary Integumentary: Present: normal turgor. Absent: jaundiced, rash, ulcer - Neurologic Neurologic: Present: CNII-XII intact. Absent: focal deficits - Musculoskeletal Musculoskeletal: Present: gait normal, strength equal bilaterally - Psychiatric Psychiatric: Present: A&O x's 3, appropriate affect, intact judgment & insight - Labs CBC & Chem 7: 07/07/18 07:28 07/07/18 07:28 Labs: Abnormal Lab Results - Last 24 Hours (Table) 07/07/18 07/07/18 Range/Units 07:28 07:28 RBC 3.90 L (4.30-5.90) m/uL Hgb 12.0 L (13.0-17.5) gm/dL Hct 37.8 L (39.0-53.0) % Plt Count 83 L (150-450) k/uL Chloride 117 H (98-107) mmol/L Carbon Dioxide 18 L (22-30) mmol/L Creatinine 1.27 H (0.66-1.25) mg/dL Calcium 8.1 L (8.4-10.2) mg/dL Assessment and Plan Assessment: 1. Acute on chronic renal failure; CK D stage III/ dehydration secondary to diarrhea and diuresis - Nephrology is following patient; IV fluid hydration with normal saline at 80 mL an hour - We will hold diuretics and avoid nephrotoxins; avoid hypertension - We will monitor strict SUAD's, daily weights, renal function and electrolytes 2. Enteritis versus abdominal ileus/ C. diff colitis - Patient is started on oral vancomycin solution at 125 mg every 6 hours - Consult GI for further recommendations 3. Electrolyte imbalance/ hypomagnesemia; supplemented in ED - We will monitor electrolytes and supplement as needed 4. Left-sided pleural effusion; possible chronic - We will repeat chest x-ray next 24-48 hours to rule out pneumonia and follow- up on pleural effusion - Diuretics on hold due to acute renal injury 5. Systolic CHF/ CAD; ejection fraction of 30-35% - We'll continue with aspirin, beta blockers, statins - Patient is on Lasix 20 mg twice a day along with Aldactone 25 mg daily 6. Adult failure to thrive; consult dietary 7. Hypertension; stable on home dose of verapamil and Coreg 8. Hyperlipidemia; Lipitor 20 mg daily 9. Seizure disorder; continue with Keppra 500 mg twice a day DVT prophylaxis; SCDs CODE STATUS; full code Time with Patient: Greater than 30
[2018-07-08] MEDS: levETIRAcetam 500 MG TAB PO SCH ×2 (07:54→20:38)
[2018-07-08] MEDS: PANTOPRAZOLE 40 MG TABLET PO SCH (07:55)
[2018-07-08] MEDS: ASPIRIN 81 MG PO SCH (07:55)
[2018-07-08] MEDS: ATORVASTATIN 20 MG TAB PO SCH (07:55)
[2018-07-08] MEDS: SODIUM BICARBONATE TAB 650 MG TAB PO SCH ×2 (07:55→20:38)
[2018-07-08] MEDS: CARVEDILOL 3.125 MG TAB PO SCH ×2 (07:55→17:59)
[2018-07-08] MEDS: IPRATROPIUM-ALBUTEROL 3 ML NEB INHALATION SCH ×4 (08:07→19:23)
--- NOTE | 2018-07-08 08:36 | P.PN ---
Subjective Patient is seen in follow-up for acute kidney injury on chronic kidney disease. Patient has chronic kidney disease stage III with baseline creatinine in the range of 1.2-1.6. Currently being treated for C. diff. Patient states he had 2 bowel movements overnight. No vomiting. Denies chest pain or shortness of breath. Good urine output. Renal function improving. Creatinine 1.27 as of yesterday. Vital signs are stable. General: The patient appeared well nourished and normally developed. HEENT: Head exam is unremarkable. Neck is without jugular venous distension. LUNGS: Lungs are clear to auscultation and percussion. Breath sounds decreased. HEART: Rate and Rhythm are regular. First and second heart sounds normal. No murmurs, rubs or gallops. ABDOMEN: Abdominal exam reveals normal bowel sounds. Non-tender and non- distended. No evidence of peritonitis. EXTREMITITES: No clubbing, cyanosis, or edema. Objective - Vital Signs Vital signs: Vital Signs Temp 97.8 F 07/08/18 05:20 Pulse 69 07/08/18 05:20 Resp 18 07/08/18 05:20 BP 139/66 07/08/18 05:20 Pulse Ox 96 07/08/18 05:20 Intake & Output 07/07/18 07/08/18 07/08/18 18:59 06:59 18:59 Intake Total 1780 Output Total 1 Balance 1779 Intake: Intake, IV Titration 640 Amount Sodium Chloride 0.9% 1, 640 000 ml @ 80 mls/hr IV . [id number] [facility] Rx#:[id number] Oral 1140 Output: Stool 1 Other: Voiding Method Bedside Commode Bedside Commode # Voids 2 3 # Bowel Movements 2 - Labs CBC & Chem 7: 07/07/18 07:28 07/07/18 07:28 Labs: Abnormal Lab Results - Last 24 Hours (Table) 07/07/18 Range/Units 07:28 Plt Count 83 L (150-450) k/uL Assessment and Plan Plan: Assessment: 1. Acute kidney injury mostly prerenal secondary to intravascular volume depletion from diarrhea and diuresis. Creatinine 2.01 on admission and is down to 1.27 as of yesterday. 2. Chronic kidney disease stage III with baseline creatinine in the range of 1.2-1.6 secondary to nephrosclerosis. 3. C. diff colitis maintained on oral vancomycin. 4. Metabolic acidosis secondary to acute kidney injury and diarrhea. 5. Hypomagnesemia secondary to GI losses and diuretics. Status post replaceme nt. 6. Systolic CHF with ejection fraction of 30-35% with moderate aortic and mitral regurgitation and severe tricuspid regurgitation. Plan: Decrease rate of normal saline to 50 mL an hour. Hold diuretics. Maintain oral sodium bicarbonate. Follow-up morning labs.
[2018-07-08 09:49] LABS: HCT 37.7 % (39.0-53.0); HGB 11.5 gm/dL (13.0-17.5); Hypochromasia Slight; MCHC 30.5 g/dL (31.0-37.0); MCV 98.2 fL (80.0-100.0); RBC 3.84 m/uL (4.30-5.90); RDW 14.1 % (11.5-15.5); WBC 5.6 k/uL (3.8-10.6)
[2018-07-08 10:19] LABS: Platelet Count 91 k/uL (150-450)
[2018-07-08 10:27] LABS: Calcium 8.2 mg/dL (8.4-10.2); Magnesium 1.8 mg/dL (1.6-2.3)
[2018-07-08 10:41] LABS: Band Neutrophils % 1 %; Lymphocytes # (M) 1.06 k/uL (1.0-4.8); Monocytes # (M) 0.45 k/uL (0-1.0); Neutrophils % (M) 72 %; Nucleated Red Blood Cells 0 /100 WBC (0-0); Total Cells Counted 100
--- NOTE | 2018-07-08 12:41 | P.PN ---
Subjective Patient resting in bed states diarrhea improving. States abdominal pain improved. Patient had evaluation by nephrology they're continuing treatment. Objective - Vital Signs Vital signs: Vital Signs Temp 98 F 07/08/18 12:25 Pulse 70 07/08/18 12:25 Resp 16 07/08/18 12:25 BP 141/68 07/08/18 12:25 Pulse Ox 97 07/08/18 12:25 Intake & Output 07/07/18 07/08/18 07/08/18 18:59 06:59 18:59 Intake Total 1780 Output Total 1 Balance 1779 Intake: Intake, IV Titration 640 Amount Sodium Chloride 0.9% 1, 640 000 ml @ 80 mls/hr IV . [id number] [facility] Rx#:[id number] Oral 1140 Output: Stool 1 Other: Voiding Method Bedside Commode Bedside Commode Bedside Commode # Voids 2 3 # Bowel Movements 2 - Constitutional General appearance: Present: mild distress - EENT Eyes: Present: PERRLA ENT: Present: hard of hearing Ears: bilateral: normal - Neck Neck: Present: normal ROM - Respiratory Respiratory: bilateral: CTA - Cardiovascular Rhythm: regular - Gastrointestinal General gastrointestinal: Present: normal bowel sounds, soft - Integumentary Integumentary: Present: normal - Neurologic Neurologic: Present: CNII-XII intact - Musculoskeletal Musculoskeletal: Present: generalized weakness - Psychiatric Psychiatric: Present: A&O x's 3, appropriate affect, intact judgment & insight - Labs CBC & Chem 7: 07/08/18 08:58 07/08/18 08:58 Labs: Abnormal Lab Results - Last 24 Hours (Table) 07/08/18 07/08/18 Range/Units 08:58 08:58 RBC 3.84 L (4.30-5.90) m/uL Hgb 11.5 L (13.0-17.5) gm/dL Hct 37.7 L (39.0-53.0) % MCHC 30.5 L (31.0-37.0) g/dL Plt Count 91 L (150-450) k/uL Chloride 115 H (98-107) mmol/L Carbon Dioxide 19 L (22-30) mmol/L Creatinine 1.26 H (0.66-1.25) mg/dL Glucose 146 H (74-99) mg/dL Calcium 8.2 L (8.4-10.2) mg/dL - Imaging and Cardiology Chest x-ray: report reviewed Abdominal x-ray: report reviewed Assessment and Plan Plan: Assessment Acute on chronic renal failure kidney disease stage III Generalized weakness Enteritis C. difficile on vancomycin Electrolytic imbalance hypo-magnesium metabolic acidosis secondary to kidney injury Left-sided pleural effusion chronic CHF systolic dysfunction with ejection fraction of 30-35% history of bypass and pacemaker Adult failure to thrive hypertension Hyperlipidemia Seizure disorder Plan Continue consultation with gastroenterology on vancomycin oral Continue with consultation with nephrology
[2018-07-08] MEDS: SODIUM CHLORIDE 0.9% 1,000 ML IV SCH ×2 (17:59→19:12)
--- NOTE | 2018-07-08 19:34 | P.PN ---
Subjective Progress Note Date: 07/08/18 Principal diagnosis: Clostridium difficile colitis Patient in bed reporting that he is feeling better. Tolerating his diet. Reporting the bowel movements have become less frequent. Objective - Vital Signs Vital signs: Vital Signs Temp 98 F 07/08/18 12:25 Pulse 70 07/08/18 12:25 Resp 16 07/08/18 12:25 BP 141/68 07/08/18 12:25 Pulse Ox 97 07/08/18 12:25 Intake & Output 07/08/18 07/08/18 07/09/18 06:59 18:59 06:59 Intake Total 1000 Balance 1000 Intake: Intake, IV Titration 400 Amount Sodium Chloride 0.9% 1, 400 000 ml @ 50 mls/hr IV . Q20H [facility] Rx#:[id number] Oral 600 Other: Voiding Method Bedside Commode Bedside Commode # Voids 3 1 # Bowel Movements 2 - Exam On physical examination, patient appears comfortable in no apparent distress. HEAD: Normocephalic, atraumatic. EYES: No scleral icterus. No conjunctival injection. MOUTH: No lesions, tongue midline. NECK: Trachea midline, no gross abnormalities. CHEST: Clear to auscultation with no wheezing or rhonchi appreciated. ABDOMEN: Soft, obese. Bowel sounds are positive. No organomegaly. No guarding or rigidity. EXTREMITIES: No pedal edema. SKIN: No rashes, no jaundice. NEUROLOGIC: Alert and oriented x3. No focal deficits. - Labs CBC & Chem 7: 07/08/18 08:58 07/08/18 08:58 Labs: Abnormal Lab Results - Last 24 Hours (Table) 07/08/18 07/08/18 Range/Units 08:58 08:58 RBC 3.84 L (4.30-5.90) m/uL Hgb 11.5 L (13.0-17.5) gm/dL Hct 37.7 L (39.0-53.0) % MCHC 30.5 L (31.0-37.0) g/dL Plt Count 91 L (150-450) k/uL Chloride 115 H (98-107) mmol/L Carbon Dioxide 19 L (22-30) mmol/L Creatinine 1.26 H (0.66-1.25) mg/dL Glucose 146 H (74-99) mg/dL Calcium 8.2 L (8.4-10.2) mg/dL Assessment and Plan (1) Clostridium difficile enteritis Narrative/Plan: Patient presenting to the hospital with complaints of nausea, vomiting, decreased oral intake and diarrhea and found to have imaging findings on x-ray consistent with enteritis, stool studies subsequently found to be positive for Clostridium difficile. Patient on therapy with oral vancomycin with improvement of his symptoms. Current Visit: Yes Status: Acute Code(s): A04.72 - ENTEROCOLITIS D/T CLOSTRIDIUM DIFFICILE, NOT SPCF RECUR SNOMED Code(s): 610871768 (2) Acute diarrhea Current Visit: No Status: Acute Code(s): R19.7 - DIARRHEA, UNSPECIFIED SNOMED Code(s): 575265185 Plan: Supportive care Okay for diet Continue oral vancomycin Appreciate recommendations from the surgical service Continue to monitor stool output Thank you for allowing us to participate in the care of the patient
[2018-07-09] MEDS: VANCOMYCIN ORAL SOLUTION 250 MG/5 ML BOTTLE PO SCH ×5 (00:05→23:14)
[2018-07-09] MEDS: SODIUM CHLORIDE 0.9% 1,000 ML IV SCH ×2 (05:14→18:00)
[2018-07-09] MEDS: IPRATROPIUM-ALBUTEROL 3 ML NEB INHALATION SCH ×4 (08:12→19:39)
[2018-07-09] MEDS ORDERED: COLCHICINE 0.6 MG EACH PO PRN (08:17)
[2018-07-09] MEDS: SODIUM BICARBONATE TAB 650 MG TAB PO SCH ×2 (08:24→20:06)
[2018-07-09] MEDS: levETIRAcetam 500 MG TAB PO SCH ×2 (08:24→20:07)
[2018-07-09] MEDS: ASPIRIN 81 MG PO SCH (08:25)
[2018-07-09] MEDS: CARVEDILOL 3.125 MG TAB PO SCH ×2 (08:25→17:58)
[2018-07-09] MEDS: PANTOPRAZOLE 40 MG TABLET PO SCH (08:25)
[2018-07-09] MEDS: ATORVASTATIN 20 MG TAB PO SCH (08:25)
[2018-07-09 08:59] LABS: Basophils % (A) 0 %; Eosinophils # (A) 0.1 k/uL (0-0.7); Eosinophils % (A) 2 %; HCT 38.5 % (39.0-53.0); HGB 12.3 gm/dL (13.0-17.5); Hypochromasia Slight; Lymphocytes # (A) 1.7 k/uL (1.0-4.8); Lymphocytes % (A) 27 %; MCH 31.2 pg (25.0-35.0); MCHC 31.8 g/dL (31.0-37.0); MCV 97.9 fL (80.0-100.0); Mean Platelet Volume 10.9; Monocytes # (A) 0.5 k/uL (0-1.0); Monocytes % (A) 8 %; Neutrophils # (A) 3.6 k/uL (1.3-7.7); Neutrophils % (A) 59 %; RBC 3.93 m/uL (4.30-5.90); RDW 14.5 % (11.5-15.5); WBC 6.2 k/uL (3.8-10.6)
[2018-07-09 09:06] LABS: Platelet Count 75 k/uL (150-450)
[2018-07-09 09:08] LABS: Calcium 8.2 mg/dL (8.4-10.2); Magnesium 1.6 mg/dL (1.6-2.3); Potassium 4.7 mmol/L (3.5-5.1)
[2018-07-09] MEDS ORDERED: COLCHICINE 0.6 MG EACH PO ONE (09:45)
--- NOTE | 2018-07-09 10:02 | P.PN ---
Subjective Progress Note Date: 07/09/18 Principal diagnosis: Clostridium difficile colitis Diarrhea improving. No bleeding. Reports achiness in the hand joints knees and feet. White count 6.2. Hemoglobin 12.3. Afebrile. Receiving vancomycin. Objective - Vital Signs Vital signs: Vital Signs Temp 98.1 F 07/09/18 04:35 Pulse 70 07/09/18 04:35 Resp 16 07/09/18 04:35 BP 140/66 07/09/18 04:35 Pulse Ox 97 07/09/18 04:35 Intake & Output 07/08/18 07/09/18 07/09/18 18:59 06:59 18:59 Intake Total 1000 640 Balance 1000 640 Intake: Intake, IV Titration 400 400 Amount Sodium Chloride 0.9% 1, 400 400 000 ml @ 50 mls/hr IV . Q20H [facility] Rx#:[id number] Oral 600 240 Other: Voiding Method Bedside Commode Bedside Commode # Voids 1 2 # Bowel Movements 2 - Exam General appearance: The patient is alert, oriented, in no acute distress. HET: Head is normocephalic and atraumatic. Pupils are equal and reactive. Oropharynx is clear without lesions. Neck: Supple without lymphadenopathy. Trachea midline. Heart: S1 S2. Regular rate and rhythm. Lungs: No crackles or wheezes are heard. Abdomen: Soft, nontender, nondistended with bowel sounds. No peritoneal signs. No palpable organomegaly or masses. - Labs CBC & Chem 7: 07/09/18 08:31 07/09/18 08:31 Labs: Abnormal Lab Results - Last 24 Hours (Table) 07/08/18 07/08/18 07/09/18 Range/Units 08:58 08:58 08:31 RBC 3.84 L 3.93 L (4.30-5.90) m/uL Hgb 11.5 L 12.3 L (13.0-17.5) gm/dL Hct 37.7 L 38.5 L (39.0-53.0) % MCHC 30.5 L (31.0-37.0) g/dL Plt Count 91 L 75 L (150-450) k/uL Chloride 115 H (98-107) mmol/L Carbon Dioxide 19 L (22-30) mmol/L Creatinine 1.26 H (0.66-1.25) mg/dL Glucose 146 H (74-99) mg/dL Calcium 8.2 L (8.4-10.2) mg/dL 07/09/18 Range/Units 08:31 RBC (4.30-5.90) m/uL Hgb (13.0-17.5) gm/dL Hct (39.0-53.0) % MCHC (31.0-37.0) g/dL Plt Count (150-450) k/uL Chloride 114 H (98-107) mmol/L Carbon Dioxide 20 L (22-30) mmol/L Creatinine (0.66-1.25) mg/dL Glucose 142 H (74-99) mg/dL Calcium 8.2 L (8.4-10.2) mg/dL Assessment and Plan (1) Clostridium difficile enteritis Current Visit: Yes Status: Acute Code(s): A04.72 - ENTEROCOLITIS D/T CLOSTRIDIUM DIFFICILE, NOT SPCF RECUR SNOMED Code(s): 920900704 Plan: Supportive care Okay for diet Continue oral vancomycin Appreciate recommendations from the surgical service Continue to monitor stool output Assessment and plan a care discussed with Dr. Delcid
--- NOTE | 2018-07-09 11:14 | P.PN ---
Subjective Patient is seen in follow-up for acute kidney injury on chronic kidney disease. Patient has chronic kidney disease stage III with baseline creatinine in the range of 1.2-1.6. Currently being treated for C. diff. Patient states he had 3 bowel movements overnight. No vomiting. Denies chest pain or shortness of breath. Good urine output. Renal function improving. Vital signs are stable. General: The patient appeared well nourished and normally developed. HEENT: Head exam is unremarkable. Neck is without jugular venous distension. LUNGS: Lungs are clear to auscultation and percussion. Breath sounds decreased. HEART: Rate and Rhythm are regular. First and second heart sounds normal. No murmurs, rubs or gallops. ABDOMEN: Abdominal exam reveals normal bowel sounds. Non-tender and non- distended. No evidence of peritonitis. EXTREMITITES: Trace edema. Objective - Vital Signs Vital signs: Vital Signs Temp 98.1 F 07/09/18 04:35 Pulse 70 07/09/18 04:35 Resp 16 07/09/18 04:35 BP 140/66 07/09/18 04:35 Pulse Ox 97 07/09/18 04:35 Intake & Output 07/08/18 07/09/18 07/09/18 18:59 06:59 18:59 Intake Total 1000 640 Balance 1000 640 Intake: Intake, IV Titration 400 400 Amount Sodium Chloride 0.9% 1, 400 400 000 ml @ 50 mls/hr IV . Q20H [facility] Rx#:[id number] Oral 600 240 Other: Voiding Method Bedside Commode Bedside Commode # Voids 1 2 # Bowel Movements 2 - Labs CBC & Chem 7: 07/09/18 08:31 07/09/18 08:31 Labs: Abnormal Lab Results - Last 24 Hours (Table) 07/09/18 07/09/18 Range/Units 08:31 08:31 RBC 3.93 L (4.30-5.90) m/uL Hgb 12.3 L (13.0-17.5) gm/dL Hct 38.5 L (39.0-53.0) % Plt Count 75 L (150-450) k/uL Chloride 114 H (98-107) mmol/L Carbon Dioxide 20 L (22-30) mmol/L Glucose 142 H (74-99) mg/dL Calcium 8.2 L (8.4-10.2) mg/dL Assessment and Plan Plan: Assessment: 1. Acute kidney injury mostly prerenal secondary to intravascular volume depletion from diarrhea and diuresis. Creatinine 2.01 on admission and is down to 1.23. 2. Chronic kidney disease stage III with baseline creatinine in the range of 1.2-1.6 secondary to nephrosclerosis. 3. C. diff colitis maintained on oral vancomycin. 4. Metabolic acidosis secondary to acute kidney injury and diarrhea. 5. Hypomagnesemia secondary to GI losses and diuretics. Status post replacement. 6. Systolic CHF with ejection fraction of 30-35% with moderate aortic and mitral regurgitation and severe tricuspid regurgitation. Plan: Maintain normal saline at 50 mL an hour. Can likely Hep-Lock IV fluids tomorrow. Hold diuretics. Maintain oral sodium bicarbonate. Replace magnesium. 2 g IV today.
[2018-07-09] MEDS: MAGNESIUM SULFATE-D5W PMX 1 GM in DEXTROSE/WATER 1 100ML.BAG IVPB SCH ×2 (11:46→13:06)
--- NOTE | 2018-07-09 12:24 | P.PN ---
Subjective Patient states he doesn't feel well today has had episode of gout with right hand deformity and redness complains of left knee pain. Patient states he continues with diarrhea Objective - Vital Signs Vital signs: Vital Signs Temp 98.1 F 07/09/18 04:35 Pulse 70 07/09/18 08:00 Resp 16 07/09/18 08:00 BP 140/66 07/09/18 04:35 Pulse Ox 97 07/09/18 04:35 Intake & Output 07/08/18 07/09/18 07/09/18 18:59 06:59 18:59 Intake Total 1000 640 Output Total 1 Balance 1000 640 -1 Intake: Intake, IV Titration 400 400 Amount Sodium Chloride 0.9% 1, 400 400 000 ml @ 50 mls/hr IV . Q20H [facility] Rx#:[id number] Oral 600 240 Output: Stool 1 Other: Voiding Method Bedside Commode Bedside Commode Bedside Commode # Voids 1 2 # Bowel Movements 2 - Constitutional General appearance: Present: mild distress - EENT Eyes: Present: PERRLA ENT: Present: hard of hearing Ears: bilateral: normal - Respiratory Respiratory: bilateral: CTA - Cardiovascular Rhythm: regular - Gastrointestinal General gastrointestinal: Present: soft - Integumentary Integumentary: Present: normal - Neurologic Neurologic: Present: CNII-XII intact - Musculoskeletal Musculoskeletal: Present: generalized weakness - Labs CBC & Chem 7: 07/09/18 08:31 07/09/18 08:31 Labs: Abnormal Lab Results - Last 24 Hours (Table) 07/09/18 07/09/18 Range/Units 08:31 08:31 RBC 3.93 L (4.30-5.90) m/uL Hgb 12.3 L (13.0-17.5) gm/dL Hct 38.5 L (39.0-53.0) % Plt Count 75 L (150-450) k/uL Chloride 114 H (98-107) mmol/L Carbon Dioxide 20 L (22-30) mmol/L Glucose 142 H (74-99) mg/dL Calcium 8.2 L (8.4-10.2) mg/dL Assessment and Plan Plan: Assessment Muscle weakness with gait dysfunction Acute on chronic renal failure stage III with dehydration Enteritis C. difficile Electrolyte imbalance hypo-magnesium metabolic acidosis secondary to acute kidney injury Chronic left-sided pleural effusion CHF systolic dysfunction ejection fraction 30-35% Adult failure to thrive hypertension Hyperlipidemia Seizure disorder Plan Evaluation by physical therapy discussed possible rehab placement Continue consultation with nephrology and gastroenterology
[2018-07-09 18:12] VITALS: PULSE 70
[2018-07-10] MEDS: VANCOMYCIN ORAL SOLUTION 250 MG/5 ML BOTTLE PO SCH ×2 (05:36→11:29)
[2018-07-10] MEDS: IPRATROPIUM-ALBUTEROL 3 ML NEB INHALATION SCH ×2 (07:43→11:42)
[2018-07-10] MEDS: ASPIRIN 81 MG PO SCH (07:56)
[2018-07-10] MEDS: CARVEDILOL 3.125 MG TAB PO SCH (07:56)
[2018-07-10] MEDS: PANTOPRAZOLE 40 MG TABLET PO SCH (07:57)
[2018-07-10] MEDS: ATORVASTATIN 20 MG TAB PO SCH (07:57)
[2018-07-10] MEDS: levETIRAcetam 500 MG TAB PO SCH (07:57)
[2018-07-10] MEDS: SODIUM BICARBONATE TAB 650 MG TAB PO SCH (07:57)
[2018-07-10 08:05] LABS: Calcium 8.1 mg/dL (8.4-10.2); Magnesium 1.8 mg/dL (1.6-2.3); Potassium 4.5 mmol/L (3.5-5.1)
--- NOTE | 2018-07-10 10:41 | P.PN ---
Subjective Patient is seen in follow-up for acute kidney injury on chronic kidney disease. Patient has chronic kidney disease stage III with baseline creatinine in the range of 1.2-1.6. Currently being treated for C. diff. Patient states he had no bowel movements overnight. No vomiting. Denies chest pain or shortness of breath. Good urine output. Renal function improving. Vital signs are stable. General: The patient appeared well nourished and normally developed. HEENT: Head exam is unremarkable. Neck is without jugular venous distension. LUNGS: Lungs are clear to auscultation and percussion. Breath sounds decreased. HEART: Rate and Rhythm are regular. First and second heart sounds normal. No murmurs, rubs or gallops. ABDOMEN: Abdominal exam reveals normal bowel sounds. Non-tender and non- distended. No evidence of peritonitis. EXTREMITITES: Trace edema. Objective - Vital Signs Vital signs: Vital Signs Temp 97.9 F 07/10/18 05:00 Pulse 70 07/10/18 05:00 Resp 18 07/10/18 05:00 BP 143/67 07/10/18 05:00 Pulse Ox 97 07/10/18 05:00 Intake & Output 07/09/18 07/10/18 07/10/18 18:59 06:59 18:59 Intake Total 750 1890 Output Total 2 Balance 748 1890 Weight 71.214 kg Intake: Intake, IV Titration 600 Amount Sodium Chloride 0.9% 1, 600 000 ml @ 50 mls/hr IV . Q20H [facility] Rx#:[id number] Oral 750 1290 Output: Stool 2 Other: Voiding Method Bedside Commode Toilet # Voids 3 3 # Bowel Movements 3 1 1 - Labs CBC & Chem 7: 07/09/18 08:31 07/10/18 07:02 Labs: Abnormal Lab Results - Last 24 Hours (Table) 07/10/18 Range/Units 07:02 Chloride 113 H (98-107) mmol/L Carbon Dioxide 20 L (22-30) mmol/L Glucose 101 H (74-99) mg/dL Calcium 8.1 L (8.4-10.2) mg/dL Assessment and Plan Plan: Assessment: 1. Acute kidney injury mostly prerenal secondary to intravascular volume depletion from diarrhea and diuresis. Creatinine 2.01 on admission and is down to 1.2. 2. Chronic kidney disease stage III with baseline creatinine in the range of 1.2-1.6 secondary to nephrosclerosis. 3. C. diff colitis maintained on oral vancomycin. 4. Metabolic acidosis secondary to acute kidney injury and diarrhea. Stable. 5. Hypomagnesemia secondary to GI losses and diuretics. Status post replacement. Better. 6. Systolic CHF with ejection fraction of 30-35% with moderate aortic and mitral regurgitation and severe tricuspid regurgitation. Plan: Hep-Lock IV fluids. Resume Lasix 20 mg orally twice daily. Maintain oral sodium bicarbonate. Stable to be discharged home from nephrology standpoint. Repeat BMP in 2-3 days postdischarge. Follow up outpatient in the next 2 weeks.
--- NOTE | 2018-07-10 10:43 | P.DS ---
Providers Date of admission: 07/06/18 14:49 Expected date of discharge: 07/10/18 Attending physician: Ishaan Mata Consults: 07/05/18 16:48 Consult Physician Routine Consulting Provider: Vinicio Delcid Consult Reason/Comments: Enteritis Do you want consulting provider notified?: Yes 07/05/18 22:41 Consult Physician Routine Consulting Provider: Mayur Willson Consult Reason/Comments: elevated creat Do you want consulting provider notified?: Yes, Notify in am Primary care physician: Ishaan Mata Hospital Course: 88-year-old male was admitted for complaints of diarrhea and is consistent for a month also with vomiting weight loss. Patient was treated for C. difficile colitis evaluated by gastroenterology has been taking oral vancomycin needs to continues to 5-28 dose 125 g every 6 hours oral patient was evaluated for acute on chronic renal failure per nephrology and Dr. Willis recommendations given for discharge to decrease the amount of diuretics Assessment Acute on chronic renal failure stage III Weakness Gouty arthritis right hand left knee C. difficile enteritis Electrolyte imbalance hypo-magnesium Metabolic acidosis secondary acute kidney injury Chronic left-sided pleural effusion Congestive heart failure systolic dysfunction ejection fraction 30-35% history of coronary bypass and pacemaker Adult failure to thrive hypertension hyperlipidemia Seizure disorder Plan Transfer to [facility] for rehab for weakness Continue oral vancomycin until Patient Condition at Discharge: Fair Plan - Discharge Summary New Discharge Prescriptions: No Action levETIRAcetam [Keppra] 500 mg PO BID Pantoprazole Sodium [Protonix] 40 mg PO DAILY Colchicine 0.6 - 1.2 mg PO DIRECTED PRN PRN Reason: GOUT Carvedilol [Coreg] 3.125 mg PO BID Atorvastatin [Lipitor] 20 mg PO DAILY Aspirin [[place] Aspirin EC] 81 mg PO DAILY Spironolactone [Aldactone] 25 mg PO DAILY #30 tab Ipratropium-Albuterol Nebulize [Duoneb 0.5 mg-3 mg/3 ml Soln] 3 ml INHALATION RT-QID #120 ampul.neb Furosemide [Lasix] 20 mg PO BID@0900,1600 #60 tab Sodium Bicarbonate Tab 650 mg PO DAILY #30 tab Diphenox-Atrop 2.5-0.025 mg [Lomotil] 2 tab PO QID PRN PRN Reason: Diarrhea Discharge Medication List Aspirin [[place] Aspirin EC] 81 mg PO DAILY 02/06/18 [History] Atorvastatin [Lipitor] 20 mg PO DAILY 02/06/18 [History] Carvedilol [Coreg] 3.125 mg PO BID 02/06/18 [History] Colchicine 0.6 - 1.2 mg PO DIRECTED PRN 02/06/18 [History] Pantoprazole Sodium [Protonix] 40 mg PO DAILY 02/06/18 [History] levETIRAcetam [Keppra] 500 mg PO BID 02/06/18 [History] Furosemide [Lasix] 20 mg PO BID@0900,1600 #60 tab 04/25/18 [Rx] Ipratropium-Albuterol Nebulize [Duoneb 0.5 mg-3 mg/3 ml Soln] 3 ml INHALATION RT-QID #120 ampul.neb 04/25/18 [Rx] Sodium Bicarbonate Tab 650 mg PO DAILY #30 tab 04/25/18 [Rx] Spironolactone [Aldactone] 25 mg PO DAILY #30 tab 04/25/18 [Rx] Diphenox-Atrop 2.5-0.025 mg [Lomotil] 2 tab PO QID PRN 06/24/18 [History] Follow up Appointment(s)/Referral(s): Ishaan Mata MD [Primary Care Provider] - 1-2 days
[2018-07-10 11:30] VITALS: BP 144/65; RESP 16; TEMP 97.5
--- NOTE | 2018-07-10 13:20 | P.PN ---
Subjective Progress Note Date: 07/10/18 Principal diagnosis: Clostridium difficile colitis Diarrhea improving. Afebrile. Objective - Vital Signs Vital signs: Vital Signs Temp 97.5 F L 07/10/18 11:04 Pulse 70 07/10/18 11:04 Resp 16 07/10/18 11:04 BP 144/65 07/10/18 11:04 Pulse Ox 96 07/10/18 11:04 Intake & Output 07/09/18 07/10/18 07/10/18 18:59 06:59 18:59 Intake Total 750 1890 Output Total 2 1 Balance 748 1890 -1 Weight 71.214 kg Intake: Intake, IV Titration 600 Amount Sodium Chloride 0.9% 1, 600 000 ml @ 50 mls/hr IV . Q20H [facility] Rx#:[id number] Oral 750 1290 Output: Stool 2 1 Other: Voiding Method Bedside Commode Toilet Toilet # Voids 3 3 # Bowel Movements 3 1 1 - Exam General appearance: The patient is alert, oriented, in no acute distress. HET: Head is normocephalic and atraumatic. Pupils are equal and reactive. Oropharynx is clear without lesions. Neck: Supple without lymphadenopathy. Trachea midline. Heart: S1 S2. Regular rate and rhythm. Lungs: No crackles or wheezes are heard. Abdomen: Soft, nontender, nondistended with bowel sounds. No peritoneal signs. No palpable organomegaly or masses. - Labs CBC & Chem 7: 07/09/18 08:31 07/10/18 07:02 Labs: Abnormal Lab Results - Last 24 Hours (Table) 07/10/18 Range/Units 07:02 Chloride 113 H (98-107) mmol/L Carbon Dioxide 20 L (22-30) mmol/L Glucose 101 H (74-99) mg/dL Calcium 8.1 L (8.4-10.2) mg/dL Assessment and Plan (1) Clostridium difficile enteritis Current Visit: Yes Status: Acute Code(s): A04.72 - ENTEROCOLITIS D/T CLOSTRIDIUM DIFFICILE, NOT SPCF RECUR SNOMED Code(s): 884494417 Plan: Supportive care Okay for diet Continue oral vancomycin Appreciate recommendations from the surgical service Continue to monitor stool output Assessment and plan a care discussed with Dr. Delcid
[2018-07-10] MEDS ORDERED: FUROSEMIDE 20 MG TAB PO SCH (16:00)
== END 2018-07-10 15:15 | DRG 372 ==
LOC: EC 12:39 → 3NMEDONC 17:08 → OBSVTOIN 07-06 14:49
PROVIDERS: ADMIT Family Medicine; ATTEND Family Medicine
DX: A04.72 Enterocolitis due to Clostridium difficile, not specified as recurrent (principal); E87.2 Acidosis; I13.0 Hypertensive heart and chronic kidney disease with heart failure and stage 1 through stage 4 chronic kidney disease, or unspecified chronic kidney disease; I50.22 Chronic systolic (congestive) heart failure; N17.9 Acute kidney failure, unspecified; E11.22 Type 2 diabetes mellitus with diabetic chronic kidney disease; E78.5 Hyperlipidemia, unspecified; E83.42 Hypomagnesemia; E86.0 Dehydration; G40.909 Epilepsy, unspecified, not intractable, without status epilepticus; I08.3 Combined rheumatic disorders of mitral, aortic and tricuspid valves; I25.10 Atherosclerotic heart disease of native coronary artery without angina pectoris; J44.9 Chronic obstructive pulmonary disease, unspecified; M1A.9XX0 Chronic gout, unspecified, without tophus (tophi); N18.3 Chronic kidney disease, stage 3 (moderate); R62.7 Adult failure to thrive; Z79.899 Other long term (current) drug therapy; Z95.1 Presence of aortocoronary bypass graft; R63.4 Abnormal weight loss; Z68.23 Body mass index [BMI] 23.0-23.9, adult; Z95.0 Presence of cardiac pacemaker; T50.2X5A Adverse effect of carbonic-anhydrase inhibitors, benzothiadiazides and other diuretics, initial encounter; Z79.82 Long term (current) use of aspirin
CPT/HCPCS: 36415; 71046; 74018; 80048; 80053; 81001; 82150; 82550; 82553; 83690; 83735; 84484; 85025; 87324; 93005; 94640; 96361; 96365; 96375; 99285

== ENCOUNTER → 2018-08-15 | Outpatient (CLI) | payer MEDICARE ==
--- NOTE | 2018-08-15 15:28 | XR ---
EXAMINATION TYPE: XR chest 2V DATE OF EXAM: 08/15/2018 COMPARISON: 07/05/2018 HISTORY: Shortness of breath TECHNIQUE: Frontal and lateral views of the chest are obtained. FINDINGS: There is a persistent left moderate pleural effusion and new trace right pleural effusion. Cardia mediastinal silhouette is obscured. Left basilar airspace disease is associated with the effu luisa. Multilead left-sided cardiac device and partially visualized enlarged cardiac mediastinal silho uette with post CABG change of the chest are again seen. Mild multilevel degenerative changes of the spine. IMPRESSION: Persistent moderate left pleural effusion and new trace right pleural effusion with asso ciated left basilar airspace disease that may represent pneumonia or compressive atelectasis.
== END | disposition home or self-care (01) ==
LOC: RADXRMAIN 13:21
PROVIDERS: ATTEND Family Medicine
DX: J90 Pleural effusion, not elsewhere classified (principal)
CPT/HCPCS: 71046

== ENCOUNTER → 2018-08-16 | Outpatient (CLI) | payer MEDICARE ==
[2018-08-16 12:05] LABS: HCT 38.4 % (39.0-53.0); HGB 12.1 gm/dL (13.0-17.5); Hypochromasia Moderate; MCH 31.1 pg (25.0-35.0); MCHC 31.6 g/dL (31.0-37.0); MCV 98.5 fL (80.0-100.0); Macrocytosis Slight; Mean Platelet Volume 11.6; RDW 15.2 % (11.5-15.5); WBC 6.6 k/uL (3.8-10.6)
[2018-08-16 12:46] LABS: Platelet Count 71 k/uL (150-450)
[2018-08-16 15:48] LABS: African American GFR (CKD) 29.7 (60.0-200.0); Albumin 3.5 g/dL (3.80-4.90); Albumin/Globulin Ratio 1.25 (1.60-3.17); Anion Gap 10.3 mmol/L (4.00-12.00); BUN/Creat Ratio 12.27 Ratio (12.00-20.00); Calcium 9.4 mg/dL (8.7-10.3); Carbon Dioxide 25.7 mmol/L (21.6-31.8); Globulin 2.8 g/dL (1.6-3.3); Total Protein 6.3 g/dL (6.2-8.2)
== END | disposition home or self-care (01) ==
LOC: LABWHC1 10:30
PROVIDERS: ATTEND Family Medicine
DX: E78.2 Mixed hyperlipidemia (principal); I12.9 Hypertensive chronic kidney disease with stage 1 through stage 4 chronic kidney disease, or unspecified chronic kidney disease; N18.9 Chronic kidney disease, unspecified; I25.810 Atherosclerosis of coronary artery bypass graft(s) without angina pectoris
CPT/HCPCS: 36415; 80053; 80061; 84443; 85027; 86141

== ENCOUNTER 2018-08-18 12:41 | Inpatient (IN) | payer MEDICARE ==
[2018-08-18] MEDS ORDERED: SODIUM CHLORIDE 0.9% 1,000 ML IV STA (14:03)
[2018-08-18 14:53] LABS: Albumin 3.4 g/dL (3.5-5.0); Potassium 4.8 mmol/L (3.5-5.1); Total Bilirubin 1.8 mg/dL (0.2-1.3); Total Protein 6.9 g/dL (6.3-8.2)
--- NOTE | 2018-08-18 14:58 | XR ---
EXAMINATION TYPE: XR chest 2V DATE OF EXAM: 08/18/2018 COMPARISON: 08/15/2018 HISTORY: 88-year-old male cough and pain TECHNIQUE: PA and lateral views FINDINGS: Left heart margin obscured by adjacent pleural parenchymal opacity. Median sternotomy wires and post- CABG clips. Left-sided AICD generator with right atrial, right ventricular, and coronary sinus leads. Continued moderate left pleural effusion with underlying opacity. Atherosclerotic calcifications thr oughout the aorta. IMPRESSION: Continued moderate left pleural effusion with adjacent atelectasis and/or consolidation. Correlate as to etiology.
[2018-08-18 15:06] LABS: Basophils % (A) 0 %; Eosinophils # (A) 0.1 k/uL (0-0.7); Eosinophils % (A) 1 %; HCT 40.9 % (39.0-53.0); HGB 13.2 gm/dL (13.0-17.5); Hypochromasia Slight; Lymphocytes # (A) 2.1 k/uL (1.0-4.8); Lymphocytes % (A) 18 %; MCH 31.5 pg (25.0-35.0); MCHC 32.1 g/dL (31.0-37.0); MCV 97.9 fL (80.0-100.0); Mean Platelet Volume 11.9; Monocytes # (A) 0.9 k/uL (0-1.0); Monocytes % (A) 8 %; Neutrophils # (A) 8.5 k/uL (1.3-7.7); Neutrophils % (A) 71 %; RBC 4.18 m/uL (4.30-5.90)
--- NOTE | 2018-08-18 15:07 | ED ---
General Adult HPI - General Source: patient, family Mode of arrival: ambulatory Limitations: no limitations <Delgado Cummings - Last Filed: 08/18/18 16:51> <Michael Shin - Last Filed: 08/18/18 17:23> - General Chief complaint: Recheck/Abnormal Lab/Rx Stated complaint: C Diff Time Seen by Provider: 08/18/18 13:28 - History of Present Illness Initial comments: Patient is a 88-year-old male with history of pleural effusion and her failure is presenting to emergency Department with a family member for diarrhea. Patient states he was diagnosed with C. diff approximately 3 weeks ago and was treated it but the diarrhea has returned within the last week. Patient denies nausea, vomiting or abdominal pain. Patient denies chest pain, chest tightness or heart palpitations. Patient has visited his family doctor who noticed a small left pleural effusion and advised the patient to with the emergency depar tment if he begins coughing. Patient reports cough starting 2-3 days ago that has not resolved. (Delgado Cummings) - Related Data Home Medications Medication Instructions Recorded Confirmed Aspirin [[place] Aspirin EC] 81 mg PO DAILY 02/06/18 08/18/18 Atorvastatin [Lipitor] 20 mg PO DAILY 02/06/18 08/18/18 Colchicine 0.6 - 1.2 mg PO DIRECTED PRN 02/06/18 08/18/18 Pantoprazole Sodium [Protonix] 40 mg PO DAILY 02/06/18 08/18/18 levETIRAcetam [Keppra] 500 mg PO BID 02/06/18 08/18/18 Allopurinol [Zyloprim] 100 mg PO DAILY 08/18/18 08/18/18 Carvedilol [Coreg] 6.25 mg PO BID 08/18/18 08/18/18 Ergocalciferol (Vitamin D2) 50,000 unit PO FR 08/18/18 08/18/18 [Drisdol] busPIRone HCL [Buspar] 15 mg PO BID 08/18/18 08/18/18 Previous Rx's Medication Instructions Recorded Furosemide [Lasix] 20 mg PO BID@0900,1600 #60 tab 04/25/18 Ipratropium-Albuterol Nebulize 3 ml INHALATION RT-QID #120 04/25/18 [Duoneb 0.5 mg-3 mg/3 ml Soln] ampul.neb Allergies Allergy/AdvReac Type Severity Reaction Status Date / Time No Known Allergies Allergy Verified 08/18/18 14:29 Review of Systems ROS Other: All systems not noted in ROS Statement are negative. <Delgado Cummings - Last Filed: 08/18/18 16:51> ROS Other: All systems not noted in ROS Statement are negative. <Michael Shin - Last Filed: 08/18/18 17:23> ROS Statement: Those systems with pertinent positive or pertinent negative responses have been documented in the HPI. Past Medical History Past Medical History: Coronary Artery Disease (CAD), COPD, Diabetes Mellitus, Hyperlipidemia, Hypertension, Renal Disease Additional Past Medical History / Comment(s): stage 4 kidney failure History of Any Multi-Drug Resistant Organisms: None Reported Past Surgical History: Coronary Bypass/CABG, Pacemaker Type of Cardiac Device: Permanent Pacemaker Device Placement Date:: 2015 Past Psychological History: No Psychological Hx Reported Smoking Status: Never smoker Past Alcohol Use History: None Reported Past Drug Use History: None Reported <Delgado Cummings - Last Filed: 08/18/18 16:51> General Exam Limitations: no limitations, language barrier (Patient does not hear well) General appearance: alert, in no apparent distress Head exam: Present: atraumatic, normocephalic, normal inspection Eye exam: Present: normal appearance, EOMI Pupils: Present: normal accommodation ENT exam: Present: normal exam, mucous membranes dry, TM's normal bilaterally, normal external ear exam Neck exam: Present: normal inspection, full ROM Respiratory exam: Present: decreased breath sounds (Decreased on the left lung base) Cardiovascular Exam: Present: regular rate, normal rhythm, normal heart sounds Extremities exam: Present: normal inspection, full ROM Back exam: Present: normal inspection, full ROM. Absent: CVA tenderness (R), CVA tenderness (L) Neurological exam: Present: alert, oriented X3 Psychiatric exam: Present: normal affect, normal mood Skin exam: Present: warm, intact, normal color <Delgado Cummings - Last Filed: 08/18/18 16:51> Course Vital Signs 08/18/18 08/18/18 13:14 15:10 Temperature 98.7 F Pulse Rate 68 70 Respiratory 18 18 Rate Blood Pressure 113/57 138/65 O2 Sat by Pulse 98 97 Oximetry EKG Findings - EKG Comments: EKG Findings:: EKG: Ventricular paced rhythm, biventricular pacemaker, rate of 70, QRS duration 184, QTC 552 <Michael Shin - Last Filed: 08/18/18 17:23> Medical Decision Making - Lab Data Result diagrams: 08/18/18 14:30 08/18/18 14:30 <Delgado Cummings - Last Filed: 08/18/18 16:51> - Lab Data Result diagrams: 08/18/18 14:30 08/18/18 14:30 <Michael Shin - Last Filed: 08/18/18 17:23> - Medical Decision Making Patient is a 8-year-old male presents emergency Department with diarrhea. CBC is indicated of of leukocytosis. CMP is showing decreased kidney function but this appears to be his baseline when compared to previous labs. Chest x-ray is indicative of left-sided pleural effusion. Patient has a BNP of 10,000. Patient will be placed on IV antibiotics for possible pneumonia. Patient will be admitted for inpatient treatment. Admitting physician is . (Delgado Cummings) Patient is presenting with cough, dyspnea history of left-sided pleural effusion. He has elevated BNP at 10,000, Bernard mild leukocytosis 12.0. He has a large left-sided effusion, concern for adjacent pneumonia given the elevated white cell count, he is covered with broad-spectrum antibiotics. Will be admitted with pulmonology on consult. His diuretics aren't increased. Case is discussed with Dr. Sal, he will admit. (Michael Shin) - Lab Data Lab Results 08/18/18 08/18/18 08/18/18 Range/Units 14:30 14:30 15:17 WBC 12.0 H (3.8-10.6) k/uL RBC 4.18 L (4.30-5.90) m/uL Hgb 13.2 (13.0-17.5) gm/dL Hct 40.9 (39.0-53.0) % MCV 97.9 (80.0-100.0) fL MCH 31.5 (25.0-35.0) pg MCHC 32.1 (31.0-37.0) g/dL RDW 16.0 H (11.5-15.5) % Plt Count 66 L (150-450) k/uL Neutrophils % 71 % Lymphocytes % 18 % Monocytes % 8 % Eosinophils % 1 % Basophils % 0 % Neutrophils # 8.5 H (1.3-7.7) k/uL Lymphocytes # 2.1 (1.0-4.8) k/uL Monocytes # 0.9 (0-1.0) k/uL Eosinophils # 0.1 (0-0.7) k/uL Basophils # 0.0 (0-0.2) k/uL Manual Slide Review Performed Hypochromasia Slight Sodium 140 (137-145) mmol/L Potassium 4.8 (3.5-5.1) mmol/L Chloride 105 (98-107) mmol/L Carbon Dioxide 24 (22-30) mmol/L Anion Gap 11 mmol/L BUN 27 H (9-20) mg/dL Creatinine 1.99 H (0.66-1.25) mg/dL Est GFR (CKD-EPI)AfAm 33 (>60 ml/min/1.73 sqM) Est GFR (CKD-EPI)NonAf 29 (>60 ml/min/1.73 sqM) Glucose 121 H (74-99) mg/dL Calcium 9.0 (8.4-10.2) mg/dL Total Bilirubin 1.8 H (0.2-1.3) mg/dL AST 24 (17-59) U/L ALT 15 L (21-72) U/L Alkaline Phosphatase 103 (38-126) U/L NT-Pro-B Natriuret Pep 9970 pg/mL Total Protein 6.9 (6.3-8.2) g/dL Albumin 3.4 L (3.5-5.0) g/dL C. difficile (EIA) Intrp (Negative) 08/18/18 Range/Units 15:27 WBC (3.8-10.6) k/uL RBC (4.30-5.90) m/uL Hgb (13.0-17.5) gm/dL Hct (39.0-53.0) % MCV (80.0-100.0) fL MCH (25.0-35.0) pg MCHC (31.0-37.0) g/dL RDW (11.5-15.5) % Plt Count (150-450) k/uL Neutrophils % % Lymphocytes % % Monocytes % % Eosinophils % % Basophils % % Neutrophils # (1.3-7.7) k/uL Lymphocytes # (1.0-4.8) k/uL Monocytes # (0-1.0) k/uL Eosinophils # (0-0.7) k/uL Basophils # (0-0.2) k/uL Manual Slide Review Hypochromasia Sodium (137-145) mmol/L Potassium (3.5-5.1) mmol/L Chloride (98-107) mmol/L Carbon Dioxide (22-30) mmol/L Anion Gap mmol/L BUN (9-20) mg/dL Creatinine (0.66-1.25) mg/dL Est GFR (CKD-EPI)AfAm (>60 ml/min/1.73 sqM) Est GFR (CKD-EPI)NonAf (>60 ml/min/1.73 sqM) Glucose (74-99) mg/dL Calcium (8.4-10.2) mg/dL Total Bilirubin (0.2-1.3) mg/dL AST (17-59) U/L ALT (21-72) U/L Alkaline Phosphatase (38-126) U/L NT-Pro-B Natriuret Pep pg/mL Total Protein (6.3-8.2) g/dL Albumin (3.5-5.0) g/dL C. difficile (EIA) Intrp Negative (Negative) Disposition Is patient prescribed a controlled substance at d/c from ED?: No Time of Disposition: 16:52 <Delgado Cummings - Last Filed: 08/18/18 16:51> <Michael Shin - Last Filed: 08/18/18 17:23> Clinical Impression: Diarrhea, Pleural effusion on left Disposition: ADMITTED IP TO THIS HOSP Condition: Stable
[2018-08-18 15:29] LABS: Platelet Count 66 k/uL (150-450)
[2018-08-18] MEDS ORDERED: NALOXONE 0.4 MG/ML 1 ML VIAL IV PRN (16:40)
[2018-08-18] MEDS ORDERED: VANCOMYCIN 1,500 MG in SODIUM CHLORIDE 0.9% 250 ML IVPB STA (16:49)
[2018-08-18] MEDS ORDERED: PIPERACILLIN-TAZOBACTAM 3.375 GM in SODIUM CHLORIDE 0.9% 100 ML IVPB STA (16:50)
[2018-08-18] MEDS: CARVEDILOL 6.25 MG TAB PO SCH (18:09)
[2018-08-18] MEDS: IPRATROPIUM-ALBUTEROL 3 ML NEB INHALATION SCH (20:07)
[2018-08-18] MEDS: FUROSEMIDE 10 MG/ML 2 ML VIAL IV SCH (21:18)
[2018-08-18] MEDS: levETIRAcetam 500 MG TAB PO SCH (21:18)
[2018-08-18] MEDS ORDERED: ALPRAZolam 0.25 MG TAB PO PRN (23:42)
--- NOTE | 2018-08-19 00:54 | HP ---
HISTORY AND PHYSICAL I am covering for Dr. Mata DATE OF SERVICE: 08/18/2018. CHIEF COMPLAINT: Diarrhea. HISTORY OF PRESENT ILLNESS: This 88-year-old gentleman with a past medical history of multiple medical problems including CAD, COPD, diabetes, hypertension, hyperlipidemia, CAD, CABG being followed by Dr. Ishaan Mata in the outpatient setting had a history of pleural effusion on the left side. The patient is complaining of some diarrhea. The patient has previously had a history of C difficile colitis and interestingly multiple testing was negative and subsequently patient became positive later according to the family and was treated with vancomycin with significant improvement. But now the diarrhea returned for the last 1 week and the patient has been having troubles and the patient came to [facility] and admitted for further evaluation and treatment. There is no history of any fever, rigors or chills. No history of headache, loss of consciousness, seizures at this time. There is no history of any recent antibiotic usage. PAST MEDICAL HISTORY: CAD, COPD, diabetes type 2, hypertension, hyperlipidemia, CAD CABG. MEDICATIONS: Prior to admission include: 1. Keppra 500 mg p.o. b.i.d. 2. BuSpar 15 mg p.o. b.i.d. 3. Protonix 40 mg p.o. daily. 4. Lasix 20 mg b.i.d. 5. Coreg 6.25 mg b.i.d. 6. Lipitor 20 mg. 7. Aspirin 81 mg p.o. daily. 8. Drisdol 50,000 p.o. Sunday. 9. Zyloprim 100 mg. 10.Colchicine p.r.n. 11.DuoNeb q.i.d. and p.r.n. ALLERGIES: None. FAMILY HISTORY: History of myocardial infarction in the family. SOCIAL HISTORY: No history of smoking. No history of alcohol intake. REVIEW OF SYSTEMS: ENT: Diminished vision. Diminished hearing. CARDIOVASCULAR: No angina or palpitations. RESPIRATORY: As mentioned earlier. GI: As mentioned earlier. no dysuria or hematuria. CENTRAL NERVOUS SYSTEM: No numbness or weakness. ALLERGY/IMMUNOLOGY: No asthma or hayfever. MUSCULOSKELETAL as mentioned earlier. HEMATOLOGY/ONCOLOGY: No history of anemia. ENDOCRINE: No history of diabetes or hypothyroidism. CONSTITUTIONAL: As mentioned earlier. DERMATOLOGY: Negative. RHEUMATOLOGY negative. PSYCHIATRY as mentioned. PHYSICAL EXAMINATION: Alert and oriented times three. Pulse is 70, blood pressure 125/63, respiration 18, temperature 98.6, pulse ox 97% on room air. HEENT: Conjunctivae normal. Oral mucosa moist. NECK is no jugular venous distention. No carotid bruit. No lymph node enlargement. CARDIOVASCULAR SYSTEM: S1, S2 muffled. No S3, no S4. RESPIRATORY: Breath sounds diminished in the bases. A few scattered rhonchi and crackles. diminished in the left side. ABDOMEN: Soft. Mild diffuse distention. Mild diffuse discomfort. No mass palpable. No guarding. No rigidity. LEGS: No edema. No swelling. NERVOUS SYSTEM: Higher functions as mentioned earlier. Moves all 4 limbs. No focal motor or sensory deficits. LYMPHATICS: No lymph nodes palpable in the neck and axilla. SKIN: No ulcer, rash or bleeding. JOINTS: No active deforming arthropathy. LABS: WBC 12, hemoglobin 13.2, sodium 140, potassium 4.2, creatinine is 1.99, and ALT is 15. Albumin 3.4. C difficile report is negative. NT proBNP is 9970. Chest x-ray reviewed personally by me showed left pleural effusion. The baseline creatinine was fluctuating around 2. ASSESSMENT: 1. Recurrent severe diarrhea, possibly C difficile colitis recurrence. 2. History of C difficile colitis. 3. 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 4. History of coronary artery disease. 5. Chronic obstructive pulmonary disease. 6. Diabetes mellitus type 2. 7. Hypertension. 8. Hyperlipidemia. 9. History of coronary artery disease, coronary artery bypass grafting. 10.History of pacemaker. RECOMMENDATIONS AND DISCUSSION: In this 88-year-old gentleman who presented with multiple complex medical issues, we will monitor the patient closely, continue the current medications, management and we will initiate home medications. I would also recommend empiric treatment for the C difficile colitis given the testing is negative with p.o. vancomycin. An infectious disease evaluation may be sought if the diarrhea is not controlled. Otherwise, the possible recurrence is also a concern. Otherwise continue the rest of the medications. Patient did have a pleural effusion. I will recommend continue the bronchodilators and Lasix also. The prognosis guarded because of multiple complex medical issues. Further recommendations to follow. A copy of dictation being forwarded to Dr. Mata who is the primary physician. See orders for details. MMODL / IJN: [id number] / KELVIN
[2018-08-19] MEDS: VANCOMYCIN ORAL SOLUTION 250 MG/5 ML BOTTLE PO SCH ×4 (01:50→17:26)
[2018-08-19] MEDS: IPRATROPIUM-ALBUTEROL 3 ML NEB INHALATION SCH ×4 (08:55→20:19)
[2018-08-19] MEDS: ALLOPURINOL 100 MG TAB PO SCH (09:44)
[2018-08-19] MEDS: CARVEDILOL 6.25 MG TAB PO SCH ×2 (09:44→17:26)
[2018-08-19] MEDS: levETIRAcetam 500 MG TAB PO SCH ×2 (09:44→21:50)
[2018-08-19] MEDS: ATORVASTATIN 20 MG TAB PO SCH (09:44)
[2018-08-19] MEDS: FUROSEMIDE 10 MG/ML 2 ML VIAL IV SCH ×2 (09:44→21:49)
[2018-08-19] MEDS: ASPIRIN 81 MG PO SCH (09:44)
[2018-08-19] MEDS: PANTOPRAZOLE 40 MG TABLET PO SCH (09:44)
[2018-08-19] MEDS: busPIRone HCl 5 MG TAB PO SCH ×2 (09:45→21:50)
[2018-08-19 09:46] LABS: Calcium 8.6 mg/dL (8.4-10.2); Potassium 3.7 mmol/L (3.5-5.1)
[2018-08-19 10:19] LABS: HCT 38.4 % (39.0-53.0); HGB 11.9 gm/dL (13.0-17.5); Hypochromasia Slight; MCH 30.5 pg (25.0-35.0); MCHC 30.9 g/dL (31.0-37.0); MCV 98.8 fL (80.0-100.0); Mean Platelet Volume 11.7; RBC 3.89 m/uL (4.30-5.90); RDW 14.6 % (11.5-15.5); WBC 7.6 k/uL (3.8-10.6)
[2018-08-19 10:29] LABS: Platelet Count 54 k/uL (150-450)
[2018-08-19 14:31] LABS: Band Neutrophils % 3 %; Eosinophils # (M) 0.08 k/uL (0-0.7); Large Platelets Present; Lymphocytes # (M) 1.52 k/uL (1.0-4.8); Monocytes # (M) 0.84 k/uL (0-1.0); Neutrophils % (M) 65 %; Nucleated Red Blood Cells 0 /100 WBC (0-0); Total Cells Counted 100
--- NOTE | 2018-08-19 16:30 | P.CNPUL ---
History of Present Illness Consult date: 08/19/18 Requesting physician: Ishaan Mata Reason for consult: other Chief complaint: Diarrhea, C. diff colitis, recurrent moderate-sized left pleural effusion History of present illness: This is a 88-year-old white male patient of Dr. Ishaan Mata, with past medical history of diabetes mellitus, hypertension, hyperlipidemia, coronary artery disease status post three-vessel coronary artery bypass 33 years ago, permanent pacemaker, chronic kidney disease III, with his history of left pleural effusion status post left-sided thoracentesis on 04/22/[address] Hassan, would removal of 1100 mL of liz-colored pleural fluid, and the pleural fluid analysis showed a transudate of fluid. Cytology negative for cultures were negative. Patient also has history of systolic congestive heart failure with ejection fraction of 30-35% with moderate aortic and mitral valve regurgitation as well as severe t ricuspid regurgitation. Patient has recently been treated for C. diff colitis, with oral vancomycin. Patient presented to the hospital on 08/18/2018 with complaints of for diarrhea. Patient has been treated with C. diff colitis approximately 3 weeks ago, has been treated, and the diarrhea has returned within the last week. Denied any fever or chills, denied any nausea or vomiting or abdominal pain. Denied any chest pain, shortness of breath or palpitations. Patient seen by his primary care physician who noticed a small left pleural effusion and patient advised the patient will to the emergency department if he noticed any coughing. The patient did have some limited coughing and did go to the emergency department for evaluation although his cough has resolved. Chest x-ray showed a moderately sized left pleural effusion with adjacent atelectasis and/or consolidation similar in appearance to previous chest x-ray from 07/05/2018 with slight increase. Patient denies any pulmonary complaints, no shortness of breath, no pleurisy, no cough. Room air pulse ox is 93%, patient is afebrile, hemodynamically patient is stable, no lower extremity edema. Pro BNP was elevated at 9970, with blood cell count on admission was 12.0, hemoglobin is 13.2, actually's are within normal limits, BUN is 27, creatinine is 1.99, C. diff was positive. No edema or swelling in lower extremities. We a re consulted for the recurrent left pleural effusion, patient is clinically asymptomatic. Review of Systems All systems: negative Constitutional: Denies chills, Denies fever Eyes: denies blurred vision, denies pain Ears, nose, mouth and throat: Denies headache, Denies sore throat Cardiovascular: Denies chest pain, Denies shortness of breath Respiratory: Denies cough Gastrointestinal: Reports diarrhea, Denies abdominal pain, Denies nausea, Denies vomiting Musculoskeletal: Denies myalgias Integumentary: Denies pruritus, Denies rash Neurological: Denies numbness, Denies weakness Psychiatric: Denies anxiety, Denies depression Endocrine: Denies fatigue, Denies weight change Past Medical History Past Medical History: Coronary Artery Disease (CAD), COPD, Diabetes Mellitus, Hyperlipidemia, Hypertension, Renal Disease Additional Past Medical History / Comment(s): stage 4 kidney failure History of Any Multi-Drug Resistant Organisms: None Reported Past Surgical History: Coronary Bypass/CABG, Pacemaker Type of Cardiac Device: Permanent Pacemaker Device Placement Date:: 2015 Past Psychological History: No Psychological Hx Reported Smoking Status: Never smoker Past Alcohol Use History: None Reported Past Drug Use History: None Reported - Past Family History Mother Family Medical History: Myocardial Infarction ([place]) Father Family Medical History: Cancer, Myocardial Infarction ([place]) Medications and Allergies Home Medications Medication Instructions Recorded Confirmed Type Aspirin [[place] Aspirin EC] 81 mg PO DAILY 02/06/18 08/18/18 History Atorvastatin [Lipitor] 20 mg PO DAILY 02/06/18 08/18/18 History Colchicine 0.6 - 1.2 mg PO DIRECTED PRN 02/06/18 08/18/18 History Pantoprazole Sodium [Protonix] 40 mg PO DAILY 02/06/18 08/18/18 History levETIRAcetam [Keppra] 500 mg PO BID 02/06/18 08/18/18 History Furosemide [Lasix] 20 mg PO BID@0900,1600 #60 tab 04/25/18 08/18/18 Rx Ipratropium-Albuterol Nebulize 3 ml INHALATION RT-QID #120 04/25/18 08/18/18 Rx [Duoneb 0.5 mg-3 mg/3 ml Soln] ampul.neb Allopurinol [Zyloprim] 100 mg PO DAILY 08/18/18 08/18/18 History Carvedilol [Coreg] 6.25 mg PO BID 08/18/18 08/18/18 History Ergocalciferol (Vitamin D2) 50,000 unit PO FR 08/18/18 08/18/18 History [Drisdol] busPIRone HCL [Buspar] 15 mg PO BID 08/18/18 08/18/18 History Allergies Allergy/AdvReac Type Severity Reaction Status Date / Time No Known Allergies Allergy Verified 08/18/18 14:29 Physical Exam Vitals: Vital Signs Temp Pulse Pulse Resp BP BP Pulse Ox 08/19/18 07:00 98.1 F 69 16 137/73 93 L 08/19/18 01:25 98.1 F 68 18 112/72 93 L 08/18/18 19:34 98.6 F 70 14 136/71 98 08/18/18 18:04 70 18 125/63 97 08/18/18 17:30 18 138/65 97 Intake and Output 08/19/18 08/19/18 08/19/18 06:59 14:59 22:59 Intake Total 320 Output Total 475 Balance -155 Intake: Oral 320 Output: Urine 475 Other: # Voids 1 # Bowel Movements 4 Weight 70.7 kg GENERAL EXAM: Alert, pleasant, 88-year-old white male, resting comfortably in bed, extremely hard of hearing, hearing aids are currently malfunctioning comfortable in no apparent distress. HEAD: Normocephalic/atraumatic. EYES: Normal reaction of pupils, equal size. Conjunctiva pink, sclera white. NOSE: Clear with pink turbinates. THROAT: No erythema or exudates. NECK: No masses, no JVD, no thyroid enlargement, no adenopathy. CHEST: No chest wall deformity. Symmetrical expansion. LUNGS: Equal air entry with no crackles, wheeze, rhonchi or dullness. Diminished breath sounds over left lower lobe CVS: Regular rate and rhythm, normal S1 and S2, no gallops, no murmurs, no rubs ABDOMEN: Soft, nontender. No hepatosplenomegaly, normal bowel sounds, no guarding or rigidity. EXTREMITIES: No clubbing, no edema, no cyanosis, 2+ pulses and upper and lower extremities. MUSCULOSKELETAL: Muscle strength and tone normal. SPINE: No scoliosis or deformity SKIN: No rashes CENTRAL NERVOUS SYSTEM: Alert and oriented -3. No focal deficits, tone is normal in all 4 extremities. PSYCHIATRIC: Alert and oriented -3. Appropriate affect. Intact judgment and insight. Results - Laboratory Findings CBC and BMP: 08/19/18 07:30 08/19/18 07:30 Abnormal lab findings: Abnormal Labs 08/18/18 08/18/18 08/18/18 14:30 14:30 21:00 WBC 12.0 H RBC 4.18 L Hgb Hct MCHC RDW 16.0 H Plt Count 66 L Neutrophils # 8.5 H BUN 27 H Creatinine 1.99 H Glucose 121 H Total Bilirubin 1.8 H ALT 15 L Albumin 3.4 L C. difficile (EIA) Intrp Positive A 08/19/18 08/19/18 07:30 07:30 WBC RBC 3.89 L Hgb 11.9 L Hct 38.4 L MCHC 30.9 L RDW Plt Count 54 L Neutrophils # BUN 29 H Creatinine 2.02 H Glucose Total Bilirubin ALT Albumin C. difficile (EIA) Intrp - Diagnostic Findings Chest x-ray: report reviewed, image reviewed Assessment and Plan Plan: Assessment: #1. Recurrent left-sided pleural effusion utterly size, with adjacent atelectasis, the patient is clinically asymptomatic, status post left-sided thoracentesis in April 2018 with removal of 1100 and colored pleural fluid with negative cytology and cultures, transudative fluid #2. C. diff colitis #3. Acute kidney injury due to ATN #4. History of congestive heart failure with systolic dysfunction with EF of 30-35%, moderate mitral regurgitation, moderate aortic regurgitation, and trace pulmonary regurgitation, and mild pulmonary hypertension. #5. Diabetes mellitus type 2 #6. Hypertension #7. Hyperlipidemia #8. Coronary artery disease with history of three-vessel bypass grafting 33 years ago #9. Permanent pacemaker #10. Chronic kidney disease stage III #11. Hard of hearing #12. Lifetime nonsmoker, no history of EtOH use Plan: Chest x-ray has been reviewed, showing moderately sized left pleural effusion, and the patient is completely asymptomatic, no plans for thoracentesis. We'll continue to monitor, patient is maintaining stable oxygenation on room air, no pleuritic chest pain, no cough. Vital signs are stable, we'll continue to follow I performed a history & physical examination of the patient and discussed their management with my nurse practitioner, Eulalia Best. I reviewed the nurse practitioner's note and agree with the documented findings and plan of care. Lung sounds are positive for diminished breath sounds throughout the lung troy. The findings and the impression was discussed with the patient. I attest to the documentation by the nurse practitioner. Time with Patient: Greater than 30
[2018-08-20] MEDS: VANCOMYCIN ORAL SOLUTION 250 MG/5 ML BOTTLE PO SCH ×5 (00:07→23:18)
--- NOTE | 2018-08-20 00:30 | P.CONS ---
History of Present Illness - Reason for Consult Consult date: 08/19/18 C. diff colitis Requesting physician: Perez Yusuf - Chief Complaint Diarrhea times few days - History of Present Illness Patient is 88-year-old male with past medical history significant for C. diff colitis diagnosed about 3 weeks ago that apparently was treated with oral vancomycin patient did have recurrence of diarrhea after completing his oral vancomycin that apparently has been treated with oral Flagyl by his primary care physician outpatient setting the moment the patient completed his oral Flagyl the patient diarrhea came back after about 4-5 days patient did have multiple loose stools no blood or mucus in the stools patient did have mild lower abdominal pain but no nausea no vomiting denies having any fever or chills with the symptom for the patient presented back to the hospital the patient has been evaluated by the ER physician, patient did have elevated white count of 12,000 stool for C. diff was sent which came back positive patient be started on oral vancomycin because of his recurrent history of C. diff ID was consulted for further recommendation regarding antibiotic therapy Review of Systems Positive points has been mentioned in HPI rest of the systems negative Past Medical History Past Medical History: Coronary Artery Disease (CAD), COPD, Diabetes Mellitus, Hyperlipidemia, Hypertension, Renal Disease Additional Past Medical History / Comment(s): stage 4 kidney failure History of Any Multi-Drug Resistant Organisms: None Reported Past Surgical History: Coronary Bypass/CABG, Pacemaker Type of Cardiac Device: Permanent Pacemaker Device Placement Date:: 2015 Past Psychological History: No Psychological Hx Reported Smoking Status: Never smoker Past Alcohol Use History: None Reported Past Drug Use History: None Reported - Past Family History Mother Family Medical History: Myocardial Infarction ([place]) Father Family Medical History: Cancer, Myocardial Infarction ([place]) Medications and Allergies Home Medications Medication Instructions Recorded Confirmed Type Aspirin [Isanti Aspirin EC] 81 mg PO DAILY 02/06/18 08/18/18 History Atorvastatin [Lipitor] 20 mg PO DAILY 02/06/18 08/18/18 History Colchicine 0.6 - 1.2 mg PO DIRECTED PRN 02/06/18 08/18/18 History Pantoprazole Sodium [Protonix] 40 mg PO DAILY 02/06/18 08/18/18 History levETIRAcetam [Keppra] 500 mg PO BID 02/06/18 08/18/18 History Furosemide [Lasix] 20 mg PO BID@0900,1600 #60 tab 04/25/18 08/18/18 Rx Ipratropium-Albuterol Nebulize 3 ml INHALATION RT-QID #120 04/25/18 08/18/18 Rx [Duoneb 0.5 mg-3 mg/3 ml Soln] ampul.neb Allopurinol [Zyloprim] 100 mg PO DAILY 08/18/18 08/18/18 History Carvedilol [Coreg] 6.25 mg PO BID 08/18/18 08/18/18 History Ergocalciferol (Vitamin D2) 50,000 unit PO FR 08/18/18 08/18/18 History [Drisdol] busPIRone HCL [Buspar] 15 mg PO BID 08/18/18 08/18/18 History Allergies Allergy/AdvReac Type Severity Reaction Status Date / Time No Known Allergies Allergy Verified 08/18/18 14:29 Physical Exam Vitals: Vital Signs Temp Pulse Pulse Resp BP BP Pulse Ox 08/19/18 17:22 130/70 08/19/18 07:00 98.1 F 69 16 137/73 93 L 08/19/18 01:25 98.1 F 68 18 112/72 93 L 08/18/18 19:34 98.6 F 70 14 136/71 98 08/18/18 18:04 70 18 125/63 97 Intake and Output 08/19/18 08/19/18 08/19/18 06:59 14:59 22:59 Intake Total 320 Output Total 475 Balance -155 Intake: Oral 320 Output: Urine 475 Other: # Voids 1 # Bowel Movements 4 Weight 70.7 kg GENERAL DESCRIPTION: Elderly male lying in bed, no distress. No tachypnea or accessory muscle of respiration use. HEENT: Shows Pallor , no scleral icterus. Oral mucous membrane is dry. No pharyngeal erythema or thrush NECK: Trachea central, no thyromegaly. LUNGS: Unlabored breathing. Clear to auscultation anteriorly. No wheeze or crackle. HEART: S1, S2, regular rate and rhythm. No loud murmur ABDOMEN: Soft, no tenderness , guarding or rigidity, no organomegaly EXTREMITIES: No edema of feet. SKIN: No rash, no masses palpable. NEUROLOGICAL: The patient is awake, alert, oriented x3, mood and affect normal Results CBC & Chem 7: 08/19/18 07:30 08/19/18 07:30 Labs: Abnormal Lab Results - Last 24 Hours (Table) 08/18/18 08/19/18 08/19/18 Range/Units 21:00 07:30 07:30 RBC 3.89 L (4.30-5.90) m/uL Hgb 11.9 L (13.0-17.5) gm/dL Hct 38.4 L (39.0-53.0) % MCHC 30.9 L (31.0-37.0) g/dL Plt Count 54 L (150-450) k/uL BUN 29 H (9-20) mg/dL Creatinine 2.02 H (0.66-1.25) mg/dL C. 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 first episode was treated with oral vancomycin second on with oral Flagyl with no clear history of any recent exposure to antibiotics therapy with a question of relapse from regeneration of the spores Plan: 1-vancomycin 250 mg by mouth every 6 hours which will be given to the patient in a tapering course because of his recurrent episodes 2- patient had been advised to increase his yogurt intake 3- gentle IV fluid we will follow up on clinical condition and cultures to further adjust medicatio n if needed Thank you for this consultation will follow this patient along with you Time with Patient: Greater than 30
--- NOTE | 2018-08-20 08:18 | PN ---
PROGRESS NOTE DATE OF SERVICE: 08/19/2018 This 88-year-old gentleman admitted with significant diarrhea, had C difficile positive. Multiple C difficile testing was previously negative. Patient was started on vancomycin. Multiple consultants are following the patient. Patient also had significant left pleural effusion also. As noted earlier, the patient had multiple recurrences of C difficile colitis. Patient was treated with vancomycin with the previous admission. Currently patient is again back on p.o. vancomycin. Infectious Disease is following the patient closely. PAST MEDICAL HISTORY: Reviewed. REVIEW OF SYSTEMS: CARDIOVASCULAR SYSTEM: No angina or palpitations. RESPIRATORY SYSTEM: As mentioned earlier. GI: As mentioned earlier. ENT: Markedly diminished hearing. MEDICATIONS: Current medications are reviewed and included: 1. DuoNeb q.i.d. and p.r.n. 2. Zyloprim 100 mg daily. 3. Xanax 0.25 t.i.d. 4. Aspirin 81 mg daily. 5. Lipitor 20 mg daily. 6. BuSpar. 7. Coreg 6.25 mg b.i.d. 8. Colcrys 0.6 to p.r.n. 9. Keppra. 10.Narcan. 11.Protonix. 12.Vancomycin. PHYSICAL EXAMINATION: Patient is alert and oriented x3. Pulse 71, blood pressure 130/71, respiration 16, temperature 98.2, pulse ox 94% on room air. HEENT: Conjunctivae normal. NECK: No jugular venous distention. CARDIOVASCULAR: S1, S2 muffled. RESPIRATORY: Breath sounds diminished in the bases. Bilateral scattered rhonchi and crackles. ABDOMEN: Soft, nontender. LEGS: No edema, no swelling. NERVOUS SYSTEM: No focal deficits. LABS: Labs are WBC 7.2, hemoglobin 11.9. Creatinine is 2.02. C difficile is positive. ASSESSMENT: 1. Acute recurrent severe diarrhea, acute Clostridium difficile colitis recurrence. 2. History of Clostridium difficile colitis previously. 3. Chronic diarrhea. 4. 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 5. History of coronary artery disease. 6. Chronic obstructive pulmonary disease. 7. Diabetes mellitus type 2. 8. Hypertension. 9. Hyperlipidemia. 10.History of coronary artery disease, CABG. 11.History of pacemaker. RECOMMENDATIONS AND DISCUSSION: Recommend to continue current medications, continue symptomatic treatment. I would recommend to add Lactinex to the current regimen. Otherwise, we will continue the vancomycin at this time. I would also recommend infectious disease consultation for recurrence of C difficile. If the patient is not feeling better, further interventions such as fecal transplantation may be an option, but overall prognosis remains extremely guarded because of multiple complex medical issues in this elderly frail individual. Further recommendations to follow. BRENDA / IJN: [id number] / MTDD
[2018-08-20] MEDS: busPIRone HCl 5 MG TAB PO SCH ×2 (08:48→20:42)
[2018-08-20] MEDS: levETIRAcetam 500 MG TAB PO SCH ×2 (08:48→20:42)
[2018-08-20] MEDS: ATORVASTATIN 20 MG TAB PO SCH (08:49)
[2018-08-20] MEDS: ALLOPURINOL 100 MG TAB PO SCH (08:49)
[2018-08-20] MEDS: ASPIRIN 81 MG PO SCH (08:49)
[2018-08-20] MEDS: LACTOBACILLUS ACIDOPH & BULGAR 1 EACH PACKET PO SCH ×2 (08:49→20:42)
[2018-08-20] MEDS: FUROSEMIDE 10 MG/ML 2 ML VIAL IV SCH ×2 (08:49→20:42)
[2018-08-20] MEDS: PANTOPRAZOLE 40 MG TABLET PO SCH (08:49)
[2018-08-20] MEDS: CARVEDILOL 6.25 MG TAB PO SCH ×2 (08:49→18:44)
[2018-08-20] MEDS: IPRATROPIUM-ALBUTEROL 3 ML NEB INHALATION SCH ×4 (08:50→20:18)
[2018-08-20 09:53] LABS: Basophils % (A) 0 %; Eosinophils # (A) 0.2 k/uL (0-0.7); Eosinophils % (A) 5 %; HCT 41.5 % (39.0-53.0); HGB 12.8 gm/dL (13.0-17.5); Hypochromasia Moderate; Lymphocytes # (A) 1.7 k/uL (1.0-4.8); Lymphocytes % (A) 34 %; MCH 30.8 pg (25.0-35.0); MCHC 30.9 g/dL (31.0-37.0); MCV 99.4 fL (80.0-100.0); Macrocytosis Slight; Mean Platelet Volume 12.3; Monocytes # (A) 0.4 k/uL (0-1.0); Monocytes % (A) 8 %; Neutrophils # (A) 2.4 k/uL (1.3-7.7); Neutrophils % (A) 48 %; RBC 4.17 m/uL (4.30-5.90); RDW 15.6 % (11.5-15.5); WBC 4.9 k/uL (3.8-10.6)
[2018-08-20 09:58] LABS: Platelet Count 56 k/uL (150-450)
[2018-08-20 10:11] LABS: Calcium 8.9 mg/dL (8.4-10.2); Potassium 3.8 mmol/L (3.5-5.1)
[2018-08-20 10:22] LABS: Large Platelets Present
--- NOTE | 2018-08-20 14:08 | P.PN ---
Subjective Progress Note Date: 08/20/18 Principal diagnosis: Diarrhea, C. difficile colitis, recurrent moderate left pleural effusion. This is a 88-year-old white male patient of Dr. Ishaan Mata, with past medical history of diabetes mellitus, hypertension, hyperlipidemia, coronary artery disease status post three-vessel coronary artery bypass 33 years ago, permanent pacemaker, chronic kidney disease III, with his history of left pleural effusion status post left-sided thoracentesis on 04/22/[address] Hassan, would removal of 1100 mL of liz-colored pleural fluid, and the pleural fluid analysis showed a transudate of fluid. Cytology negative for cultures were negative. Patient also has history of systolic congestive heart failure with ejection fraction of 30-35% with moderate aortic and mitral valve regurgitation as well as severe tricuspid regurgitation. Patient has recently been treated for C. diff colitis, with oral vancomycin. Patient presented to the hospital on 08/18/2018 with complaints of for diarrhea. Patient has been treated with C. diff colitis approximately 3 weeks ago, has been treated, and the diarrhea has returned within the last week. Denied any fever or chills, denied any nausea or vomiting or abdominal pain. Denied any chest pain, shortness of breath or palpitations. Patient seen by his primary care physician who noticed a small left pleural effusion and patient advised the patient will to the emergency department if he noticed any coughing. The patient did have some limited coughing and did go to the emergency department for evaluation although his cough has resolved. Chest x-ray showed a moderately sized left pleural effusion with adjacent atelectasis and/or consolidation similar in appearance to previous chest x-ray from 07/05/2018 with slight increase. Patient denies any pulmonary complaints, no shortness of breath, no pleurisy, no cough. Room air pulse ox is 93%, patient is afebrile, hemodynamically patient is stable, no lower extremity edema. Pro BNP was elevated at 9970, with blood cell count on admission was 12.0, hemoglobin is 13.2, actually's are within normal limits, BUN is 27, creatinine is 1.99, C. diff was positive. No edema or swelling in lower extremities. We are consulted for the recurrent left pleural effusion, patient is clinically asymptomatic. The patient is seen today 08/20/2018 in follow-up on the regular medical floor. He is currently resting comfortably in bed. Awake and alert in no acute distress. No worsening shortness of breath, cough or congestion. Maintaining good O2 saturations in the 90s on room air. He's afebrile. Hemodynamically stable. His diarrhea has slowed down somewhat. Less frequent. White count 4.9. Hemoglobin 12.8. Platelet count 56,000. Creatinine 1.77. He is receiving Lasix 20 mg every 12 hours. On oral vancomycin. Objective - Vital Signs Vital signs: Vital Signs Temp 97.7 F 08/20/18 07:00 Pulse 72 08/20/18 12:18 Resp 16 08/20/18 07:00 BP 132/73 08/20/18 07:00 Pulse Ox 96 08/20/18 07:00 Intake & Output 08/19/18 08/20/18 08/20/18 18:59 06:59 18:59 Intake Total 542 250 520 Output Total 475 Balance 67 250 520 Weight 70 kg Intake: Oral 542 250 520 Output: Urine 475 Other: Voiding Method Toilet # Voids 1 2 - Exam GENERAL EXAM: Alert, pleasant, 88-year-old white male, on room air comfortable in no apparent distress. HEAD: Normocephalic/atraumatic. EYES: Normal reaction of pupils, equal size. Conjunctiva pink, sclera white. NOSE: Clear with pink turbinates. THROAT: No erythema or exudates. NECK: No masses, no JVD, no thyroid enlargement, no adenopathy. CHEST: No chest wall deformity. Symmetrical expansion. LUNGS: Equal air entry with no crackles, wheeze, rhonchi or dullness. Dimi nished breath sounds over left lower lobe CVS: Regular rate and rhythm, normal S1 and S2, no gallops, no murmurs, no rubs ABDOMEN: Soft, nontender. No hepatosplenomegaly, normal bowel sounds, no guar ding or rigidity. EXTREMITIES: No clubbing, no edema, no cyanosis, 2+ pulses and upper and lower extremities. MUSCULOSKELETAL: Muscle strength and tone normal. SPINE: No scoliosis or deformity SKIN: No rashes CENTRAL NERVOUS SYSTEM: No focal deficits, tone is normal in all 4 extremities. PSYCHIATRIC: Alert and oriented -3. Appropriate affect. Intact judgment and insight. - Labs CBC & Chem 7: 08/20/18 08:40 08/20/18 08:40 Labs: Abnormal Lab Results - Last 24 Hours (Table) 08/19/18 08/20/18 08/20/18 Range/Units 07:30 08:40 08:40 RBC 4.17 L (4.30-5.90) m/uL Hgb 12.8 L (13.0-17.5) gm/dL MCHC 30.9 L (31.0-37.0) g/dL RDW 15.6 H (11.5-15.5) % Plt Count 54 L 56 L (150-450) k/uL BUN 25 H (9-20) mg/dL Creatinine 1.77 H (0.66-1.25) mg/dL Glucose 139 H (74-99) mg/dL Assessment and Plan Assessment: Assessment: #1. Recurrent left-sided pleural effusion, with adjacent atelectasis, the patient is clinically asymptomatic, status post left-sided thoracentesis in April 2018 with removal of 1100 and colored pleural fluid with negative cytology and cultures, transudative fluid #2. C. diff colitis, on oral vancomycin #3. Acute kidney injury due to ATN #4. History of congestive heart failure with systolic dysfunction with EF of 30-35%, moderate mitral regurgitation, moderate aortic regurgitation, and trace pulmonary regurgitation, and mild pulmonary hypertension. #5. Diabetes mellitus type 2 #6. Hypertension #7. Hyperlipidemia #8. Coronary artery disease with history of three-vessel bypass grafting 33 years ago #9. Permanent pacemaker #10. Chronic kidney disease stage III #11. Hard of hearing #12. Lifetime nonsmoker, no history of EtOH use Plan: The patient was seen and evaluated by Dr. Adkins. He is currently stable from the pulmonary standpoint. On room air. We'll continue the current treatment plan. Repeat a chest x-ray in the a.m. We'll continue to follow. I, the cosigning physician, performed a history & physical examination of the patient. Lungs sounds diminished left posterior chest. Maintaining good O2 saturations in the 90s on room air. I discussed the assessment and plan of care with my nurse practitioner, Mercy Krishna. I attest to the above note as dictated by her.
[2018-08-20] MEDS ORDERED: CHERRY FLAVOR 60 ML BOTTLE PO PRN (18:45)
--- NOTE | 2018-08-20 20:12 | PN ---
PROGRESS NOTE DATE OF SERVICE: 08/20/2018 This 88-year-old gentleman who was admitted with acute recurrent C difficile colitis is being closely monitored. The patient was started on p.o. vancomycin. Some improvement in the diarrhea. No chest pain. No palpitations. No fever. The patient also had pleural effusion, which is rather chronic at this time. Multiple consultants are following the patient closely. On exam, alert and oriented x3. Pulse is 80, blood pressure 143/73, respiration 15, temperature 97.8, pulse ox 100 % on room air. HEENT: Conjunctivae normal. NECK: No jugular venous distention. CARDIOVASCULAR SYSTEM: S1, S2 muffled. RESPIRATORY SYSTEM: Breath sounds diminished at the bases. A few scattered rhonchi. ABDOMEN: Soft, non-tender. No mass palpable. LEGS: No edema. No swelling. NERVOUS SYSTEM: No focal deficit. Labs at this time show WBC 4.9, hemoglobin 12.8, creatinine 1.77. C difficile positive. ASSESSMENT: 1. Acute recurrent severe diarrhea with acute Clostridium difficile colitis recurrence. 2. History of Clostridium difficile colitis previously. 3. Chronic diarrhea. 4. History of chronic kidney disease with chronic renal failure, stage IV. 5. History of coronary artery disease. 6. History of chronic obstructive pulmonary disease. 7. Diabetes mellitus, type 2. 8. Hypertension. 9. Hyperlipidemia. 10.History of coronary artery disease, coronary artery bypass grafting. 11.History of pacemaker. RECOMMENDATIONS AND DISCUSSION: I recommend to continue current medications, continue with the monitoring, symptomatic treatment. Continue with the p.o. vancomycin. Infectious disease evaluation appreciated. Otherwise, closely follow with Pulmonary. Dr. Garvin has recommended a tapering course because of recurrent episodes and increasing yogurt intake. Further recommendations to follow. Prognosis guarded. MMODL / IJN: [id number] /
--- NOTE | 2018-08-20 21:03 | PN ---
PROGRESS NOTE DATE OF SERVICE: 08/20/2018. REASON FOR FOLLOWUP: C difficile colitis. INTERVAL HISTORY: The patient is currently afebrile. Patient has been breathing comfortably. The patient's diarrhea seems to have slightly decreased. Has about 3 episodes today. No blood or mucus in it. The patient says he is feeling hungry and wants diet to be advanced. No nausea. No vomiting. PHYSICAL EXAMINATION: Blood pressure 143/73 with a pulse of 80, temperature is 97.8. He is 100% on room air. General description is an elderly male, up in the room in no distress. Respiratory system: Unlabored breathing. Clear to auscultation anteriorly. Heart S1, S2. Regular rate and rhythm. ABDOMEN: Soft, no tenderness. LABS: Hemoglobin is 12.1, white count 4.9, BUN of 25, creatinine 1.77. DIAGNOSTIC IMPRESSION AND PLAN: Patient with recurrent C difficile colitis, episode currently on oral vancomycin. The patient seemed to have shown some clinical improvement. Recommending a tapering course of oral vancomycin because of his recurrent episodes and monitor his clinical course closely. Continue supportive care. MMODL / IJN: [id number] /
[2018-08-21] MEDS: VANCOMYCIN ORAL SOLUTION 250 MG/5 ML BOTTLE PO SCH ×3 (05:09→17:17)
[2018-08-21 07:55] LABS: Basophils % (A) 0 %; Eosinophils # (A) 0.2 k/uL (0-0.7); Eosinophils % (A) 3 %; HCT 40.1 % (39.0-53.0); HGB 12.5 gm/dL (13.0-17.5); Hypochromasia Slight; Lymphocytes # (A) 1.7 k/uL (1.0-4.8); Lymphocytes % (A) 29 %; MCH 30.6 pg (25.0-35.0); MCHC 31.1 g/dL (31.0-37.0); MCV 98.2 fL (80.0-100.0); Mean Platelet Volume 11.2; Monocytes # (A) 0.4 k/uL (0-1.0); Monocytes % (A) 6 %; Neutrophils # (A) 3.5 k/uL (1.3-7.7); Neutrophils % (A) 58 %; RBC 4.08 m/uL (4.30-5.90); RDW 14.5 % (11.5-15.5)
[2018-08-21 08:00] LABS: Platelet Count 64 k/uL (150-450)
[2018-08-21 08:01] LABS: Calcium 8.8 mg/dL (8.4-10.2); Potassium 3.6 mmol/L (3.5-5.1)
[2018-08-21] MEDS: PANTOPRAZOLE 40 MG TABLET PO SCH (08:13)
[2018-08-21] MEDS: levETIRAcetam 500 MG TAB PO SCH (08:13)
[2018-08-21] MEDS: FUROSEMIDE 10 MG/ML 2 ML VIAL IV SCH (08:13)
[2018-08-21] MEDS: LACTOBACILLUS ACIDOPH & BULGAR 1 EACH PACKET PO SCH (08:13)
[2018-08-21] MEDS: busPIRone HCl 5 MG TAB PO SCH (08:13)
[2018-08-21] MEDS: ASPIRIN 81 MG PO SCH (08:13)
[2018-08-21] MEDS: ATORVASTATIN 20 MG TAB PO SCH (08:13)
[2018-08-21] MEDS: ALLOPURINOL 100 MG TAB PO SCH (08:13)
[2018-08-21] MEDS: CARVEDILOL 6.25 MG TAB PO SCH ×2 (08:13→17:16)
[2018-08-21] MEDS ORDERED: COLCHICINE 0.6 MG EACH PO PRN (08:17)
[2018-08-21 08:35] LABS: Large Platelets Present
[2018-08-21] MEDS: COLCHICINE 0.6 MG EACH PO PRN ×2 (08:51→13:52)
[2018-08-21] MEDS: IPRATROPIUM-ALBUTEROL 3 ML NEB INHALATION SCH ×3 (09:02→16:09)
[2018-08-21 09:05] VITALS: PULSE 72
--- NOTE | 2018-08-21 13:35 | PN ---
PROGRESS NOTE DATE OF SERVICE: 08/21/2018 REASON FOR FOLLOWUP: Recurrent C difficile colitis. INTERVAL HISTORY: The patient is currently afebrile. The patient denies having any chest pain or shortness of breath or cough. No abdominal pain. Diarrhea has improved. PHYSICAL EXAMINATION: On examination, blood pressure is 131/69 with a pulse of 69, temperature 98.2. He is 96% on room air. General description is an elderly male up in the room in no distress. RESPIRATORY SYSTEM: Unlabored breathing, clear to auscultation anteriorly. HEART: S1, S2. Regular rate and rhythm. ABDOMEN: Soft, no tenderness. LABS: Hemoglobin is 12.5, white count 6.0, BUN of 22, creatinine 1.81. DIAGNOSTIC IMPRESSION AND PLAN: Patient with recurrent Clostridium difficile colitis being his third episode. The patient seemed to have shown clinical improvement on oral vancomycin. Plan at this time is to continue with oral vancomycin in a tapering course. He will receive 250 mg every 6 hours for 10 days followed by 250 mg twice a day for 1 week, then 250 mg daily for 1 week, then 250 mg every other day for 7 . The prescription has been handwritten and sent to the pharmacy as it could not be sent electronically. MMODL / IJN: [id number] /
[2018-08-21 14:19] VITALS: BP 138/75; RESP 20; TEMP 98
--- NOTE | 2018-08-21 14:29 | P.PN ---
Subjective Progress Note Date: 08/21/18 Principal diagnosis: Diarrhea, C. diff colitis, recurrent moderate-sized left pleural effusion This is a 88-year-old white male patient of Dr. Ishaan Mata, with past medical history of diabetes mellitus, hypertension, hyperlipidemia, coronary artery disease status post three-vessel coronary artery bypass 33 years ago, permanent pacemaker, chronic kidney disease III, with his history of left pleural effusion status post left-sided thoracentesis on 04/22/[address] Hassan, would removal of 1100 mL of liz-colored pleural fluid, and the pleural fluid analysis showed a transudate of fluid. Cytology negative for cultures were negative. Patient also has history of systolic congestive heart failure with ejection fraction of 30-35% with moderate aortic and mitral valve regurgitation as well as severe tricuspid regurgitation. Patient has recently been treated for C. diff colitis, with oral vancomycin. Patient presented to the hospital on 08/18/2018 with complaints of for diarrhea. Patient has been treated with C. diff colitis approximately 3 weeks ago, has been treated, and the diarrhea has returned within the last week. Denied any fever or chills, denied any nausea or vomiting or abdominal pain. Denied any chest pain, shortness of breath or palpitations. Patient seen by his primary care physician who noticed a small left pleural effusion and patient advised the patient will to the emergency department if he noticed any coughing. The patient did have some limited coughing and did go to the emergency department for evaluation although his cough has resolved. Chest x-ray showed a moderately sized left pleural effusion with adjacent atelectasis and/or consolidation similar in appearance to previous chest x-ray from 07/05/2018 with slight increase. Patient denies any pulmonary complaints, no shortness of breath, no pleurisy, no cough. Room air pulse ox is 93%, patient is afebrile, hemodynamically patient is stable, no lower extremity edema. Pro BNP was elevated at 9970, with blood cell count on admission was 12.0, hemoglobin is 13.2, actually's are within normal limits, BUN is 27, creatinine is 1.99, C. diff was positive. No edema or swelling in lower extremities. We are consulted for the recurrent left pleural effusion, patient is clinically asymptomatic. The patient is seen today 08/20/2018 in follow-up on the regular medical floor. He is currently resting comfortably in bed. Awake and alert in no acute distress. No worsening shortness of breath, cough or congestion. Maintaining good O2 saturations in the 90s on room air. He's afebrile. Hemodynamically stable. His diarrhea has slowed down somewhat. Less frequent. White count 4.9. Hemoglobin 12.8. Platelet count 56,000. Creatinine 1.77. He is receiving Lasix 20 mg every 12 hours. On oral vancomycin. On 08/21/2018 patient seen in follow-up on medical surgical floor. He is awake and alert, in no acute distress, remains on oral vancomycin for C. diff colitis, patient is tolerating low fiber diet. The diarrhea has subsided. Vital signs are stable, no complaints of shortness of breath or chest pain. Patient is on room air, with a pulse ox of 95%. Acute events overnight, no plans for thoracentesis, he was instructed to come back to the hospital if there is worsening shortness of breath Objective - Vital Signs Vital signs: Vital Signs Temp 98.0 F 08/21/18 14:18 Pulse 72 08/21/18 14:18 Resp 20 08/21/18 14:18 BP 138/75 08/21/18 14:18 Pulse Ox 95 08/21/18 14:18 Intake & Output 08/20/18 08/21/18 08/21/18 18:59 06:59 18:59 Intake Total 2520 320 Output Total 400 Balance 2520 -80 Intake: Oral 2520 320 Output: Urine 400 Other: Voiding Method Toilet # Voids 4 2 # Bowel Movements 1 - Exam ENERAL EXAM: Alert, pleasant, 88-year-old white male, on room air comfortable in no apparent distress. HEAD: Normocephalic/atraumatic. EYES: Normal reaction of pupils, equal size. Conjunctiva pink, sclera white. NOSE: Clear with pink turbinates. THROAT: No erythema or exudates. NECK: No masses, no JVD, no thyroid enlargement, no adenopathy. CHEST: No chest wall deformity. Symmetrical expansion. LUNGS: Equal air entry with no crackles, wheeze, rhonchi or dullness. Diminis hed breath sounds over left lower lobe CVS: Regular rate and rhythm, normal S1 and S2, no gallops, no murmurs, no rubs ABDOMEN: Soft, nontender. No hepatosplenomegaly, normal bowel sounds, no guarding or rigidity. EXTREMITIES: No clubbing, no edema, no cyanosis, 2+ pulses and upper and lower extremities. MUSCULOSKELETAL: Muscle strength and tone normal. SPINE: No scoliosis or deformity SKIN: No rashes CENTRAL NERVOUS SYSTEM: No focal deficits, tone is normal in all 4 extremities. PSYCHIATRIC: Alert and oriented -3. Appropriate affect. Intact judgment and insight. - Labs CBC & Chem 7: 08/21/18 07:30 08/21/18 07:30 Labs: Abnormal Lab Results - Last 24 Hours (Table) 08/21/18 08/21/18 Range/Units 07:30 07:30 RBC 4.08 L (4.30-5.90) m/uL Hgb 12.5 L (13.0-17.5) gm/dL Plt Count 64 L (150-450) k/uL BUN 22 H (9-20) mg/dL Creatinine 1.81 H (0.66-1.25) mg/dL Glucose 123 H (74-99) mg/dL Assessment and Plan Plan: Assessment: #1. Recurrent left-sided pleural effusion utterly size, with adjacent atelectasis, the patient is clinically asymptomatic, status post left-sided thoracentesis in April 2018 with removal of 1100 and colored pleural fluid with negative cytology and cultures, transudative fluid #2. C. diff colitis #3. Acute kidney injury due to ATN #4. History of congestive heart failure with systolic dysfunction with EF of 30-35%, moderate mitral regurgitation, moderate aortic regurgitation, and trace pulmonary regurgitation, and mild pulmonary hypertension. #5. Diabetes mellitus type 2 #6. Hypertension #7. Hyperlipidemia #8. Coronary artery disease with history of three-vessel bypass grafting 33 years ago #9. Permanent pacemaker #10. Chronic kidney disease stage III #11. Hard of hearing #12. Lifetime nonsmoker, no history of EtOH use Plan: Patient remains clinically asymptomatic, denying shortness of breath, no chest pain, vital signs are stable, maintaining good oxygenation on room air, he is being discharged home today, his diarrhea has subsided. Patient was instructed to come back to the hospital if there is worsening shortness of breath. No plans for thoracentesis. I performed a history & physical examination of the patient and discussed their management with my nurse practitioner, Eulalia Best. I reviewed the nurse practitioner's note and agree with the documented findings and plan of care. Lung sounds are positive for diminished breath sounds throughout the lung fi elds. The findings and the impression was discussed with the patient. I attest to the documentation by the nurse practitioner. Time with Patient: Less than 30
--- NOTE | 2018-08-22 09:16 | DS ---
DISCHARGE SUMMARY DATE OF SERVICE: 08/21/2018. FINAL DIAGNOSES: 1. Acute recurrent severe diarrhea with acute clostridium difficile colitis, recurrent. 2. History of Clostridium difficile colitis previously. 3. Chronic diarrhea. 4. 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 5. History of CAD. 6. History of chronic obstructive pulmonary disease. 7. Diabetes mellitus type 2. 8. Hypertension. 9. Hyperlipidemia. 10.History of coronary artery disease, CABG. 11.History of pacemaker. DISCHARGE CONDITION: The patient will be discharged in stable condition with guarded prognosis. HISTORY OF PRESENT ILLNESS: This 88-year-old gentleman with a past history of chronic diarrhea. C difficile testing was negative initial, subsequent testing was positive. The patient was treated with oral vancomycin. The patient improved significantly. Dr. Garvin saw the patient, recommended taper dose of vancomycin. On exam, vital signs are stable. Cardiovascular system stable. Abdomen soft, nontender. Nervous system, no focal deficits. DIET: Cardiac. ACTIVITY: Limited. FOLLOWUP: 1. Follow up with Dr. Ishaan Mata in 2-3 days. 2. Follow up with [facility] as recommended. MEDICATIONS: 1. BuSpar 15 mg p.o. b.i.d. 2. Colchicine 0.6 1.2 mg p.r.n. 3. Coreg 6.25 mg p.o. b.i.d. 4. Vitamin D2 50,000 p.o. Sunday. 5. Keppra 500 mg p.o. b.i.d. 6. Lipitor 20 mg p.o. daily. 7. Protonix 40 mg p.o. daily. 8. Aspirin 81 mg. 9. Zyloprim 100 mg p.o. daily. 10.DuoNeb q.i.d. 11.Lactinex 1 p.o. b.i.d. 12.Lasix 20 mg p.o. b.i.d. 13.Vancomycin 250 mg tapering doses that will be 250 mg b.i.d. for 7 days, 250 mg daily for 7 days, 250 mg p.o. b.i.d. every other day for 7 days and then stop. Once again, the patient will be discharged in stable condition with guarded prognosis. MMODL / IJN: [id number] /
--- NOTE | 2018-08-23 01:59 | CDI ---
Documentation Clarification Form Date: 08/23/18 From: Calvin Wills Phone: call to [phone] Admit Date: 08/18/2018 4:34:00 PM Patient Name: Hasmukh Khan Visit Number: [id number] Discharge Date: 08/21/2018 6:15:00 PM ATTENTION: The Clinical Documentation Specialists (CDI) and [facility] Coding Staff appreciate your assistance in clarifying documentation. Please respond to the clarification below the line at the bottom and electronically sign. The CDI & [facility] Coding staff will review the response and follow-up if needed. Please note: Queries are made part of the Legal Health Record. If you have any questions, please contact the author of this message via ITS. Dr. Paramjit Todd, KATHYA secondary to ATN was documented in the 08/[address] Nasir Esteban and 08/20 progress note documented by [facility] L[facility] and in discharge summary stated "CKD stage 4 with Chronic renal failure". Patient is also having CKD stage 4 and Baseline creatine is around 2. History/Risk Factors: CKD stage 4 Patients baseline BUN/CR/GFR: Baseline creatinine is fluctuating around 2. Current BUN/Cr/GFR:creatinine 1.99, 2.01 , BUN 27H and 29H, GFR 33,29 Treatment: IV fluids. In order to capture the severity of condition, please clarify if the condition signifies: Acute Tubular Necrosis (Ruled in or Ruled out) Acute kidney injury Other, please specify Unable to determine CKD stage 4 and Baseline creatine is around 2. MTDD
== END 2018-08-21 18:15 | disposition home or self-care (01) | DRG 371 ==
LOC: EC 12:41 → 4SSUR 16:34
PROVIDERS: ADMIT Family Medicine; ATTEND Family Medicine
DX: A04.71 Enterocolitis due to Clostridium difficile, recurrent (principal); N17.0 Acute kidney failure with tubular necrosis; N18.4 Chronic kidney disease, stage 4 (severe); I50.22 Chronic systolic (congestive) heart failure; I13.0 Hypertensive heart and chronic kidney disease with heart failure and stage 1 through stage 4 chronic kidney disease, or unspecified chronic kidney disease; J44.9 Chronic obstructive pulmonary disease, unspecified; I25.10 Atherosclerotic heart disease of native coronary artery without angina pectoris; I27.20 Pulmonary hypertension, unspecified; E78.5 Hyperlipidemia, unspecified; I08.3 Combined rheumatic disorders of mitral, aortic and tricuspid valves; E11.22 Type 2 diabetes mellitus with diabetic chronic kidney disease; H91.90 Unspecified hearing loss, unspecified ear; Z95.0 Presence of cardiac pacemaker; Z79.82 Long term (current) use of aspirin; Z79.899 Other long term (current) drug therapy; Z79.51 Long term (current) use of inhaled steroids; Z95.1 Presence of aortocoronary bypass graft; Z86.19 Personal history of other infectious and parasitic diseases; Z82.49 Family history of ischemic heart disease and other diseases of the circulatory system
CPT/HCPCS: 36415; 71046; 80048; 80053; 80061; 83880; 84443; 85025; 85027; 86141; 87324; 93005; 94640; 99285

== ENCOUNTER 2018-09-25 07:37 | Day surgery (SDC) | payer MEDICARE ==
[2018-09-25 08:25] VITALS: RESP 18; TEMP 98.3
[2018-09-25 08:29] LABS: Mean Platelet Volume 10.8
[2018-09-25 08:36] LABS: INR 1.1 (<1.2); Prothrombin Time 11.4 sec (9.0-12.0)
[2018-09-25 08:48] LABS: Platelet Count 80 k/uL (150-450)
--- NOTE | 2018-09-25 09:51 | XR ---
EXAMINATION TYPE: XR chest 1V portable DATE OF EXAM: 09/25/2018 COMPARISON: 08/18/2018 HISTORY: Status post left-sided thoracentesis TECHNIQUE: Single frontal view of the chest is obtained. FINDINGS: There is a persistent small to moderate left pleural effusion remains. There is an enlarge d cardiac mediastinal silhouette with post CABG changes and multilead left-sided cardiac device. Diff use osseous demineralization is seen. No sizable pneumothorax. IMPRESSION: Persistent [id number] left pleural effusion and left basilar airspace disease wit h no postprocedural pneumothorax seen.
[2018-09-25 09:58] VITALS: BP 152/71; PULSE 70
--- NOTE | 2018-09-25 10:00 | US ---
EXAMINATION TYPE: US thoracentesis DATE OF EXAM: 09/25/2018 COMPARISON: NONE HISTORY: Pleural effusion. FINDINGS: Maximal barrier technique was utilized. The skin overlying a suitable pocket of fluid was localized and the overlying skin prepped and draped. Lidocaine was used for local anesthesia. Ultras ound was used with sterile technique. A 5 Latvian catheter over guide needle was advanced into the pl eural fluid collection using ultrasound guidance and the catheter advanced, needle removed. Approxim ately 1.3 liter(s) of serous fluid was removed. Catheter was withdrawn and hemostasis achieved. The re is no immediate complication. The patient discharged in stable condition without complication. IMPRESSION: STATUS POST ULTRASOUND GUIDED THORACENTESIS, POST PROCEDURE CHEST X-RAY PENDING. THIS AL OCEDURE WAS PERFORMED BY THE UNDERSIGNED.
== END 2018-09-25 10:23 | disposition home or self-care (01) ==
LOC: RADPROMAIN 07:37
PROVIDERS: ATTEND Internal Medicine Critical Care Medicine
DX: J90 Pleural effusion, not elsewhere classified (principal); Z95.1 Presence of aortocoronary bypass graft
CPT/HCPCS: 32555; 71045; 82947; 85049; 85610

== ENCOUNTER 2018-11-06 10:44 | Day surgery (SDC) | payer MEDICARE ==
[~2018-11-06 10:44] MED LIST: SODIUM CHLORIDE 0.9% 500 ML 500 ML in EMPTY BAG 1 BAG IV PRN
[2018-11-06] MEDS ORDERED: ATROPINE SULFATE 0.4 MG/ML 1 ML VIAL IM STA (11:35)
[2018-11-06 11:45] VITALS: PULSE 70
[2018-11-06 11:46] VITALS: RESP 16; TEMP 98.2
--- NOTE | 2018-11-06 12:01 | US ---
EXAMINATION TYPE: US chest DATE OF EXAM: 11/06/2018 COMPARISON: NONE CLINICAL HISTORY: MARKINGS FOR LEFT THORACENTESIS. STAT for Procedure Now TECHNIQUE: Targeted ultrasound of the posterior lower left hemithorax EXAM MEASUREMENTS: Left Pleural Effusion pocket size: 8.2 cm A/P Left skin surface to fluid distance: 3.6 cm A/P Left side marked for possible thoracentesis outside the dept. Pulmonologists are able to review the images in the patient?s EMR. IMPRESSIONS: 1. Left pleural effusion.
[2018-11-06 12:04] VITALS: BP 119/56
--- NOTE | 2018-11-06 12:25 | PCN ---
PROCEDURE NOTE PROCEDURE: Left thoracentesis. Dr. Prescott was the impregnator operator. Indication: Pleural effusion. A time-out was completed verifying correct patient, procedure, site, positioning , and implant (s) or special equipment if applicable. Ultrasound guidance was/was not used and appropriate fluid pocket was identified and marked. Patient was positioned, prepped and draped in usual sterile fashion. Lidocaine was used to anesthetize the area. A Thoracentesis catheter was introduced into the pleural space and fluid was removed. Blood loss was none. A chest x-ray was ordered to evaluate for pneumothorax. Total Fluid Removed 1200 mL Color of Fluid: Light yellow in color. Fluid was not sent for appropriate laboratory tests. Patient tolerated the procedure well and there were no complications. Again, chest x-ray was ordered after the procedure. MMODL / IJN: [id number] /
--- NOTE | 2018-11-06 13:03 | XR ---
EXAMINATION TYPE: XR chest 1V portable DATE OF EXAM: 11/06/2018 COMPARISON: Prior chest x-ray dated 10/22/2018 HISTORY: Status post left thoracentesis TECHNIQUE: Single frontal view of the chest is obtained. FINDINGS: Patient is rotated, intracardiac defibrillator leads and post median sternotomy change is again noted. Generator is present in left pectoral region. Retrocardiac density obscures the left hem idiaphragm and heart border. No evident pneumothorax. Heart remains enlarged. Right lung is stable. IMPRESSION: No evident complication status post left thoracentesis.
== END 2018-11-06 14:21 ==
LOC: PROCWHC3 10:44
PROVIDERS: ATTEND Internal Medicine Critical Care Medicine
DX: J90 Pleural effusion, not elsewhere classified (principal); J44.9 Chronic obstructive pulmonary disease, unspecified; I25.10 Atherosclerotic heart disease of native coronary artery without angina pectoris; I12.9 Hypertensive chronic kidney disease with stage 1 through stage 4 chronic kidney disease, or unspecified chronic kidney disease; E11.22 Type 2 diabetes mellitus with diabetic chronic kidney disease; N18.9 Chronic kidney disease, unspecified; E78.5 Hyperlipidemia, unspecified; A04.72 Enterocolitis due to Clostridium difficile, not specified as recurrent; K52.9 Noninfective gastroenteritis and colitis, unspecified; Z95.0 Presence of cardiac pacemaker; Z95.1 Presence of aortocoronary bypass graft; Z98.890 Other specified postprocedural states; Z79.02 Long term (current) use of antithrombotics/antiplatelets; Z79.82 Long term (current) use of aspirin; Z79.899 Other long term (current) drug therapy; Z80.8 Family history of malignant neoplasm of other organs or systems; Z82.49 Family history of ischemic heart disease and other diseases of the circulatory system
CPT/HCPCS: 71045; 76604; 96372; 32555; J0461

== ENCOUNTER 2019-01-07 15:41 | Inpatient (IN) | payer MEDICARE ==
--- NOTE | 2019-01-07 16:23 | ED ---
Fall HPI - General Chief Complaint: Fall Stated Complaint: FALL, HEAD AND LEG INJURY Source: patient Mode of arrival: wheelchair - History of Present Illness Initial Comments: Patient is an 88-year-old male presenting to the emergency Department with complaints of right hip pain after falling today at [employer] parking lot. Patient states he tripped over a curb and fell backwards. Patient states he did hit the back of his head on the pavement. Patient states he is not having a headache at this time and denies neck pain. Patient's biggest complaint is his right upper leg pain. Patient states his pain as sharp and is currently a 7/10 on pain scale. Patient's daughter is here with him now and states she actually seen the patient to walk out of [employer] and felt like he was stumbling and a ppeared to be dizzy prior to his fall. Patient does deny this however daughter is concerned that something else made him fall. Patient does have medical history of heart disease and currently has a pacemaker/defibrillator, hypertension, diabetes, COPD, heart failure, renal disease. There are no other complaints at this time. Upon arrival to the ER, vital signs are stable. - Related Data Home Medications Medication Instructions Recorded Confirmed Atorvastatin [Lipitor] 20 mg PO DAILY 02/06/18 01/07/19 Pantoprazole Sodium [Protonix] 40 mg PO DAILY 02/06/18 01/07/19 levETIRAcetam [Keppra] 500 mg PO BID 02/06/18 01/07/19 Allopurinol [Zyloprim] 100 mg PO DAILY 08/18/18 01/07/19 Carvedilol [Coreg] 6.25 mg PO BID 08/18/18 01/07/19 Furosemide [Lasix] 20 mg PO DAILY 09/20/18 01/07/19 SILVER sulfADIAZINE Cream 1 applic TOPICAL BID PRN 01/07/19 01/07/19 [Silvadene 1% Cream] Spironolactone 25 mg PO DAILY 01/07/19 01/07/19 Torsemide [Demadex] 20 mg PO DAILY 01/07/19 01/07/19 Verapamil HCl [Verapamil ER] 240 mg PO DAILY 01/07/19 01/07/19 Allergies Allergy/AdvReac Type Severity Reaction Status Date / Time No Known Allergies Allergy Verified 11/19/19 18:46 Review of Systems ROS Statement: Those systems with pertinent positive or pertinent negative responses have been documented in the HPI. ROS Other: All systems not noted in ROS Statement are negative. Past Medical History Past Medical History: Coronary Artery Disease (CAD), Heart Failure, COPD, Diabetes Mellitus, Hyperlipidemia, Hypertension, Renal Disease Additional Past Medical History / Comment(s): stage 4 kidney failure. LEFT PLEURAL EFFUSIONS-THORACENTESIS. History of Any Multi-Drug Resistant Organisms: None Reported Past Surgical History: Coronary Bypass/CABG, Pacemaker Additional Past Surgical History / Comment(s): Thoracentesis Type of Cardiac Device: Permanent Pacemaker Device Placement Date:: 2015 Past Psychological History: No Psychological Hx Reported Smoking Status: Never smoker Past Alcohol Use History: None Reported Past Drug Use History: None Reported - Past Family History Mother Family Medical History: Myocardial Infarction (AL) Father Family Medical History: Cancer, Myocardial Infarction (AL) General Exam - General Exam Comments Initial Comments: GENERAL: Well-appearing, well-nourished and in no acute distress. HEAD: Atraumatic, normocephalic. No hematoma seen or felt. EYES: Pupils equal round and reactive to light, extraocular movements intact, sclera anicteric, conjunctiva are normal. ENT: TMs normal, nares patent, oropharynx clear without exudates. Moist mucous membranes. NECK: Normal range of motion, supple without lymphadenopathy or JVD. No pain with p alpation or range of motion. LUNGS: Breath sounds clear to auscultation bilaterally and equal. No wheezes rales or rhonchi. HEART: Regular rate and rhythm without murmurs, rubs or gallops. ABDOMEN: Soft, nontender, normoactive bowel sounds. No guarding, no rebound. No masses appreciated. : Deferred EXTREMITIES: Pain with palpation of the right hip and right upper femur. Patient has pain with hip flexion and internal and external range of motion. Patient is neur ovascular intact. There is no swelling. NEUROLOGICAL: Cranial nerves II through XII grossly intact. Normal speech, normal gait. PSYCH: Normal mood, normal affect. SKIN: Warm, Dry, normal turgor, no rashes or lesions noted. Limitations: physical limitation Course Vital Signs 01/07/19 01/07/19 01/07/19 15:42 17:19 18:00 Temperature 97.8 F Pulse Rate 63 70 Respiratory 18 11 L Rate Blood Pressure 120/71 121/64 O2 Sat by Pulse 94 L 99 99 Oximetry 01/07/19 01/07/19 01/07/19 18:18 18:33 19:00 Temperature Pulse Rate 70 70 70 Respiratory 20 Rate Blood Pressure 133/59 O2 Sat by Pulse 100 Oximetry 01/07/19 01/07/19 19:01 19:13 Temperature 98.9 F Pulse Rate 70 70 Respiratory 18 Rate Blood Pressure 135/68 O2 Sat by Pulse 99 Oximetry Medical Decision Making - Medical Decision Making Patient is an 88-year-old male presenting after a fall complaining of right hip pain. Patient did hit his head. Patient was also worked up for dizziness as his daughter saw him stumbling before he fell. X-rays of the right hip show an acute slightly impacted, subcapital fracture. CT the head and neck show no acute intracranial abnormality. There is no fractures of this cervical spine. EKG shows a ventricular paced rhythm, biventricular pacemaker detected. Laborat ory reveals a potassium of 7.4. BUN and creatinine are also elevated from baseline at 53/ 2.90. Troponin is 0.026. Patient will be admitted for hypokalemia and right hip fracture. Patient was started on calcium gluconate, insulin, sodium bicarb, albuterol for his hyperkalemia. Patient is also given pain meds for his hip fracture. Patient was accepted by Dr. Mata, with ortho consult. - Lab Data Result diagrams: 01/07/19 16:35 01/07/19 17:41 Lab Results 01/07/19 01/07/19 01/07/19 Range/Units 16:35 16:35 16:35 WBC 5.7 (3.8-10.6) k/uL RBC 4.06 L (4.30-5.90) m/uL Hgb 13.3 (13.0-17.5) gm/dL Hct 41.0 (39.0-53.0) % MCV 101.0 H (80.0-100.0) fL MCH 32.7 (25.0-35.0) pg MCHC 32.4 (31.0-37.0) g/dL RDW 15.2 (11.5-15.5) % Plt Count 92 L (150-450) k/uL Neutrophils % 63 % Lymphocytes % 28 % Monocytes % 5 % Eosinophils % 2 % Basophils % 0 % Neutrophils # 3.6 (1.3-7.7) k/uL Lymphocytes # 1.6 (1.0-4.8) k/uL Monocytes # 0.3 (0-1.0) k/uL Eosinophils # 0.1 (0-0.7) k/uL Basophils # 0.0 (0-0.2) k/uL Manual Slide Review Performed Hypochromasia Slight Macrocytosis Slight PT 10.6 (9.0-12.0) sec INR 1.0 (<1.2) APTT 24.0 (22.0-30.0) sec Sodium 137 (137-145) mmol/L Potassium 7.4 H* (3.5-5.1) mmol/L Chloride 105 (98-107) mmol/L Carbon Dioxide 19 L (22-30) mmol/L Anion Gap 13 mmol/L BUN 53 H (9-20) mg/dL Creatinine 2.90 H (0.66-1.25) mg/dL Est GFR (CKD-EPI)AfAm 21 (>60 ml/min/1.73 sqM) Est GFR (CKD-EPI)NonAf 18 (>60 ml/min/1.73 sqM) Glucose 251 H (74-99) mg/dL Calcium 9.9 (8.4-10.2) mg/dL Total Bilirubin 0.7 (0.2-1.3) mg/dL AST 50 (17-59) U/L ALT 49 (21-72) U/L Alkaline Phosphatase 137 H (38-126) U/L Troponin I (0.000-0.034) ng/mL Total Protein 8.0 (6.3-8.2) g/dL Albumin 4.0 (3.5-5.0) g/dL 01/07/19 01/07/19 Range/Units 16:35 17:41 WBC (3.8-10.6) k/uL RBC (4.30-5.90) m/uL Hgb (13.0-17.5) gm/dL Hct (39.0-53.0) % MCV (80.0-100.0) fL MCH (25.0-35.0) pg MCHC (31.0-37.0) g/dL RDW (11.5-15.5) % Plt Count (150-450) k/uL Neutrophils % % Lymphocytes % % Monocytes % % Eosinophils % % Basophils % % Neutrophils # (1.3-7.7) k/uL Lymphocytes # (1.0-4.8) k/uL Monocytes # (0-1.0) k/uL Eosinophils # (0-0.7) k/uL Basophils # (0-0.2) k/uL Manual Slide Review Hypochromasia Macrocytosis PT (9.0-12.0) sec INR (<1.2) APTT (22.0-30.0) sec Sodium (137-145) mmol/L Potassium 7.4 H* (3.5-5.1) mmol/L Chloride (98-107) mmol/L Carbon Dioxide (22-30) mmol/L Anion Gap mmol/L BUN (9-20) mg/dL Creatinine (0.66-1.25) mg/dL Est GFR (CKD-EPI)AfAm (>60 ml/min/1.73 sqM) Est GFR (CKD-EPI)NonAf (>60 ml/min/1.73 sqM) Glucose (74-99) mg/dL Calcium (8.4-10.2) mg/dL Total Bilirubin (0.2-1.3) mg/dL AST (17-59) U/L ALT (21-72) U/L Alkaline Phosphatase (38-126) U/L Troponin I 0.026 (0.000-0.034) ng/mL Total Protein (6.3-8.2) g/dL Albumin (3.5-5.0) g/dL - EKG Data EKG Comments: Ventricular rate 70, QRS duration is 152, QTC is 496. Ventricular paced rhythm, biventricular pacemaker detected. Disposition Clinical Impression: Hyperkalemia, Closed right hip fracture Disposition: ADMITTED IP TO THIS [facility] Condition: Good Is patient prescribed a controlled substance at d/c from ED?: No Decision Date: 01/07/19 Decision Time: 18:22
[2019-01-07] MEDS ORDERED: MORPHINE SULFATE 2 MG/ML SYRINGE IVP ONE (17:02)
[2019-01-07 17:08] LABS: Prothrombin Time 10.6 sec (9.0-12.0)
[2019-01-07 17:10] LABS: Calcium 9.9 mg/dL (8.4-10.2); Total Bilirubin 0.7 mg/dL (0.2-1.3)
--- NOTE | 2019-01-07 17:10 | CT ---
EXAMINATION TYPE: CT brain [place] cook con DATE OF EXAM: 01/07/2019 COMPARISON: 04/17/[address] scan HISTORY: fall with head trauma CT DLP: 1300.9 mGycm Automated exposure control for dose reduction was used. TECHNIQUE: CT scan of the head and cervical spine are performed without contrast. FINDINGS: There is cerebral cortical atrophy. There is no mass effect nor midline shift. There is n o sign of intracranial hemorrhage. There is patchy hypodensity in the periventricular white matter. T he calvarium is intact. There is mild multilevel spondylotic changes in the cervical spine. There is no compression fracture. There is mild spurring of the endplates. There is minor hypertrophic facet arthropathy. The skull ba se is intact. IMPRESSION: Cerebral atrophy and chronic small vessel ischemia. No acute intracranial abnormality. No significant change. Spondylotic mild changes in the cervical spine. No fracture.
[2019-01-07 17:16] LABS: Basophils % (A) 0 %; Eosinophils # (A) 0.1 k/uL (0-0.7); Eosinophils % (A) 2 %; HGB 13.3 gm/dL (13.0-17.5); Hypochromasia Slight; Lymphocytes # (A) 1.6 k/uL (1.0-4.8); Lymphocytes % (A) 28 %; MCH 32.7 pg (25.0-35.0); MCHC 32.4 g/dL (31.0-37.0); Macrocytosis Slight; Mean Platelet Volume 9.7; Monocytes # (A) 0.3 k/uL (0-1.0); Monocytes % (A) 5 %; Neutrophils # (A) 3.6 k/uL (1.3-7.7); Neutrophils % (A) 63 %; RBC 4.06 m/uL (4.30-5.90); RDW 15.2 % (11.5-15.5); WBC 5.7 k/uL (3.8-10.6)
[2019-01-07 17:17] LABS: Potassium 7.4 mmol/L (3.5-5.1)
--- NOTE | 2019-01-07 17:21 | XR ---
EXAMINATION TYPE: XR femur RT DATE OF EXAM: 01/07/2019 COMPARISON: NONE HISTORY: Hip pain TECHNIQUE: 4 views FINDINGS: There is some cortical deformity on the lateral aspect of the humeral head. This is probabl y a subcapital fracture. There is no dislocation. Distal femur is intact. There is spurring on the trejo perior patella. IMPRESSION: Acute subcapital fracture right femur.
--- NOTE | 2019-01-07 17:22 | XR ---
EXAMINATION TYPE: XR Hip RT and AP Pelvis DATE OF EXAM: 01/07/2019 COMPARISON: NONE HISTORY: Hip pain after falling TECHNIQUE: A single AP view of the pelvis is obtained. Two views of the right hip are obtained. FINDINGS: The pelvic ring is intact. There is some deformity of the neck of the right femur related t o is slightly impacted acute subcapital fracture. There is no dislocation. Sacroiliac joints appear i ntact. IMPRESSION: Acute subcapital fracture right femur.
[2019-01-07] MEDS ORDERED: INSULIN REGULAR 100 UNIT/ML VIAL IV ONE (17:42)
[2019-01-07] MEDS ORDERED: CALCIUM GLUCONATE 1 GM in SODIUM CHLORIDE 0.9% 100 ML IVPB ONE (17:42)
[2019-01-07] MEDS ORDERED: SODIUM POLYSTYRENE SULFONATE 15 GM/60 ML BOTTLE PO ONE (17:42)
[2019-01-07] MEDS ORDERED: DEXTROSE 10 % IN WATER 250 ML IV ONE (17:42)
[2019-01-07] MEDS ORDERED: SODIUM BICARB 8.4% 50 ML SYR (1 MEQ/ML) IV ONE (17:42)
[2019-01-07] MEDS ORDERED: ALBUTEROL NEB (CONC) 2.5 MG/0.5 ML INHALATION ONE (17:42)
[2019-01-07 17:45] LABS: Platelet Count 92 k/uL (150-450)
[2019-01-07] MEDS ORDERED: ONDANSETRON 4 MG/2 ML VIAL IVP PRN (18:05)
[2019-01-07] MEDS ORDERED: traMADol 50 MG TAB PO PRN (18:05)
[2019-01-07] MEDS ORDERED: NALOXONE 0.4 MG/ML 1 ML VIAL IV PRN (18:05)
[2019-01-07] MEDS: MORPHINE SULFATE 4 MG/ML SYRINGE IV PRN ×2 (19:24→20:47)
[2019-01-07 22:01] LABS: Appearance,Urine Clear (Clear); Bilirubin,Urine Negative (Negative); Blood,Urine Negative (Negative); Color,Urine Light Yellow; Glucose,Urine (UA) 2+ (Negative); Ketones,Urine Negative (Negative); Leukocyte Esterase,Urine Negative (Negative); Nitrite,Urine Negative (Negative); PH, Urine 6.5 (5.0-8.0); Protein,Urine Negative (Negative); Specific Gravity,Urine 1.012 (1.001-1.035); Urobilinogen,Urine <2.0 mg/dL (<2.0)
[2019-01-08] MEDS: MORPHINE SULFATE 4 MG/ML SYRINGE IV PRN ×5 (01:15→14:50)
--- NOTE | 2019-01-08 09:33 | P.NPCON ---
History of Present Illness - Reason for Consult acute renal failure, chronic renal failure - History of Present Illness Reason for admission: Acute kidney injury on chronic kidney disease History of present illness: Patient is a 88-year-old male seen in consultation for acute kidney injury on chronic kidney disease. 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 Creatinine on admission was 2.9 a potassium level is elevated at 7.4. Hyperkalemia was medically treated with IV calcium, IV insulin, sodium bicarbonate as well as Kayexalate. Repeat potassium level did improve to 5.9. Labs from this morning are pending. He should is currently resting in bed. He is not a very reliable historian. Patient sustained a fall in the [email or web address] parking lot yesterday and was brought to the hospital. He was complaining of right hip pain. Imaging revealed acute subcapital right femur fracture. He will be potentially going for surgery today . Patient does have history of systolic CHF. I do note that he was taking Lasix as well as torsemide along with Aldactone at home. Currently all diuretics were held. No edema. I don't see any nonsteroidals and his home medications. No history of diabetes. Urinalysis is quite benign. Vital signs are stable. General: The patient appeared well nourished and normally developed. HEENT: Head exam is unremarkable. Neck is without jugular venous distension. LUNGS: Lungs are clear to auscultation and percussion. Breath sounds decreased. HEART: Rate and Rhythm are regular. First and second heart sounds normal. No murmurs, rubs or gallops. ABDOMEN: Abdominal exam reveals normal bowel sounds. Non-tender and non- distended. No evidence of peritonitis. EXTREMITITES: No clubbing, cyanosis, or edema. Past Medical History Past Medical History: Coronary Artery Disease (CAD), Heart Failure, COPD, Diabetes Mellitus, Hyperlipidemia, Hypertension, Renal Disease Additional Past Medical History / Comment(s): stage 4 kidney failure. LEFT PLEURAL EFFUSIONS-THORACENTESIS. History of Any Multi-Drug Resistant Organisms: None Reported Past Surgical History: Coronary Bypass/CABG, Pacemaker Additional Past Surgical History / Comment(s): Thoracentesis Type of Cardiac Device: Permanent Pacemaker Device Placement Date:: 2015 Past Psychological History: No Psychological Hx Reported Smoking Status: Never smoker Past Alcohol Use History: None Reported Past Drug Use History: None Reported - Past Family History Mother Family Medical History: Myocardial Infarction ([place]) Father Family Medical History: Cancer, Myocardial Infarction ([place]) Medications and Allergies Home Medications Medication Instructions Recorded Confirmed Type Atorvastatin [Lipitor] 20 mg PO DAILY 02/06/18 01/07/19 History Pantoprazole Sodium [Protonix] 40 mg PO DAILY 02/06/18 01/07/19 History levETIRAcetam [Keppra] 500 mg PO BID 02/06/18 01/07/19 History Allopurinol [Zyloprim] 100 mg PO DAILY 08/18/18 01/07/19 History Carvedilol [Coreg] 6.25 mg PO BID 08/18/18 01/07/19 History Furosemide [Lasix] 20 mg PO DAILY 09/20/18 01/07/19 History SILVER sulfADIAZINE Cream 1 applic TOPICAL BID PRN 01/07/19 01/07/19 History [Silvadene 1% Cream] Spironolactone 25 mg PO DAILY 01/07/19 01/07/19 History Torsemide [Demadex] 20 mg PO DAILY 01/07/19 01/07/19 History Verapamil HCl [Verapamil ER] 240 mg PO DAILY 01/07/19 01/07/19 History Allergies Allergy/AdvReac Type Severity Reaction Status Date / Time No Known Allergies Allergy Verified 01/07/19 18:46 Physical Exam Vitals: Vital Signs Temp Pulse Pulse Pulse Resp BP BP 01/08/19 08:00 98.4 F 79 17 138/75 01/08/19 01:18 97.8 F 69 16 133/72 01/07/19 22:04 98.3 F 70 16 138/67 01/07/19 21:53 98.8 F 70 18 133/70 01/07/19 20:36 71 18 102/57 01/07/19 19:13 98.9 F 70 18 135/68 01/07/19 19:01 70 01/07/19 19:00 70 20 133/59 01/07/19 18:33 70 01/07/19 18:18 70 01/07/19 18:00 70 11 L 121/64 01/07/19 17:19 01/07/19 15:42 97.8 F 63 18 120/71 Pulse Ox 01/08/19 08:00 93 L 01/08/19 01:18 98 01/07/19 22:04 99 01/07/19 21:53 99 01/07/19 20:36 98 01/07/19 19:13 99 01/07/19 19:01 01/07/19 19:00 100 01/07/19 18:33 01/07/19 18:18 01/07/19 18:00 99 01/07/19 17:19 99 01/07/19 15:42 94 L Intake and Output 01/07/19 01/08/19 01/08/19 22:59 06:59 14:59 Other: Voiding Method Urinal # Voids 1 Weight 71.668 kg 70.5 kg Results - Lab Results Most recent lab results Calcium 9.9 mg/dL (8.4-10.2) 01/07/19 16:35 01/07/19 16:35 01/07/19 20:30 Assessment and Plan Plan: Assessment: 1. Acute kidney injury mostly prerenal secondary to overdiuresis. Creatinine 2.9 on admission. Rule out urinary retention. 2. Hyperkalemia secondary to acute kidney injury, metabolic acidosis and further worsened with the use of Aldactone. Improved with medical management. 3. Acute right femur fracture due to fall. 4. Chronic systolic CHF with ejection fraction of 30-35% with moderate to severe tricuspid regurgitation and moderate mitral regurgitation. Plan: Start normal saline at 50 mL an hour. Hold diuretics. Low potassium diet. Check bladder scan to rule out urinary retention. To insert Jovel catheter if greater than 300 mL of urine present. Follow-up morning labs. Add oral sodium bicarbonate. His potassium level trending down, he can proceed with the surgery. Thank you for the consultation. I will continue to follow the patient with you during his hospital stay.
[2019-01-08 09:36] LABS: Calcium 9.4 mg/dL (8.4-10.2); Potassium 5.9 mmol/L (3.5-5.1)
[2019-01-08] MEDS: SODIUM CHLORIDE 0.9% 1,000 ML IV SCH (10:02)
--- NOTE | 2019-01-08 10:08 | P.CNOR ---
History of Present Illness - [facility] Consult date: 01/08/19 Consult reason: fracture History of present illness: Mr. Khan is a pleasant 88-year-old male who was admitted to the emergency department after a mechanical fall yesterday, on 01/07/19.He states that he was walking out of [employer] missed a step coming off the curb and fell, landing on his right hip. He denies dizziness or symptoms leading up to the fall. He denies antecedent hip pain.He normally ambulates without the use of assist devices. He does admit that he will use a walker occasionally for longer distances but prefers not to, stating that "Walkers are for old people. "He did hit his head during the fall but denies any loss of consciousness. He localizes the pain to the right hip. Past Medical History Past Medical History: Coronary Artery Disease (CAD), Heart Failure, COPD, Diabetes Mellitus, Hyperlipidemia, Hypertension, Renal Disease Additional Past Medical History / Comment(s): stage 4 kidney failure. LEFT PLEURAL EFFUSIONS-THORACENTESIS. History of Any Multi-Drug Resistant Organisms: None Reported Past Surgical History: Coronary Bypass/CABG, Pacemaker Additional Past Surgical History / Comment(s): Thoracentesis Type of Cardiac Device: Permanent Pacemaker Device Placement Date:: 2015 Past Psychological History: No Psychological Hx Reported Smoking Status: Never smoker Past Alcohol Use History: None Reported Past Drug Use History: None Reported - Past Family History Mother Family Medical History: Myocardial Infarction ([place]) Father Family Medical History: Cancer, Myocardial Infarction ([place]) Medications and Allergies Home Medications Medication Instructions Recorded Confirmed Type Atorvastatin [Lipitor] 20 mg PO DAILY 02/06/18 01/07/19 History Pantoprazole Sodium [Protonix] 40 mg PO DAILY 02/06/18 01/07/19 History levETIRAcetam [Keppra] 500 mg PO BID 02/06/18 01/07/19 History Allopurinol [Zyloprim] 100 mg PO DAILY 08/18/18 01/07/19 History Carvedilol [Coreg] 6.25 mg PO BID 08/18/18 01/07/19 History Furosemide [Lasix] 20 mg PO DAILY 09/20/18 01/07/19 History SILVER sulfADIAZINE Cream 1 applic TOPICAL BID PRN 01/07/19 01/07/19 History [Silvadene 1% Cream] Spironolactone 25 mg PO DAILY 01/07/19 01/07/19 History Torsemide [Demadex] 20 mg PO DAILY 01/07/19 01/07/19 History Verapamil HCl [Verapamil ER] 240 mg PO DAILY 01/07/19 01/07/19 History Allergies Allergy/AdvReac Type Severity Reaction Status Date / Time No Known Allergies Allergy Verified 01/07/19 18:46 Physical Examination HEENT: Normocephalic and atraumatic. Cardiovascular: Regular rate and rhythm. Pulmonary: No audible wheeze or conversational dyspnea Abdomen: Soft & nontender Musculoskeletal: Mild tenderness to palpation on the lateral aspect of the right hip. There is no erythema, ecchymosis or abrasions. Leg lengths appear symmetric and there is no gross rotational mal-alignment. He demonstrates pain with logroll. Light touch sensation is subjectively intact throughout the right leg. Intact gross motor function to the tibialis anterior, EHL and gastroc-soleus complex. The foot is warm, dry and well perfused. The pelvis is stable to AP and lateral compression. Focal tenderness to palpation throughout the left lower extremity or bilateral upper extremities. Results X-rays of the pelvis and right hip were reviewed and interpreted from an orthopedic standpoint. These demonstrate a complete, but minimally displaced, subcapital right femoral neck fracture. There is mild impaction at the superior neck no significant displacement or step-off inferiorly. No disruption of the trabecular pattern. No other fractures or acute osseous pathology is appreciated. - Labs Labs: Abnormal Lab Results - Last 24 Hours (Table) 01/07/19 01/07/19 01/07/19 Range/Units 16:35 16:35 17:41 RBC 4.06 L (4.30-5.90) m/uL MCV 101.0 H (80.0-100.0) fL Plt Count 92 L (150-450) k/uL Potassium 7.4 H* 7.4 H* (3.5-5.1) mmol/L Carbon Dioxide 19 L (22-30) mmol/L BUN 53 H (9-20) mg/dL Creatinine 2.90 H (0.66-1.25) mg/dL Glucose 251 H (74-99) mg/dL Alkaline Phosphatase 137 H (38-126) U/L Urine Glucose (UA) (Negative) 01/07/19 01/07/19 01/08/19 Range/Units 20:30 21:55 09:11 RBC (4.30-5.90) m/uL MCV (80.0-100.0) fL Plt Count (150-450) k/uL Potassium 5.9 H 5.9 H (3.5-5.1) mmol/L Carbon Dioxide (22-30) mmol/L BUN 48 H (9-20) mg/dL Creatinine 2.59 H (0.66-1.25) mg/dL Glucose 144 H (74-99) mg/dL Alkaline Phosphatase (38-126) U/L Urine Glucose (UA) 2+ H (Negative) H & H 01/07/19 Range/Units 16:35 Hgb 13.3 (13.0-17.5) gm/dL Hct 41.0 (39.0-53.0) % Coagulation 01/07/19 Range/Units 16:35 INR 1.0 (<1.2) Result Diagrams: 01/07/19 16:35 01/08/19 09:11 Assessment and Plan Assessment: Impression: 1. Minimally displaced right subcapital femoral neck fracture 2. Stage IIIB CKD 3. Cardiovascular disease status post CABG and pacemaker implantation Plan: I discussed the diagnosis and radiographic findings with the patient. We reviewed the pertinent anatomy and pathophysiology of the injury. We discussed treatment options and I explained the rationale behind surgical intervention. We discussed the pros and cons of screw fixation versus hemiarthroplasty. Given that the fracture is essentially nondisplaced, I recommended operative treatment in the form of in situ screw fixation. We discussed the surgical plan. Risks and benefits were reviewed including (but not limited to) the risks of infection, bleeding, blood clots, avascular necrosis and possible need for additional surgery. Questions were invited and answered. The patient expressed understanding and wishes to proceed with surgery. The patient will be kept on bedrest. Continue PRN pain management. NPO. We will plan for surgery after preoperative evaluation by the internal medicine team. We will tentatively plan for surgery this afternoon. Thank you for allowing me to participate in the care of this patient. Moe Uribe D.O. [facility]
[2019-01-08] MEDS ORDERED: DEXTROSE 10 % IN WATER 250 ML IV ONE (10:42)
[2019-01-08] MEDS ORDERED: SODIUM BICARB 8.4% 50 ML SYR (1 MEQ/ML) IV ONE (10:42)
[2019-01-08] MEDS ORDERED: INSULIN REGULAR 100 UNIT/ML VIAL IV ONE (11:00)
--- NOTE | 2019-01-08 11:19 | P.HPIM ---
History of Present Illness H&P Date: 01/08/19 88-year-old male had fallen [employer]'s parking lot was a trip and fall. Patient sustained a right hip fracture also had injury denies headache at this time. Patient has a history of coronary disease with history of CABG and pacemaker. Patient also stage IV kidney failure. Review of Systems Musculoskeletal: right: hip pain Past Medical History Past Medical History: Coronary Artery Disease (CAD), Heart Failure, COPD, Diabetes Mellitus, Hyperlipidemia, Hypertension, Renal Disease Additional Past Medical History / Comment(s): stage 4 kidney failure. LEFT PLEURAL EFFUSIONS-THORACENTESIS. History of Any Multi-Drug Resistant Organisms: None Reported Past Surgical History: Coronary Bypass/CABG, Pacemaker Additional Past Surgical History / Comment(s): Thoracentesis Type of Cardiac Device: Permanent Pacemaker Device Placement Date:: 2015 Past Psychological History: No Psychological Hx Reported Smoking Status: Never smoker Past Alcohol Use History: None Reported Past Drug Use History: None Reported - Past Family History Mother Family Medical History: Myocardial Infarction ([place]) Father Family Medical History: Cancer, Myocardial Infarction ([place]) Medications and Allergies Home Medications Medication Instructions Recorded Confirmed Type Atorvastatin [Lipitor] 20 mg PO DAILY 02/06/18 01/07/19 History Pantoprazole Sodium [Protonix] 40 mg PO DAILY 02/06/18 01/07/19 History levETIRAcetam [Keppra] 500 mg PO BID 02/06/18 01/07/19 History Allopurinol [Zyloprim] 100 mg PO DAILY 08/18/18 01/07/19 History Carvedilol [Coreg] 6.25 mg PO BID 08/18/18 01/07/19 History Furosemide [Lasix] 20 mg PO DAILY 09/20/18 01/07/19 History SILVER sulfADIAZINE Cream 1 applic TOPICAL BID PRN 01/07/19 01/07/19 History [Silvadene 1% Cream] Spironolactone 25 mg PO DAILY 01/07/19 01/07/19 History Torsemide [Demadex] 20 mg PO DAILY 01/07/19 01/07/19 History Verapamil HCl [Verapamil ER] 240 mg PO DAILY 01/07/19 01/07/19 History Allergies Allergy/AdvReac Type Severity Reaction Status Date / Time No Known Allergies Allergy Verified 01/07/19 18:46 Physical Exam Vitals: Vital Signs Temp Pulse Pulse Pulse Resp BP BP 01/08/19 08:00 98.4 F 79 17 138/75 01/08/19 01:18 97.8 F 69 16 133/72 01/07/19 22:04 98.3 F 70 16 138/67 01/07/19 21:53 98.8 F 70 18 133/70 01/07/19 20:36 71 18 102/57 01/07/19 19:13 98.9 F 70 18 135/68 01/07/19 19:01 70 01/07/19 19:00 70 20 133/59 01/07/19 18:33 70 01/07/19 18:18 70 01/07/19 18:00 70 11 L 121/64 01/07/19 17:19 01/07/19 15:42 97.8 F 63 18 120/71 Pulse Ox 01/08/19 08:00 93 L 01/08/19 01:18 98 01/07/19 22:04 99 01/07/19 21:53 99 01/07/19 20:36 98 01/07/19 19:13 99 01/07/19 19:01 01/07/19 19:00 100 01/07/19 18:33 01/07/19 18:18 01/07/19 18:00 99 01/07/19 17:19 99 01/07/19 15:42 94 L Intake and Output 01/07/19 01/08/19 01/08/19 22:59 06:59 14:59 Other: Voiding Method Urinal # Voids 1 Weight 71.668 kg 70.5 kg - Constitutional General appearance: mild distress - EENT Eyes: PERRLA ENT: hard of hearing Ears: bilateral: normal - Respiratory Respiratory: bilateral: CTA - Cardiovascular Rhythm: regular Abnormal Heart Sounds: systolic murmur - Gastrointestinal General gastrointestinal: normal bowel sounds, soft - Integumentary Integumentary: normal - Neurologic Neurologic: CNII-XII intact - Musculoskeletal Musculoskeletal: generalized weakness - Psychiatric Psychiatric: A&O x's 3, appropriate affect Results CBC & Chem 7: 01/07/19 16:35 01/08/19 09:11 Labs: Abnormal Lab Results - Last 24 Hours (Table) 01/07/19 01/07/19 01/07/19 Range/Units 16:35 16:35 17:41 RBC 4.06 L (4.30-5.90) m/uL MCV 101.0 H (80.0-100.0) fL Plt Count 92 L (150-450) k/uL Potassium 7.4 H* 7.4 H* (3.5-5.1) mmol/L Carbon Dioxide 19 L (22-30) mmol/L BUN 53 H (9-20) mg/dL Creatinine 2.90 H (0.66-1.25) mg/dL Glucose 251 H (74-99) mg/dL Alkaline Phosphatase 137 H (38-126) U/L Urine Glucose (UA) (Negative) 01/07/19 01/07/19 01/08/19 Range/Units 20:30 21:55 09:11 RBC (4.30-5.90) m/uL MCV (80.0-100.0) fL Plt Count (150-450) k/uL Potassium 5.9 H 5.9 H (3.5-5.1) mmol/L Carbon Dioxide (22-30) mmol/L BUN 48 H (9-20) mg/dL Creatinine 2.59 H (0.66-1.25) mg/dL Glucose 144 H (74-99) mg/dL Alkaline Phosphatase (38-126) U/L Urine Glucose (UA) 2+ H (Negative) CT Scan - head: report reviewed (EKG 100% paced) Thrombosis Risk Factor Assmnt - Choose All That Apply Each Risk Factor Represents 3 Points: Age 75 years or older Thrombosis Risk Factor Assessment Total Risk Factor Score: 3 Thrombosis Risk Factor Assessment Level: Moderate Risk Assessment and Plan Plan: Assessment hyperkalemia Right hip close fracture Fall had contusion Patient history of chronic congestive heart failure systolic dysfunction EF 30- 35% History of coronary disease with CABG and pacemaker COPD Diabetes type 2 Hyperlipidemia Hypertension Kidney failure stage IV Plan Continue consultation with nephrology we'll manage electively imbalance Consultation with cardiology for preoperative clearance Continue consultation with orthopedics
[2019-01-08] MEDS: SODIUM BICARBONATE TAB 650 MG TAB PO SCH ×2 (12:21→20:29)
--- NOTE | 2019-01-08 12:21 | XR ---
EXAMINATION TYPE: XR chest 1V DATE OF EXAM: 01/08/2019 COMPARISON: 11/06/2018 HISTORY: Congestive heart failure. Preoperative TECHNIQUE: Single frontal view of the chest is obtained. FINDINGS: There is a small left layering pleural effusion and associated airspace disease. This is s imilar to 1929 mediastinal silhouette is enlarged with post CABG changes and multilead left-side d cardiac device. Right lung is well aerated. No sizable pneumothorax. Osseous demineralization is se en throughout. IMPRESSION: Similar-appearing small left pleural effusion and left basilar consolidation.
[2019-01-08] MEDS: CARVEDILOL 6.25 MG TAB PO SCH ×2 (12:22→20:02)
[2019-01-08] MEDS: ATORVASTATIN 20 MG TAB PO SCH (12:25)
--- NOTE | 2019-01-08 14:46 | P.CRDCN ---
History of Present Illness History of present illness: HISTORY OF PRESENTING ILLNESS This is a pleasant 88-year-old male past medical history significant for coronary artery disease status post bypass grafting, ischemic cardiomyopathy, AICD placement, diabetes mellitus, hypertension, dyslipidemia, chronic systolic heart failure, chronic left pleural effusion and chronic kidney disease. He presented with a fall suffering a right femoral neck fracture. He follows in the office with Alejandro. We have been asked to see him in consultation for preoperative evaluation. He is seen and examined resting comfortably lying flat in bed with family at the bedside. He states he suffered a trip and fall at [employer] hitting the pavement on his right side. He denies syncope, chest pain, shortness of breath, dizziness or palpitations. DIAGNOSTICS EKG reveals biventricular paced. Chest xray small left pleural effusion and left basilar consolidation, similar to x-ray from October. Laboratory reviewed, WBC 5.7, hemoglobin 13.3, platelets 92, sodium 137, potassium on admission 7. 4 repeat today 5.9, creatinine 2.59, alkaline phosph atase 137, troponin negative 1. Current cardiac medications include Lasix 20 mg daily, atorvastatin 20 mg daily, carvedilol 6.25 mg twice a day, Aldactone 25 mg daily, torsemide 20 mg daily and verapamil 240 mg daily. Most recent echocardiogram obtained April 2018 reveals impaired LV systolic function with ejection fraction 30-35%, moderate aortic regurgitation, moderate mitral regurgitation and severe tricuspid regurgitation with pulmonary hypertension RVSP of 47 mmHg. REVIEW OF SYSTEMS At the time of my exam: CONSTITUTIONAL: Denies fever or chills. CARDIOVASCULAR: Denies chest pain, shortness of breath, orthopnea, PND or palpitations. RESPIRATORY: Denies cough. GASTROINTESTINAL: Denies abdominal pain, diarrhea, constipation, nausea or vomiting. MUSCULOSKELETAL: Complains of pain to the right lower extremity. NEUROLOGIC: Denies numbness, tingling or weakness. ENDOCRINE: Denies fatigue, weight change, polydipsia or polyurina. GENITOURINARY: Denies burning, hematuria or urgency with micturation. HEMATOLOGIC: Denies history of anemia or bleeding. PHYSICAL EXAMINATION Blood pressure 138/75 heart rate 79 afebrile and maintaining oxygen saturaiton on room air. CONSTITUTIONAL: No apparent distress. HEENT: Head is normocephalic. Pupils are equal, round. Sclerae anicteric. Mucous membranes of the mouth are moist. No JVD. No carotid bruit. CHEST EXAMINATION: Lungs are clear to auscultation. No chest wall tenderness is noted on palpation or with deep breathing. Diminished bilaterally. HEART EXAMINATION: Regular rate and rhythm. S1, S2 heard. Systolic ejection murmur at the left sternal border, no gallops or rub. ABDOMEN: Soft, nontender. Positive bowel sounds. EXTREMITIES: 2+ peripheral pulses, no lower extremity edema and no calf tenderness. NEUROLOGIC EXAMINATION: Patient is awake, alert and oriented x3. ASSESSMENT Fall Right femoral neck fracture Hyperkalemia Ischemic cardiomyopathy, EF 30-35% Chronic systolic heart failure, currently euvolemic History of coronary artery disease status post bypass grafting Status post AICD Hypertension Dyslipidemia Chronic kidney disease PLAN Discontinue verapamil given his systolic heart failure. Coreg can be increased a s needed for blood pressure control. Agree with holding diuretics given renal function. Not on an MEENA/ARB due to acute kidney injury. He is a high risk surgical candidate given his poor LV function. However, he is currently free of angina and clinically euvolemic with a chronic stable left pleural effusion. Recommend cautious fluid administration intraoperatively and optimal blood pressure control. Repeat BMP in the morning. We will continue to follow and make recommendations accordingly. Thank you kindly for this consultation. Nurse Practitioner note has been reviewed, I agree with a documented findings and plan of care. Patient was seen and examined. Past Medical History Past Medical History: Coronary Artery Disease (CAD), Heart Failure, COPD, Diabetes Mellitus, Hyperlipidemia, Hypertension, Renal Disease Additional Past Medical History / Comment(s): stage 4 kidney failure. LEFT PLEURAL EFFUSIONS-THORACENTESIS. History of Any Multi-Drug Resistant Organisms: None Reported Past Surgical History: Coronary Bypass/CABG, Pacemaker Additional Past Surgical History / Comment(s): Thoracentesis Type of Cardiac Device: Permanent Pacemaker Device Placement Date:: 2015 Past Psychological History: No Psychological Hx Reported Smoking Status: Never smoker Past Alcohol Use History: None Reported Past Drug Use History: None Reported - Past Family History Mother Family Medical History: Myocardial Infarction (NH) Father Family Medical History: Cancer, Myocardial Infarction (NH) Medications and Allergies Home Medications Medication Instructions Recorded Confirmed Type Atorvastatin [Lipitor] 20 mg PO DAILY 02/06/18 01/07/19 History Pantoprazole Sodium [Protonix] 40 mg PO DAILY 02/06/18 01/07/19 History levETIRAcetam [Keppra] 500 mg PO BID 02/06/18 01/07/19 History Allopurinol [Zyloprim] 100 mg PO DAILY 08/18/18 01/07/19 History Carvedilol [Coreg] 6.25 mg PO BID 08/18/18 01/07/19 History Furosemide [Lasix] 20 mg PO DAILY 09/20/18 01/07/19 History SILVER sulfADIAZINE Cream 1 applic TOPICAL BID PRN 01/07/19 01/07/19 History [Silvadene 1% Cream] Spironolactone 25 mg PO DAILY 01/07/19 01/07/19 History Torsemide [Demadex] 20 mg PO DAILY 01/07/19 01/07/19 History Verapamil HCl [Verapamil ER] 240 mg PO DAILY 01/07/19 01/07/19 History Allergies Allergy/AdvReac Type Severity Reaction Status Date / Time No Known Allergies Allergy Verified 01/07/19 18:46 Physical Exam Vitals: Vital Signs Temp Pulse Pulse Pulse Resp BP BP 01/08/19 08:00 98.4 F 79 17 138/75 01/08/19 01:18 97.8 F 69 16 133/72 01/07/19 22:04 98.3 F 70 16 138/67 01/07/19 21:53 98.8 F 70 18 133/70 01/07/19 20:36 71 18 102/57 01/07/19 19:13 98.9 F 70 18 135/68 01/07/19 19:01 70 01/07/19 19:00 70 20 133/59 01/07/19 18:33 70 01/07/19 18:18 70 01/07/19 18:00 70 11 L 121/64 01/07/19 17:19 01/07/19 15:42 97.8 F 63 18 120/71 Pulse Ox 01/08/19 08:00 93 L 01/08/19 01:18 98 01/07/19 22:04 99 01/07/19 21:53 99 01/07/19 20:36 98 01/07/19 19:13 99 01/07/19 19:01 01/07/19 19:00 100 01/07/19 18:33 01/07/19 18:18 01/07/19 18:00 99 01/07/19 17:19 99 01/07/19 15:42 94 L Intake and Output 01/07/19 01/08/19 01/08/19 22:59 06:59 14:59 Other: Voiding Method Urinal # Voids 1 Weight 71.668 kg 70.5 kg Results 01/07/19 16:35 01/08/19 09:11 Cardiac Enzymes 01/07/19 01/07/19 Range/Units 16:35 16:35 AST 50 (17-59) U/L Troponin I 0.026 (0.000-0.034) ng/mL Coagulation 01/07/19 Range/Units 16:35 PT 10.6 (9.0-12.0) sec APTT 24.0 (22.0-30.0) sec CBC 01/07/19 Range/Units 16:35 WBC 5.7 (3.8-10.6) k/uL RBC 4.06 L (4.30-5.90) m/uL Hgb 13.3 (13.0-17.5) gm/dL Hct 41.0 (39.0-53.0) % Plt Count 92 L (150-450) k/uL Comprehensive Metabolic Panel 01/07/19 01/07/19 01/07/19 Range/Units 16:35 17:41 20:30 Sodium 137 (137-145) mmol/L Potassium 7.4 H* 7.4 H* 5.9 H (3.5-5.1) mmol/L Chloride 105 (98-107) mmol/L Carbon Dioxide 19 L (22-30) mmol/L BUN 53 H (9-20) mg/dL Creatinine 2.90 H (0.66-1.25) mg/dL Glucose 251 H (74-99) mg/dL Calcium 9.9 (8.4-10.2) mg/dL AST 50 (17-59) U/L ALT 49 (21-72) U/L Alkaline Phosphatase 137 H (38-126) U/L Total Protein 8.0 (6.3-8.2) g/dL Albumin 4.0 (3.5-5.0) g/dL 01/08/19 Range/Units 09:11 Sodium 140 (137-145) mmol/L Potassium 5.9 H (3.5-5.1) mmol/L Chloride 106 (98-107) mmol/L Carbon Dioxide 23 (22-30) mmol/L BUN 48 H (9-20) mg/dL Creatinine 2.59 H (0.66-1.25) mg/dL Glucose 144 H (74-99) mg/dL Calcium 9.4 (8.4-10.2) mg/dL AST (17-59) U/L ALT (21-72) U/L Alkaline Phosphatase (38-126) U/L Total Protein (6.3-8.2) g/dL Albumin (3.5-5.0) g/dL Current Medications Generic Name Dose Route Start Last Admin Trade Name Freq PRN Reason Stop Dose Admin Acetaminophen 650 mg 01/07/19 18:05 Tylenol Tab PO Q6HR PRN Mild Pain or Fever > 100.5 Atorvastatin Calcium 20 mg 01/08/19 10:45 01/08/19 12:25 Lipitor PO Not Given DAILY [facility] Carvedilol 6.25 mg 01/08/19 10:45 01/08/19 12:22 Coreg PO 6.25 mg AC-BID NAIMA Administration Sodium Chloride 1,000 mls @ 50 mls/hr 01/08/19 09:30 01/08/19 10:02 Saline 0.9% IV 50 mls/hr .Q20H [facility]IMA Administration Cefazolin Sodium 2 gm/ Sodium 50 mls @ 100 mls/hr 01/08/19 15:00 Chloride IVPB 01/08/19 15:29 ONCE ONE Levetiracetam 500 mg 01/08/19 21:00 Keppra PO BID NAIMA Morphine Sulfate 4 mg 01/07/19 18:05 01/08/19 08:33 Morphine Sulfate (Inj) IV 4 mg Q4HR PRN Administration Severe Pain Naloxone HCl 0.2 mg 01/07/19 18:05 Narcan IV Q2M PRN Opioid Reversal Ondansetron HCl 4 mg 01/07/19 18:05 Zofran IVP Q8HR PRN Nausea And Vomiting Pantoprazole Sodium 40 mg 01/09/19 07:30 Protonix PO AC-BRKFST [facility] Sodium Bicarbonate 650 mg 01/08/19 09:45 01/08/19 12:21 Sodium Bicarbonate Tab PO 650 mg BID NAIMA Administration Tramadol HCl 50 mg 01/07/19 18:05 Ultram PO Q6H PRN Moderate Pain Intake and Output 01/07/19 01/08/19 01/08/19 22:59 06:59 14:59 Other: Voiding Method Urinal # Voids 1 Weight 71.668 kg 70.5 kg 01/07/19 16:35 01/08/19 09:11
[2019-01-08] MEDS ORDERED: PROPOFOL 10 MG/ML 20 ML VIAL IV ONE (15:51)
[2019-01-08] MEDS ORDERED: fentaNYL (PF) 50 MCG/ML 2 ML AMP ONE (15:51)
[2019-01-08] MEDS ORDERED: ROCURONIUM BROMIDE 10 MG/ML 10 ML VIAL IV ONE (15:51)
[2019-01-08] MEDS ORDERED: LIDOCAINE 1% INJ 10MG/ML (20 ML MDV) ONE (15:51)
[2019-01-08] MEDS ORDERED: GLYCOPYRROLATE 0.2 MG/ML 2 ML VIAL ONE (15:51)
[2019-01-08] MEDS ORDERED: ONDANSETRON 4 MG/2 ML VIAL ONE (15:51)
[2019-01-08] MEDS ORDERED: PHENYLEPHRINE-0.9% NACL SYG 1 MG/10 ML SYRINGE ONE (15:51)
[2019-01-08] MEDS ORDERED: NEOSTIGMINE 1 MG/ML 10 ML VIAL ONE (15:51)
[2019-01-08] MEDS ORDERED: IV FLUID CONTINUATION 1,000 ML IV ONE (15:53)
[2019-01-08 15:59] LABS: Glucose,Whole Blood 121 mg/dL (75-99)
[2019-01-08] MEDS ORDERED: ceFAZolin 1,000 MG in SODIUM CHLORIDE 0.9% 1,000 ML IRRIGATION ONE (16:52)
[2019-01-08] MEDS ORDERED: LIDOCAINE 2%-EPI 1:100,000 20 ML VIAL SQ ONE ×2 (17:43)
[2019-01-08] MEDS ORDERED: ROPIVACAINE 5 MG/ML 30 ML VIAL MISCELLANE ONE ×2 (17:43)
[2019-01-08] MEDS ORDERED: HYDROcodone/APAP 5-325MG 1 EACH TAB PO PRN (18:13)
[2019-01-08] MEDS ORDERED: NALOXONE 0.4 MG/ML 1 ML VIAL IV PRN (18:13)
[2019-01-08] MEDS: HYDROmorphone 1 MG/ML 1 ML SYRINGE IVP ONE ×2 (18:36→18:47)
--- NOTE | 2019-01-08 18:49 | P.OP ---
Date of Procedure: 01/08/19 Preoperative Diagnosis: Right transcervical femoral neck fracture Postoperative Diagnosis: Right transcervical femoral neck fracture Procedure(s) Performed: Closed reduction and percutaneous screw fixation - right femoral neck fracture Implants: Sunita 7.0 mm Magna Fx cannulated screws (3) Anesthesia: JERMAINE, local Surgeon: Moe Uribe Estimated Blood Loss (ml): 10 Condition: stable Disposition: PACU Indications for Procedure: The patient is a pleasant 88-year-old male who sustained a right femoral neck fracture after a mechanical fall. Surgical treatment was recommended with either percutaneous screw fixation versus hemiarthroplasty. The pros and cons of each option were discussed. Risks and benefits were discussed with the patient and his family, including (but not limited to) the risks of infection, bleeding, injury tendons or neurovascular structures, fracture displacement, avascular necrosis, nonunion, blood clots and possible need for future surgery. They expressed understanding and wished to proceed with surgery. Consent forms were signed. The surgical site was confirmed and marked preoperatively. Description of Procedure: The patient was brought to the operative suite by the anesthesia team and general anesthesia was administered. The patient was then transferred to a fracture table and positioned supine with the operative limb in a well-padded boot. The contralateral limb was flexed, abducted and secured to a padded, well- leg cruz. All bony prominences were padded in the typical fashion. Preoperative antibiotics were administered. A time-out was performed, confirming patient identifiers, the operative side, site and the procedure to be performed: all team members expressed agreement. The operative extremity was then prepped and draped in standard, sterile fashion. Fracture was evaluated on orthogonal images. There was mild valgus angulation but good cortical contact circumferentially with minimal angulation or displacement. The leg was manipulated and the fracture was manually reduced and confirmed with orthogonal images. Excellent alignment and reduction was achieved. A small longitudinal incision was marked on the inferior aspect of the greater trochanter. The skin was sharply incised and the subcutaneous tissues were spread to expose the deep fascia. This was split longitudinally in line with the incision. Blunt finger dissection was used to develop the trochanteric bursal space. A 3.2 mm guidewire was inserted through a soft tissue protector. This was positioned centrally in the head and its position was confirmed on orthogonal imaging. A parallel pin guide was inserted over this wire. Three guidewires were then inserted: one along the inferior neck; One along the anterior neck; and one along the posterior superior neck. Position of the wires was confirmed on imaging. These were measured off the guidewires with a depth gauge. The appropriate length screws were selected and sequentially inserted. The threads of the second screw was found to extend past the fracture site. The screw was removed and exchanged for one was shorter threads. The most proximal/posterior screw was inserted with a washer. The guidewires were removed. Final x-rays were taken to confirm fracture reduction and implant positions. The hip was then ranged under live fluoroscopy: the proximal femur moved as a single unit and there was no appreciable motion at the fracture site. The wound was thoroughly irrigated with normal saline. The fascia was closed with interrupted 0 Vicryl and 2-0 Vicryl for the subcutaneous tissues. The skin closed with armando. Local anaesthetic with epinephrine was injected around the surgical site for adjunctive postoperative pain control and hemostasis. Sterile dressings were applied. All sponge, needle and instrument counts were correct at the end of the procedure. The patient tolerated the procedure well. He was transferred to a hospital bed and transported to the PACU in stable condition.
--- NOTE | 2019-01-08 18:52 | XR ---
EXAMINATION TYPE: XR Hip Limited RT, portable AP view DATE OF EXAM: 01/08/2019 Comparison: 01/07/2019 Clinical History: 88-year-old male Status post hip surgery, assess surgical alignment Findings: Interval percutaneous pinning across the patient's subcapital femoral neck fracture. Mild degenerativ e change at the right hip. Lateral proximal thigh skin armando and scattered soft tissue air relating to surgery. Impression: Interval placement of percutaneous screws across the subcapital femoral neck fracture. Alignment is i mproved.
--- NOTE | 2019-01-08 18:54 | XR ---
EXAMINATION TYPE: XR Hip Complete RT, FL guidance operating room DATE OF EXAM: 01/08/2019 COMPARISON: NONE HISTORY: 88-year-old male right hip pinning FINDINGS: Images during right femoral neck percutaneous pinning. FLUOROSCOPY Fluoroscopy time of 1 minute 50 seconds was used during right femoral neck percutaneous fixation. 4 image/s document/s the procedure. IMPRESSION: Intraoperative fluoroscopy as above.
[2019-01-08] MEDS ORDERED: SODIUM CHLORIDE 0.9% 1,000 ML IV ONE (19:00)
[2019-01-08] MEDS: levETIRAcetam 500 MG TAB PO SCH (20:29)
[2019-01-09] MEDS: SODIUM CHLORIDE 0.9% 1,000 ML IV SCH (06:39)
[2019-01-09 07:29] LABS: HCT 37.7 % (39.0-53.0); HGB 11.7 gm/dL (13.0-17.5); Hypochromasia Moderate; MCH 32.4 pg (25.0-35.0); MCHC 31.1 g/dL (31.0-37.0); MCV 104.1 fL (80.0-100.0); Macrocytosis Moderate; Mean Platelet Volume 9.2; RBC 3.62 m/uL (4.30-5.90); RDW 15.2 % (11.5-15.5); WBC 8.7 k/uL (3.8-10.6)
[2019-01-09] MEDS: MORPHINE SULFATE 4 MG/ML SYRINGE IV PRN (07:30)
[2019-01-09 08:21] LABS: Magnesium 1.7 mg/dL (1.6-2.3); Potassium 5.6 mmol/L (3.5-5.1)
[2019-01-09 08:39] LABS: Eosinophils # (M) 0.09 k/uL (0-0.7); Metamyelocytes # (M) 0.09 k/uL (0); Metamyelocytes % 1 %; Nucleated Red Blood Cells 0 /100 WBC (0-0)
[2019-01-09 08:40] LABS: Lymphocytes # (M) 1.91 k/uL (1.0-4.8); Neutrophils # (M) 6.09 k/uL (1.3-7.7); Neutrophils % (M) 70 %; Total Cells Counted 200
[2019-01-09 08:41] LABS: Platelet Count 75 k/uL (150-450)
--- NOTE | 2019-01-09 08:41 | P.PN ---
Subjective Progress Note Date: 01/09/19 Principal diagnosis: Status post right hip percutaneous screw fixation This is an 88 year-old male post right hip percutaneous screw fixation. This is post-op day 1. The patient was evaluated at the bedside today. The patient denies nausea, vomiting, abdominal pain, shortness of breath, and chest pain this morning. He states her pain is controlled at this time. The patient has not been up with physical therapy. No new complaints this morning. Objective - Vital Signs Vital signs: Vital Signs Temp 97.8 F 01/09/19 08:06 Pulse 75 01/09/19 08:06 Resp 14 01/09/19 08:06 BP 108/67 01/09/19 08:06 Pulse Ox 84 L 01/09/19 08:06 Intake & Output 01/08/19 01/09/19 01/09/19 18:59 06:59 18:59 Intake Total 1151 600 Output Total 210 250 Balance 941 350 Weight 74.5 kg Intake: IV 901 Intake, IV Titration 250 600 Amount Dextrose 10 % in Water 250 250 ml @ 999 mls/hr IV ONCE ONE Rx#:[id number] ceFAZolin 2 gm In Sodium 600 Chloride 0.9% 50 ml @ 100 mls/hr IVPB Q8HR [facility] Rx# :[id number] Output: Urine 200 250 Uretheral (Jovel) 250 Estimated Blood Loss 10 Other: Voiding Method Indwelling Catheter - Exam The patient does not appear in acute distress. Alert and orientated x3. Dressing is clean dry and intact. No erythema or active drainage. Calf is soft and nontender. Good foot and ankle motion without difficulty. Sensation and circulatory status is intact. - Labs CBC & Chem 7: 01/09/19 07:15 01/09/19 07:15 Labs: Abnormal Lab Results - Last 24 Hours (Table) 01/08/19 01/08/19 01/09/19 Range/Units 09:11 15:51 07:15 RBC (4.30-5.90) m/uL Hgb (13.0-17.5) gm/dL Hct (39.0-53.0) % MCV (80.0-100.0) fL Potassium 5.9 H 5.6 H (3.5-5.1) mmol/L Chloride 109 H (98-107) mmol/L Carbon Dioxide 19 L (22-30) mmol/L BUN 48 H 43 H (9-20) mg/dL Creatinine 2.59 H 2.29 H (0.66-1.25) mg/dL Glucose 144 H 142 H (74-99) mg/dL POC Glucose (mg/dL) 121 H (75-99) mg/dL 01/09/19 Range/Units 07:15 RBC 3.62 L (4.30-5.90) m/uL Hgb 11.7 L (13.0-17.5) gm/dL Hct 37.7 L (39.0-53.0) % MCV 104.1 H (80.0-100.0) fL Potassium (3.5-5.1) mmol/L Chloride (98-107) mmol/L Carbon Dioxide (22-30) mmol/L BUN (9-20) mg/dL Creatinine (0.66-1.25) mg/dL Glucose (74-99) mg/dL POC Glucose (mg/dL) (75-99) mg/dL Assessment and Plan (1) Closed right hip fracture Current Visit: Yes Status: Acute Code(s): S72.001A - FRACTURE OF UNSP PART OF NECK OF RIGHT FEMUR, INIT SNOMED Code(s): 213044993 (2) Chronic systolic (congestive) heart failure Current Visit: Yes Status: Acute Code(s): I50.22 - CHRONIC SYSTOLIC (CONGESTIVE) HEART FAILURE SNOMED Code(s): 595213534 (3) Status post hip surgery Current Visit: Yes Status: Acute Code(s): Z98.890 - OTHER SPECIFIED POSTPROCEDURAL STATES SNOMED Code(s): 400450045 (4) KATHYA (acute kidney injury) Current Visit: No Status: Acute Code(s): N17.9 - ACUTE KIDNEY FAILURE, UNSPECIFIED SNOMED Code(s): 34031901 Plan: 1. Continue pain control 2. Anticoagulation with Lovenox 30 mg daily 3. Start physical therapy and ambulation, toe-touch weightbearing 4. Discharge planning. Most likely will need skilled rehab placement.
[2019-01-09] MEDS: CARVEDILOL 6.25 MG TAB PO SCH ×3 (09:50→17:45)
[2019-01-09] MEDS: PANTOPRAZOLE 40 MG TABLET PO SCH (09:50)
[2019-01-09] MEDS: levETIRAcetam 500 MG TAB PO SCH ×2 (09:51→20:08)
[2019-01-09] MEDS: ATORVASTATIN 20 MG TAB PO SCH (09:51)
[2019-01-09] MEDS: SODIUM BICARBONATE TAB 650 MG TAB PO SCH ×2 (09:51→20:08)
[2019-01-09] MEDS: ENOXAPARIN 30 MG/0.3 ML SYRINGE SQ SCH (09:52)
[2019-01-09] MEDS: HYDROcodone/APAP 5-325MG 1 EACH TAB PO PRN ×2 (10:17→16:35)
[2019-01-09] MEDS ORDERED: FUROSEMIDE 10 MG/ML 4 ML VIAL IV STA (11:03)
[2019-01-09] MEDS ORDERED: SODIUM BICARB 8.4% 50 ML SYR (1 MEQ/ML) IV STA (11:03)
--- NOTE | 2019-01-09 11:04 | P.PN ---
Subjective Patient is seen in follow-up for acute kidney injury and hyperkalemia. Creatinine was 2.9 on admission and is down to 2.29 today. Potassium level this morning was 5.6. He has a Jovel catheter. Patient presented after a fall and underwent closed reduction and percutaneous screw fixation yesterday. Vital signs are stable. General: The patient appeared well nourished and normally developed. HEENT: Head exam is unremarkable. Neck is without jugular venous distension. LUNGS: Lungs are clear to auscultation and percussion. Breath sounds decreased. HEART: Rate and Rhythm are regular. First and second heart sounds normal. No murmurs, rubs or gallops. ABDOMEN: Abdominal exam reveals normal bowel sounds. Non-tender and non- distended. No evidence of peritonitis. EXTREMITITES: No clubbing, cyanosis, or edema. Objective - Vital Signs Vital signs: Vital Signs Temp 97.8 F 01/09/19 08:06 Pulse 75 01/09/19 08:06 Resp 14 01/09/19 08:06 BP 108/67 01/09/19 08:06 Pulse Ox 84 L 01/09/19 08:06 Intake & Output 01/08/19 01/09/19 01/09/19 18:59 06:59 18:59 Intake Total 1151 600 Output Total 210 250 Balance 941 350 Weight 74.5 kg Intake: IV 901 Intake, IV Titration 250 600 Amount Dextrose 10 % in Water 250 250 ml @ 999 mls/hr IV ONCE ONE Rx#:[id number] ceFAZolin 2 gm In Sodium 600 Chloride 0.9% 50 ml @ 100 mls/hr IVPB Q8HR [facility] Rx# :[id number] Output: Urine 200 250 Uretheral (Jovel) 250 Estimated Blood Loss 10 Other: Voiding Method Indwelling Catheter - Labs CBC & Chem 7: 01/09/19 07:15 01/09/19 07:15 Labs: Abnormal Lab Results - Last 24 Hours (Table) 01/08/19 01/09/19 01/09/19 Range/Units 15:51 07:15 07:15 RBC 3.62 L (4.30-5.90) m/uL Hgb 11.7 L (13.0-17.5) gm/dL Hct 37.7 L (39.0-53.0) % MCV 104.1 H (80.0-100.0) fL Plt Count 75 L (150-450) k/uL Metamyelocytes # (Man) 0.09 H (0) k/uL Potassium 5.6 H (3.5-5.1) mmol/L Chloride 109 H (98-107) mmol/L Carbon Dioxide 19 L (22-30) mmol/L BUN 43 H (9-20) mg/dL Creatinine 2.29 H (0.66-1.25) mg/dL Glucose 142 H (74-99) mg/dL POC Glucose (mg/dL) 121 H (75-99) mg/dL Assessment and Plan Plan: Assessment: 1. Acute kidney injury mostly prerenal secondary to overdiuresis. Creatinine 2.9 on admission and is 2.29 today. UA is benign. 2. Hyperkalemia secondary to acute kidney injury, metabolic acidosis and further worsened with the use of Aldactone. Improved with medical management. 3. Acute right femur fracture due to fall. status post surgical intervention on January 08. 4. Chronic systolic CHF with ejection fraction of 30-35% with moderate to severe tricuspid regurgitation and moderate mitral regurgitation.currently compensated. 5. Metabolic acidosis secondary to acute kidney injury maintained on oral sodium bicarbonate. Plan: Maintain normal saline at 50 mL an hour. Lasix 40 mg IV once today. 2 A of sodium bicarbonate IV push now. Low potassium diet. Repeat potassium level this evening. Check renal ultrasound.
--- NOTE | 2019-01-09 12:36 | US ---
EXAMINATION TYPE: US kidneys/renal and bladder DATE OF EXAM: 01/09/2019 COMPARISON: CT CLINICAL HISTORY: roger; Patient is non mobile one day post right hip replacement EXAM MEASUREMENTS: Right Kidney: 9.3 x 2.8 x 5.6 cm Left Kidney: 7.8 x 5.1 x 6.2 cm Post Void Residual Volume: not assessed as indwelling bladder catheter is present Right Kidney: No hydronephrosis or masses seen Left Kidney: No hydronephrosis or masses seen There is no evidence for hydronephrosis at this point in time. No nephrolithiasis is seen. No phylils s are identified. IMPRESSION: No distinct abnormality seen.
--- NOTE | 2019-01-09 13:32 | P.PN ---
Subjective Patient is postop day 1 from ORIF right hip resting in bed without complaint. Patient continues care of cardiology and nephrology Objective - Vital Signs Vital signs: Vital Signs Temp 97.8 F 01/09/19 08:06 Pulse 75 01/09/19 08:06 Resp 14 01/09/19 08:06 BP 108/67 01/09/19 08:06 Pulse Ox 84 L 01/09/19 08:06 Intake & Output 01/08/19 01/09/19 01/09/19 18:59 06:59 18:59 Intake Total 1151 600 240 Output Total 210 250 Balance 941 350 240 Weight 74.5 kg Intake: IV 901 Intake, IV Titration 250 600 Amount Dextrose 10 % in Water 250 250 ml @ 999 mls/hr IV ONCE ONE Rx#:[id number] ceFAZolin 2 gm In Sodium 600 Chloride 0.9% 50 ml @ 100 mls/hr IVPB Q8HR [facility] Rx# :[id number] Oral 240 Output: Urine 200 250 Uretheral (Jovel) 250 Estimated Blood Loss 10 Other: Voiding Method Indwelling Catheter - EENT Eyes: Present: PERRLA Ears: bilateral: normal - Neck Neck: Present: normal ROM - Respiratory Respiratory: bilateral: CTA - Cardiovascular Rhythm: regular Abnormal Heart Sounds: Present: systolic murmur - Gastrointestinal General gastrointestinal: Present: soft - Integumentary Integumentary Comment(s): Dressing to right hip Integumentary: Present: normal turgor - Neurologic Neurologic: Present: CNII-XII intact - Musculoskeletal Musculoskeletal: Present: generalized weakness - Psychiatric Psychiatric: Present: A&O x's 3, appropriate affect, intact judgment & insight - Labs CBC & Chem 7: 01/09/19 07:15 01/09/19 07:15 Labs: Abnormal Lab Results - Last 24 Hours (Table) 01/08/19 01/09/19 01/09/19 Range/Units 15:51 07:15 07:15 RBC 3.62 L (4.30-5.90) m/uL Hgb 11.7 L (13.0-17.5) gm/dL Hct 37.7 L (39.0-53.0) % MCV 104.1 H (80.0-100.0) fL Plt Count 75 L (150-450) k/uL Metamyelocytes # (Man) 0.09 H (0) k/uL Potassium 5.6 H (3.5-5.1) mmol/L Chloride 109 H (98-107) mmol/L Carbon Dioxide 19 L (22-30) mmol/L BUN 43 H (9-20) mg/dL Creatinine 2.29 H (0.66-1.25) mg/dL Glucose 142 H (74-99) mg/dL POC Glucose (mg/dL) 121 H (75-99) mg/dL Assessment and Plan Plan: Assessment Hyperkalemia secondary to acute kidney injury history of stage IV kidney failure Fall with resulting right hip fracture CHF history systolic failure EF 30-35% Pacemaker coronary artery disease with CABG COPD Diabetes type 2 Hyperlipidemia Hypertension Plan Continue consultation with nephrology and cardiology and orthopedics
--- NOTE | 2019-01-09 13:49 | P.PN ---
Subjective HISTORY OF PRESENTING ILLNESS This is a pleasant 88-year-old male past medical history significant for coronary artery disease status post bypass grafting, ischemic cardiomyopathy, AICD placement, diabetes mellitus, hypertension, dyslipidemia, chronic systolic heart failure, chronic left pleural effusion and chronic kidney disease. He is seen and examined sitting up in bed in no acute distress. He underwent closed reduction and screw fixation of the right femoral neck. He denies chest pain, shortness of breath, dizziness or palpitations. Blood pressure 108/67 heart rate 75 afebrile and maintaining oxygen saturation on room air. Laboratory data reviewed, WBC 8.7, hemoglobin 11.7, platelets 75, potassium 5.6, sodium 141 and creatinine 2.29. PHYSICAL EXAMINATION CONSTITUTIONAL: No apparent distress. HEENT: Head is normocephalic. Pupils are equal, round. Sclerae anicteric. Mucous membranes of the mouth are moist. No JVD. No carotid bruit. CHEST EXAMINATION: Lungs are clear to auscultation. No chest wall tenderness is noted on palpation or with deep breathing. Diminished bilaterally. HEART EXAMINATION: Regular rate and rhythm. S1, S2 heard. Systolic ejection murmur at the left sternal border, no gallops or rub. EXTREMITIES: 2+ peripheral pulses, no lower extremity edema and no calf tenderness. ASSESSMENT Fall Right femoral neck fracture Hyperkalemia Ischemic cardiomyopathy, EF 30-35% Chronic systolic heart failure, currently euvolemic History of coronary artery disease status post bypass grafting Status post AICD Hypertension Dyslipidemia Chronic kidney disease PLAN Hyperkalemia management will be deferred to nephrology. Continue current medical regimen. Nurse Practitioner note has been reviewed, I agree with a documented findings and plan of care. Patient was seen and examined. Objective - Vital Signs Vital signs: Vital Signs Temp 97.8 F 01/09/19 08:06 Pulse 75 01/09/19 08:06 Resp 14 01/09/19 08:06 BP 108/67 01/09/19 08:06 Pulse Ox 84 L 01/09/19 08:06 Intake & Output 01/08/19 01/09/19 01/09/19 18:59 06:59 18:59 Intake Total 1151 600 240 Output Total 210 250 200 Balance 941 350 40 Weight 74.5 kg Intake: IV 901 Intake, IV Titration 250 600 Amount Dextrose 10 % in Water 250 250 ml @ 999 mls/hr IV ONCE ONE Rx#:[id number] ceFAZolin 2 gm In Sodium 600 Chloride 0.9% 50 ml @ 100 mls/hr IVPB Q8HR [facility] Rx# :[id number] Oral 240 Output: Urine 200 250 200 Uretheral (Jovel) 250 200 Estimated Blood Loss 10 Other: Voiding Method Indwelling Catheter - Labs CBC & Chem 7: 01/09/19 07:15 01/09/19 07:15 Labs: Abnormal Lab Results - Last 24 Hours (Table) 01/08/19 01/09/19 01/09/19 Range/Units 15:51 07:15 07:15 RBC 3.62 L (4.30-5.90) m/uL Hgb 11.7 L (13.0-17.5) gm/dL Hct 37.7 L (39.0-53.0) % MCV 104.1 H (80.0-100.0) fL Plt Count 75 L (150-450) k/uL Metamyelocytes # (Man) 0.09 H (0) k/uL Potassium 5.6 H (3.5-5.1) mmol/L Chloride 109 H (98-107) mmol/L Carbon Dioxide 19 L (22-30) mmol/L BUN 43 H (9-20) mg/dL Creatinine 2.29 H (0.66-1.25) mg/dL Glucose 142 H (74-99) mg/dL POC Glucose (mg/dL) 121 H (75-99) mg/dL
[2019-01-10] MEDS: SODIUM CHLORIDE 0.9% 1,000 ML IV SCH ×2 (02:47→14:22)
[2019-01-10] MEDS: HYDROcodone/APAP 5-325MG 1 EACH TAB PO PRN ×2 (04:58→18:59)
[2019-01-10 07:47] LABS: Calcium 8.3 mg/dL (8.4-10.2); Magnesium 1.6 mg/dL (1.6-2.3); Potassium 5.5 mmol/L (3.5-5.1)
--- NOTE | 2019-01-10 08:50 | P.PN ---
Subjective Progress Note Date: 01/10/19 Principal diagnosis: Status post right hip percutaneous screw fixation This is an 88 year-old male post right hip percutaneous screw fixation. This is post-op day 2. The patient was evaluated at the bedside today. The patient denies nausea, vomiting, abdominal pain, shortness of breath, and chest pain this morning. He states his pain is controlled at this time. The patient was up to the recliner chair at the bedside yesterday with physical therapy. No new complaints this morning. Objective - Vital Signs Vital signs: Vital Signs Temp 98.4 F 01/10/19 07:40 Pulse 72 01/10/19 07:40 Resp 15 01/10/19 07:40 BP 106/66 01/10/19 07:40 Pulse Ox 91 L 01/10/19 07:40 Intake & Output 01/09/19 01/10/19 01/10/19 18:59 06:59 18:59 Intake Total 240 Output Total 200 300 Balance 40 -300 Weight 76.5 kg Intake: Oral 240 Output: Urine 200 300 Uretheral (Jovel) 200 Other: Voiding Method Indwelling Catheter - Exam The patient does not appear in acute distress. Alert and orientated x3. Dressing is clean dry and intact. No erythema or active drainage. Calf is soft and nontender. Good foot and ankle motion without difficulty. Sensation and circulatory status is intact. - Labs CBC & Chem 7: 01/09/19 07:15 01/10/19 06:50 Labs: Abnormal Lab Results - Last 24 Hours (Table) 01/09/19 01/10/19 Range/Units 18:39 06:50 Potassium 5.2 H 5.5 H (3.5-5.1) mmol/L BUN 49 H (9-20) mg/dL Creatinine 2.56 H (0.66-1.25) mg/dL Glucose 186 H (74-99) mg/dL Calcium 8.3 L (8.4-10.2) mg/dL Assessment and Plan (1) Closed right hip fracture Current Visit: Yes Status: Acute Code(s): S72.001A - FRACTURE OF UNSP PART OF NECK OF RIGHT FEMUR, INIT SNOMED Code(s): 614081087 (2) Chronic systolic (congestive) heart failure Current Visit: Yes Status: Acute Code(s): I50.22 - CHRONIC SYSTOLIC (CONGESTIVE) HEART FAILURE SNOMED Code(s): 663355610 (3) Status post hip surgery Current Visit: Yes Status: Acute Code(s): Z98.890 - OTHER SPECIFIED POSTPROCEDURAL STATES SNOMED Code(s): 895163664 (4) KATHYA (acute kidney injury) Current Visit: No Status: Acute Code(s): N17.9 - ACUTE KIDNEY FAILURE, UNSPE CIFIED SNOMED Code(s): 97505895 Plan: 1. Continue pain control 2. Anticoagulation with Lovenox 30 mg daily 3. Continue physical therapy and ambulation, toe-touch weightbearing 4. Discharge to [facility] when medically stable and insurance authorization is complete.
[2019-01-10] MEDS: ENOXAPARIN 30 MG/0.3 ML SYRINGE SQ SCH (08:53)
[2019-01-10] MEDS: ATORVASTATIN 20 MG TAB PO SCH (08:53)
[2019-01-10] MEDS: levETIRAcetam 500 MG TAB PO SCH ×2 (08:53→21:41)
[2019-01-10] MEDS: SODIUM BICARBONATE TAB 650 MG TAB PO SCH ×2 (08:54→21:41)
[2019-01-10] MEDS: CARVEDILOL 6.25 MG TAB PO SCH (08:54)
--- NOTE | 2019-01-10 10:43 | P.PN ---
Subjective Patient is seen in follow-up for acute kidney injury and hyperkalemia. Renal function is worse compared to yesterday. Creatinine 2.56 today. Potassium level this morning was 5.5. He has a Jovel catheter. Patient presented after a fall and underwent closed reduction and percutaneous screw fixation on January 08. Denies chest pain or shortness of breath. Vital signs are stable. General: The patient appeared well nourished and normally developed. HEENT: Head exam is unremarkable. Neck is without jugular venous distension. LUNGS: Lungs are clear to auscultation and percussion. Breath sounds decreased. HEART: Rate and Rhythm are regular. First and second heart sounds normal. No murmurs, rubs or gallops. ABDOMEN: Abdominal exam reveals normal bowel sounds. Non-tender and non- distended. No evidence of peritonitis. EXTREMITITES: No clubbing, cyanosis, or edema. Objective - Vital Signs Vital signs: Vital Signs Temp 98.4 F 01/10/19 07:40 Pulse 72 01/10/19 07:40 Resp 15 01/10/19 07:40 BP 106/66 01/10/19 07:40 Pulse Ox 91 L 01/10/19 07:40 Intake & Output 01/09/19 01/10/19 01/10/19 18:59 06:59 18:59 Intake Total 240 Output Total 200 300 Balance 40 -300 Weight 76.5 kg Intake: Oral 240 Output: Urine 200 300 Uretheral (Jovel) 200 Other: Voiding Method Indwelling Catheter - Labs CBC & Chem 7: 01/09/19 07:15 01/10/19 06:50 Labs: Abnormal Lab Results - Last 24 Hours (Table) 01/09/19 01/10/19 Range/Units 18:39 06:50 Potassium 5.2 H 5.5 H (3.5-5.1) mmol/L BUN 49 H (9-20) mg/dL Creatinine 2.56 H (0.66-1.25) mg/dL Glucose 186 H (74-99) mg/dL Calcium 8.3 L (8.4-10.2) mg/dL Assessment and Plan Plan: Assessment: 1. Acute kidney injury mostly prerenal secondary to overdiuresis. Creatinine 2.9 on admission and did come down to 2.29 as of yesterday - 2.56 today which is likely from Lasix. UA is benign. No hydronephrosis noted on kidney ultrasound. Left kidney noted to be atrophic. 2. Hyperkalemia secondary to acute kidney injury, metabolic acidosis and further worsened with the use of Aldactone. Improved with medical management. Stable. 3. Acute right femur fracture due to fall. status post surgical intervention on January 08. 4. Chronic systolic CHF with ejection fraction of 30-35% with moderate to severe tricuspid regurgitation and moderate mitral regurgitation. Currently compensated. 5. Metabolic acidosis secondary to acute kidney injury maintained on oral sodium bicarbonate.. 6. Hypomagnesemia from poor oral intake and diuretic. Plan: Start Lasix 40 mg orally once daily. Low potassium diet. Add oral magnesium supplementation. Repeat potassium level this evening.
--- NOTE | 2019-01-10 11:30 | P.PN ---
Subjective HISTORY OF PRESENTING ILLNESS This is a pleasant 88-year-old male past medical history significant for coronary artery disease status post bypass grafting, ischemic cardiomyopathy, AICD placement, diabetes mellitus, hypertension, dyslipidemia, chronic systolic heart failure, chronic left pleural effusion and chronic kidney disease. He is seen and examined sitting up in bed in no acute distress. He underwent closed reduction and screw fixation of the right femoral neck. He denies chest pain, shortness of breath, dizziness or palpitations. Blood pressure 106/66 heart rate 72 afebrile and maintaining oxygen saturation on room air. Laboratory data reviewed, sodium 137, potassium 5.5, creatinine 2.56. Ultrasound of the abdomen was unremarkable. PHYSICAL EXAMINATION CONSTITUTIONAL: No apparent distress. HEENT: Head is normocephalic. Pupils are equal, round. Sclerae anicteric. Mucous membranes of the mouth are moist. No JVD. No carotid bruit. CHEST EXAMINATION: Lungs are clear to auscultation. No chest wall tenderness is noted on palpation or with deep breathing. Diminished bilaterally. HEART EXAMINATION: Regular rate and rhythm. S1, S2 heard. Systolic ejection murmur at the left sternal border, no gallops or rub. EXTREMITIES: 2+ peripheral pulses, no lower extremity edema and no calf tenderness. ASSESSMENT Fall Right femoral neck fracture, POD #2 Hyperkalemia, ongoing Ischemic cardiomyopathy, EF 30-35% Non-sustained ventricular tachycardia Chronic systolic heart failure, currently euvolemic History of coronary artery disease status post bypass grafting Status post AICD Hypertension Dyslipidemia Chronic kidney disease PLAN Hyperkalemia management will be deferred to nephrology. Continue current medical regimen. 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 Nurse Practitioner note has been reviewed, I agree with a documented findings and plan of care. Patient was seen and examined. Objective - Vital Signs Vital signs: Vital Signs Temp 98.4 F 01/10/19 07:40 Pulse 72 01/10/19 07:40 Resp 15 01/10/19 07:40 BP 106/66 01/10/19 07:40 Pulse Ox 91 L 01/10/19 07:40 Intake & Output 01/09/19 01/10/19 01/10/19 18:59 06:59 18:59 Intake Total 240 Output Total 200 300 Balance 40 -300 Weight 76.5 kg Intake: Oral 240 Output: Urine 200 300 Uretheral (Jovel) 200 Other: Voiding Method Indwelling Catheter - Labs CBC & Chem 7: 01/09/19 07:15 01/10/19 06:50 Labs: Abnormal Lab Results - Last 24 Hours (Table) 01/09/19 01/10/19 Range/Units 18:39 06:50 Potassium 5.2 H 5.5 H (3.5-5.1) mmol/L BUN 49 H (9-20) mg/dL Creatinine 2.56 H (0.66-1.25) mg/dL Glucose 186 H (74-99) mg/dL Calcium 8.3 L (8.4-10.2) mg/dL
--- NOTE | 2019-01-10 12:03 | P.PN ---
Subjective On-call hospitalist covering for Dr. Mata. This is a pleasant 88 years old male with past medical history of coronary artery disease status post CABG, heart failure, COPD, diabetes mellitus, hyperlipidemia, hypertension, stage IV kidney disease. Patient presents on 01/07/2019 for fall and head injury and leg injury. And the presentation patien t had minimally displaced right subcapital femoral neck fracture and he underwent closed reduction and percutaneous screw fixation on 01/08/2019 also patient found in acute kidney injury Vitas looks stable. WBC 8.7K hemoglobin 11.7, platelets is 75. His potassium is elevated at 5.5 (which is improving, on presentation his potassium was 7.4) his creatinine 2.5, magnesium 1.6, sodium 137. Creatinine is still elevated at 2.59 Zoey trending down gradually. Liver enzymes not elevated. Renal ultra sound: Unremarkable. CT of the head and neck: No acute process. Day he is awake and alert, pain is controlled, not in respiratory distress. No abdominal complaints Vitas looks stable. Objective - Vital Signs Vital signs: Vital Signs Temp 98.4 F 01/10/19 07:40 Pulse 72 01/10/19 07:40 Resp 15 01/10/19 07:40 BP 106/66 01/10/19 07:40 Pulse Ox 91 L 01/10/19 07:40 Intake & Output 01/09/19 01/10/19 01/10/19 18:59 06:59 18:59 Intake Total 240 Output Total 200 300 Balance 40 -300 Weight 76.5 kg Intake: Oral 240 Output: Urine 200 300 Uretheral (Ojvel) 200 Other: Voiding Method Indwelling Catheter - Exam GENERAL: The patient is alert and oriented x3, not in any acute distress. Thin built HEENT: Pupils are round and equally reacting to light. EOMI. No scleral icterus. No conjunctival pallor. Normocephalic, atraumatic. No pharyngeal erythema. No thyromegaly. CARDIOVASCULAR: S1 and S2 present. No murmurs, rubs, or gallops. PULMONARY: Chest is clear to auscultation, no wheezing or crackles. ABDOMEN: Soft, nontender, nondistended, normoactive bowel sounds. No palpable organomegaly. MUSCULOSKELETAL: No joint swelling or deformity. -EXTREMITIES: No cyanosis, clubbing, or pedal edema. Right hip area with closed wound and dressing is in place NEUROLOGICAL: Gross neurological examination did not reveal any focal deficits. SKIN: No rashes. No petechiae - Labs CBC & Chem 7: 01/09/19 07:15 01/10/19 06:50 Labs: Abnormal Lab Results - Last 24 Hours (Table) 01/09/19 01/10/19 Range/Units 18:39 06:50 Potassium 5.2 H 5.5 H (3.5-5.1) mmol/L BUN 49 H (9-20) mg/dL Creatinine 2.56 H (0.66-1.25) mg/dL Glucose 186 H (74-99) mg/dL Calcium 8.3 L (8.4-10.2) mg/dL Assessment and Plan Assessment: Fall on the parking lot Minimally displaced right hip fracture, status post closed reduction Acute kidney injury Hyperkalemia Diabetes mellitus Hypertension Hyperlipidemia Stage IV chronic kidney disease COPD not in acute exacerbation Chronic congestive heart failure History of coronary artery disease status post CABG Plan: This is a pleasant 88 years old male who presents with right hip fracture and acute kidney injury and hyperkalemia. Continue with gentle hydration. Patient is followed closely by nephrology team. Follow-up recommendation by consultants. Monitor potassium level. Pain management. Continue with sodium bicarb. Continue with Keppra Labs and medication were reviewed.. Continue same treatment. Continue with symptomatic treatment. Resume home medication. Monitor lytes and vitals. DVT and GI prophylaxis. Further recommendations of the clinical course of the patient DVT prophylaxis: Subcutaneous Lovenox GI Prophylaxis: Protonix PT/OT: Pending Prognosis is guarded
[2019-01-10] MEDS: PANTOPRAZOLE 40 MG TABLET PO SCH (12:31)
[2019-01-10] MEDS: MAGNESIUM OXIDE 400 MG TAB PO SCH (13:02)
[2019-01-10] MEDS: FUROSEMIDE 40 MG TAB PO SCH (13:02)
[2019-01-10] MEDS: ACETAMINOPHEN TAB 325 MG TAB PO PRN (14:19)
[2019-01-11 07:11] LABS: Basophils # (A) 0.1 k/uL (0-0.2); Basophils % (A) 1 %; Eosinophils # (A) 0.2 k/uL (0-0.7); Eosinophils % (A) 3 %; HCT 32.8 % (39.0-53.0); HGB 10.7 gm/dL (13.0-17.5); Lymphocytes # (A) 1.2 k/uL (1.0-4.8); Lymphocytes % (A) 19 %; MCH 32.9 pg (25.0-35.0); MCHC 32.7 g/dL (31.0-37.0); MCV 100.8 fL (80.0-100.0); Macrocytosis Slight; Mean Platelet Volume 11.2; Monocytes # (A) 0.6 k/uL (0-1.0); Monocytes % (A) 9 %; Neutrophils # (A) 4.2 k/uL (1.3-7.7); Neutrophils % (A) 64 %; RBC 3.25 m/uL (4.30-5.90); RDW 15.3 % (11.5-15.5); WBC 6.5 k/uL (3.8-10.6)
[2019-01-11 07:18] LABS: Calcium 8.4 mg/dL (8.4-10.2); Magnesium 1.7 mg/dL (1.6-2.3); Potassium 4.8 mmol/L (3.5-5.1)
[2019-01-11 07:44] LABS: Anisocytosis (M) Present; Platelet Count 57 k/uL (150-450); Poikilocytosis (M) Present; Polychromasia Present
[2019-01-11 07:54] VITALS: BP 96/57; PULSE 70; RESP 16; TEMP 97.9
[2019-01-11] MEDS: ENOXAPARIN 30 MG/0.3 ML SYRINGE SQ SCH (08:00)
[2019-01-11] MEDS: FUROSEMIDE 40 MG TAB PO SCH (08:00)
[2019-01-11] MEDS: levETIRAcetam 500 MG TAB PO SCH (08:00)
[2019-01-11] MEDS: CARVEDILOL 6.25 MG TAB PO SCH (08:00)
[2019-01-11] MEDS: PANTOPRAZOLE 40 MG TABLET PO SCH (08:00)
[2019-01-11] MEDS: SODIUM BICARBONATE TAB 650 MG TAB PO SCH (08:00)
[2019-01-11] MEDS: MAGNESIUM OXIDE 400 MG TAB PO SCH (08:00)
[2019-01-11] MEDS: ATORVASTATIN 20 MG TAB PO SCH (08:00)
--- NOTE | 2019-01-11 09:54 | P.PN ---
Subjective Patient is seen in follow-up for acute kidney injury and hyperkalemia. Renal function is stable. Creatinine 2.58 today. Potassium level this morning was 4.8. He has a Jovel catheter. Patient presented after a fall and underwent closed reduction and percutaneous screw fixation on January 08. Denies chest pain or shortness of breath. Vital signs are stable. General: The patient appeared well nourished and normally developed. HEENT: Head exam is unremarkable. Neck is without jugular venous distension. LUNGS: Lungs are clear to auscultation and percussion. Breath sounds decreased. HEART: Rate and Rhythm are regular. First and second heart sounds normal. No murmurs, rubs or gallops. ABDOMEN: Abdominal exam reveals normal bowel sounds. Non-tender and non- distended. No evidence of peritonitis. EXTREMITITES: No clubbing, cyanosis, or edema. Objective - Vital Signs Vital signs: Vital Signs Temp 97.9 F 01/11/19 07:54 Pulse 70 01/11/19 07:54 Resp 16 01/11/19 07:54 BP 96/57 01/11/19 07:54 Pulse Ox 91 L 01/11/19 07:54 Intake & Output 01/10/19 01/11/19 01/11/19 18:59 06:59 18:59 Intake Total 200 Output Total 500 460 Balance -500 -460 200 Weight 76.5 kg Intake: Oral 200 Output: Urine 500 460 Other: Voiding Method Indwelling Catheter # Voids 1 - Labs CBC & Chem 7: 01/11/19 06:28 01/11/19 06:28 Labs: Abnormal Lab Results - Last 24 Hours (Table) 01/11/19 01/11/19 Range/Units 06:28 06:28 RBC 3.25 L (4.30-5.90) m/uL Hgb 10.7 L (13.0-17.5) gm/dL Hct 32.8 L (39.0-53.0) % MCV 100.8 H (80.0-100.0) fL Plt Count 57 L (150-450) k/uL BUN 48 H (9-20) mg/dL Creatinine 2.58 H (0.66-1.25) mg/dL Glucose 127 H (74-99) mg/dL Assessment and Plan Plan: Assessment: 1. Acute kidney injury mostly prerenal secondary to overdiuresis. Creatinine 2.9 on admission and did come down to 2.29 as of yesterday - 2.56 today which is likely from Lasix. UA is benign. No hydronephrosis noted on kidney ultrasound. Left kidney noted to be atrophic. 2. Hyperkalemia secondary to acute kidney injury, metabolic acidosis and furthe r worsened with the use of Aldactone. Improved with medical management. Stable. 3. Acute right femur fracture due to fall. status post surgical intervention on January 08. 4. Chronic systolic CHF with ejection fraction of 30-35% with moderate to severe tricuspid regurgitation and moderate mitral regurgitation. Currently compensated. 5. Metabolic acidosis secondary to acute kidney injury maintained on oral sodium bicarbonate.. 6. Hypomagnesemia from poor oral intake and diuretic. Maintained on Mag-Ox. Plan: Maintain Lasix 40 mg orally once daily. Low potassium diet. Continue to monitor renal function and urine output.
--- NOTE | 2019-01-11 11:10 | P.PN ---
Subjective Progress Note Date: 01/11/19 Principal diagnosis: Status post right hip percutaneous pinning for hip fracture Patient is seen at bedside this morning. He is postop day #3 from percutaneous pinning for his right subcapital hip fracture. He has pain at the surgical site as expected but denies any new complaints. He denies numbness, tingling or calf pain. Review of systems is negative for fever, chills, chest pain, shortness of breath or other Objective - Vital Signs Vital signs: Vital Signs Temp 97.9 F 01/11/19 07:54 Pulse 70 01/11/19 08:45 Resp 16 01/11/19 08:45 BP 96/57 01/11/19 07:54 Pulse Ox 91 L 01/11/19 07:54 Intake & Output 01/10/19 01/11/19 01/11/19 18:59 06:59 18:59 Intake Total 200 Output Total 500 460 Balance -500 -460 200 Weight 76.5 kg Intake: Oral 200 Output: Urine 500 460 Other: Voiding Method Indwelling Catheter Indwelling Catheter # Voids 1 - Exam Inspection reveals a benign surgical wound. There is no active bleeding or drainage. Neurovascular status is intact throughout the lower extremity with motor and sensation fully intact. Calf is soft and nontender. 2+ dorsalis pedis pulse and less than 2 second cap refill is present. - Constitutional General appearance: Present: no acute distress - Labs CBC & Chem 7: 01/11/19 06:28 01/11/19 06:28 Labs: Abnormal Lab Results - Last 24 Hours (Table) 01/11/19 01/11/19 Range/Units 06:28 06:28 RBC 3.25 L (4.30-5.90) m/uL Hgb 10.7 L (13.0-17.5) gm/dL Hct 32.8 L (39.0-53.0) % MCV 100.8 H (80.0-100.0) fL Plt Count 57 L (150-450) k/uL BUN 48 H (9-20) mg/dL Creatinine 2.58 H (0.66-1.25) mg/dL Glucose 127 H (74-99) mg/dL Assessment and Plan (1) Closed right hip fracture Narrative/Plan: He will continue with routine postop orthopedic protocol including pain management, wound care, PT, DVT prophylaxis and medical management. He may transfer to [facility] from an orthopedic standpoint when okay with internal medicine. He will follow-up as an outpatient for postoperative care. We'll sign off for now thank you. Current Visit: Yes Status: Acute Priority: Medium Code(s): S72.001A - FRACTURE OF UNSP PART OF NECK OF RIGHT FEMUR, INIT SNOMED Code(s): 483002249 Time with Patient: Less than 30
--- NOTE | 2019-01-11 12:29 | P.DS ---
Providers Date of admission: 01/07/19 17:42 Attending physician: Ishaan Mata Consults: 01/07/19 18:05 Consult Physician Stat Consulting Provider: Moe Uribe Consult Reason/Comments: Right hip subcapital fracture Do you want consulting provider notified?: Yes 01/08/19 09:02 Consult Physician Urgent Consulting Provider: Jennifer Amado Consult Reason/Comments: chest painfx hip pre-op clearance Do you want consulting provider notified?: Yes 01/08/19 09:08 Consult Physician Urgent Consulting Provider: Anastasia Medina Consult Reason/Comments: renal failure stage IV hyperkalaemia pre--op clearance Do you want consulting provider notified?: Yes Primary care physician: Ishaan Mata Hospital Course: Final diagnosis right hip fracture status post closed reduction Acute kidney injury Hyperkalemia Diabetes mellitus type 2 Hypertension Hyperlipidemia Stage IV chronic kidney disease COPD not in exacerbation Chronic CHF ejection fraction unknown History of CAD CABG Discharge disposition The patient be discharged in a stable condition with guarded prognosis to [facility]. Total time taken 35 minutes. history of present illness this 88-year-old gentleman who was being followed by Dr. Lola Mata in the outpatient setting was admitted to to the hospital with a right hip fracture following a fall. The patient was admitted and treated with the close reduction orthopedic surgery. Patient also had hyperkalemia and renal failure. Patient is admitted on chronic kidney injury also. Aldactone was stopped. The potassium returned normal around 4. Patient be discharged in a stable condition with guarded prognosis. On exam vitals are stable. Cardio S1 and S2 normal. Abdomen soft nontender. Nervous system no focal deficit. Please suffer to the medication reconciliation sheet for discharge medications. Recommended close follow-up with Dr. Gee in the [facility] in the Dr. Mata after discharge from [facility]. Rest of the recommendations per orthopedic surgery. Patient Condition at Discharge: Good Plan - Discharge Summary Discharge Rx Participant: No New Discharge Prescriptions: New Docusate [Colace] 100 mg PO BID #60 capsule Enoxaparin Sodium [Lovenox] 30 mg SQ DAILY #14 syringe HYDROcodone/APAP 5-325MG [[place] 5] 1 - 2 each PO Q4-6H PRN #40 tab PRN Reason: Pain Furosemide [Lasix] 40 mg PO DAILY #0 tab Sodium Bicarbonate Tab 650 mg PO BID tab Acetaminophen Tab [Tylenol] 650 mg PO Q6HR PRN tab PRN Reason: Mild Pain 1-2 or Fever > 100.5 Continue levETIRAcetam [Keppra] 500 mg PO BID Pantoprazole Sodium [Protonix] 40 mg PO DAILY Atorvastatin [Lipitor] 20 mg PO DAILY Allopurinol [Zyloprim] 100 mg PO DAILY Carvedilol [Coreg] 6.25 mg PO BID Verapamil HCl [Verapamil ER] 240 mg PO DAILY SILVER sulfADIAZINE Cream [Silvadene 1% Cream] 1 applic TOPICAL BID PRN PRN Reason: BURN Discontinued Furosemide [Lasix] 20 mg PO DAILY Torsemide [Demadex] 20 mg PO DAILY Spironolactone 25 mg PO DAILY Discharge Medication List Atorvastatin [Lipitor] 20 mg PO DAILY 02/06/18 [History] Pantoprazole Sodium [Protonix] 40 mg PO DAILY 02/06/18 [History] levETIRAcetam [Keppra] 500 mg PO BID 02/06/18 [History] Allopurinol [Zyloprim] 100 mg PO DAILY 08/18/18 [History] Carvedilol [Coreg] 6.25 mg PO BID 08/18/18 [History] SILVER sulfADIAZINE Cream [Silvadene 1% Cream] 1 applic TOPICAL BID PRN 01/07/19 [History] Verapamil HCl [Verapamil ER] 240 mg PO DAILY 01/07/19 [History] Docusate [Colace] 100 mg PO BID #60 capsule 01/10/19 [Rx] Enoxaparin Sodium [Lovenox] 30 mg SQ DAILY #14 syringe 01/10/19 [Rx] HYDROcodone/APAP 5-325MG [[place] 5] 1 - 2 each PO Q4-6H PRN #40 tab 01/10/19 [Rx] Acetaminophen Tab [Tylenol] 650 mg PO Q6HR PRN tab 01/11/19 [Rx] Furosemide [Lasix] 40 mg PO DAILY #0 tab 01/11/19 [Rx] Sodium Bicarbonate Tab 650 mg PO BID tab 01/11/19 [Rx] Follow up Appointment(s)/Referral(s): Ishaan Mata MD [Primary Care Provider] - 1-2 days Petrocelli,Moe A, DO [Medical Doctor] - 2 Weeks Activity/Diet/Wound Care/Special Instructions: Daily dressing changes to right hip and as needed for saturation. Apply dry 4x4s and paper tape. [place] to be removed in the office in 2 weeks. PT - Toe-touch weightbearing with walker and assistance. Use pain medication as directed. Continue LMWH for 2 weeks then change to ASA 325mg PO BID (If aspirin ok with internal medicine/nephrology) Follow up outpatient with Dr. Uribe in 2 weeks -- call for appointment. Call [facility] with questions or concerns. Diet cardiac and renal low potassium Activity as tolerated Follow-up CBC BMP in the ECF Follow-up with Dr. Gee in the ECF. Follow up with Dr. Mata after discharge from ECF Discharge Disposition: TRANSFER TO SNF/ECF
[2019-01-11] MEDS: ACETAMINOPHEN TAB 325 MG TAB PO PRN (14:40)
== END 2019-01-11 14:54 | DRG 481 ==
LOC: EC 15:41 → UNDOADMIN 17:42 → 4SSUR 17:42 → 3SCARD 17:42
PROVIDERS: ADMIT Family Medicine; ATTEND Family Medicine
PROC: 0QS634Z Reposition Right Upper Femur with Internal Fixation Device, Percutaneous Approach (ICD-10-PCS; principal; 2019-01-08 13:30)
DX: S72.011A Unspecified intracapsular fracture of right femur, initial encounter for closed fracture (principal); E87.2 Acidosis; I13.0 Hypertensive heart and chronic kidney disease with heart failure and stage 1 through stage 4 chronic kidney disease, or unspecified chronic kidney disease; I47.2 Ventricular tachycardia; I50.22 Chronic systolic (congestive) heart failure; N17.9 Acute kidney failure, unspecified; N18.4 Chronic kidney disease, stage 4 (severe); E11.22 Type 2 diabetes mellitus with diabetic chronic kidney disease; E87.5 Hyperkalemia; I27.20 Pulmonary hypertension, unspecified; J44.9 Chronic obstructive pulmonary disease, unspecified; S09.90XA Unspecified injury of head, initial encounter; E83.42 Hypomagnesemia; I08.3 Combined rheumatic disorders of mitral, aortic and tricuspid valves; I25.5 Ischemic cardiomyopathy; W01.0XXA Fall on same level from slipping, tripping and stumbling without subsequent striking against object, initial encounter; Y92.511 Restaurant or cafe as the place of occurrence of the external cause; E78.5 Hyperlipidemia, unspecified; I25.10 Atherosclerotic heart disease of native coronary artery without angina pectoris; T50.2X5A Adverse effect of carbonic-anhydrase inhibitors, benzothiadiazides and other diuretics, initial encounter; T50.0X5A Adverse effect of mineralocorticoids and their antagonists, initial encounter; H91.90 Unspecified hearing loss, unspecified ear; Z79.899 Other long term (current) drug therapy; Z95.1 Presence of aortocoronary bypass graft; Z95.810 Presence of automatic (implantable) cardiac defibrillator; Z82.49 Family history of ischemic heart disease and other diseases of the circulatory system; Z80.9 Family history of malignant neoplasm, unspecified
CPT/HCPCS: 36415; 70450; 71045; 72125; 73501; 73502; 76770; 80048; 80053; 81003; 82306; 83735; 84132; 84484; 85025; 85610; 85730; 86850; 86900; 86901; 93005; 94644; 96365; 96366; 96375; 96376; 99285

== ENCOUNTER 2019-01-13 23:15 | Emergency (ER) | payer MEDICARE ==
[~2019-01-13 23:15] MED LIST changes: +EPINEPHrine 10 ML SYRINGE (0.1 MG/ML) ONE; -SODIUM CHLORIDE 0.9% 500 ML 500 ML in EMPTY BAG 1 BAG IV PRN
== END 2019-01-14 01:00 | disposition expired ==
LOC: EC 23:15
DX: I46.9 Cardiac arrest, cause unspecified (principal); I13.0 Hypertensive heart and chronic kidney disease with heart failure and stage 1 through stage 4 chronic kidney disease, or unspecified chronic kidney disease; I50.9 Heart failure, unspecified; K21.9 Gastro-esophageal reflux disease without esophagitis; Z95.1 Presence of aortocoronary bypass graft; Z96.0 Presence of urogenital implants; Z87.81 Personal history of (healed) traumatic fracture
CPT/HCPCS: 99285; 92950; 96374; J0171